=== PATIENT | male | born 1975 | race Caucasian/White ===

== ENCOUNTER 2017-08-23 14:30 | Emergency (ER) | payer BC, SELFPAY ==
[2017-08-23 14:30] VITALS: BP 119/76; PULSE 103; RESP 16; TEMP 36.9; O2SAT 99; BMI 19.2
--- NOTE | 2017-08-23 14:52 | EKG12_ITS ---
Test Reason : CP Blood Pressure : / mmHG Vent. Rate : 092 BPM Atrial Rate : 092 BPM P-R Int : 136 ms QRS Dur : 086 ms QT Int : 338 ms P-R-T Axes : 051 027 054 degrees QTc Int : 417 ms Normal sinus rhythm Normal ECG Confirmed by MARIELOS RICHARD, DANIELE ([id number]), managing editor SUSAN MARTIN ([id number]) on 08/29/2017 2:48:58 PM Referred By: Confirmed By:DANIELE ARCEO MD
--- NOTE | 2017-08-23 14:59 | RAD_ITS ---
STUDY: X-RAY CHEST REASON FOR EXAM: Male, 42 years old. Chest pain. TECHNIQUE: Single AP portable view of the chest. COMPARISON: Comparison is made with prior study dated January 11, 2016. FINDINGS: Hyperinflation. Scattered calcified granulomas. No acute abnormality is seen. There is no demonstrated pleural abnormality. Normal size heart. Normal mediastinum and stu. Normal visualized pulmonary arteries. Normal visualized aortic arch and descending thoracic aorta. Normal visualized thoracic spine. Normal visualized ribs, clavicles, and shoulders. There is no demonstrated abnormality of the visualized soft tissue structures of the upper abdomen. RAD/Chest 1 View (Portable) IMPRESSION: No acute abnormality is seen. Electronically Signed: Kurtis Samuel MD at 15:21 EDT Tel [phone], Service support ,
[2017-08-23 15:25] VITALS: O2SAT 98
[2017-08-23 15:38] LABS: Absolute Lymphocyte Count 1.49 X10^3/ul (0.83-4.51); Basophil# 0.03 X10^3/uL; Basophil% 0.6 % (0-1); Eosinophil# 0.06 X10^3/uL; Eosinophils% 1.2 % (0-5); Hematocrit 39.3 % (40-54); Hemoglobin 13.7 g/dl (13.0-16.5); Lymphocyte # 1.49 X10^3/ul (4.0); Lymphocyte % 29.9 % (19-41); Mean Corp Hgb Conc 34.9 g/gl (32-36); Mean Corpuscular Hgb 32.4 pg (27.0-32.0); Mean Corpuscular Volume 92.9 fL (80-94); Mean Platelet Vol. 9.9 fl (6.2-12.0); Monocyte# 0.38 X10^3/uL; Monocyte% 7.6 % (0-10); Neutrophil # 3.02 X10^3/uL (2.7-7.7); Neutrophil % 60.7 % (47-70); Platelet Count 241 K/mm3 (150-450); RBC Distribution Width CV 12.2 % (11.6-14.6); RBC Distribution Width SD 40.9 fl (35.1-43.9); Red Blood Count 4.23 M/mm3 (4.6-6.2)
[2017-08-23 15:40] LABS: POSITIVE COUNT NO; POSITIVE DIFFERENTIAL NO; POSITIVE MORPHOLOGY NO
[2017-08-23 16:00] LABS: Anion Gap 7 (5-15); BUN 21 mg/dL (7-18); BUN/Creat Ratio 18.4 RATIO (10-20); Calcium,Total 8.8 mg/dL (8.5-10.1); Chloride 104 mmol/L (98-107); Creatinine, Serum 1.14 mg/dL (0.70-1.30); EST Glomerular Filtration Rate 76 mL/min (>60); Est Glom Filt Rate - Afr Amer 92 mL/min (>60); Estimated Creatinine Clearance 71.84 ml/min; Glucose 95 mg/dL (74-106); Potassium 4.3 mmol/L (3.5-5.1); Sodium Level 142 mmol/L (136-145)
--- NOTE | 2017-08-23 16:12 | ED.DCSUM_ITS ---
- ER Visit Summary Date of Service: 08/23/17 Patient was evaluated by Dr. Coombs. This note was generated with [employer] dictation software. It may contain incorrect words, spelling, and punctuation that were not noted in review of the chart prior to signing ED Disposition - Plan for ED Patient: Disposition: Home or Assisted Living Chief Complaint: Allergic Reaction Instructions: ED Allergic Reaction General Other Referrals: Torres Manzanares MD [Primary Care Provider] - 3-5 Days if not improving
[2017-08-23 16:46] VITALS: BP 114/82; PULSE 80; RESP 13; O2SAT 98
--- NOTE | 2017-08-24 10:50 | ED.VISSUMM ---
- ER Visit Summary Date of Service: 08/24/17 Chief Complaint: Chest pain History of Present Illness: The patient is a [address] Manzanares. He reports he has chest pain that began today at 10:00 this morning. Some intermittent pain last 5-10 seconds at a time that he describes as squeezing. Pain is 1 out of 10 at worst and is pain-free currently. States it is worsened by nothing including exertion. Is also relieved by nothing. Reports he does feel mildly nauseated and short of breath. He denies any vomiting or diaphoresis. Patient reports that 2 days ago he was placed on nortriptyline 25 mg p.o. nightly and is looked up the side effects and believes that this is due for to this. He also reports that he stopped his Zoloft cold turkey at the same time. Physical Examination: Vitals: Stable. Afebrile. General: Well-nourished and well-developed. Head: Normocephalic atraumatic. Neck: Supple, no lymphadenopathy. No JVD. Nontender. Cardiovascular: Regular rate and rhythm. No murmurs. Respiratory: No respiratory distress. Clear to auscultation bilaterally. Abdominal: Soft, nontender, nondistended, normal bowel sounds. No guarding, rebound, or peritoneal signs. Back: Nontender. Extremities: Nontender, no edema. Skin: Normal color, no rash. Neurologic: Alert and oriented ?3. Cranial nerves II through XII are intact. Normal strength and sensation. Psych: Normal affect. Test Results: EKG is sinus at [address] changes. Chest x-ray is normal. CBC is normal. Chem-7 is more for BUN of 21. Troponins negative. Emergency Department Course and Treatment: Patient rested comfortably throughout her stay and emerge part without complaint. Treatment Plan: Had a prolonged discussion with patient about the likely possibility of this being related to his nortriptyline. Discussed the half-life with him and to follow-up with his primary care physician in 3-5 days if not improving. I also discussed with him that stopping his Zoloft abruptly is not a good idea and suggested that he restart this. Return to the emergency department for any worsening symptoms. Disposition: To home in improved and stable condition. Impression: 1. Atypical chest pain. 2. Adverse reaction to nortriptyline. This note was generated with [employer] dictation software. It may contain incorrect words, spelling, and punctuation that were not noted in review of the chart prior to signing ED Disposition - Plan for ED Patient: Disposition: Home or Assisted Living Chief Complaint: Allergic Reaction Instructions: ED Allergic Reaction General Other Referrals: Torres Manzanares MD [Primary Care Provider] - 3-5 Days if not improving
== END 2017-08-23 16:51 | disposition home or self-care (01) ==
PROVIDERS: Emergency Provider Emergency Medicine; Family Provider Family Medicine; PCP Family Medicine
DX: R07.89 Other chest pain (principal); T88.7XXA Unspecified adverse effect of drug or medicament, initial encounter; T43.015A Adverse effect of tricyclic antidepressants, initial encounter; Y92.9 Unspecified place or not applicable
CPT/HCPCS: 71045; 80048; 84484; 85025; 93005; 99283; A4216

== ENCOUNTER 2017-10-28 11:47 | Emergency (ER) | payer BC, SELFPAY ==
[2017-10-28 11:50] VITALS: BP 132/82; PULSE 103; RESP 17; TEMP 37; O2SAT 99; BMI 19.1
--- NOTE | 2017-10-28 12:02 | EKG12_ITS ---
Test Reason : NUMBNESS Blood Pressure : / mmHG Vent. Rate : 098 BPM Atrial Rate : 098 BPM P-R Int : 136 ms QRS Dur : 090 ms QT Int : 360 ms P-R-T Axes : 050 116 060 degrees QTc Int : 459 ms Normal sinus rhythm Indeterminate axis Borderline ECG Confirmed by MARIELOS RICHARD, DANIELE ([id number]), rewrite editor SUSAN MARTIN ([id number]) on 10/30/2017 3:26:54 PM Referred By: AYANA Confirmed By:DANIELE ARCEO MD
--- NOTE | 2017-10-28 12:08 | ED.DCSUM_ITS ---
- ER Visit Summary Date of Service: 10/28/17 Chief Complaint: Numbness and tingling History of Present Illness: The patient is a 42 M who reports feeling off since around 8 PM last evening. He developed numbness around his mouth and jaw this morning. He now states that he has numbness and tingling spread diffusely over his body. He has minimal chest pressure. No headache. No weakness. Patient recently had his Zoloft switched to Prozac, but states he has been on Prozac in the past without difficulty. He was also recently started on omeprazole. Physical Examination: Vital signs unremarkable. Patient sitting upright in bed no acute distress. Head neck examination is unremarkable. Heart is regular rate and rhythm. Strong pulses are palpable throughout. Lung sounds are clear. Abdomen is soft nontender. Neuro exam reveals normal strength throughout. He has decreased sensation to light touch throughout, but it is equal side to side. Skin examination reveals no overlying skin changes or rash. Test Results: EKG is sinus at 98 with no sign of acute ischemia. CBC is unremarkable. Chemistry studies reveal potassium slightly low at 3.4. Urinalysis normal. Troponin less than 0.015. Emergency Department Course and Treatment: Patient was given IV fluids here. He is given 40 mEq of potassium chloride. On review of the patient's chart, we have documented an allergy to omeprazole. Patient states he was just restarted on this medication. This was discussed with patient and at bedside. He will stop the omeprazole and will go back to taking Pepcid. He will also received 3 days of potassium replacement for home. Treatment Plan: [] Disposition: Discharge Impression: Paresthesias This note was generated with [employer] dictation software. It may contain incorrect words, spelling, and punctuation that were not noted in review of the chart prior to signing ED Disposition - Plan for ED Patient: Chief Complaint: Numb/Ting Referrals: Torres Manzanares MD [Primary Care Provider] -
[2017-10-28 12:20] LABS: Absolute Lymphocyte Count 1.29 X10^3/ul (0.83-4.51); Absolute Neutrophil Count 2.1 X10^3/uL (2.0-7.7); Basophil# 0.02 X10^3/uL; Basophil% 0.5 % (0-1); Eosinophil# 0.04 X10^3/uL; Eosinophils% 1.1 % (0-5); Hematocrit 39.3 % (40-54); Lymphocyte # 1.29 X10^3/ul (4.0); Lymphocyte % 34.8 % (19-41); Mean Corp Hgb Conc 35.6 g/gl (32-36); Mean Corpuscular Hgb 32.7 pg (27.0-32.0); Mean Corpuscular Volume 91.8 fL (80-94); Mean Platelet Vol. 9.8 fl (6.2-12.0); Monocyte% 8.1 % (0-10); Neutrophil # 2.05 X10^3/uL (2.7-7.7); Neutrophil % 55.2 % (47-70); Platelet Count 214 K/mm3 (150-450); RBC Distribution Width CV 12.1 % (11.6-14.6); RBC Distribution Width SD 40.1 fl (35.1-43.9); Red Blood Count 4.28 M/mm3 (4.6-6.2); White Blood Count 3.7 K/mm3 (4.4-11.0)
[2017-10-28 12:21] LABS: Bacteria 0 SEEN /hpf (None Seen); Mucous, Urine 0 SEEN /hpf (<or=2+); Red Blood Cells-Urine 0 SEEN /hpf (0-5); Squamous Epithelial Cells - UA 0 SEEN /hpf (0-5); White Blood Cells 0 SEEN /hpf (0-5)
[2017-10-28 12:22] LABS: POSITIVE COUNT NO; POSITIVE DIFFERENTIAL NO; POSITIVE MORPHOLOGY NO
[2017-10-28 12:25] LABS: Color, Urine Yellow (Yellow); Glucose, Dipstick Normal (Normal); Ketone-Dipstick Negative (Negative); Leukocyte Esterase-Dipstick Negative /ul (Negative); Nitrite-Dipstick Negative (Negative); Occult Blood-Urine Negative /ul (Negative); Protein-Dipstick Negative (Negative); Urine Bilirubin Dipstick Negative (Negative); Urine Clarity Clear (Clear); Urine Urobilinogen Normal (Normal)
[2017-10-28] MEDS: 0.9% Normal Saline 1,000 ML 1000 ML IV (12:27)
[2017-10-28 12:36] LABS: Anion Gap 6 (5-15); BUN 13 mg/dL (7-18); BUN/Creat Ratio 14.5 RATIO (10-20); Calcium,Total 8.5 mg/dL (8.5-10.1); Chloride 105 mmol/L (98-107); EST Glomerular Filtration Rate 100 mL/min (>60); Est Glom Filt Rate - Afr Amer 120 mL/min (>60); Estimated Creatinine Clearance 90.59 ml/min; Glucose 106 mg/dL (74-106); Potassium 3.4 mmol/L (3.5-5.1); Sodium Level 139 mmol/L (136-145)
--- NOTE | 2017-10-28 12:47 | ED.DEP ---
ED Disposition - Plan for ED Patient: Disposition: Home or Assisted Living Chief Complaint: Numb/Ting Instructions: ED Paraesthesias Prescriptions: Potassium Chloride [K-Dur] 40 meq PO DAILY #3 days Famotidine [Pepcid] 20 mg PO BID #60 tablet Referrals: Torres Manzanares MD [Primary Care Provider] - 1-2 Weeks
== END 2017-10-28 13:07 | disposition home or self-care (01) ==
PROVIDERS: Emergency Provider Emergency Medicine; Family Provider Family Medicine; PCP Family Medicine
DX: R20.2 Paresthesia of skin (principal); R07.9 Chest pain, unspecified; K21.9 Gastro-esophageal reflux disease without esophagitis; F32.9 Major depressive disorder, single episode, unspecified
CPT/HCPCS: 80048; 81001; 84484; 85025; 93005; 96360; 99284; J7030; A4216

== ENCOUNTER 2017-12-25 12:07 | Emergency (ER) | payer BC, SELFPAY ==
[2017-12-25 12:10] VITALS: BP 137/95; PULSE 90; RESP 17; TEMP 36.8; O2SAT 99; BMI 19.9
--- NOTE | 2017-12-25 12:34 | EKG12_ITS ---
Test Reason : CP Blood Pressure : / mmHG Vent. Rate : 088 BPM Atrial Rate : 088 BPM P-R Int : 142 ms QRS Dur : 090 ms QT Int : 366 ms P-R-T Axes : 064 -21 060 degrees QTc Int : 442 ms Normal sinus rhythm Normal ECG Confirmed by ZHANNA RICHARD, KEI ([id number]), field map editor SUSAN MARTIN ([id number]) on 12/26/2017 3:22:08 PM Referred By: JESSICA Confirmed By:KEI CHAO MD
--- NOTE | 2017-12-25 12:34 | RAD_ITS ---
STUDY: X-RAY CHEST REASON FOR EXAM: Male, 42 years old. Sternal chest pain. Right shoulder pain. TECHNIQUE: Single AP portable view of the chest. COMPARISON: Comparison is made with prior study dated August 24, 1999 FINDINGS: EKG electrodes are seen. Hyperinflation. Scattered calcified granulomas. There is no demonstrated pleural abnormality. Normal size heart. Normal mediastinum and stu. Normal visualized pulmonary arteries. Normal visualized aortic arch and descending thoracic aorta. Normal visualized thoracic spine. Normal visualized ribs, clavicles, and shoulders. There is no demonstrated abnormality of the visualized soft tissue structures of the upper abdomen. RAD/Chest 1 View (Portable) IMPRESSION: Hyperinflation. The lungs are clear. Electronically Signed: Kurtis Samuel MD at 12:58 EST Tel [phone], Service support ,
--- NOTE | 2017-12-25 12:35 | ED.VISSUMM ---
- ER Visit Summary Date of Service: 12/25/17 Chief Complaint: Chest pain History of Present Illness: The patient is a 42 M presenting with chest pain. This started at 8 AM. He has had 10-second episodes of sharp chest pain. He states it occasionally radiates to his right shoulder. Currently he is pain-free. At worst it is 6 out of 10. He has had several episodes today. He states it is not worsened or relieved by anything including exertion. He denies nausea, vomiting, diaphoresis, shortness of breath. He has had similar symptoms in the past. His grandfather had coronary artery disease at an unknown age, no other coronary disease risk factors. No PE/DVT risk factors. He has a history of rheumatoid arthritis and anxiety. He is a previous smoker. Physical Examination: Vitals are stable. Patient is afebrile. Alert no acute distress. HEENT exam is unremarkable. Neck is supple. Lungs are clear and equal bilaterally. Heart is regular rate and rhythm. Abdomen is soft nontender nondistended. Extremities are unremarkable. Skin is warm and dry. No focal neurologic deficit. Remainder of exam is unremarkable. Emergency Department Course and Treatment: EKG is sinus rate of 88 with no acute ischemic changes. Patient was given aspirin on arrival. Chest x-ray shows no acute process. CBC, chemistries unremarkable. Troponin is negative. D-dimer is negative. Repeat troponin is also negative. Patient is pain-free on reevaluation. He will be discharged to follow-up with his primary care physician. Advised return to ED if worsening complaints. Disposition: Discharge home Impression: Atypical chest pain This note was generated with [employer] dictation software. It may contain incorrect words, spelling, and punctuation that were not noted in review of the chart prior to signing ED Disposition - Plan for ED Patient: Chief Complaint: Chest Pain Referrals: Jenifer Bailon MD [Primary Care Provider] -
[2017-12-25 12:45] VITALS: O2SAT 99
[2017-12-25 12:46] LABS: Absolute Lymphocyte Count 1.38 X10^3/ul (0.83-4.51); Absolute Neutrophil Count 4.2 X10^3/uL (2.0-7.7); Basophil# 0.02 X10^3/uL; Basophil% 0.3 % (0-1); Eosinophil# 0.06 X10^3/uL; Hematocrit 41.2 % (40-54); Lymphocyte # 1.38 X10^3/ul (4.0); Lymphocyte % 22.8 % (19-41); Mean Corpuscular Hgb 32.6 pg (27.0-32.0); Mean Platelet Vol. 9.9 fl (6.2-12.0); Monocyte# 0.38 X10^3/uL; Monocyte% 6.3 % (0-10); Neutrophil % 69.4 % (47-70); POSITIVE COUNT NO; POSITIVE DIFFERENTIAL NO; POSITIVE MORPHOLOGY NO; Platelet Count 258 K/mm3 (150-450); RBC Distribution Width CV 12.7 % (11.6-14.6); RBC Distribution Width SD 42.7 fl (35.1-43.9); Red Blood Count 4.29 M/mm3 (4.6-6.2); White Blood Count 6.1 K/mm3 (4.4-11.0)
[2017-12-25] MEDS: Aspirin 81 MG TAB.CHEW 324 MG PO (12:47)
[2017-12-25 12:55] LABS: Anion Gap 3 (5-15); BUN 11 mg/dL (7-18); BUN/Creat Ratio 10.6 RATIO (10-20); Calcium,Total 8.4 mg/dL (8.5-10.1); Chloride 103 mmol/L (98-107); Creatinine, Serum 1.04 mg/dL (0.70-1.30); D-Dimer Quantitative (DVT/PE) < 0.27 FEU/ug/m (0.27-0.49); EST Glomerular Filtration Rate 84 mL/min (>60); Est Glom Filt Rate - Afr Amer 102 mL/min (>60); Estimated Creatinine Clearance 81.78 ml/min; Glucose 88 mg/dL (74-106); Potassium 3.9 mmol/L (3.5-5.1); Sodium Level 138 mmol/L (136-145)
[2017-12-25 13:08] VITALS: BP 115/84; PULSE 72; RESP 21; O2SAT 100
[2017-12-25 14:00] VITALS: BP 101/71; PULSE 57; RESP 11; O2SAT 97
[2017-12-25 15:00] VITALS: BP 99/65; PULSE 81; RESP 16; O2SAT 100
[2017-12-25 16:00] VITALS: BP 122/84; PULSE 86; RESP 20; O2SAT 100
--- NOTE | 2017-12-25 16:23 | ED.DEP ---
ED Disposition - Plan for ED Patient: Chief Complaint: Chest Pain Instructions: ED Chest Pain Atypical Unkn Cause Referrals: Jenifer Bailon MD [Primary Care Provider] -
== END 2017-12-25 16:35 | disposition home or self-care (01) ==
PROVIDERS: Emergency Provider Emergency Medicine; Family Provider Internal Medicine; PCP Internal Medicine
DX: R07.89 Other chest pain (principal); M06.9 Rheumatoid arthritis, unspecified; Z87.891 Personal history of nicotine dependence
CPT/HCPCS: 71045; 80048; 84484; 85025; 85379; 93005; 99283; A4216

== ENCOUNTER → 2018-01-18 06:53 | Outpatient (CLI) | payer BC, SELFPAY ==
[2017-12-25 12:10] VITALS: BMI 19.9
[2018-01-18 08:50] LABS: Hemoglobin A1c 5.2 % (4.2-6.3)
[2018-01-18 08:56] LABS: Cholesterol 162 mg/dL (200); High Density Lipoprotein 50 mg/dL; Thyroid Stim Hormone (TSH) 2.16 uIU/mL (0.358-3.74); Triglycerides 73 mg/dL; Very Low Density Lipoprotein 15 mg/dL (5-40)
== END ==
PROVIDERS: Family Provider Internal Medicine; PCP Internal Medicine; Referring Provider Internal Medicine; Visit Provider Internal Medicine
DX: R19.7 Diarrhea, unspecified (principal); Z13.220 Encounter for screening for lipoid disorders; Z13.1 Encounter for screening for diabetes mellitus; F32.9 Major depressive disorder, single episode, unspecified
CPT/HCPCS: 36415; 80061; 83036; 83630; 84443; 87506

== ENCOUNTER 2018-01-26 19:20 | Emergency (ER) | payer BC, SELFPAY ==
[2018-01-26 19:22] VITALS: BP 125/88; PULSE 88; RESP 20; TEMP 36.8; O2SAT 100; BMI 22.6
--- NOTE | 2018-01-26 19:44 | EKG12_ITS ---
Test Reason : CP Blood Pressure : / mmHG Vent. Rate : 088 BPM Atrial Rate : 088 BPM P-R Int : 138 ms QRS Dur : 092 ms QT Int : 366 ms P-R-T Axes : 047 034 043 degrees QTc Int : 442 ms Normal sinus rhythm Normal ECG Confirmed by MARIELOS RICHARD, DANIELE ([id number]), manager editorial SUSAN MARTIN ([id number]) on 01/31/2018 3:49:08 PM Referred By: Jenifer Bailon Confirmed By:DANIELE ARCEO MD
--- NOTE | 2018-01-26 19:45 | RAD_ITS ---
STUDY: X-RAY CHEST REASON FOR EXAM: Male, 42 years old. CHEST PAIN TECHNIQUE: Single AP portable view of the chest. COMPARISON: 12.25.17 FINDINGS: The lungs are clear and expanded. There is no demonstrated pleural abnormality. Normal size heart. Normal mediastinum and stu. Normal visualized pulmonary arteries. Normal visualized aortic arch and descending thoracic aorta. Normal visualized thoracic spine. Normal visualized ribs, clavicles, and shoulders. There is no demonstrated abnormality of the visualized soft tissue structures of the upper abdomen. RAD/Chest 1 View (Portable) IMPRESSION: Normal x-ray examination of the chest. Electronically Signed: Riky Donohue MD at 20:19 EST , Service support ,
[2018-01-26] MEDS: Mag Hydrox/Al Hydrox/Simeth 30 ML UDC PO (19:52)
[2018-01-26 19:53] LABS: Absolute Lymphocyte Count 1.66 X10^3/ul (0.83-4.51); Absolute Neutrophil Count 2.6 X10^3/uL (2.0-7.7); Basophil# 0.02 X10^3/uL; Basophil% 0.4 % (0-1); Eosinophil# 0.07 X10^3/uL; Eosinophils% 1.5 % (0-5); Hematocrit 39.9 % (40-54); Hemoglobin 13.6 g/dl (13.0-16.5); Lymphocyte # 1.66 X10^3/ul (4.0); Mean Corp Hgb Conc 34.1 g/gl (32-36); Mean Corpuscular Hgb 32.5 pg (27.0-32.0); Mean Corpuscular Volume 95.2 fL (80-94); Mean Platelet Vol. 10.2 fl (6.2-12.0); Monocyte# 0.41 X10^3/uL; Monocyte% 8.6 % (0-10); Neutrophil # 2.58 X10^3/uL (2.7-7.7); Neutrophil % 54.5 % (47-70); Platelet Count 237 K/mm3 (150-450); RBC Distribution Width CV 12.6 % (11.6-14.6); RBC Distribution Width SD 43.4 fl (35.1-43.9); Red Blood Count 4.19 M/mm3 (4.6-6.2); White Blood Count 4.7 K/mm3 (4.4-11.0)
[2018-01-26 19:54] LABS: POSITIVE COUNT NO; POSITIVE DIFFERENTIAL NO; POSITIVE MORPHOLOGY NO
[2018-01-26 20:05] LABS: Anion Gap 6 (5-15); BUN 16 mg/dL (7-18); BUN/Creat Ratio 15.8 RATIO (10-20); Calcium,Total 8.6 mg/dL (8.5-10.1); Chloride 107 mmol/L (98-107); Creatinine, Serum 1.01 mg/dL (0.70-1.30); EST Glomerular Filtration Rate 87 mL/min (>60); Est Glom Filt Rate - Afr Amer 105 mL/min (>60); Estimated Creatinine Clearance 92.82 ml/min; Glucose 90 mg/dL (74-106); Potassium 3.4 mmol/L (3.5-5.1); Sodium Level 142 mmol/L (136-145)
--- NOTE | 2018-01-26 20:19 | ED.RN ---
PATIENT STATES THAT THE HEART BURN AND CHEST PAIN HAVE GOTTEN BETTER. HE IS RATING IS PAIN AT 2/10.
--- NOTE | 2018-01-26 20:34 | ED.DCSUM_ITS ---
- ER Visit Summary Date of Service: 01/26/18 Chief Complaint: Chest pain History of Present Illness: The patient is a 42 M who states that today around 130 he was at work and to have an intermittent but frequent chest pain in the center of his chest radiating to his back and into the right arm. States he has nausea and associated heartburn with it he states he has had an EGD in the past was diagnosed with esophagitis. He quit alcohol around that time approximately 3 years ago. Quit smoking about 1 year ago quit chewing tobacco 1 month ago. He currently does not take anything for GERD. He has not had any diagnosis of coronary artery disease. No history of hypercholesterolemia or hypertension. He currently takes Zoloft and Remeron. No significant shortness of breath. As the symptoms were persisting to come and go he came to the emergency department for evaluation. Looking back over the past several years the patient states that the symptoms have been present but have been worsening. Physical Examination: Afebrile vital signs stable Gen: Well-nourished well-developed Head: Normocephalic atraumatic Eyes: Perrl EOMI ENT: TMs clear no rhinorrhea moist mucous membranes Neck: Supple no lymphadenopathy no JVD nontender CVS: Regular rate rhythm no murmurs normal S1-S2 Respiratory: No distress clear to auscultation bilaterally chest nontender Abdomen: Soft nontender nondistended normal bowel sounds no masses Back: Nontender Extremity: Nontender no edema Skin: Normal color no rash Neuro: alert orientated ?3 CN II-XII intact normal strength sensation reflexes gait cerebellar Psych: Normal affect normal mood Test Results: EKG sinus rhythm rate of 88. Troponin is negative. Chest x-ray no acute findings. Emergency Department Course and Treatment: Patient received a GI cocktail. I will place him on Pepcid twice daily. The patient was diagnosed with esophagitis in the past and he states that the symptoms seem to be continuing over the past several years but worsening I urged him to follow-up with primary care and by walking possibly require a repeat EGD. I will add on a H. pylori test. Impression: 1. Chest pain 2. Esophagitis This note was generated with [employer] software. It may contain incorrect words, spelling, and punctuation that were not noted in review of the chart prior to signing ED Disposition - Plan for ED Patient: Disposition: Home or Assisted Living Chief Complaint: Chest Pain Instructions: Esophagitis Prescriptions: Famotidine [Pepcid] 20 mg PO BID #28 tab Referrals: Jenifer Bailon MD [Primary Care Provider] - (in 2 weeks )
[2018-01-26 20:46] VITALS: BP 111/75; PULSE 83; PULSE 85; RESP 18; RESP 22; O2SAT 100; O2SAT 23
[2018-01-26 20:47] VITALS: BP 111/75; PULSE 99; RESP 22; O2SAT 100
--- OUTSIDE RECORDS SUMMARY | 2018-05-02 07:44 | XMS RPT_ITS ---
:1975 Author Organization OHIP Support Name Relationship Address Phone ELIOT JEAN BAPTISTE Unavailable [address] + [place] [phone] ELIOT JEAN BAPTISTE Unavailable [address] Unavailable [place], [place] [phone] NOT GIVEN Unavailable Unavailable Unavailable CONROY, SHELLY Unavailable Unavailable + CONROY, SHELLY Unavailable Unavailable + CONROY, GAUDENCIO Unavailable [address] + [place] [address] CONROY, CHRISTIAN Unavailable [address] [facility] + [place] [address] JEAN BAPTISTE, TEDDY Unavailable [address] + [place] [address] WOOGL Unavailable [address] + [place] [address] CONROY, CHRISTIAN Unavailable [address] + [place] [address] JEAN BAPTISTE, TEDDY Unavailable [address] + [place] [address] WOOGL Unavailable [address] + [place] [address] CONROY, SHELLY Unavailable Unavailable + CONROY, SHELLY Unavailable Unavailable + CONROY, GAUDENCIO Unavailable [address] + [place] [address] CONROY, SHELLY Unavailable Unavailable + CONROY, SHELLY Unavailable Unavailable + CONROY, GAUDENCIO Unavailable [address] + [place] [address] CONROY, CHRISTIAN Unavailable [address] [facility] + [place] [address] MARKLE TEDDY Unavailable [address] + [place] [address] WOOGL Unavailable [address] + [place] [address] CONROY, SHELLY Unavailable Unavailable + CONROY, SHELLY Unavailable Unavailable + CONROY, GAUDENCIO Unavailable [address] + [place] [address] CONROY, CHRISTIAN Unavailable [address] + [place] [address] MARKEL TEDDY Unavailable [address] + [place] [address] WOOGL Unavailable [address] + [place] [address] CONROY, SHELLY Unavailable Unavailable + CONROY, SHELLY Unavailable Unavailable + CONROY, GAUDENCIO Unavailable [address] + [place] [address] CONROY, SHELLY Unavailable Unavailable + CONROY, SHELLY Unavailable Unavailable + CONROY, GAUDENCIO Unavailable [address] + [place] [address] CONROY, CHRISTIAN Unavailable [address] + [place] [address] TEDDY JEAN BAPTISTE Unavailable [address] + [place] [address] WOOGL Unavailable [address] + [place] [address] CONROY, SHELLY Unavailable Unavailable + CONROY, SHELLY Unavailable Unavailable + CONROY, GAUDENCIO Unavailable [address] + [place] [address] CONROY, SHELLY Unavailable Unavailable + CONROY, SHELLY Unavailable Unavailable + CONROY, GADUENCIO Unavailable [address] + [place] [address] CONROY, SHELLY Unavailable Unavailable + CONROY, SHELLY Unavailable Unavailable + CONROY, SHELLY Unavailable Unavailable + CONROY, SHELLY Unavailable Unavailable + Care Team Providers Name Role Phone MONIQUE BAILON MD Admitting Unavailable MONIQUE BAILON MD Attending Unavailable MONIQUE BAILON MD Primary Care Unavailable MONIQUE BAILON MD Consulting Unavailable PROVIDER, UNKNOWN Consulting Unavailable PROVIDER, UNKNOWN Consulting Unavailable PROVIDER, UNKNOWN Consulting Unavailable BRICE SLOAN ([facility]) Attending Unavailable FREEMAN MANZANARES Referring Unavailable BRICE SLOAN ([facility]) Referring Unavailable FREEMAN MANZANARES Attending Unavailable PODLOGSHAREE MARI ([facility]) Attending Unavailable KENYATTA VERDIN ([facility]) Attending Unavailable KENYATTA VERDIN ([facility]) Referring Unavailable CEBUL III, JEN A Attending Unavailable DEEPIKA STROUD (PA) Attending Unavailable FREEMAN MANZANARES Referring Unavailable CECILIA ARREDONDO Attending Unavailable FREEMAN MANZANARES Referring Unavailable KENYATTA VERDIN ([facility]) Attending Unavailable KENYATTA VERDIN ([facility]) Referring Unavailable KENYATTA VERDIN ([facility]) Referring Unavailable SANGITA GOLDSTEIN (PA) Attending Unavailable FREEMAN MANZANARES Referring Unavailable SANGITA GOLDSTEIN (PA) Referring Unavailable CLOVER JIN ([employer]) Attending Unavailable CECILIA ARREDONDO Attending Unavailable CLOVER JIN ([employer]) Referring Unavailable FREEMAN MANZANARES Attending Unavailable KENYATTA VERDIN ([facility]) Referring Unavailable TIARA BRIGHT Referring Unavailable FREEMAN MANZANARES Attending Unavailable TO HEALY Attending Unavailable MONIQUE BAILON Referring Unavailable HERMELINDA KOROMA MD Attending Unavailable DARRIN TOMAS, DR. COURTNEY Caro Primary Care Unavailable OWOC DO, DR. RISA Shell Attending Unavailable DARRIN RICHARD., DR. COURTNEY Caro Primary Care Unavailable LAWRENCE GUILLAUME Attending Unavailable DARRIN RICHARD., DR. COURTNEY Caro Primary Care Unavailable HERMELINDA KOROMA MD Attending Unavailable DARRIN RICHARD., DR. COURTNEY Caro Primary Care Unavailable HERMELINDA KOROMA MD Attending Unavailable DARRIN TOMAS, DR. COURTNEY Caro Primary Care Unavailable HERMELINDA KOROMA MD Attending Unavailable GLENNA TOMAS, DR. MILLARD Primary Care Unavailable Andrea RICHARD, Rosie Tripathi Attending Unavailable GLENNA TOMAS, DR. MILLARD Primary Care Unavailable NITHIN NY DO Attending Unavailable GLENNA TOMAS, DR. MILLARD Primary Care Unavailable PHYSICIAN, PATIENT UNSURE Primary Care Unavailable JF CAMPBELL Attending Unavailable Rosie Mendez MD Attending Unavailable UVALDO TOMAS, MONIQUE Primary Care Unavailable Monique Bailon Primary Care Unavailable Sameer Fonseca Attending Unavailable Freeman Manzanares Primary Care Unavailable Gordy Coombs Attending Unavailable Freeman Manzanares Primary Care Unavailable Dot Last Attending Unavailable Mariaelena Acevedo Attending Unavailable Monique Bailon Primary Care Unavailable Monique Bailon Attending Unavailable Monique Bailon Referring Unavailable UvaldoMonique wei Primary Care Unavailable PROBLEMS PROBLEMS DATE TYPE CONDITION / CODE ATTENDING STATUS SOURCE 01/18/2018 Unknown Z13.220 - Monique Bailon Active [place] Encounter for Community screening for Hospital lipoid disorders Repository / Z13.220(ICD-10) 01/18/2018 Unknown Z13.1 - Encounter Monique Bailon Active [place] for screening for Community diabetes mellitus Hospital / Z13.1(ICD-10) Repository 01/18/2018 Unknown 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, single Hospital episode, Repository unspecified / F32.9(ICD-10) 10/18/2017 Active Hyperglycemia, NA Active [facility] unspecified / [facility] [place] R73.9(ICD-10) Repository 10/05/2017 Active Shortness of NA Active [facility] breath / [facility] [place] R06.02(ICD-10) Repository 08/31/2017 Active Myalgia / NA Active [facility] M79.1(ICD-10) [facility] [place] Repository 05/08/2017 Active Unknown / GLENNA Active [facility] UNK(Unknown) FREEMAN Aleman [facility] [place] Repository 03/17/2017 Active Encounter for NA Active [facility] therapeutic drug [facility] [place] level monitoring Repository / Z51.81(ICD-10) PROCEDURES PROCEDURES No Procedure Records FoundRESULTS RESULTS PROGRESS Observed: 02/23/2018 Status: COMPLETED Source: [facility] 5:42 AM [facility] REPOSITORY HNO ID: [id number] Author: To Healy Service: (none) Author Type: Physician Type: Progress Notes Filed: 02/23/2018 5:48 AM Note Text: HISTORY AND PHYSICAL Carlos A [place] 1975 REFERRING PHYSICIAN: Monique Bailon MD CHIEF COMPLAINT: Consult (Consult EGD- atypical chest pain-negative cardiac workup) HPI: The patient is a 42 year old male referred for endoscopy. Carlos A notes no history of colon complaints. The patient notes recurrent complaints for the last month and a half of epigastric pain and pain into his chest through to his arm. He feels this is likely recurrence of his reflux type symptoms area the patient has stopped alcohol and stopped all tobacco products and still having these symptoms. He was restarted on Pepcid without improvement. He has tried both Protonix and omeprazole. With pain in his chest radiating to his arm the patient underwent a stress test which was listed as negative for ischemia with good functional capacity and no exercise-induced chest pain Carlos A has undergone prior endoscopy. He underwent upper endoscopy on January 18, 2017. The patient was found to have mild gastritis and was felt to be enough flamelike pattern is his distal esophagus to be consistent with longer segment Soriano's esophagitis. FINAL DIAGNOSIS 1. Stomach, antrum, biopsy (A) - Gastric antral body-type mucosa with no pathologic diagnostic abnormality; see comment. 2. Esophagogastric junction, biopsy (B) - Gastric oxyntic- type mucosa with no pathologic diagnostic abnormality; negative for squamous mucosa, intestinal metaplasia and dysplasia. 3. Esophagus, mid, biopsy (C) - Squamous mucosa with no pathologic diagnostic abnormality; negative for intraepithelial eosinophils. 4. Esophagus, 3 cm above esophagogastric junction, biopsy (D) - Mild reactive squamous mucosa and mild chronic inflammation of the gastric oxyntic-type mucosa; negative for intestinal metaplasia and dysplasia. The patient is being seen by me today at the request of Dr. Bailon for my opinion and advice regarding recurring epigastric symptoms. PAST MEDICAL HISTORY Diagnosis Date - Acid indigestion 10/05/2016 Added automatically from request for surgery [id number] - Anxiety 01/20/2015 - History of alcohol abuse PAST SURGICAL HISTORY Procedure Laterality Date - EGD W/O OR W/BRUSH/WASH 01/18/2017 EGD - REPAIR UMBILICAL YULY,5+Y/O,REDUC 09/12/2017 Hernia repair, ventral/supraumbilical >5yr - VASECTOMY 02/23/12 Current Outpatient Prescriptions: Omeprazole 40 mg capsule DAILY pantoprazole DR (PROTONIX) 20 mg tablet Take 20 mg by mouth once daily. sertraline (ZOLOFT) 100 mg tablet take 1/2 tablet by mouth once daily for 14 days then INCREASE to 1 tablet daily cyclobenzaprine (FLEXERIL) 10 mg tablet Take 1 tablet by mouth three times daily as needed. fluticasone (FLONASE) 50 mcg/actuation nasal spray Use 2 Sprays in each nostril once daily. Rinse mouth after use. multivitamin tablet Take 1 tablet by mouth once daily. [place]-3 Fatty Acids (FISH OIL) 500 mg cap Take 2 capsules by mouth once daily. BACILLUS COAGULANS (PROBIOTIC, B. COAGULANS, ORAL) Take by mouth. methotrexate 2.5 mg tablet TAKE 5 TABLETS BY MOUTH ONCE A WEEK - START 4 TABLETS ONCE A WEEK FOR 2 WEEKS leucovorin (LEUCOVORIN) 15 mg tablet Take 1 tablet by mouth once each week. folic acid 1 mg tablet Take 2 tablets by mouth once daily. predniSONE (DELTASONE) 10 mg tablet Take 1 tablet by mouth once daily. hydrOXYzine pamoate (VISTARIL) 25 mg capsule Take 1 capsule by mouth three times daily as needed. venlafaxine ER (EFFEXOR XR) 75 mg 24 hr capsule Take 1 capsule by mouth once daily. FLUoxetine (PROZAC) 20 mg capsule Take 1 capsule by mouth once daily. mirtazapine (REMERON) 15 mg tablet Take 1 tablet by mouth daily at bedtime. famotidine (PEPCID) 20 mg tablet Take 1 tablet by mouth twice daily. fluticasone (FLONASE) 50 mcg/actuation nasal spray Use 2 Sprays in each nostril once daily. Rinse mouth after use. albuterol HFA (VENTOLIN HFA) 90 mcg/actuation inhaler Inhale 2 Puffs as instructed every 4 hours as needed for Wheezing/Shortness of Breath. No current facility-administered medications for this visit. ALLERGIES: Celexa [Citalopram Hydrobromide]; Doxycycline; Hydroxyzine; Nortriptyline; Omeprazole; Zantac [Ranitidine Hcl] PERSONAL HISTORY: Social History Marital status: Spouse name: Years of education: Number of children: 2 Social History Main Topics Smoking status: Former Smoker Packs/day: 0.50 Years: 0.00 Types: Cigarettes Start date: 03/12/2008 Quit date: 10/05/2016 Smokeless tobacco: Current User Types: Snuff Comment: 4-6 cigatettes a day from 2008-09/2016 Alcohol use: No Comment: Stopped drinking ETOH as of 12/2014 Drug use: No Sexual activity: Yes Partners with: Female control/protection: IUD FAMILY HISTORY: FAMILY HISTORY Problem Relation Age of Onset - Thyroid Mother - Hypertension Mother - other (ovarian mass) Mother benign - other (Gallstones) Mother - None Father - Alcohol/Drug Maternal Grandmother - Cancer Maternal Grandfather unknown - Alcohol/Drug Paternal Grandfather - Stroke Paternal Grandfather - Heart Paternal Grandfather - Cancer Maternal Aunt type unknown - Alcohol/Drug Maternal Aunt - Alcohol/Drug Maternal Aunt - Alcohol/Drug Maternal Aunt - Alcohol/Drug Maternal Uncle - Alcohol/Drug Paternal Aunt - Alcohol/Drug Paternal Aunt - Cerebral Embolism Son REVIEW OF SYMPTOMS: The review of systems data was entered by the nurse and reviewed by me There are no exam notes on file for this visit. PHYSICAL EXAMINATION: General: The patient is 42 year old male, well nourished, well hydrated in no acute distress. The patient is oriented to time, place, and person. VITALS: Blood pressure 104/68, pulse 89, temperature 36.4 ?C (97.6 ?F), height 175.3 cm (5' 9), weight 65.4 kg (144 lb 3.2 oz), SpO2 95 %. Body mass index is 21.29 kg/m?. HEENT: Normal cephalic, ataumatic, pupils are equally round, sclera are anicteric, mucous membranes are moist, oropharynx is clear. Neck has no masses, asymmetry or lymphadenopathy. Thyroid is unremarkable. Respiratory: Clear to auscultation and percussion. Normal respiratory excursion and pattern. Cardiac: Examination is regular rate and rhythm. Abdominal exam: Soft, nontender, with no palpable masses. No hepatosplenomegaly. No palpable hernias. Rectal exam: exam deferred Extremities: no clubbing, cyanosis or edema. No adenopathy. Other: LABORATORY VALUES: As Noted RADIOLOGIC STUDIES: As Noted Assessment IMPRESSION: Recurring epigastric symptoms, negative cardiac workup, clinical suspicion for Soriano's esophagitis PLAN: I plan to perform upper endoscopy. We discussed the risks and benefits of the planned endoscopy. I have informed the patient that complications can occur including failure to complete the endoscopy and perforation. The patient had the opportunity to ask questions concerning the planned endoscopy. My staff has also explained the procedure to the patient in understandable terms and has given the patient printed material concerning the procedure. The patient freely consents to surgery. I plan for monitored anesthetic care. Diagnoses: (R10.13) Epigastric pain (primary encounter diagnosis) A letter was sent to Dr. Monique Bailon MD indicating the above finding for this patient. Return to Clinic: The patient is instructed to follow-up with me after the testing has been completed. To Healy MD CNOV Observed: 02/22/2018 Status: COMPLETED Source: [facility] 10:40 AM [facility] RE[facility]IT[facility] Office Visit ([facility]) CARLOS A CONROY ([id number]) 1975 Date Time Provider Department 02/22/18 10:40 AM TO HEALY During your visit today, we recorded the following information about you: Temperature Pulse Blood pressure Weight 97.6 degrees 89/minute 104/68 65.4 kg Height 1.753 m To Healy MD 02/23/2018 5:48 AM Signed HISTORY AND PHYSICAL Carlos A [place] 1975 REFERRING PHYSICIAN: Monique Bailon MD CHIEF COMPLAINT: Consult (Consult EGD- atypical chest pain- negative cardiac workup) HPI: The patient is a 42 year old male referred for endoscopy. Carlos A notes no history of colon complaints. The patient notes recurrent complaints for the last month and a half of epigastric pain and pain into his chest through to his arm. He feels this is likely recurrence of his reflux type symptoms area the patient has stopped alcohol and stopped all tobacco products and still having these symptoms. He was restarted on Pepcid without improvement. He has tried both Protonix and omeprazole. With pain in his chest radiating to his arm the patient underwent a stress test which was listed as negative for ischemia with good functional capacity and no exercise-induced chest pain Carlos A has undergone prior endoscopy. He underwent upper endoscopy on January 18, 2017. The patient was found to have mild gastritis and was felt to be enough flamelike pattern is his distal esophagus to be consistent with longer segment Soriano's esophagitis. FINAL DIAGNOSIS 1. Stomach, antrum, biopsy (A) - Gastric antral body-type mucosa with no pathologic diagnostic abnormality; see comment. 2. Esophagogastric junction, biopsy (B) - Gastric oxyntic- type mucosa with no pathologic diagnostic abnormality; negative for squamous mucosa, intestinal metaplasia and dysplasia. 3. Esophagus, mid, biopsy (C) - Squamous mucosa with no pathologic diagnostic abnormality; negative for intraepithelial eosinophils. 4. Esophagus, 3 cm above esophagogastric junction, biopsy (D) - Mild reactive squamous mucosa and mild chronic inflammation of the gastric oxyntic-type mucosa; negative for intestinal metaplasia and dysplasia. The patient is being seen by me today at the request of Dr. Bailon for my opinion and advice regarding recurring epigastric symptoms. PAST MEDICAL HISTORY Diagnosis Date - Acid indigestion 10/05/2016 Added automatically from request for surgery [id number] - Anxiety 01/20/2015 - History of alcohol abuse PAST SURGICAL HISTORY Procedure Laterality Date - EGD W/O OR W/BRUSH/WASH 01/18/2017 EGD - REPAIR UMBILICAL YULY,5+Y/O,REDUC 09/12/2017 Hernia repair, ventral/supraumbilical >5yr - VASECTOMY 02/23/12 Current Outpatient Prescriptions: Omeprazole 40 mg capsule DAILY pantoprazole DR (PROTONIX) 20 mg tablet Take 20 mg by mouth once daily. sertraline (ZOLOFT) 100 mg tablet take 1/2 tablet by mouth once daily for 14 days then INCREASE to 1 tablet daily cyclobenzaprine (FLEXERIL) 10 mg tablet Take 1 tablet by mouth three times daily as needed. fluticasone (FLONASE) 50 mcg/actuation nasal spray Use 2 Sprays in each nostril once daily. Rinse mouth after use. multivitamin tablet Take 1 tablet by mouth once daily. [place]-3 Fatty Acids (FISH OIL) 500 mg cap Take 2 capsules by mouth once daily. BACILLUS COAGULANS (PROBIOTIC, B. COAGULANS, ORAL) Take by mouth. methotrexate 2.5 mg tablet TAKE 5 TABLETS BY MOUTH ONCE A WEEK - START 4 TABLETS ONCE A WEEK FOR 2 WEEKS leucovorin (LEUCOVORIN) 15 mg tablet Take 1 tablet by mouth once each week. folic acid 1 mg tablet Take 2 tablets by mouth once daily. predniSONE (DELTASONE) 10 mg tablet Take 1 tablet by mouth once daily. hydrOXYzine pamoate (VISTARIL) 25 mg capsule Take 1 capsule by mouth three times daily as needed. venlafaxine ER (EFFEXOR XR) 75 mg 24 hr capsule Take 1 capsule by mouth once daily. FLUoxetine (PROZAC) 20 mg capsule Take 1 capsule by mouth once daily. mirtazapine (REMERON) 15 mg tablet Take 1 tablet by mouth daily at bedtime. famotidine (PEPCID) 20 mg tablet Take 1 tablet by mouth twice daily. fluticasone (FLONASE) 50 mcg/actuation nasal spray Use 2 Sprays in each nostril once daily. Rinse mouth after use. albuterol HFA (VENTOLIN HFA) 90 mcg/actuation inhaler Inhale 2 Puffs as instructed every 4 hours as needed for Wheezing/Shortness of Breath. No current facility-administered medications for this visit. ALLERGIES: Celexa [Citalopram Hydrobromide]; Doxycycline; Hydroxyzine; Nortriptyline; Omeprazole; Zantac [Ranitidine Hcl] PERSONAL HISTORY: Social History Marital status: Spouse name: Years of education: Number of children: 2 Social History Main Topics Smoking status: Former Smoker Packs/day: 0.50 Years: 0.00 Types: Cigarettes Start date: 03/12/2008 Quit date: 10/05/2016 Smokeless tobacco: Current User Types: Snuff Comment: 4-6 cigatettes a day from 2008-09/2016 Alcohol use: No Comment: Stopped drinking ETOH as of 12/2014 Drug use: No Sexual activity: Yes Partners with: Female control/protection: IUD FAMILY HISTORY: FAMILY HISTORY Problem Relation Age of Onset - Thyroid Mother - Hypertension Mother - other (ovarian mass) Mother benign - other (Gallstones) Mother - None Father - Alcohol/Drug Maternal Grandmother - Cancer Maternal Grandfather unknown - Alcohol/Drug Paternal Grandfather - Stroke Paternal Grandfather - Heart Paternal Grandfather - Cancer Maternal Aunt type unknown - Alcohol/Drug Maternal Aunt - Alcohol/Drug Maternal Aunt - Alcohol/Drug Maternal Aunt - Alcohol/Drug Maternal Uncle - Alcohol/Drug Paternal Aunt - Alcohol/Drug Paternal Aunt - Cerebral Embolism Son REVIEW OF SYMPTOMS: The review of systems data was entered by the nurse and reviewed by me There are no exam notes on file for this visit. PHYSICAL EXAMINATION: General: The patient is 42 year old male, well nourished, well hydrated in no acute distress. The patient is oriented to time, place, and person. VITALS: Blood pressure 104/68, pulse 89, temperature 36.4 ?C (97.6 ?F), height 175.3 cm (5' 9), weight 65.4 kg (144 lb 3.2 oz), SpO2 95 %. Body mass index is 21.29 kg/m?. HEENT: Normal cephalic, ataumatic, pupils are equally round, sclera are anicteric, mucous membranes are moist, oropharynx is clear. Neck has no masses, asymmetry or lymphadenopathy. Thyroid is unremarkable. Respiratory: Clear to auscultation and percussion. Normal respiratory excursion and pattern. Cardiac: Examination is regular rate and rhythm. Abdominal exam: Soft, nontender, with no palpable masses. No hepatosplenomegaly. No palpable hernias. Rectal exam: exam deferred Extremities: no clubbing, cyanosis or edema. No adenopathy. Other: LABORATORY VALUES: As Noted RADIOLOGIC STUDIES: As Noted Assessment IMPRESSION: Recurring epigastric symptoms, negative cardiac workup, clinical suspicion for Soriano's esophagitis PLAN: I plan to perform upper endoscopy. We discussed the risks and benefits of the planned endoscopy. I have informed the patient that complications can occur including failure to complete the endoscopy and perforation. The patient had the opportunity to ask questions concerning the planned endoscopy. My staff has also explained the procedure to the patient in understandable terms and has given the patient printed material concerning the procedure. The patient freely consents to surgery. I plan for monitored anesthetic care. Diagnoses: (R10.13) Epigastric pain (primary encounter diagnosis) A letter was sent to Dr. Monique Bailon MD indicating the above finding for this patient. Return to Clinic: The patient is instructed to follow-up with me after the testing has been completed. To Healy MD Referring Provider: MONIUQE BAILON [[id number]] Allergies As of Date: 02/22/2018 Noted Allergy Reaction CELEXA (CITALOPRAM HYDROBROMIDE) 09/15/2016 1 - Mental Status Change Comments: [place] spacy DOXYCYCLINE 04/12/2005 11 - Vomiting HYDROXYZINE 03/17/2017 14 - Other: See Comments Comments: Migraine NORTRIPTYLINE 08/31/2017 16 - Unknown Comments: Chest pain OMEPRAZOLE 10/28/2017 8 - GI Upset ZANTAC (RANITIDINE HCL) 10/10/2016 8 - GI Upset Date Reviewed: 02/22/2018 Reviewed by: To Healy - Fully Assessed Reason for Visit: Consult [173] Cmt: Consult EGD- atypical chest pain-negative cardiac workup Primary Visit Diagnosis:Epigastric pain [R10.13] Order(s):EGD [[id number]] Order #: [id number] FUTURE Prescriptions as of 02/22/2018 Sig: OMEPRAZOLE 40 MG CAPSULE,OTILIA* DAILY PANTOPRAZOLE 20 MG TABLET,DEL* Take 20 mg by mouth once diego* SERTRALINE 100 MG TABLET take 1/2 tablet by mouth once* CYCLOBENZAPRINE 10 MG TABLET Take 1 tablet by mouth three * FLUTICASONE 50 MCG/ACTUATION * Use 2 Sprays in each nostril * MULTIVITAMIN TABLET Take 1 tablet by mouth once d* [place]-3 FATTY ACIDS 500 MG CA* Take 2 capsules by mouth once* PROBIOTIC (B. COAGULANS) ORAL Take by mouth. METHOTREXATE SODIUM 2.5 MG TA* TAKE 5 TABLETS BY MOUTH ONCE * LEUCOVORIN CALCIUM 15 MG TABL* Take 1 tablet by mouth once e* FOLIC ACID 1 MG TABLET Take 2 tablets by mouth once * PREDNISONE 10 MG TABLET Take 1 tablet by mouth once d* HYDROXYZINE PAMOATE 25 MG CAP* Take 1 capsule by mouth three* VENLAFAXINE ER 75 MG CAPSULE,* Take 1 capsule by mouth once * FLUOXETINE 20 MG CAPSULE Take 1 capsule by mouth once * MIRTAZAPINE 15 MG TABLET Take 1 tablet by mouth daily * FAMOTIDINE 20 MG TABLET Take 1 tablet by mouth twice * FLUTICASONE 50 MCG/ACTUATION * Use 2 Sprays in each nostril * ALBUTEROL SULFATE HFA 90 MCG/* Inhale 2 Puffs as instructed * Medication notes this encounter METHOTREXATE SODIUM 2.5 MG TABLET >> Rod Howard LPN 02/22/2018 10:40 AM >> ROD HOWARD LPN [facility] Feb 22, 2018 10:40 AM Please d/c LEUCOVORIN CALCIUM 15 MG TABLET >> Rod Howard LPN 02/22/2018 10:41 AM >> ROD HOWARD LPN [facility] Feb 22, 2018 10:41 AM Please d/C FOLIC ACID 1 MG TABLET >> Rod Howard LPN 02/22/2018 10:41 AM >> ROD HOWARD LPN [facility] Feb 22, 2018 10:41 AM Please d/c PREDNISONE 10 MG TABLET >> Rod Howard LPN 02/22/2018 10:41 AM >> ROD HOWARD LPN [facility] Feb 22, 2018 10:41 AM Please d/c HYDROXYZINE PAMOATE 25 MG CAPSULE >> Rod Howard LPN 02/22/2018 10:41 AM >> ROD HOWARD LPN [facility] Feb 22, 2018 10:41 AM Please D/c VENLAFAXINE ER 75 MG CAPSULE,EXTENDED RELEASE 24 HR >> Rod Howard LPN 02/22/2018 10:41 AM >> ROD HOWARD LPN [facility] Feb 22, 2018 10:41 AM Please d/c FLUOXETINE 20 MG CAPSULE >> Rod Howard LPN 02/22/2018 10:41 AM >> ROD HOWARD LPN [facility] Feb 22, 2018 10:41 AM Please d/c FAMOTIDINE 20 MG TABLET >> Rod Howard LPN 02/22/2018 10:42 AM >> ROD HOWARD LPN [facility] Feb 22, 2018 10:42 AM please d/c FLUTICASONE 50 MCG/ACTUATION NASAL SPRAY,SUSPENSION >> Rod Howard LPN 02/22/2018 10:42 AM >> ROD HOWARD LPN [facility] Feb 22, 2018 10:42 AM please d/c duplicate ALBUTEROL SULFATE HFA 90 MCG/ACTUATION AEROSOL INHALER >> Rod Howard LPN 02/22/2018 10:42 AM >> ROD HOWARD LPN [facility] Feb 22, 2018 10:42 AM please d/c Problem List As Of Date 02/22/2018 Noted Resolved DYSTHYMIC DISORDER [F34.1] INVALID FOR* TENSION HEADACHE [G44.209] INVALID FOR* Hypoglycemia [E16.2] INVALID FOR* More... Sterilization [Z30.2] INVALID FOR*10/10/2016 Cigarette nicotine dependence with nicotine-ind*INVALID FOR* History of alcohol abuse [Z87.898] Anxiety [F41.9] INVALID FOR* Generalized abdominal pain [R10.84] INVALID FOR*10/10/2016 Altered bowel function [R19.8] INVALID FOR* More... Abdominal cramping, generalized [R10.84] INVALID FOR* More... Acid indigestion [K30] INVALID FOR* More... Generalized abdominal discomfort [R10.84] INVALID FOR* More... Gastro-esophageal reflux disease without esopha*INVALID FOR* Umbilical hernia [K42.9] INVALID FOR* More... Letter Text Encounter Status:Closed by TO HEALY MD on 02/23/18 CNPN Observed: 02/15/2018 Status: COMPLETED Source: [place] 12:00 AM [facility] REPOSITORY Telephone ([facility]) CARLOS A CONROY ([id number]) 1975 M Date Time Provider Department 02/15/18 TO HEALY During your visit today, we recorded the following information about you: Brenda Velazquez Psr 02/15/2018 3:40 PM Signed 1st attempt to reach patient to schedule consult with Dr healy for EGD.Brenda Velazquez Psr Cecelia Crockett Psr 02/15/2018 4:16 PM Signed Spoke to patient who has been scheduled with Dr. Healy on 02/22. Patient voiced understanding. Allergies As of Date: 02/15/2018 Noted Allergy Reaction CELEXA (CITALOPRAM HYDROBROMIDE) 09/15/2016 1 - Mental Status Change Comments: [place] spacy DOXYCYCLINE 04/12/2005 11 - Vomiting HYDROXYZINE 03/17/2017 14 - Other: See Comments Comments: Migraine NORTRIPTYLINE 08/31/2017 16 - Unknown Comments: Chest pain OMEPRAZOLE 10/28/2017 8 - GI Upset ZANTAC (RANITIDINE HCL) 10/10/2016 8 - GI Upset Date Reviewed: 12/13/2017 Reviewed by: Olivia Redmond Ma - Fully Assessed Reason for Visit: TCB [3576] Prescriptions as of 02/15/2018 Sig: METHOTREXATE SODIUM 2.5 MG TA* TAKE 5 TABLETS BY MOUTH ONCE * LEUCOVORIN CALCIUM 15 MG TABL* Take 1 tablet by mouth once e* FOLIC ACID 1 MG TABLET Take 2 tablets by mouth once * PREDNISONE 10 MG TABLET Take 1 tablet by mouth once d* HYDROXYZINE PAMOATE 25 MG CAP* Take 1 capsule by mouth three* VENLAFAXINE ER 75 MG CAPSULE,* Take 1 capsule by mouth once * CYCLOBENZAPRINE 10 MG TABLET Take 1 tablet by mouth three * FLUOXETINE 20 MG CAPSULE Take 1 capsule by mouth once * MIRTAZAPINE 15 MG TABLET Take 1 tablet by mouth daily * FLUTICASONE 50 MCG/ACTUATION * Use 2 Sprays in each nostril * FAMOTIDINE 20 MG TABLET Take 1 tablet by mouth twice * MULTIVITAMIN TABLET Take 1 tablet by mouth once d* OMEGA-3 FATTY ACIDS 500 MG CA* Take 2 capsules by mouth once* FLUTICASONE 50 MCG/ACTUATION * Use 2 Sprays in each nostril * PROBIOTIC (B. COAGULANS) ORAL Take by mouth. ALBUTEROL SULFATE HFA 90 MCG/* Inhale 2 Puffs as instructed * Problem List As Of Date 02/15/2018 Noted Resolved DYSTHYMIC DISORDER [F34.1] INVALID FOR* TENSION HEADACHE [G44.209] INVALID FOR* Hypoglycemia [E16.2] INVALID FOR* More... Sterilization [Z30.2] INVALID FOR*10/10/2016 Cigarette nicotine dependence with nicotine-ind*INVALID FOR* History of alcohol abuse [Z87.898] Anxiety [F41.9] INVALID FOR* Generalized abdominal pain [R10.84] INVALID FOR*10/10/2016 Altered bowel function [R19.8] INVALID FOR* More... Abdominal cramping, generalized [R10.84] INVALID FOR* More... Acid indigestion [K30] INVALID FOR* More... Generalized abdominal discomfort [R10.84] INVALID FOR* More... Gastro-esophageal reflux disease without esopha*INVALID FOR* Umbilical hernia [K42.9] INVALID FOR* More... Encounter Status:Closed by CARATHERS BRENDA VALLADARES on 02/15/18 STRESS TEST (DGEST) Observed: 02/14/2018 Status: F [facility] 10:21 AM [place] [address] Patient: LOU CONROY Phone#: : [phone] Age: 42 Gender: M Pt. Type: Out Account: [id number] Location: Ordering: MONIQUE BAILON Exam Date: 02/14/2018/8:30 Family Phys: Charge Code: [id number] Physician: Luquillo Order #: [id number] DLP Dose#: PROCEDURE: DGEST HISTORY: 42-year-old male pain, shortness of breath and anxiety INDICATIONS: Atypical chest pain TECHNIQUE: Electrocardiogram stress test was performed using the protocol listed below. STRESS RESULTS: Protocol: Modified Yoni Duration: 15:41minutes Reason for termination: Leg fatigue Resting Heart Rate: 88 bpm. Resting Blood Pressure: 107/77 mmHg Peak Heart Rate: 187 which is 103% of maximum predicted heart rate Peak Blood Pressure: 156/71 occurred 8:50 into exercise Workload: 14.40 METs. Symptoms with stress: No exercise induced chest pain EKG Data EKG at Baseline: Normal sinus rhythm. Right axis deviation. Abnormal EKG EKG with Stress: No acute ST-T wave changes suggestive of ischemia with peak exercise. No significant dysrhythmias noted. CONCLUSION: 1. Negative exercise EKG only stress test for ischemia. 2. Good functional capacity. 3. No exercise-induced chest pain. 4. Normal blood pressure and heart rate response to exercise. 5. No significant dysrhythmias. 6. No nuclear images are associated with the study. Continued Report - Page 2 of 2 Patient: LOU CONROY Phone#: : 1975 Age: 42 Gender: M Pt. Type: Out Account: [id number] Location: Ordering: MONIQUE BAILON Exam Date: 02/14/2018/8:30 Family Phys: Charge Code: [id number] Physician: Luquillo Order #: [id number] DLP Dose#: 7. No prior study available for comparison. Dictated by: MANUEL DAILY on 02/15/2018 at 9:41 Approved by: MANUEL DAILY on 02/15/2018 at 9:41 XR CHEST 2 VIEWS Observed: 02/10/2018 Status: F Source: [place] [facility] 2:08 PM [facility] REPOSITORY ORIGINAL XR CHEST 2 VIEWS CLINICAL STATEMENT: Chest Pain, left-sided chest pain since last night COMPARISON: 10/16/2017 chest x-ray FINDINGS: The cardiomediastinal contours are normal. There is no consolidation, vascular congestion, pleural effusion, or pneumothorax. A few scattered calcified granulomas are noted, unchanged. There a re no acute osseous findings. Overlying chest leads. IMPRESSION: No acute cardiopulmonary findings. I have personally reviewed the images of this examination and agree with the resident's findings and interpretation. Interpreted By: Desean Bustillo MD Preliminary Report By: Abner Ma DO Electronically Signed By: Desean Bustillo MD Dictated Date: 02/10/2018 2:10:06 PM Prelim Date: 02/10/2018 2:12:32 PM Sign Date: 02/10/2018 2:33:13 PM CBC Collected: 02/10/2018 Status: F Source: [place] [facility] 1:53 PM [facility] REPOSIT[facility] TYPE CODE TESTS RESULT OUT OF REFERENCE UNITS RANGE LAB WBC(LOINC) 4.60-10.80 10 3/mcL WBC 5.10 LAB RBCCT(LOINC 4.04-6.13 10 6/mcL ) RBC 4.50 LAB HGB(LOINC) 14.0-18.0 G/dL Hgb 14.6 LAB HCT(LOINC) 42.0-52.0 % Hct 43.0 LAB MCV(LOINC) 80.0-94.0 fL High MCV 95.6 LAB MCH(LOINC) 27.0-31.2 pg High MCH 32.4 LAB MCHC(LOINC) 31.8-35.4 G/dL MCHC 33.9 LAB RDW(LOINC) 11.5-14.5 % RDW 12.8 LAB PLT(LOINC) 130-400 10 3/mcL Platelet 217 LAB MPV(LOINC) 7.4-10.4 fL MPV 8.8 Performed By: #### CBC, ADIFF, ANEU #### [address] [address] #### BMP, GFR, TROP #### [address] [address] .AUTO DIFF Collected: 02/10/2018 Status: F Source: [facility] 1:53 PM [facility] REPOSITORY TYPE CODE TESTS RESULT OUT OF REFERENCE UNITS RANGE LAB EYAL(LOINC) 37.0-80.0 % Neutrophil % 66.0 LAB LYM(LOINC) 10.0-50.0 % Lymphocyte % 24.4 LAB MON(LOINC) 1.7-13.0 % Monocyte % 8.2 LAB EO(LOINC) 0.0-7.0 % Eosinophil % 0.9 LAB BAS(LOINC) 0.0-2.5 % Basophil % 0.5 LAB ABLYM(LOIN 0.77-3.85 10 3/mcL C) Lymphocyte, 1.20 Absolute LAB JASON(LOINC 0.15-1.00 10 3/mcL ) Monocyte, 0.40 Absolute LAB AEOS(LOINC 0.00-0.40 10 3/mcL ) Eosinophil, 0.00 Absolute LAB ABAS(LOINC 0.00-0.19 10 3/mcL ) Basophil, 0.00 Absolute Performed By: #### CBC, ADIFF, ANEU #### [place] [id number] #### BMP, GFR, TROP #### [address] [address] .NEUABS Collected: 02/10/2018 Status: F Source: [facility] 1:53 PM [facility] REPOSITORY TYPE CODE TESTS RESULT OUT OF REFERENCE UNITS RANGE LAB ANEU(LOINC) 2.85-6.16 10 3/mcL Neutrophil, 3.40 Absolute Performed By: #### CBC, ADIFF, ANEU #### [place] [id number] #### BMP, GFR, TROP #### [address] [address] BMP Collected: 02/10/2018 Status: F Source: [facility] 1:53 [facility] REPOSITORY TYPE CODE TESTS RESULT OUT OF REFERENCE UNITS RANGE LAB GLU(LOINC) 70-105 mg/dL Low Glucose Level 67 LAB NA(LOINC) 136-145 mmol/L Sodium High Level 146 LAB K(LOINC) 3.5-5.1 mmol/L Potassium Level 3.7 LAB CL(LOINC) 98-107 mmol/L Chloride 106 LAB CO2(LOINC) 22-29 mmol/L CO2 High 30 LAB EBAL(LOINC mEq/L ) Electrolyte Balance 10.0 LAB BUN(LOINC) 7-18 mg/dL BUN 11 LAB CRE(LOINC) 0.70-1.30 mg/dL Creatinine Lvl (s) 0.90 LAB BC(LOINC) 7-27 ratio BUN/Creatinine 12 Ratio LAB CA(LOINC) 8.4-10.2 mg/dL Calcium Lvl 8.6 Performed By: #### CBC, ADIFF, ANEU #### [address] [address] #### BMP, GFR, TROP #### [address] [address] .GFR Collected: 02/10/2018 Status: F Source: [facility] 1:53 [facility] REPOSITORY TYPE CODE TESTS RESULT OUT OF REFERENCE UNITS RANGE LAB GFRAA(LOINC ml/min/1.73 ) sqm GFR 113 [place] Result Comment: GFR Population mean for , Non- Americans Ages 20-29 = 116 mL/min/1.73 sq.m. Ages 30-39 = 107 mL/min/1.73 sq.m. Ages 40-49 = 99 mL/min/1.73 sq.m. Ages 50-59 = 93 mL/min/1.73 sq.m. Ages 60-69 = 85 mL/min/1.73 sq.m. Ages 70+ = 75 mL/min/1.73 sq.m. Chronic Kidney Disease: Less than 60 mL/min/1.73 square meters End Stage Renal Disease: Less than 15 mL/min/1.73 square meters LAB GFRNO(LOINC) ml/min/1.73sqm GFR Non- 93 Result Comment: GFR Population mean for , Non- Americans Ages 20-29 = 116 mL/min/1.73 sq.m. Ages 30-39 = 107 mL/min/1.73 sq.m. Ages 40-49 = 99 mL/min/1.73 sq.m. Ages 50-59 = 93 mL/min/1.73 sq.m. Ages 60-69 = 85 mL/min/1.73 sq.m. Ages 70+ = 75 mL/min/1.73 sq.m. Chronic Kidney Disease: Less than 60 mL/min/1.73 square meters End Stage Renal Disease: Less than 15 mL/min/1.73 square meters Performed By: #### CBC, ADIFF, ANEU #### [address] [address] #### BMP, GFR, TROP #### [address] [address] TROP Collected: 02/10/2018 Status: F Source: [facility] 1:53 PM [facility] REPOSITORY TYPE CODE TESTS RESULT OUT OF REFERENCE UNITS RANGE LAB TROP(LOINC) 0.000-0.040 ng/mL Troponin <0.020 Result Comment: Troponin I reference range: 0.00-0.040 ng/mL Negative and non-diagnostic. >0.040 ng/mL Consistent with cardiac damage, increased clinical risk and possibility of myocardial infarction. Serial measurements, a rise & fall in test results, clinical history, appropriate symptoms and/or ECG changes may help assess possibility of NM. *Other non-acute coronary syndrome conditions such as CHF, myocarditis, pulmonary emboli, sepsis and cardiac surgery could result in myocardial damage and increased troponin levels. Performed By: #### CBC, ADIFF, ANEU #### [address] [address] #### BMP, GFR, TROP #### [address] [address] 12 LEAD ELECTROCARDIOGRAM Observed: 01/31/2018 Status: F Source: [place] 3:49 PM [facility] REPOSITORY [facility] Cardiovascular Services [address] [place] [address] 12 Lead EKG 01/26/181927 MR#: [id number] Acct: [id number] Name: LOU CONROY Rep #: [id number] : 1975 42 From: Ander Bradley MD Attending Dr: Status: DEP ER Ordering Dr: Sameer Fonseca DO Date: 01/26/18 Location: ED Sex: M C Admitted: Test Reason : CP Blood Pressure : / mmHG Vent. Rate : 088 BPM Atrial Rate : 088 BPM P-R Int : 138 ms QRS Dur : 092 ms QT Int : 366 ms P-R-T Axes : 047 034 043 degrees QTc Int : 442 ms Normal sinus rhythm Normal ECG Confirmed by ANDER BRADLEY MD ([id number]), online editor SUSAN MARTIN ([id number]) on 01/31/2018 3:49:08 PM Referred By: Monique Bailon Confirmed By:ANDER BRADLEY MD 01/31/18 1549 Date Ander Bradley MD CC: Sameer Fonseca DO; Monique Bailon MD Signed EMERGENCY DEPARTMENT Observed: 01/26/2018 Status: F Source: [place] SUMMARY 10:39 PM [facility] REPOSITORY [facility] Medical Records Department [address] [place] [address] Emergency Department Summary 01/26/182032 MR#: [id number] Acct: [id number] Name: LOU CONROY Rep #: [id number] : 1975 42 From: Sameer Fonseca DO PCP: Monique Bailon MD Status: DEP ER - ER Visit Summary Date of Service: 01/26/18 Chief Complaint: Chest pain History of Present Illness: The patient is a 42 M who states that today around 130 he was at work and to have an intermittent but frequent chest pain in the center of his chest radiating to his back and into the right arm. States he has nausea and associated heartburn with it he states he has had an EGD in the past was diagnosed with esophagitis. He quit alcohol around that time approximately 3 years ago. Quit smoking about 1 year ago quit chewing tobacco 1 month ago. He currently does not take anything for GERD. He has not had any diagnosis of coronary artery disease. No history of hypercholesterolemia or hypertension. He currently takes Zoloft and Remeron. No significant shortness of breath. As the symptoms were persisting to come and go he came to the emergency department for evaluation. Looking back over the past several years the patient states that the symptoms have been present but have been worsening. Physical Examination: Afebrile vital signs stable Gen: Well-nourished well-developed Head: Normocephalic atraumatic Eyes: Perrl EOMI ENT: TMs clear no rhinorrhea moist mucous membranes Neck: Supple no lymphadenopathy no JVD nontender CVS: Regular rate rhythm no murmurs normal S1-S2 Respiratory: No distress clear to auscultation bilaterally chest nontender Abdomen: Soft nontender nondistended normal bowel sounds no masses Back: Nontender Extremity: Nontender no edema Skin: Normal color no rash Neuro: alert orientated 3 CN II-XII intact normal strength sensation reflexes gait cerebellar Psych: Normal affect normal mood Test Results: EKG sinus rhythm rate of 88. Troponin is negative. Chest x-ray no acute findings. Emergency Department Course and Treatment: Patient received a GI cocktail. I will place him on Pepcid twice daily. The patient was diagnosed with esophagitis in the past and he states that the symptoms seem to be continuing over the past several years but worsening I urged him to follow-up with primary care and by walking possibly require a repeat EGD. I will add on a H. pylori test. Impression: 1. Chest pain 2. Esophagitis This note was generated with Starvine dictation software. It may contain incorrect words, spelling, and punctuation that were not noted in review of the chart prior to signing ED Disposition - Plan for ED Patient: Disposition: Home or Assisted Living Chief Complaint: Chest Pain Instructions: Esophagitis Prescriptions: Famotidine [Pepcid] 20 mg PO BID #28 tab Referrals: Monique Bailon MD [Primary Care Provider] - (in 2 weeks ) What to do if you have Problems For any increased pain, shortness of breath, bleeding, nausea or vomiting, chest pain, or any unexpected problems, contact your Primary Care Provider. Call [facility] ([phone]) or report to the closest Emergency Room. Call 911 if necessary. 01/26/18 2239 <Electronically signed by Sameer Fonseca DO> Date Sameer Fonseca DO Cosigner Signature (If Indicated): Date CC: Monique Bailon MD H. PYLORI ANTIBODY Collected: 01/26/2018 Status: F Source: [place] (IGG) 8:40 PM [facility] REPOSITORY TYPE CODE TESTS RESULT OUT OF RANGE REFERENCE UNITS LAB L3100.1900 0.00-0.79 Normal H.PYLORI 0.20 [id number] Result Comment: Result Units: Index Value Negative <0.80 Equivocal 0.80 - 0.89 Positive >0.89 Performed at: [facility] [id number] Dental Aide: Bg Prater PhD, Phone: [phone] Performed By: #### L3100.1900 #### [facility] (refer to report for specific site) refer to report for address and phone number CHEST 1 VIEW Observed: 01/26/2018 Status: F Source: [place] (PORTABLE) 7:45 PM [facility] REPOSITORY [facility] Imaging Services [address] [place] [address] Chest 1 View (Portable) MR#: [id number] Acct: [id number] Name: LOU CONROY Rep #: [id number] : 1975 M 42 From: Riky Donohue MD PCP: Monique Bailon MD Status: REG ER Study: Chest 1 View (Portable) Date of Exam: 01/26/18 Exam# [id number] Ordering Dr: Sameer Fonseca DO STUDY: X-RAY CHEST REASON FOR EXAM: Male, 42 years old. CHEST PAIN TECHNIQUE: Single AP portable view of the chest. COMPARISON: 12.25.17 FINDINGS: The lungs are clear and expanded. There is no demonstrated pleural abnormality. Normal size heart. Normal mediastinum and stu. Normal visualized pulmonary arteries. Normal visualized aortic arch and descending thoracic aorta. Normal visualized thoracic spine. Normal visualized ribs, clavicles, and shoulders. There is no demonstrated abnormality of the visualized soft tissue structures of the upper abdomen. RAD/Chest 1 View (Portable) IMPRESSION: Normal x-ray examination of the chest. 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 CBC W/DIFF, AUTOMATED Collected: 01/26/2018 Status: F Source: [place] 7:25 PM [facility] REPOSITORY TYPE CODE TESTS RESULT OUT OF RANGE REFERENCE UNITS LAB L100.1000 4.4-11.0 K/mm3 Normal WBC 4.7 LAB L100.1200 4.6-6.2 M/mm3 Low RBC 4.19 LAB L100.1300 13.0-16.5 g/dl Normal HGB 13.6 LAB L100.1400 40-54 % Low HCT 39.9 LAB L100.1500 80-94 fL High MCV 95.2 LAB L100.1600 27.0-32.0 pg High MCH 32.5 LAB L100.1700 32-36 g/gl Normal MCHC 34.1 LAB L100.1810 11.6-14.6 % Normal RDW CV 12.6 LAB L100.1820 35.1-43.9 fl Normal RDW SD 43.4 LAB L100.1900 150-450 K/mm3 Normal PLT 237 LAB L100.2000 6.2-12.0 fl Normal MPV 10.2 LAB L100.2100 47-70 % Normal NEUT% 54.5 LAB L100.2200 19-41 % Normal LY% 35.0 LAB L100.2300 0-10 % Normal MONO% 8.6 LAB L100.2400 0-5 % Normal EO% 1.5 LAB L100.2500 0-1 % Normal BASO% 0.4 LAB L100.2550 0.0-0.9 % Normal IM GRAN % 0.000 Result Comment: IG% - Immature Granulocytes (promyelocytes, myelocytes and metamyelocytes) > 1% indicates that a LEFT SHIFT is Present. LAB L100.2620 2.0-7.7 X10 3/uL Normal Absolute Neut 2.6 LAB L100.2720 0.83-4.51 X10 3/ul Normal Absolute Lymph 1.66 Performed By: #### L100.0100 #### [facility] [address] [place], [place], [address] BASIC METABOLIC Collected: 01/26/2018 Status: F Source: [place] PROFILE (BMP) 7:25 PM [facility] REPOSITORY TYPE CODE TESTS RESULT OUT OF RANGE REFERENCE UNITS LAB L501.0100 74-106 mg/dL Normal GLU 90 Result Comment: Please note revised GLUCOSE reference range effective 2017. LAB L501.1000 7-18 mg/dL Normal BUN 16 LAB L501.1100 0.70-1.30 mg/dL Normal CREAT,SERUM 1.01 Result Comment: The validity of the calculated GFR AND GFRAA in patients over 70 years has not been determined. Clinical correlation is essential. LAB L501.1110 >60 mL/min Normal EST GFR 87 Result Comment: Non- GFR Calc LAB L501.1115 >60 mL/min Normal EST GFR - AA 105 Result Comment: GFR Calc LAB L501.1255 ml/min Normal Estimated CRCL 92.82 LAB L501.1300 10-20 RATIO Normal BUN/CRE 15.8 LAB L501.2200 8.5-10 mg/dL Normal .1 CA 8.6 LAB L501.5300 136-14 mmol/L Normal 5 NA 142 LAB L501.5600 3.5-5. mmol/L Low 1 K 3.4 LAB L501.5900 98-107 mmol/L Normal CL 107 LAB L501.6100 21.0-3 mmol/L Normal 2.0 CO2 29.0 LAB L501.6200 5-15 Normal GAP 6 Performed By: #### L500.2500, L501.4010 #### [facility] [address] [place], [address] TROPONIN-I Collected: 01/26/2018 Status: F Source: [place] 7:25 PM [facility] REPOSITORY TYPE CODE TESTS RESULT OUT OF RANGE REFERENCE UNITS LAB L501.4010 <0.045 ng/mL Normal < 0.015 TROPONIN-I Result Comment: TROPONIN-I EXPECTED VALUES <0.045 Negative 0.045 - 0.590 Consistent with Cardiac Damage > OR = 0.600 Critical Value Not every elevated troponin is indicative of NM. These values should be used with clinical judgement in examining the patient's clinical picture for diagnosis. To establish a diagnosis of NM versus myocardial injury, there must be a demonstrated rise and/or fall in the troponin values, in addition to ischemic symptoms, EKG changes, new regional wall motion abnormality, and/or angiographical evidence. PLEASE NOTE: REFERENCE RANGES EDITED 17 Performed By: #### L500.2500, L501.4010 #### [facility] [address] [place], [address] STOOL Observed: 01/18/2018 Status: F Source: [place] LACTOFERRIN/WBC 12:15 PM [facility] REPOSITORY Stool Lacto/WBC Normal Reference Range = Negative Fecal WBC Lactoferrin Negative: No Fecal WBC Lactoferrin present Performed By: #### M100.0605, M100.637 #### [facility] [address] [place], [address] Observed: 01/18/2018 Status: F Source: [place] ENTERIC PATHOGEN 12:15 PM [facility] PANEL STOOL REPOSITORY EP PANEL STOOL CAMPYLOBACTER Not Detected Salmonella Not Detected Shigella sp. Not Detected Shiga Toxin Not Detected Yersinia Not Detected VIBRIO Not Detected Norovirus Not Detected Rotavirus Not Detected Performed By: #### M100.0605, M100.637 #### [facility] [address] [place], [address] HEMOGLOBIN A1C Collected: 01/18/2018 Status: F Source: [place] 6:58 AM [facility] REPOSITORY TYPE CODE TESTS RESULT OUT OF RANGE REFERENCE UNITS LAB L501.9985 4.2-6.3 % Normal HGB A1C 5.2 Performed By: #### L501.9985 #### [facility] [address] [facility] [place], [address] LIPID PROFILE Collected: 01/18/2018 Status: F Source: [place] 6:58 AM [facility] REPOSITORY TYPE CODE TESTS RESULT OUT OF RANGE REFERENCE UNITS LAB L501.4900 200 mg/dL Normal CHOL 162 Result Comment: <200 mg/dL Desirable 200-240 mg/dL Borderline >240 mg/dL High Risk LAB L501.5000 mg/dL Normal TRIG 73 Result Comment: The drugs N-Acetylcysteine and Metamizole may falsely depress this assay. Serum Triglycerides Reference Interval Normal <150 mg/dL Borderline high 150 - 199 mg/dL High 200 - 499 mg/dL Very High > or = 500 mg/dL LAB L501.6400 mg/dL Normal HDL 50 Result Comment: The drugs N-Acetylcysteine and Metamizole may falsely depress this assay. Reference Range HDL <40 mg/dL Low HDL Cholesterol HDL >or= 60 mg/dL High HDL Cholesterol LAB L501.6500 0-130 mg/dL Normal LDL 97 LAB L501.6600 5-40 mg/dL Normal VLDL 15 Performed By: #### L500.4100, L501.9520 #### [facility] [facility] [address] [place], [place], [address] THYROID STIM HORMONE Collected: 01/18/2018 Status: F Source: [place] (TSH) 6:58 AM [facility] REPOSITORY TYPE CODE TESTS RESULT OUT OF RANGE REFERENCE UNITS LAB L501.9520 0.358-3.74 uIU/mL Normal TSH 2.16 Performed By: #### L500.4100, L501.9520 #### [facility] [address] [place], [address] CNCO Observed: 01/15/2018 Status: COMPLETED Source: [place] 12:00 AM [facility] REPOSITORY Letter Text [facility] [address] [facility]. [place], [place] [address] 01/15/2018 Carlos A Conroy [id number] [address] [facility] [address] Dear Mr. Conroy: I noted on my schedule today that we had an appointment. I am sorry I missed you. I realize that there are many distractions and busy schedules. Please call ahead of time, if you are unable to make it. If this was because of a miscommunication, please ensure that you speak with one of the schedulers over the phone/in person after each appointment (this is the safest way, since we can't guarantee that you will receive your appointments via mail). If you need to cancel, please call us in advance. Thanks for your understanding, and hope to see you again soon. Sincerely, Freeman Manzanares MD 12 LEAD ELECTROCARDIOGRAM Observed: 12/26/2017 Status: F Source: [place] 3:22 PM [facility] REPOSITORY [facility] Cardiovascular Services [address] [place] [address] 12 Lead EKG 12/25/17 1213 MR#: [id number] Acct: [id number] Name: LOU CONROY Rep #: [id number] : 1975 42 From: Александр Landry MD Attending Dr: Status: DEP ER Ordering Dr: Mariaelena Acevedo MD Date: 12/25/17 Location: ED Sex: M C Admitted: Test Reason : CP Blood Pressure : / mmHG Vent. Rate : 088 BPM Atrial Rate : 088 BPM P-R Int : 142 ms QRS Dur : 090 ms QT Int : 366 ms P-R-T Axes : 064 -21 060 degrees QTc Int : 442 ms Normal sinus rhythm Normal ECG Confirmed by ZHANNA RICHARD, АЛЕКСАНДР ([id number]), online editor SUSAN MARTIN ([id number]) on 12/26/2017 3:22:08 PM Referred By: JESSICA Confirmed By:АЛЕКСАНДР LANDRY MD 12/26/17 1522 Date Александр Landry MD CC: Mariaelena Acevedo MD; Monique Bailon MD Signed DISCHARGE INSTRUCTION Observed: 12/25/2017 Status: F Source: [place] 4:24 PM [facility] REPOSITORY [facility] Medical Records Department [address] [place] [address] Discharge Instruction 12/25/17 1623 MR#: [id number] Acct: [id number] Name: LOU CONROY Rep #: [id number] : 1975 42 From: Mariaelena Acevedo MD PCP: Monique Bailon MD Status: REG ER ED Disposition - Plan for ED Patient: Chief Complaint: Chest Pain Instructions: ED Chest Pain Atypical Unkn Cause Referrals: Monique Bailon MD [Primary Care Provider] - What to do if you have Problems For any increased pain, shortness of breath, bleeding, nausea or vomiting, chest pain, or any unexpected problems, contact your Primary Care Provider. Call [facility] ([phone]) or report to the closest Emergency Room. Call 911 if necessary. 12/25/17 1624 <Electronically signed by Mariaelena Acevedo MD> Date Mariaelena Acevedo MD Cosigner Signature (If Indicated): Date CC: Monique Bailon MD EMERGENCY DEPARTMENT Observed: 12/25/2017 Status: F Source: [place] SUMMARY 4:23 PM [facility] REPOSITORY [facility] Medical Records Department [address] [place] [address] Emergency Department Summary 12/25/17 1235 MR#: [id number] Acct: [id number] Name: LOU CONROY Jessy Rep #: [id number] : 1975 42 From: Mariaelena Acevedo MD PCP: Monique Bailon MD Status: REG ER - ER Visit Summary Date of Service: 12/25/17 Chief Complaint: Chest pain History of Present Illness: The patient is a 42 M presenting with chest pain. This started at 8 AM. He has had 10-second episodes of sharp chest pain. He states it occasionally radiates to his right shoulder. Currently he is pain-free. At worst it is 6 out of 10. He has had several episodes today. He states it is not worsened or relieved by anything including exertion. He denies nausea, vomiting, diaphoresis, shortness of breath. He has had similar symptoms in the past. His grandfather had coronary artery disease at an unknown age, no other coronary disease risk factors. No PE/DVT risk factors. He has a history of rheumatoid arthritis and anxiety. He is a previous smoker. Physical Examination: Vitals are stable. Patient is afebrile. Alert no acute distress. HEENT exam is unremarkable. Neck is supple. Lungs are clear and equal bilaterally. Heart is regular rate and rhythm. Abdomen is soft nontender nondistended. Extremities are unremarkable. Skin is warm and dry. No focal neurologic deficit. Remainder of exam is unremarkable. Emergency Department Course and Treatment: EKG is sinus rate of 88 with no acute ischemic changes. Patient was given aspirin on arrival. Chest x-ray shows no acute process. CBC, chemistries unremarkable. Troponin is negative. D-dimer is negative. Repeat troponin is also negative. Patient is pain-free on reevaluation. He will be discharged to follow-up with his primary care physician. Advised return to ED if worsening complaints. Disposition: Discharge home Impression: Atypical chest pain This note was generated with Starvine dictation software. It may contain incorrect words, spelling, and punctuation that were not noted in review of the chart prior to signing ED Disposition - Plan for ED Patient: Chief Complaint: Chest Pain Referrals: Monique Bailon MD [Primary Care Provider] - What to do if you have Problems For any increased pain, shortness of breath, bleeding, nausea or vomiting, chest pain, or any unexpected problems, contact your Primary Care Provider. Call [facility] ([phone]) or report to the closest Emergency Room. Call 911 if necessary. 12/25/17 6114 <Electronically signed by Mariaelena Acevedo MD> Date Mariaelena Acevedo MD Cosigner Signature (If Indicated): Date CC: Monique Bailon MD TROPONIN-I Collected: 12/25/2017 Status: F Source: [place] 3:20 PM [facility] REPOSITORY Order Comment: 'TROP' Serial specimen #1, #2 or #3: 2 TYPE CODE TESTS RESULT OUT OF RANGE REFERENCE UNITS LAB L501.4010 <0.045 ng/mL Normal < 0.015 TROPONIN-I Result Comment: TROPONIN-I EXPECTED VALUES <0.045 Negative 0.045 - 0.590 Consistent with Cardiac Damage > OR = 0.600 Critical Value Not every elevated troponin is indicative of NM. These values should be used with clinical judgement in examining the patient's clinical picture for diagnosis. To establish a diagnosis of NM versus myocardial injury, there must be a demonstrated rise and/or fall in the troponin values, in addition to ischemic symptoms, EKG changes, new regional wall motion abnormality, and/or angiographical evidence. PLEASE NOTE: REFERENCE RANGES EDITED 17 Performed By: #### L501.4010 #### [facility] [address] [facility] [place], [address] CHEST 1 VIEW Observed: 12/25/2017 Status: F Source: [place] (PORTABLE) 12:35 PM [facility] REPOSITORY [facility] Imaging Services [address] [place] [address] Chest 1 View (Portable) MR#: [id number] Acct: [id number] Name: LOU CONROY Rep #: [id number] : 1975 M 42 From: Kurtis Samuel MD PCP: Monique Bailon MD Status: REG ER Study: Chest 1 View (Portable) Date of Exam: 12/25/17 Exam# [id number] Ordering Dr: Mariaelena Acevedo MD STUDY: X-RAY CHEST REASON FOR EXAM: Male, 42 years old. Sternal chest pain. Right shoulder pain. TECHNIQUE: Single AP portable view of the chest. COMPARISON: Comparison is made with prior study dated August 24, 1999 FINDINGS: EKG electrodes are seen. Hyperinflation. Scattered calcified granulomas. There is no demonstrated pleural abnormality. Normal size heart. Normal mediastinum and stu. Normal visualized pulmonary arteries. Normal visualized aortic arch and descending thoracic aorta. Normal visualized thoracic spine. Normal visualized ribs, clavicles, and shoulders. There is no demonstrated abnormality of the visualized soft tissue structures of the upper abdomen. RAD/Chest 1 View (Portable) IMPRESSION: Hyperinflation. The lungs are clear. 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 CBC W/DIFF, AUTOMATED Collected: 12/25/2017 Status: F Source: [place] 12:20 PM [facility] REPOSITORY TYPE CODE TESTS RESULT OUT OF RANGE REFERENCE UNITS LAB L100.1000 4.4-11.0 K/mm3 Normal WBC 6.1 LAB L100.1200 4.6-6.2 M/mm3 Low RBC 4.29 LAB L100.1300 13.0-16.5 g/dl Normal HGB 14.0 LAB L100.1400 40-54 % Normal HCT 41.2 LAB L100.1500 80-94 fL High MCV 96.0 LAB L100.1600 27.0-32.0 pg High MCH 32.6 LAB L100.1700 32-36 g/gl Normal MCHC 34.0 LAB L100.1810 11.6-14.6 % Normal RDW CV 12.7 LAB L100.1820 35.1-43.9 fl Normal RDW SD 42.7 LAB L100.1900 150-450 K/mm3 Normal PLT 258 LAB L100.2000 6.2-12.0 fl Normal MPV 9.9 LAB L100.2100 47-70 % Normal NEUT% 69.4 LAB L100.2200 19-41 % Normal LY% 22.8 LAB L100.2300 0-10 % Normal MONO% 6.3 LAB L100.2400 0-5 % Normal EO% 1.0 LAB L100.2500 0-1 % Normal BASO% 0.3 LAB L100.2550 0.0-0.9 % Normal IM GRAN % 0.200 Result Comment: IG% - Immature Granulocytes (promyelocytes, myelocytes and metamyelocytes) > 1% indicates that a LEFT SHIFT is Present. LAB L100.2620 2.0-7.7 X10 3/uL Normal Absolute Neut 4.2 LAB L100.2720 0.83-4.51 X10 3/ul Normal Absolute Lymph 1.38 Performed By: #### L100.0100 #### [facility] [address] [place], [address] BASIC METABOLIC Collected: 12/25/2017 Status: F Source: [place] PROFILE (BMP) 12:20 PM [facility] REPOSITORY TYPE CODE TESTS RESULT OUT OF RANGE REFERENCE UNITS LAB L501.0100 74-106 mg/dL Normal GLU 88 Result Comment: Please note revised GLUCOSE reference range effective 2017. LAB L501.1000 7-18 mg/dL Normal BUN 11 LAB L501.1100 0.70-1.30 mg/dL Normal CREAT,SERUM 1.04 Result Comment: The validity of the calculated GFR AND GFRAA in patients over 70 years has not been determined. Clinical correlation is essential. LAB L501.1110 >60 mL/min Normal EST GFR 84 Result Comment: Non- GFR Calc LAB L501.1115 >60 mL/min Normal EST GFR - AA 102 Result Comment: GFR Calc LAB L501.1255 ml/min Normal Estimated CRCL 81.78 LAB L501.1300 10-20 RATIO Normal BUN/CRE 10.6 LAB L501.2200 8.5-10 mg/dL Low .1 CA 8.4 LAB L501.5300 136-14 mmol/L Normal 5 NA 138 LAB L501.5600 3.5-5. mmol/L Normal 1 K 3.9 LAB L501.5900 98-107 mmol/L Normal CL 103 LAB L501.6100 21.0-3 mmol/L Normal 2.0 CO2 32.0 LAB L501.6200 5-15 Low GAP 3 Performed By: #### L500.2500, L501.4010 #### [facility] [address] [place], [place], [address] TROPONIN-I Collected: 12/25/2017 Status: F Source: [place] 12:20 PM [facility] REPOSITORY TYPE CODE TESTS RESULT OUT OF RANGE REFERENCE UNITS LAB L501.4010 <0.045 ng/mL Normal < 0.015 TROPONIN-I Result Comment: TROPONIN-I EXPECTED VALUES <0.045 Negative 0.045 - 0.590 Consistent with Cardiac Damage > OR = 0.600 Critical Value Not every elevated troponin is indicative of NM. These values should be used with clinical judgement in examining the patient's clinical picture for diagnosis. To establish a diagnosis of NM versus myocardial injury, there must be a demonstrated rise and/or fall in the troponin values, in addition to ischemic symptoms, EKG changes, new regional wall motion abnormality, and/or angiographical evidence. PLEASE NOTE: REFERENCE RANGES EDITED 17 Performed By: #### L500.2500, L501.4010 #### [facility] [address] [place], [address] D-DIMER QUANTITATIVE Collected: 12/25/2017 Status: F Source: [place] (DVT/PE) 12:20 PM [facility] REPOSITORY TYPE CODE TESTS RESULT OUT OF RANGE REFERENCE UNITS LAB L300.8000 0.27-0.49 FEU/ug/m Low D-DIMER < 0.27 QUANT Result Comment: NORMAL D-Dimer level (<0.50) indicates no DVT or PE. Performed By: #### L300.8000 #### [facility] [address] [place], [place], [address] PROGRESS Observed: 12/13/2017 Status: COMPLETED Source: [place] 1:22 PM [facility] REPOSITORY O ID: [id number] Author: Freeman Manzanares Service: (none) Author Type: Physician Type: Progress Notes Filed: 12/14/2017 5:26 PM Note Text: Chief Complaint Patient presents with: Anxiety Imm/Inj: Flu Vaccine HPI Carlos A Conroy is a 42 year old male who presents here today for anxiety. Anxiety: states his anxiety has not been well controlled, if anything it has worsened. He states he was on Zoloft 200 mg and then was switched to Prozac 60 mg. He does not follow with a counselor. He is having sx of nervousness, uneasy, he states this has been going on for 3 years now. He does have trouble sleeping, states that the Remeron 15 mg at bedtime does help. He states that the anxiety is debilitating, effecting his work. Pt has been on several medications in the past, Celexa, Wellbutrin, Zoloft, and vistaril. He admits that he should have tried to give some of these medications more time to work. Fibromyalgia and Rheumatoid Arthritis: has been following with Dr. Bright who did blood work and dx pt with fibro and RA. Pt is taking Prednisone 10 mg daily for 3 days as needed for flare ups, Methotrexate 2.5 mg, folic acid, Valium 5 mg daily, and Leucovorin 15 mg once weekly. Past medical history, appointments, medications, allergies reviewed. Previous Medical History PAST MEDICAL HISTORY Diagnosis Date - Acid indigestion 10/05/2016 Added automatically from request for surgery [id number] - Anxiety 01/20/2015 - History of alcohol abuse Previous Surgical History PAST SURGICAL HISTORY Procedure Laterality Date - EGD W/O OR W/BRUSH/WASH 01/18/2017 EGD - REPAIR UMBILICAL YULY,5+Y/O,REDUC 09/12/2017 Hernia repair, ventral/supraumbilical >5yr - VASECTOMY 02/23/12 Family History FAMILY HISTORY Problem Relation Age of Onset - Thyroid Mother - Hypertension Mother - other (ovarian mass) Mother benign - other (Gallstones) Mother - None Father - Alcohol/Drug Maternal Grandmother - Cancer Maternal Grandfather unknown - Alcohol/Drug Paternal Grandfather - Stroke Paternal Grandfather - Heart Paternal Grandfather - Cancer Maternal Aunt type unknown - Alcohol/Drug Maternal Aunt - Alcohol/Drug Maternal Aunt - Alcohol/Drug Maternal Aunt - Alcohol/Drug Maternal Uncle - Alcohol/Drug Paternal Aunt - Alcohol/Drug Paternal Aunt - Cerebral Embolism Son Patient Allergies ALLERGIES Allergen Reactions - Celexa [Citalopram * Mental Status Change [place] spacy - Doxycycline Vomiting - Hydroxyzine Other: See Comments Migraine - Nortriptyline Unknown Chest pain - Omeprazole GI Upset - Zantac [Ranitidine * GI Upset Current Medications Current Outpatient Prescriptions on File Prior to Visit: fluticasone (FLONASE) 50 mcg/actuation nasal spray Use 2 Sprays in each nostril once daily. Rinse mouth after use. famotidine (PEPCID) 20 mg tablet Take 1 tablet by mouth twice daily. FLUoxetine (PROZAC) 20 mg capsule Take 3 capsules by mouth once daily. multivitamin tablet Take 1 tablet by mouth once daily. [place]-3 Fatty Acids (FISH OIL) 500 mg cap Take 2 capsules by mouth once daily. cyclobenzaprine (FLEXERIL) 10 mg tablet Take 1 tablet by mouth three times daily as needed. BACILLUS COAGULANS (PROBIOTIC, B. COAGULANS, ORAL) Take by mouth. albuterol HFA (VENTOLIN HFA) 90 mcg/actuation inhaler Inhale 2 Puffs as instructed every 4 hours as needed for Wheezing/Shortness of Breath. naproxen (NAPROSYN) 500 mg tablet Take 1 tablet by mouth twice daily as needed for Pain. Take with food. (Patient not taking: Reported on 11/14/2017 ) fluticasone (FLONASE) 50 mcg/actuation nasal spray Use 2 Sprays in each nostril once daily. Rinse mouth after use. No current facility-administered medications on file prior to visit. Social History Social History Marital status: Spouse name: Years of education: Number of children: 2 Social History Main Topics Smoking status: Former Smoker Packs/day: 0.50 Years: 0.00 Types: Cigarettes Start date: 03/12/2008 Quit date: 10/05/2016 Smokeless tobacco: Current User Types: Snuff Comment: 4-6 cigatettes a day from 2008-09/2016 Alcohol use: No Comment: Stopped drinking ETOH as of 12/2014 Drug use: No Sexual activity: Yes Partners with: Female control/protection: IUD EXAM: BP 124/78 Pulse 76 Temp 36.6 ?C (97.8 ?F) (Tympanic) Resp 16 Wt 63 kg (139 lb) BMI 20.53 kg/m? General Appearance: Well appearing, alert, in no acute distress, well-hydrated, well nourished.. Lungs: Lungs clear to auscultation. No wheezing, rhonchi, rales. Heart: RRR without murmur, gallop, or rubs. No ectopy. Health Maintenance List INFLUENZA(1) due on 10/14/2017 LIPID SCREEN due on 04/02/2018 DTAP,TDAP,TD(3 - Td) due on 08/05/2027 ONE PNEUMOVAX PRIOR TO AGE 65 Completed Data reviewed none ASSESSMENT/PLAN: 1. Anxiety - ICD9: 300.00, ICD10: F41.9 (primary diagnosis) Cut the Prozac down to 20 mg a day for a month along with the Effexor 75 mg daily. Do not just stop the Prozac. May use the Hydroxyzine (Vistaril) 25 mg up to three times a day as needed. 2. Need for vaccination - ICD9: V05.9, ICD10: Z23 - INFLUENZA VACCINE QUADRIVALENT AGE 3 YRS PLUS + IM 3. Fibromyalgia - ICD9: 729.1, ICD10: M79.7 Continue current medications Continue to follow with Dr. Bright 4. Rheumatoid arthritis, involving unspecified site, unspecified rheumatoid factor presence (HCC) - ICD9: 714.0, ICD10: M06.9 Continue current medications Continue to follow with Dr. Bright 5. Gastro-esophageal reflux disease without esophagitis - ICD9: 530.81, ICD10: K21.9 Continue current medications. Follow up in 1 month. I agree with the Chief Complaint, ROS, and Past Histories independently gathered by the clinical marketing support specialist and the remaining scribed note accurately describes my personal service to the patient. Freeman Manzanares MD The documentation for this note was completed by Olivia Redmond Ma acting as scribe for Freeman Manzanares MD. December 13, 2017 1:26 PM. 42 year old male here for INACTIVATED INFLUENZA VACCINE. 3506-3463 Season Patient is identified by name and date of : Yes [] CONTRAINDICATIONS color enhanced section Age less than 6 months? No Allergy to eggs, chicken, chicken feathers, or chicken dander? No Allergy to thimerosal (a preservative) or formaldehyde, gelatin? No History of severe reaction to any vaccine component or a previous dose of influenza vaccination? No History of Guillain-Storden Syndrome within 6 weeks after a previous influenza vaccine? No Patient is not moderately or severely ill? No Current temperature greater or equal to 100.4F? No History of Bone Marrow Transplant prior 6 months or solid organ transplant in the past 3 months ? No History of fainting after a prior injection or medical procedure? No- ? If patient has fainted in the past, the CDC recommends sitting or lying down for 15 minutes after the vaccination. [] VERIFICATION color enhanced section Was the answer Yes for any of the above contraindications? No contraindications present. Acceptable to proceed with vaccine. Patient/guardian agrees the above answers are true to the best of their knowledge? Yes Flu vaccine information sheet given? Yes See immunization activity in [facility] for details of immunizations adminstered today. Patient age: [age] year old For The 5639-1225 Flu Season 6-35 months old: Fluzone 0.25 ml - IM (Preservative Free) 3 years of age: Fluzone 0.5 ml - IM (Preservative Free) 3 years and older: Fluzone 0.5 ml- IM-(with Preservatives) 65+ years old: 2-49 years old Fluzone High-Dose 0.5 ml - IM (Preservative Free) FLUMIST- intranasal REMEMBER: If patient is less than 9 years of age and this is the first vaccine of Influenza to be received in any flu season, they should receive a second dose in one months time. CNOV Observed: 12/13/2017 Status: COMPLETED Source: [place] 1:20 PM [facility] RE[facility]IT[facility] CARLOS A CONROY ([id number]) 1975 M Date Time Provider Department 12/13/17 1:20 PM FREEMAN MANZANARES During your visit today, we recorded the following information about you: Temperature Pulse Respiration Blood pressure 97.8 degrees 76/minute 16/minute 124/78 Weight 63 kg Freeman Manzanares MD 12/14/2017 5:26 PM Signed Chief Complaint Patient presents with: Anxiety Imm/Inj: Flu Vaccine HPI Carlos A Conroy is a 42 year old male who presents here today for anxiety. Anxiety: states his anxiety has not been well controlled, if anything it has worsened. He states he was on Zoloft 200 mg and then was switched to Prozac 60 mg. He does not follow with a counselor. He is having sx of nervousness, uneasy, he states this has been going on for 3 years now. He does have trouble sleeping, states that the Remeron 15 mg at bedtime does help. He states that the anxiety is debilitating, effecting his work. Pt has been on several medications in the past, Celexa, Wellbutrin, Zoloft, and vistaril. He admits that he should have tried to give some of these medications more time to work. Fibromyalgia and Rheumatoid Arthritis: has been following with Dr. Bright who did blood work and dx pt with fibro and RA. Pt is taking Prednisone 10 mg daily for 3 days as needed for flare ups, Methotrexate 2.5 mg, folic acid, Valium 5 mg daily, and Leucovorin 15 mg once weekly. Past medical history, appointments, medications, allergies reviewed. Previous Medical History PAST MEDICAL HISTORY Diagnosis Date - Acid indigestion 10/05/2016 Added automatically from request for surgery [id number] - Anxiety 01/20/2015 - History of alcohol abuse Previous Surgical History PAST SURGICAL HISTORY Procedure Laterality Date - EGD W/O OR W/BRUSH/WASH 01/18/2017 EGD - REPAIR UMBILICAL YULY,5+Y/O,REDUC 09/12/2017 Hernia repair, ventral/supraumbilical >5yr - VASECTOMY 02/23/12 Family History FAMILY HISTORY Problem Relation Age of Onset - Thyroid Mother - Hypertension Mother - other (ovarian mass) Mother benign - other (Gallstones) Mother - None Father - Alcohol/Drug Maternal Grandmother - Cancer Maternal Grandfather unknown - Alcohol/Drug Paternal Grandfather - Stroke Paternal Grandfather - Heart Paternal Grandfather - Cancer Maternal Aunt type unknown - Alcohol/Drug Maternal Aunt - Alcohol/Drug Maternal Aunt - Alcohol/Drug Maternal Aunt - Alcohol/Drug Maternal Uncle - Alcohol/Drug Paternal Aunt - Alcohol/Drug Paternal Aunt - Cerebral Embolism Son Patient Allergies ALLERGIES Allergen Reactions - Celexa [Citalopram * Mental Status Change [place] spacy - Doxycycline Vomiting - Hydroxyzine Other: See Comments Migraine - Nortriptyline Unknown Chest pain - Omeprazole GI Upset - Zantac [Ranitidine * GI Upset Current Medications Current Outpatient Prescriptions on File Prior to Visit: fluticasone (FLONASE) 50 mcg/actuation nasal spray Use 2 Sprays in each nostril once daily. Rinse mouth after use. famotidine (PEPCID) 20 mg tablet Take 1 tablet by mouth twice daily. FLUoxetine (PROZAC) 20 mg capsule Take 3 capsules by mouth once daily. multivitamin tablet Take 1 tablet by mouth once daily. [place]-3 Fatty Acids (FISH OIL) 500 mg cap Take 2 capsules by mouth once daily. cyclobenzaprine (FLEXERIL) 10 mg tablet Take 1 tablet by mouth three times daily as needed. BACILLUS COAGULANS (PROBIOTIC, B. COAGULANS, ORAL) Take by mouth. albuterol HFA (VENTOLIN HFA) 90 mcg/actuation inhaler Inhale 2 Puffs as instructed every 4 hours as needed for Wheezing/Shortness of Breath. naproxen (NAPROSYN) 500 mg tablet Take 1 tablet by mouth twice daily as needed for Pain. Take with food. (Patient not taking: Reported on 11/14/2017 ) fluticasone (FLONASE) 50 mcg/actuation nasal spray Use 2 Sprays in each nostril once daily. Rinse mouth after use. No current facility-administered medications on file prior to visit. Social History Social History Marital status: Spouse name: Years of education: Number of children: 2 Social History Main Topics Smoking status: Former Smoker Packs/day: 0.50 Years: 0.00 Types: Cigarettes Start date: 03/12/2008 Quit date: 10/05/2016 Smokeless tobacco: Current User Types: Snuff Comment: 4-6 cigatettes a day from 2008-09/2016 Alcohol use: No Comment: Stopped drinking ETOH as of 12/2014 Drug use: No Sexual activity: Yes Partners with: Female control/protection: IUD EXAM: BP 124/78 Pulse 76 Temp 36.6 ?C (97.8 ?F) (Tympanic) Resp 16 Wt 63 kg (139 lb) BMI 20.53 kg/m? General Appearance: Well appearing, alert, in no acute distress, well-hydrated, well nourished.. Lungs: Lungs clear to auscultation. No wheezing, rhonchi, rales. Heart: RRR without murmur, gallop, or rubs. No ectopy. Health Maintenance List INFLUENZA(1) due on 10/14/2017 LIPID SCREEN due on 04/02/2018 DTAP,TDAP,TD(3 - Td) due on 08/05/2027 ONE PNEUMOVAX PRIOR TO AGE 65 Completed Data reviewed none ASSESSMENT/PLAN: 1. Anxiety - ICD9: 300.00, ICD10: F41.9 (primary diagnosis) Cut the Prozac down to 20 mg a day for a month along with the Effexor 75 mg daily. Do not just stop the Prozac. May use the Hydroxyzine (Vistaril) 25 mg up to three times a day as needed. 2. Need for vaccination - ICD9: V05.9, ICD10: Z23 - INFLUENZA VACCINE QUADRIVALENT AGE 3 YRS PLUS + IM 3. Fibromyalgia - ICD9: 729.1, ICD10: M79.7 Continue current medications Continue to follow with Dr. Bright 4. Rheumatoid arthritis, involving unspecified site, unspecified rheumatoid factor presence (HCC) - ICD9: 714.0, ICD10: M06.9 Continue current medications Continue to follow with Dr. Bright 5. Gastro-esophageal reflux disease without esophagitis - ICD9: 530.81, ICD10: K21.9 Continue current medications. Follow up in 1 month. I agree with the Chief Complaint, ROS, and Past Histories independently gathered by the clinical marketing support specialist and the remaining scribed note accurately describes my personal service to the patient. Freeman Manzanares MD The documentation for this note was completed by Olivia Redmond Ma acting as scribe for Freeman Manzanares MD. December 13, 2017 1:26 PM. 42 year old male here for INACTIVATED INFLUENZA VACCINE. Season Patient is identified by name and date of : Yes [] CONTRAINDICATIONS color enhanced section Age less than 6 months? No Allergy to eggs, chicken, chicken feathers, or chicken dander? No Allergy to thimerosal (a preservative) or formaldehyde, gelatin? No History of severe reaction to any vaccine component or a previous dose of influenza vaccination? No History of Guillain-Storden Syndrome within 6 weeks after a previous influenza vaccine? No Patient is not moderately or severely ill? No Current temperature greater or equal to 100.4F? No History of Bone Marrow Transplant prior 6 months or solid organ transplant in the past 3 months ? No History of fainting after a prior injection or medical procedure? No- ? If patient has fainted in the past, the CDC recommends sitting or lying down for 15 minutes after the vaccination. [] VERIFICATION color enhanced section Was the answer Yes for any of the above contraindications? No contraindications present. Acceptable to proceed with vaccine. Patient/guardian agrees the above answers are true to the best of their knowledge? Yes Flu vaccine information sheet given? Yes See immunization activity in [facility] for details of immunizations adminstered today. Patient age: [age] year old For The 1879-1505 Flu Season 6-35 months old: Fluzone 0.25 ml - IM (Preservative Free) 3 years of age: Fluzone 0.5 ml - IM (Preservative Free) 3 years and older: Fluzone 0.5 ml- IM-(with Preservatives) 65+ years old: 2-49 years old Fluzone High-Dose 0.5 ml - IM (Preservative Free) FLUMIST- intranasal REMEMBER: If patient is less than 9 years of age and this is the first vaccine of Influenza to be received in any flu season, they should receive a second dose in one months time. Olivia Redmond Ma 12/13/2017 1:42 PM Signed Cut the Prozac down to 20 mg a day for a month along with the Effexor 75 mg daily. Do not just stop the Prozac. May use the Hydroxyzine (Vistaril) 25 mg up to three times a day as needed. Referring Provider: SELF [200] Allergies As of Date: 12/13/2017 Noted Allergy Reaction CELEXA (CITALOPRAM HYDROBROMIDE) 09/15/2016 1 - Mental Status Change Comments: [place] spacy DOXYCYCLINE 04/12/2005 11 - Vomiting HYDROXYZINE 03/17/2017 14 - Other: See Comments Comments: Migraine NORTRIPTYLINE 08/31/2017 16 - Unknown Comments: Chest pain OMEPRAZOLE 10/28/2017 8 - GI Upset ZANTAC (RANITIDINE HCL) 10/10/2016 8 - GI Upset Date Reviewed: 12/13/2017 Reviewed by: Olivia Redmond Ma - Fully Assessed Reason for Visit: Anxiety [9] Imm/Inj [58] Cmt: Flu Vaccine Reason For Visit History Recorded Primary Visit Diagnosis:Anxiety [F41.9] Other Visit Diagnoses:Need for vaccination [Z23] Fibromyalgia [M79.7] Rheumatoid arthritis, involving unspecified site, unspecified rheumatoid factor presence (HCC) [M06.9] Gastro-esophageal reflux disease without esophagitis [K21.9] Costochondritis [M94.0] Order(s):INFLUENZA VACCINE QUADRIVALENT AGE 3 YRS PLUS + IM [[id number]] Order #: [id number] leucovorin (LEUCOVORIN) 15 mg tabletTake 1 tablet by mouth once each week.Disp: Rfl: folic acid 1 mg tabletTake 2 tablets by mouth once daily.Disp: Rfl: predniSONE (DELTASONE) 10 mg tabletTake 1 tablet by mouth once daily.Disp: Rfl: hydrOXYzine pamoate (VISTARIL) 25 mg capsuleTake 1 capsule by mouth three times daily as needed.Disp: 90 capsuleRfl: 3 venlafaxine ER (EFFEXOR XR) 75 mg 24 hr capsuleTake 1 capsule by mouth once daily.Disp: 30 capsuleRfl: 5 cyclobenzaprine (FLEXERIL) 10 mg tabletTake 1 tablet by mouth three times daily as needed.Disp: 60 tabletRfl: 2 FLUoxetine (PROZAC) 20 mg capsuleTake 1 capsule by mouth once daily.Disp: 90 capsuleRfl: 5 mirtazapine (REMERON) 15 mg tabletTake 1 tablet by mouth daily at bedtime.Disp: 30 tabletRfl: 5 Prescriptions as of 12/13/2017 Sig: METHOTREXATE SODIUM 2.5 MG TA* TAKE 5 TABLETS BY MOUTH ONCE * CYCLOBENZAPRINE 10 MG TABLET Take 1 tablet by mouth three * FLUOXETINE 20 MG CAPSULE Take 1 capsule by mouth once * FLUTICASONE 50 MCG/ACTUATION * Use 2 Sprays in each nostril * FAMOTIDINE 20 MG TABLET Take 1 tablet by mouth twice * MULTIVITAMIN TABLET Take 1 tablet by mouth once d* [place]ME[place]-3 FATTY ACIDS 500 MG CA* Take 2 capsules by mouth once* PROBIOTIC (B. COAGULANS) ORAL Take by mouth. ALBUTEROL SULFATE HFA 90 MCG/* Inhale 2 Puffs as instructed * LEUCOVORIN CALCIUM 15 MG TABL* Take 1 tablet by mouth once e* FOLIC ACID 1 MG TABLET Take 2 tablets by mouth once * PREDNISONE 10 MG TABLET Take 1 tablet by mouth once d* HYDROXYZINE PAMOATE 25 MG CAP* Take 1 capsule by mouth three* VENLAFAXINE ER 75 MG CAPSULE,* Take 1 capsule by mouth once * MIRTAZAPINE 15 MG TABLET Take 1 tablet by mouth daily * FLUTICASONE 50 MCG/ACTUATION * Use 2 Sprays in each nostril * Problem List As Of Date 12/13/2017 Noted Resolved DYSTHYMIC DISORDER [F34.1] INVALID FOR* TENSION HEADACHE [G44.209] INVALID FOR* Hypoglycemia [E16.2] INVALID FOR* More... Sterilization [Z30.2] INVALID FOR*10/10/2016 Cigarette nicotine dependence with nicotine-ind*INVALID FOR* History of alcohol abuse [Z87.898] Anxiety [F41.9] INVALID FOR* Generalized abdominal pain [R10.84] INVALID FOR*10/10/2016 Altered bowel function [R19.4] INVALID FOR* More... Abdominal cramping, generalized [R10.84] INVALID FOR* More... Acid indigestion [K30] INVALID FOR* More... Generalized abdominal discomfort [R10.84] INVALID FOR* More... Gastro-esophageal reflux disease without esopha*INVALID FOR* Umbilical hernia [K42.9] INVALID FOR* More... Other instructions from your clinician: Cut the Prozac down to 20 mg a day for a month along with the Effexor 75 mg daily. Do not just stop the Prozac. May use the Hydroxyzine (Vistaril) 25 mg up to three times a day as needed. Prescriptions ordered this encounter Disp Refills Start End LEUCOVORIN CALCIUM 15 MG TABLET 12/13/2017 Class: Med Update Route: ORAL Sig: Take 1 tablet by mouth once each week. FOLIC ACID 1 MG TABLET 12/13/2017 Class: Med Update Route: ORAL Sig: Take 2 tablets by mouth once daily. MIRTAZAPINE 15 MG TABLET 12/13/2017 12/13/2017 Class: Med Update Route: ORAL Sig: Take 1 tablet by mouth daily at bedtime. PREDNISONE 10 MG TABLET 12/13/2017 Class: Med Update Route: ORAL Sig: Take 1 tablet by mouth once daily. HYDROXYZINE PAMOATE 25 MG CAPSULE 90 c* 3 12/13/2017 Route: ORAL Sig: Take 1 capsule by mouth three times daily as needed. VENLAFAXINE ER 75 MG CAPSULE,EXTENDE* 30 c* 5 12/13/2017 Route: ORAL Sig: Take 1 capsule by mouth once daily. CYCLOBENZAPRINE 10 MG TABLET 60 t* 2 12/13/2017 Route: ORAL Sig: Take 1 tablet by mouth three times daily as needed. FLUOXETINE 20 MG CAPSULE 90 c* 5 12/13/2017 Class: Med Update Route: ORAL Sig: Take 1 capsule by mouth once daily. MIRTAZAPINE 15 MG TABLET 30 t* 5 12/13/2017 Route: ORAL Sig: Take 1 tablet by mouth daily at bedtime. Medications Discontinued During This Encounter naproxen (NAPROSYN) 500 mg tablet 30 t* 0 09/09/2017 12/13/2017 Route: ORAL Sig: Take 1 tablet by mouth twice daily as needed for Pain. Take with food. Patient not taking: Reported on 11/14/2017 Disc: Reason for discontinue is not on file. cyclobenzaprine (FLEXERIL) 10 mg tab* 60 t* 2 09/19/2017 12/13/2017 Route: ORAL Sig: Take 1 tablet by mouth three times daily as needed. Disc: Reason for discontinue is not on file. FLUoxetine (PROZAC) 20 mg capsule 90 c* 5 11/08/2017 12/13/2017 Route: ORAL Sig: Take 3 capsules by mouth once daily. Disc: Reason for discontinue is not on file. mirtazapine (REMERON) 15 mg tablet 12/13/2017 12/13/2017 Class: Med Update Route: ORAL Sig: Take 1 tablet by mouth daily at bedtime. Disc: Reason for discontinue is not on file. Disposition: Return in about 1 month (around 01/12/2018). Follow-up and Disposition History Recorded Encounter Status:Closed by FREEMAN MANZANARES MD on 12/14/17 PROGRESS Observed: 11/16/2017 Status: COMPLETED Source: [facility] 10:44 AM [facility] HNO ID: [id number] Author: Michoacano Posadas Service: (none) Author Type: Physician Type: Progress Notes Filed: 11/16/2017 10:47 AM Note Text: Mr. Conroy did not dhow for the Pulmonary appointment scheduled today, nor did he call to cancel. I reviewed the 10/05/2017 PFT. It reveals normal vital capacity and normal expiratory flow. I see no chest imaging. I am sending this informational note to his Primary Care Team: Freeman Manzanares MD and Lynn Carver CNP. Michoacano Posadas MD, [facility] Respiratory [facility] [address] [place] [id number] P: [phone] F: [phone] [email or web address] XR PELVIS 1V AP Observed: 11/15/2017 Status: F Source: [facility] 10:09 AM [facility] * * *Final Report* * * DATE OF EXAM: Nov 15 2017 10:09AM [id number] [id number] - XR PELVIS 1V AP / PROCEDURE REASON: fibromyalgia, inflammatory polyarthropathy, hypermobility syndrome * * * * Physician Interpretation * * * * EXAMINATION: XR PELVIS 1V AP HISTORY: posterior pelvis pain in hip joints fibromyalgia, inflammatory polyarthropathy, hypermobility syndrome. TECHNIQUE: XR PELVIS 1V AP Laterality: NOT APPLICABLE Number of different views (projections): 1 M: XB_1 COMPARISON: There are no prior relevant studies for comparison. RESULT: Single recumbent radiograph of the bony pelvis demonstrates the bony pelvic ring intact. The hips are bilaterally symmetric without acute process. Probable incidental subcentimeter bone island left femoral neck. The soft tissues are unremarkable. IMPRESSION: Negative Boilermaker Apprentice: DALIA Transcribe Date/Time: Nov 15 2017 4:17P Dictated by : KAYLEY CALDERÓN MD This examination was interpreted and the report reviewed and electronically signed by: KAYLEY CALDERÓN MD on Nov 15 2017 4:18PM EST [id number] PROGRESS Observed: 11/15/2017 Status: COMPLETED Source: [facility] [place] 10:00 AM [facility] HNO ID: [id number] Author: Shannon Sage Service: (none) Author Type: (none) Type: Progress Notes Filed: 11/15/2017 10:09 AM Note Text: Radiology Service Progress Note PATIENT NAME: Carlos A Conroy DATE OF SERVICE: November 15, 2017 TIME: 10:00 AM PATIENT IDENTITY VERIFICATION COMPLETED USING TWO (2) METHODS: Patient confirmed name verbally and Date of . PATIENT GENDER DATA: Male PATIENT RELEVANT IMPLANT DATA REVIEWED: Not Applicable RADIOLOGY DEPARTMENT: General X-ray: Exam(s) Completed: Pelvis X-Ray: Pelvis General AP PERIPHERAL IV DATA: Not applicable SIGNED BY: Shannon Sage November 15, 2017 10:00 AM PROGRESS Observed: 11/14/2017 Status: COMPLETED Source: [facility] 4:18 PM [facility] HNO ID: [id number] Author: Lainey Mckeon Service: (none) Author Type: Nurse Practitioner Type: Progress Notes Filed: 11/14/2017 4:45 PM Note Text: Subjective HPI HPI Carlos A Conroy is a 42 year old male who presents today for CC of bilateral ear pain, intermittent dizziness, ear ringing. This started today. Has tried nothing. Symptoms are worsened by nothing. 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 Nonsmoker. Nasal congestion most of the time. Uses fluticasone intermittently. .Patient presents with: Ear Pain: Bilateral ear pain started today, occasional dizziness PAST MEDICAL HISTORY Diagnosis Date - Acid indigestion 10/05/2016 Added automatically from request for surgery [id number] - Anxiety 01/20/2015 - History of alcohol abuse PAST SURGICAL HISTORY Procedure Laterality Date - EGD W/O OR W/BRUSH/WASH 01/18/2017 EGD - REPAIR UMBILICAL YULY,5+Y/O,REDUC 09/12/2017 Hernia repair, ventral/supraumbilical >5yr - VASECTOMY 02/23/12 ALLERGIES Celexa [Citalopram Hydrobromide]; Doxycycline; Hydroxyzine; Nortriptyline; Omeprazole; Zantac [Ranitidine Hcl] MEDICATIONS famotidine (PEPCID) 20 mg tablet Take 1 tablet by mouth twice daily. FLUoxetine (PROZAC) 20 mg capsule Take 3 capsules by mouth once daily. diazePAM (VALIUM) 5 mg tablet Take 1 tablet by mouth every 12 hours as needed for Anxiety (use sparingly) for up to 30 days. multivitamin tablet Take 1 tablet by mouth once daily. [place]-3 Fatty Acids (FISH OIL) 500 mg cap Take 2 capsules by mouth once daily. cyclobenzaprine (FLEXERIL) 10 mg tablet Take 1 tablet by mouth three times daily as needed. fluticasone (FLONASE) 50 mcg/actuation nasal spray Use 2 Sprays in each nostril once daily. Rinse mouth after use. BACILLUS COAGULANS (PROBIOTIC, B. COAGULANS, ORAL) Take by mouth. albuterol HFA (VENTOLIN HFA) 90 mcg/actuation inhaler Inhale 2 Puffs as instructed every 4 hours as needed for Wheezing/Shortness of Breath. naproxen (NAPROSYN) 500 mg tablet Take 1 tablet by mouth twice daily as needed for Pain. Take with food. FAMILY HISTORY Problem Relation Age of Onset - Thyroid Mother - Hypertension Mother - other (ovarian mass) Mother benign - other (Gallstones) Mother - None Father - Alcohol/Drug Maternal Grandmother - Cancer Maternal Grandfather unknown - Alcohol/Drug Paternal Grandfather - Stroke Paternal Grandfather - Heart Paternal Grandfather - Cancer Maternal Aunt type unknown - Alcohol/Drug Maternal Aunt - Alcohol/Drug Maternal Aunt - Alcohol/Drug Maternal Aunt - Alcohol/Drug Maternal Uncle - Alcohol/Drug Paternal Aunt - Alcohol/Drug Paternal Aunt - Cerebral Embolism Son Social History Substance Use Topics - Smoking status: Former Smoker Packs/day: 0.50 Types: Cigarettes Start date: 03/12/2008 Quit date: 10/05/2016 - Smokeless tobacco: Current User Types: Snuff Comment: 4-6 cigatettes a day from 2008-09/2016 - Alcohol use No Comment: Stopped drinking ETOH as of 12/2014 Review of Systems Constitutional: Negative for chills, fever and weight loss. HENT: Positive for congestion and sore throat. Negative for ear pain and nosebleeds. Respiratory: Positive for cough. Negative for shortness of breath and wheezing. Musculoskeletal: Negative for neck pain. Neurological: Positive for dizziness (intermittently, not currently. ). Objective Blood pressure 100/70, pulse 72, temperature 36.8 ?C (98.3 ?F), temperature source Tympanic, resp. rate 16, weight 61.2 kg (135 lb). Physical Exam Constitutional: He is oriented to person, place, and time and well-developed, well-nourished, and in no distress. Non-toxic appearance. He does not have a sickly appearance. No distress. HENT: Head: Normocephalic and atraumatic. Right Ear: Hearing, tympanic membrane, external ear and ear canal normal. Left Ear: Hearing, external ear and ear canal normal. Tympanic membrane is bulging. Tympanic membrane is not perforated and not erythematous. Nose: Nose normal. Mouth/Throat: Uvula is midline, oropharynx is clear and moist and mucous membranes are normal. Eyes: Pupils are equal, round, and reactive to light. Conjunctivae and lids are normal. Right eye exhibits no discharge. Left eye exhibits no discharge. No scleral icterus. Neck: Trachea normal and normal range of motion. Neck supple. Cardiovascular: Normal rate, regular rhythm and normal heart sounds. Pulmonary/Chest: Effort normal and breath sounds normal. Lymphadenopathy: He has no cervical adenopathy. Neurological: He is alert and oriented to person, place, and time. Skin: No rash noted. He is not diaphoretic. ASSESSMENT/PLAN: 1. ETD (Eustachian tube dysfunction), left - ICD9: 381.81, ICD10: H69.82 (primary diagnosis) -use medication as prescribed -follow up if symptoms persist, worsen, change - FLUTICASONE 50 MCG/ACTUATION NASAL SPRAY,SUSPENSION 2. Left ear pain - ICD9: 388.70, ICD10: H92.02 -flonase for few days, if worsening pain fill prescription, follow up with primary care if symptoms persist - AMOXICILLIN 875 MG TABLET Prescription instructions reviewed with patient as applicable. Patient advised if symptoms do not improve or if symptoms worsen sooner, to contact the office for further evaluation by their primary care physician. Potential red flag symptoms discussed with the patient. Reviewed appropriate action plan to take if red flag symptoms occur. Patient agreeable to treatment plan. Lainey Mckeon APRN.CNP CNOV Observed: 11/14/2017 Status: COMPLETED Source: [facility] [place] 4:15 PM [facility] Office Visit ([facility]) CARLOS A CONROY ([id number]) 1975 M Date Time Provider Department 11/14/17 4:15 PM LAINEY MCKEON ([facility]) [facility] During your visit today, we recorded the following information about you: Temperature Pulse Respiration Blood pressure 98.3 degrees 72/minute 16/minute 100/70 Weight 61.2 kg Lainey Mckeon APRN.CNP 11/14/2017 4:45 PM Signed Subjective HPI HPI Carlos A Jiménez Conroy is a 42 year old male who presents today for CC of bilateral ear pain, intermittent dizziness, ear ringing. This started today. Has tried nothing. Symptoms are worsened by nothing. 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 Nonsmoker. Nasal congestion most of the time. Uses fluticasone intermittently. .Patient presents with: Ear Pain: Bilateral ear pain started today, occasional dizziness PAST MEDICAL HISTORY Diagnosis Date - Acid indigestion 10/05/2016 Added automatically from request for surgery [id number] - Anxiety 01/20/2015 - History of alcohol abuse PAST SURGICAL HISTORY Procedure Laterality Date - EGD W/O OR W/BRUSH/WASH 01/18/2017 EGD - REPAIR UMBILICAL YULY,5+Y/O,REDUC 09/12/2017 Hernia repair, ventral/supraumbilical >5yr - VASECTOMY 02/23/12 ALLERGIES Celexa [Citalopram Hydrobromide]; Doxycycline; Hydroxyzine; Nortriptyline; Omeprazole; Zantac [Ranitidine Hcl] MEDICATIONS famotidine (PEPCID) 20 mg tablet Take 1 tablet by mouth twice daily. FLUoxetine (PROZAC) 20 mg capsule Take 3 capsules by mouth once daily. diazePAM (VALIUM) 5 mg tablet Take 1 tablet by mouth every 12 hours as needed for Anxiety (use sparingly) for up to 30 days. multivitamin tablet Take 1 tablet by mouth once daily. [place]-3 Fatty Acids (FISH OIL) 500 mg cap Take 2 capsules by mouth once daily. cyclobenzaprine (FLEXERIL) 10 mg tablet Take 1 tablet by mouth three times daily as needed. fluticasone (FLONASE) 50 mcg/actuation nasal spray Use 2 Sprays in each nostril once daily. Rinse mouth after use. BACILLUS COAGULANS (PROBIOTIC, B. COAGULANS, ORAL) Take by mouth. albuterol HFA (VENTOLIN HFA) 90 mcg/actuation inhaler Inhale 2 Puffs as instructed every 4 hours as needed for Wheezing/Shortness of Breath. naproxen (NAPROSYN) 500 mg tablet Take 1 tablet by mouth twice daily as needed for Pain. Take with food. FAMILY HISTORY Problem Relation Age of Onset - Thyroid Mother - Hypertension Mother - other (ovarian mass) Mother benign - other (Gallstones) Mother - None Father - Alcohol/Drug Maternal Grandmother - Cancer Maternal Grandfather unknown - Alcohol/Drug Paternal Grandfather - Stroke Paternal Grandfather - Heart Paternal Grandfather - Cancer Maternal Aunt type unknown - Alcohol/Drug Maternal Aunt - Alcohol/Drug Maternal Aunt - Alcohol/Drug Maternal Aunt - Alcohol/Drug Maternal Uncle - Alcohol/Drug Paternal Aunt - Alcohol/Drug Paternal Aunt - Cerebral Embolism Son Social History Substance Use Topics - Smoking status: Former Smoker Packs/day: 0.50 Types: Cigarettes Start date: 03/12/2008 Quit date: 10/05/2016 - Smokeless tobacco: Current User Types: Snuff Comment: 4-6 cigatettes a day from 2008-09/2016 - Alcohol use No Comment: Stopped drinking ETOH as of 12/2014 Review of Systems Constitutional: Negative for chills, fever and weight loss. HENT: Positive for congestion and sore throat. Negative for ear pain and nosebleeds. Respiratory: Positive for cough. Negative for shortness of breath and wheezing. Musculoskeletal: Negative for neck pain. Neurological: Positive for dizziness (intermittently, not currently. ). Objective Blood pressure 100/70, pulse 72, temperature 36.8 ?C (98.3 ?F), temperature source Tympanic, resp. rate 16, weight 61.2 kg (135 lb). Physical Exam Constitutional: He is oriented to person, place, and time and well-developed, well-nourished, and in no distress. Non-toxic appearance. He does not have a sickly appearance. No distress. HENT: Head: Normocephalic and atraumatic. Right Ear: Hearing, tympanic membrane, external ear and ear canal normal. Left Ear: Hearing, external ear and ear canal normal. Tympanic membrane is bulging. Tympanic membrane is not perforated and not erythematous. Nose: Nose normal. Mouth/Throat: Uvula is midline, oropharynx is clear and moist and mucous membranes are normal. Eyes: Pupils are equal, round, and reactive to light. Conjunctivae and lids are normal. Right eye exhibits no discharge. Left eye exhibits no discharge. No scleral icterus. Neck: Trachea normal and normal range of motion. Neck supple. Cardiovascular: Normal rate, regular rhythm and normal heart sounds. Pulmonary/Chest: Effort normal and breath sounds normal. Lymphadenopathy: He has no cervical adenopathy. Neurological: He is alert and oriented to person, place, and time. Skin: No rash noted. He is not diaphoretic. ASSESSMENT/PLAN: 1. ETD (Eustachian tube dysfunction), left - ICD9: 381.81, ICD10: H69.82 (primary diagnosis) -use medication as prescribed -follow up if symptoms persist, worsen, change - FLUTICASONE 50 MCG/ACTUATION NASAL SPRAY,SUSPENSION 2. Left ear pain - ICD9: 388.70, ICD10: H92.02 -flonase for few days, if worsening pain fill prescription, follow up with primary care if symptoms persist - AMOXICILLIN 875 MG TABLET Prescription instructions reviewed with patient as applicable. Patient advised if symptoms do not improve or if symptoms worsen sooner, to contact the office for further evaluation by their primary care physician. Potential red flag symptoms discussed with the patient. Reviewed appropriate action plan to take if red flag symptoms occur. Patient agreeable to treatment plan. MARY Mendez APRN.CNP 11/14/2017 4:30 PM Signed ASSESSMENT/PLAN: 1. ETD (Eustachian tube dysfunction), left - ICD9: 381.81, ICD10: H69.82 (primary diagnosis) -use medication as prescribed -follow up if symptoms persist, worsen, change - FLUTICASONE 50 MCG/ACTUATION NASAL SPRAY,SUSPENSION 2. Left ear pain - ICD9: 388.70, ICD10: H92.02 -flonase for few days, if worsening pain fill prescription, follow up with primary care if symptoms persist - AMOXICILLIN 875 MG TABLET Referring Provider: SELF [[id number]] Allergies As of Date: 11/14/2017 Noted Allergy Reaction CELEXA (CITALOPRAM HYDROBROMIDE) 09/15/2016 1 - Mental Status Change Comments: [place] DOXYCYCLINE 04/12/2005 11 - Vomiting HYDROXYZINE 03/17/2017 14 - Other: See Comments Comments: Migraine NORTRIPTYLINE 08/31/2017 16 - Unknown Comments: Chest pain OMEPRAZOLE 10/28/2017 8 - GI Upset ZANTAC (RANITIDINE HCL) 10/10/2016 8 - GI Upset Date Reviewed: 11/14/2017 Reviewed by: Lainey (Cresencio) - Fully Assessed Reason for Visit: Ear Pain [817] Cmt: Bilateral ear pain started today, occasional dizziness Primary Visit Diagnosis:ETD (Eustachian tube dysfunction), left [H69.82] Other Visit Diagnosis:Left ear pain [H92.02] Order(s):fluticasone (FLONASE) 50 mcg/actuation nasal sprayUse 2 Sprays in each nostril once daily. Rinse mouth after use.Disp: 1 BottleRfl: 0 amoxicillin (AMOXIL) 875 mg tabletTake 1 tablet by mouth twice daily for 10 days.Disp: 20 tabletRfl: 0 Prescriptions as of 11/14/2017 Sig: FAMOTIDINE 20 MG TABLET Take 1 tablet by mouth twice * FLUOXETINE 20 MG CAPSULE Take 3 capsules by mouth once* DIAZEPAM 5 MG TABLET Take 1 tablet by mouth every * MULTIVITAMIN TABLET Take 1 tablet by mouth once d* OMEGA-3 FATTY ACIDS 500 MG CA* Take 2 capsules by mouth once* CYCLOBENZAPRINE 10 MG TABLET Take 1 tablet by mouth three * FLUTICASONE 50 MCG/ACTUATION * Use 2 Sprays in each nostril * PROBIOTIC (B. COAGULANS) ORAL Take by mouth. ALBUTEROL SULFATE HFA 90 MCG/* Inhale 2 Puffs as instructed * FLUTICASONE 50 MCG/ACTUATION * Use 2 Sprays in each nostril * AMOXICILLIN 875 MG TABLET Take 1 tablet by mouth twice * NAPROXEN 500 MG TABLET Take 1 tablet by mouth twice * Patient not taking: Reported on 11/14/2017 Problem List As Of Date 11/14/2017 Noted Resolved DYSTHYMIC DISORDER [F34.1] INVALID FOR* TENSION HEADACHE [G44.209] INVALID FOR* Hypoglycemia [E16.2] INVALID FOR* More... Sterilization [Z30.2] INVALID FOR*10/10/2016 Cigarette nicotine dependence with nicotine-ind*INVALID FOR* History of alcohol abuse [Z87.898] Anxiety [F41.9] INVALID FOR* Generalized abdominal pain [R10.84] INVALID FOR*10/10/2016 Altered bowel function [R19.4] INVALID FOR* More... Abdominal cramping, generalized [R10.84] INVALID FOR* More... Acid indigestion [K30] INVALID FOR* More... Generalized abdominal discomfort [R10.84] INVALID FOR* More... Gastro-esophageal reflux disease without esopha*INVALID FOR* Umbilical hernia [K42.9] INVALID FOR* More... Other instructions from your clinician: ASSESSMENT/PLAN: 1. ETD (Eustachian tube dysfunction), left - ICD9: 381.81, ICD10: H69.82 (primary diagnosis) -use medication as prescribed -follow up if symptoms persist, worsen, change - FLUTICASONE 50 MCG/ACTUATION NASAL SPRAY,SUSPENSION 2. Left ear pain - ICD9: 388.70, ICD10: H92.02 -flonase for few days, if worsening pain fill prescription, follow up with primary care if symptoms persist - AMOXICILLIN 875 MG TABLET Prescriptions ordered this encounter Disp Refills Start End FLUTICASONE 50 MCG/ACTUATION NASAL S* 1 Marquise* 0 11/14/2017 Route: EACH NOSTRIL Sig: Use 2 Sprays in each nostril once daily. Rinse mouth after use. AMOXICILLIN 875 MG TABLET 20 t* 0 11/14/2017 11/24/2017 Class: Print RX Route: ORAL Sig: Take 1 tablet by mouth twice daily for 10 days. Encounter Status:Closed by LAINEY MCKEON CNP on 11/14/17 PROGRESS Observed: 11/08/2017 Status: COMPLETED Source: [place] 8:12 AM [facility] HNO ID: [id number] Author: Freeman Manzanares Service: (none) Author Type: Physician Type: Progress Notes Filed: 11/08/2017 9:46 AM Note Text: Chief Complaint Patient presents with: F/U 1 month: sob HPI Carlos A Conroy is a 42 year old male who presents here today for a 1 mo f/u and [facility] ER follow up. SOB - Patient states he still has spells where he has labored breathing intermittently for no reason. Does have f/u with Pulmonary early next month. Doesn't feel the rescue inhaler helps much when these episodes occur. Spirometry testing was normal. Anxiety - Still dealing with anxiety and feels that his stomach problems make it worse. Does feel medication is helping but it could be better. Currently taking Prozac 40 mg once daily. Abdominal pain - Continues to have abdominal pain, recently f/u with Dr. Arredondo. On Pepcid twice daily and Probiotic. Hospital follow up - [facility] ER - ER Visit Summary Date of Service: 10/28/17 Chief Complaint: Numbness and tingling History of Present Illness: The patient is a 42 M who reports feeling off since around 8 PM last evening. He developed numbness around his mouth and jaw this morning. He now states that he has numbness and tingling spread diffusely over his body. He has minimal chest pressure. No headache. No weakness. Patient recently had his Zoloft switched to Prozac, but states he has been on Prozac in the past without difficulty. He was also recently started on omeprazole. Physical Examination: Vital signs unremarkable. Patient sitting upright in bed no acute distress. Head neck examination is unremarkable. Heart is regular rate and rhythm. Strong pulses are palpable throughout. Lung sounds are clear. Abdomen is soft nontender. Neuro exam reveals normal strength throughout. He has decreased sensation to light touch throughout, but it is equal side to side. Skin examination reveals no overlying skin changes or rash. Test Results: EKG is sinus at 98 with no sign of acute ischemia. CBC is unremarkable. Chemistry studies reveal potassium slightly low at 3.4. Urinalysis normal. Troponin less than 0.015. Emergency Department Course and Treatment: Patient was given IV fluids here. He is given 40 mEq of potassium chloride. On review of the patient's chart, we have documented an allergy to omeprazole. Patient states he was just restarted on this medication. This was discussed with patient and at bedside. He will stop the omeprazole and will go back to taking Pepcid. He will also received 3 days of potassium replacement for home. Dictation from Dot Last MD Past medical history, appointments, medications, allergies reviewed. Previous Medical History PAST MEDICAL HISTORY Diagnosis Date - Acid indigestion 10/05/2016 Added automatically from request for surgery [id number] - Anxiety 01/20/2015 - History of alcohol abuse Previous Surgical History PAST SURGICAL HISTORY Procedure Laterality Date - EGD W/O OR W/BRUSH/WASH 01/18/2017 EGD - REPAIR UMBILICAL YULY,5+Y/O,REDUC 09/12/2017 Hernia repair, ventral/supraumbilical >5yr - VASECTOMY 02/23/12 Family History FAMILY HISTORY Problem Relation Age of Onset - Thyroid Mother - Hypertension Mother - other (ovarian mass) Mother benign - other (Gallstones) Mother - None Father - Alcohol/Drug Maternal Grandmother - Cancer Maternal Grandfather unknown - Alcohol/Drug Paternal Grandfather - Stroke Paternal Grandfather - Heart Paternal Grandfather - Cancer Maternal Aunt type unknown - Alcohol/Drug Maternal Aunt - Alcohol/Drug Maternal Aunt - Alcohol/Drug Maternal Aunt - Alcohol/Drug Maternal Uncle - Alcohol/Drug Paternal Aunt - Alcohol/Drug Paternal Aunt - Cerebral Embolism Son Patient Allergies ALLERGIES Allergen Reactions - Celexa [Citalopram * Mental Status Change [place] - Doxycycline Vomiting - Hydroxyzine Other: See Comments Migraine - Nortriptyline Unknown Chest pain - Omeprazole GI Upset - Zantac [Ranitidine * GI Upset Current Medications Current Outpatient Prescriptions on File Prior to Visit: FLUoxetine HCl (PROZAC) 40 mg capsule Take 1 capsule by mouth once daily. multivitamin tablet Take 1 tablet by mouth once daily. [place]-3 Fatty Acids (FISH OIL) 500 mg cap Take 2 capsules by mouth once daily. cyclobenzaprine (FLEXERIL) 10 mg tablet Take 1 tablet by mouth three times daily as needed. naproxen (NAPROSYN) 500 mg tablet Take 1 tablet by mouth twice daily as needed for Pain. Take with food. fluticasone (FLONASE) 50 mcg/actuation nasal spray Use 2 Sprays in each nostril once daily. Rinse mouth after use. BACILLUS COAGULANS (PROBIOTIC, B. COAGULANS, ORAL) Take by mouth. albuterol HFA (VENTOLIN HFA) 90 mcg/actuation inhaler Inhale 2 Puffs as instructed every 4 hours as needed for Wheezing/Shortness of Breath. No current facility-administered medications on file prior to visit. Social History Social History Marital status: Spouse name: Years of education: Number of children: 2 Social History Main Topics Smoking status: Former Smoker Packs/day: 0.50 Years: 0.00 Types: Cigarettes Start date: 03/12/2008 Quit date: 10/05/2016 Smokeless tobacco: Current User Types: Snuff Comment: 4-6 cigatettes a day from 2008-09/2016 Alcohol use: No Comment: Stopped drinking ETOH as of 12/2014 Drug use: No Sexual activity: Yes Partners with: Female control/protection: IUD EXAM: BP 92/64 (BP Site: Left Arm, BP Position: Sitting, BP Cuff Size: Regular Adult) Pulse 82 Resp 16 Wt 62.4 kg (137 lb 9.6 oz) BMI 20.32 kg/m? General Appearance: Well appearing, alert, in no acute distress, well-hydrated, well nourished.. Lungs: Lungs clear to auscultation. No wheezing, rhonchi, rales. Heart: RRR without murmur, gallop, or rubs. No ectopy. Abdomen: Normal abdominal exam, Abdomen soft, non-tender. Bowel sounds normal. No masses, organomegaly. Health Maintenance List INFLUENZA(1) due on 10/14/2017 LIPID SCREEN due on 04/02/2018 DTAP,TDAP,TD(3 - Td) due on 08/05/2027 ONE PNEUMOVAX PRIOR TO AGE 65 Completed Data reviewed Appointment on 10/18/2017 Component Date Value - Glucose 10/18/2017 80 - BUN 10/18/2017 15 - Creatinine 10/18/2017 0.97 - Sodium 10/18/2017 142 - Potassium 10/18/2017 4.6 - Chloride 10/18/2017 102 - CO2 10/18/2017 30 - Anion Gap 10/18/2017 10 - Calcium 10/18/2017 9.0 - eGFR- 10/18/2017 >60 - eGFR-All Other Races 10/18/2017 >60 - Hemoglobin A1C 10/18/2017 5.1 - Estimated Average Glucose 10/18/2017 100 Procedure on 10/05/2017 Component Date Value - Certified Public Accountant 10/05/2017 ASSESSMENT/PLAN: 1. SOB (shortness of breath) - ICD9: 786.05, ICD10: R06.02 (primary diagnosis) Follow up with Pulmonary 2. Anxiety - ICD9: 300.00, ICD10: F41.9 - Increase Prozac 3. Altered bowel function - ICD9: 787.99, ICD10: R19.4 - Continue current medication regimen. 4. Abdominal cramping, generalized - ICD9: 789.07, ICD10: R10.84 - Continue current medication regimen. - Increase Prozac 5. Gastro-esophageal reflux disease without esophagitis - ICD9: 530.81, ICD10: K21.9 - Continue current medication regimen. 6. DUC (generalized anxiety disorder) - ICD9: 300.02, ICD10: F41.1 - Increase Prozac to 60 mg daily (40+20) 2 mo f/u I agree with the Chief Complaint, ROS, and Past Histories independently gathered by the clinical marketing support specialist and the remaining scribed note accurately describes my personal service to the patient. Freeman Manzanares MD The documentation for this note was completed by Sheridan Cintron Ma acting as scribe for Freeman Manzanares MD. November 08, 2017 8:12 AM. CNOV Observed: 11/08/2017 Status: COMPLETED Source: [facility] [place] 8:00 AM [facility] Office Visit (FAMPWS) CARLOS A CONROY ([id number]) 1975 M Date Time Provider Department 11/08/17 8:00 AM FREEMAN MANZANARES During your visit today, we recorded the following information about you: Pulse Respiration Blood pressure Weight 82/minute 16/minute 92/64 62.4 kg Freeman Manzanares MD 11/08/2017 9:46 AM Signed Chief Complaint Patient presents with: F/U 1 month: sob HPI Carlos A Conroy is a 42 year old male who presents here today for a 1 mo f/u and [facility] ER follow up. SOB - Patient states he still has spells where he has labored breathing intermittently for no reason. Does have f/u with Pulmonary early next month. Doesn't feel the rescue inhaler helps much when these episodes occur. Spirometry testing was normal. Anxiety - Still dealing with anxiety and feels that his stomach problems make it worse. Does feel medication is helping but it could be better. Currently taking Prozac 40 mg once daily. Abdominal pain - Continues to have abdominal pain, recently f/u with Dr. Arredondo. On Pepcid twice daily and Probiotic. Hospital follow up - [facility] ER - ER Visit Summary Date of Service: 10/28/17 Chief Complaint: Numbness and tingling History of Present Illness: The patient is a 42 M who reports feeling off since around 8 PM last evening. He developed numbness around his mouth and jaw this morning. He now states that he has numbness and tingling spread diffusely over his body. He has minimal chest pressure. No headache. No weakness. Patient recently had his Zoloft switched to Prozac, but states he has been on Prozac in the past without difficulty. He was also recently started on omeprazole. Physical Examination: Vital signs unremarkable. Patient sitting upright in bed no acute distress. Head neck examination is unremarkable. Heart is regular rate and rhythm. Strong pulses are palpable throughout. Lung sounds are clear. Abdomen is soft nontender. Neuro exam reveals normal strength throughout. He has decreased sensation to light touch throughout, but it is equal side to side. Skin examination reveals no overlying skin changes or rash. Test Results: EKG is sinus at 98 with no sign of acute ischemia. CBC is unremarkable. Chemistry studies reveal potassium slightly low at 3.4. Urinalysis normal. Troponin less than 0.015. Emergency Department Course and Treatment: Patient was given IV fluids here. He is given 40 mEq of potassium chloride. On review of the patient's chart, we have documented an allergy to omeprazole. Patient states he was just restarted on this medication. This was discussed with patient and at bedside. He will stop the omeprazole and will go back to taking Pepcid. He will also received 3 days of potassium replacement for home. Dictation from Dot Last MD Past medical history, appointments, medications, allergies reviewed. Previous Medical History PAST MEDICAL HISTORY Diagnosis Date - Acid indigestion 10/05/2016 Added automatically from request for surgery [id number] - Anxiety 01/20/2015 - History of alcohol abuse Previous Surgical History PAST SURGICAL HISTORY Procedure Laterality Date - EGD W/O OR W/BRUSH/WASH 01/18/2017 EGD - REPAIR UMBILICAL YULY,5+Y/O,REDUC 09/12/2017 Hernia repair, ventral/supraumbilical >5yr - VASECTOMY 02/23/12 Family History FAMILY HISTORY Problem Relation Age of Onset - Thyroid Mother - Hypertension Mother - other (ovarian mass) Mother benign - other (Gallstones) Mother - None Father - Alcohol/Drug Maternal Grandmother - Cancer Maternal Grandfather unknown - Alcohol/Drug Paternal Grandfather - Stroke Paternal Grandfather - Heart Paternal Grandfather - Cancer Maternal Aunt type unknown - Alcohol/Drug Maternal Aunt - Alcohol/Drug Maternal Aunt - Alcohol/Drug Maternal Aunt - Alcohol/Drug Maternal Uncle - Alcohol/Drug Paternal Aunt - Alcohol/Drug Paternal Aunt - Cerebral Embolism Son Patient Allergies ALLERGIES Allergen Reactions - Celexa [Citalopram * Mental Status Change [place] spacy - Doxycycline Vomiting - Hydroxyzine Other: See Comments Migraine - Nortriptyline Unknown Chest pain - Omeprazole GI Upset - Zantac [Ranitidine * GI Upset Current Medications Current Outpatient Prescriptions on File Prior to Visit: FLUoxetine HCl (PROZAC) 40 mg capsule Take 1 capsule by mouth once daily. multivitamin tablet Take 1 tablet by mouth once daily. [place]-3 Fatty Acids (FISH OIL) 500 mg cap Take 2 capsules by mouth once daily. cyclobenzaprine (FLEXERIL) 10 mg tablet Take 1 tablet by mouth three times daily as needed. naproxen (NAPROSYN) 500 mg tablet Take 1 tablet by mouth twice daily as needed for Pain. Take with food. fluticasone (FLONASE) 50 mcg/actuation nasal spray Use 2 Sprays in each nostril once daily. Rinse mouth after use. BACILLUS COAGULANS (PROBIOTIC, B. COAGULANS, ORAL) Take by mouth. albuterol HFA (VENTOLIN HFA) 90 mcg/actuation inhaler Inhale 2 Puffs as instructed every 4 hours as needed for Wheezing/Shortness of Breath. No current facility-administered medications on file prior to visit. Social History Social History Marital status: Spouse name: Years of education: Number of children: 2 Social History Main Topics Smoking status: Former Smoker Packs/day: 0.50 Years: 0.00 Types: Cigarettes Start date: 03/12/2008 Quit date: 10/05/2016 Smokeless tobacco: Current User Types: Snuff Comment: 4-6 cigatettes a day from 2008-09/2016 Alcohol use: No Comment: Stopped drinking ETOH as of 12/2014 Drug use: No Sexual activity: Yes Partners with: Female control/protection: IUD EXAM: BP 92/64 (BP Site: Left Arm, BP Position: Sitting, BP Cuff Size: Regular Adult) Pulse 82 Resp 16 Wt 62.4 kg (137 lb 9.6 oz) BMI 20.32 kg/m? General Appearance: Well appearing, alert, in no acute distress, well-hydrated, well nourished.. Lungs: Lungs clear to auscultation. No wheezing, rhonchi, rales. Heart: RRR without murmur, gallop, or rubs. No ectopy. Abdomen: Normal abdominal exam, Abdomen soft, non-tender. Bowel sounds normal. No masses, organomegaly. Health Maintenance List INFLUENZA(1) due on 10/14/2017 LIPID SCREEN due on 04/02/2018 DTAP,TDAP,TD(3 - Td) due on 08/05/2027 ONE PNEUMOVAX PRIOR TO AGE 65 Completed Data reviewed Appointment on 10/18/2017 Component Date Value - Glucose 10/18/2017 80 - BUN 10/18/2017 15 - Creatinine 10/18/2017 0.97 - Sodium 10/18/2017 142 - Potassium 10/18/2017 4.6 - Chloride 10/18/2017 102 - CO2 10/18/2017 30 - Anion Gap 10/18/2017 10 - Calcium 10/18/2017 9.0 - eGFR- 10/18/2017 >60 - eGFR-All Other Races 10/18/2017 >60 - Hemoglobin A1C 10/18/2017 5.1 - Estimated Average Glucose 10/18/2017 100 Procedure on 10/05/2017 Component Date Value - Certified Public Accountant 10/05/2017 ASSESSMENT/PLAN: 1. SOB (shortness of breath) - ICD9: 786.05, ICD10: R06.02 (primary diagnosis) Follow up with Pulmonary 2. Anxiety - ICD9: 300.00, ICD10: F41.9 - Increase Prozac 3. Altered bowel function - ICD9: 787.99, ICD10: R19.4 - Continue current medication regimen. 4. Abdominal cramping, generalized - ICD9: 789.07, ICD10: R10.84 - Continue current medication regimen. - Increase Prozac 5. Gastro-esophageal reflux disease without esophagitis - ICD9: 530.81, ICD10: K21.9 - Continue current medication regimen. 6. DUC (generalized anxiety disorder) - ICD9: 300.02, ICD10: F41.1 - Increase Prozac to 60 mg daily (40+20) 2 mo f/u I agree with the Chief Complaint, ROS, and Past Histories independently gathered by the clinical marketing support specialist and the remaining scribed note accurately describes my personal service to the patient. Freeman Manzanares MD The documentation for this note was completed by Sheridan Cintron Ma acting as scribe for Freeman Manzanares MD. November 08, 2017 8:12 AM. Referring Provider: KENYATTA VERDIN ([facility]) [[id number]] Allergies As of Date: 11/08/2017 Noted Allergy Reaction CELEXA (CITALOPRAM HYDROBROMIDE) 09/15/2016 1 - Mental Status Change Comments: [place] DOXYCYCLINE 04/12/2005 11 - Vomiting HYDROXYZINE 03/17/2017 14 - Other: See Comments Comments: Migraine NORTRIPTYLINE 08/31/2017 16 - Unknown Comments: Chest pain OMEPRAZOLE 10/28/2017 8 - GI Upset ZANTAC (RANITIDINE HCL) 10/10/2016 8 - GI Upset Date Reviewed: 11/08/2017 Reviewed by: Sheridan Cintron Ma - Fully Assessed Reason for Visit: F/U 1 month [1175] Cmt: sob Primary Visit Diagnosis:SOB (shortness of breath) [R06.02] Other Visit Diagnoses:Anxiety [F41.9] Altered bowel function [R19.4] Abdominal cramping, generalized [R10.84] Gastro-esophageal reflux disease without esophagitis [K21.9] DUC (generalized anxiety disorder) [F41.1] Order(s):FLUoxetine (PROZAC) 20 mg capsuleTake 3 capsules by mouth once daily.Disp: 90 capsuleRfl: 5 diazePAM (VALIUM) 5 mg tabletTake 1 tablet by mouth every 12 hours as needed for Anxiety (use sparingly) for up to 30 days.Disp: 14 tabletRfl: 0 Prescriptions as of 11/08/2017 Sig: FAMOTIDINE 20 MG TABLET Take 1 tablet by mouth twice * MULTIVITAMIN TABLET Take 1 tablet by mouth once d* OME[place]-3 FATTY ACIDS 500 MG CA* Take 2 capsules by mouth once* CYCLOBENZAPRINE 10 MG TABLET Take 1 tablet by mouth three * NAPROXEN 500 MG TABLET Take 1 tablet by mouth twice * FLUTICASONE 50 MCG/ACTUATION * Use 2 Sprays in each nostril * PROBIOTIC (B. COAGULANS) ORAL Take by mouth. ALBUTEROL SULFATE HFA 90 MCG/* Inhale 2 Puffs as instructed * FLUOXETINE 20 MG CAPSULE Take 3 capsules by mouth once* DIAZEPAM 5 MG TABLET Take 1 tablet by mouth every * Problem List As Of Date 11/08/2017 Noted Resolved DYSTHYMIC DISORDER [F34.1] INVALID FOR* TENSION HEADACHE [G44.209] INVALID FOR* Hypoglycemia [E16.2] INVALID FOR* More... Sterilization [Z30.2] INVALID FOR*10/10/2016 Cigarette nicotine dependence with nicotine-ind*INVALID FOR* History of alcohol abuse [Z87.898] Anxiety [F41.9] INVALID FOR* Generalized abdominal pain [R10.84] INVALID FOR*10/10/2016 Altered bowel function [R19.4] INVALID FOR* More... Abdominal cramping, generalized [R10.84] INVALID FOR* More... Acid indigestion [K30] INVALID FOR* More... Generalized abdominal discomfort [R10.84] INVALID FOR* More... Gastro-esophageal reflux disease without esopha*INVALID FOR* Umbilical hernia [K42.9] INVALID FOR* More... Prescriptions ordered this encounter Disp Refills Start End FLUOXETINE 20 MG CAPSULE 90 c* 5 11/08/2017 Route: ORAL Sig: Take 3 capsules by mouth once daily. DIAZEPAM 5 MG TABLET 14 t* 0 11/08/2017 12/08/2017 Class: Print RX Route: ORAL Sig: Take 1 tablet by mouth every 12 hours as needed for Anxiety (use sparingly) for up to 30 days. Medications Discontinued During This Encounter omeprazole (PRILOSEC) 20 mg capsule 30 c* 1 10/24/2017 11/08/2017 Route: ORAL Sig: Take 1 capsule by mouth daily before breakfast. 1/2 hr before meal. Disc: Side Effects FLUoxetine HCl (PROZAC) 40 mg capsule 30 c* 5 10/24/2017 11/08/2017 Route: ORAL Sig: Take 1 capsule by mouth once daily. Disc: Reason for discontinue is not on file. diazePAM (VALIUM) 5 mg tablet 14 t* 0 08/04/2017 11/08/2017 Class: Print RX Route: ORAL Sig: Take 1 tablet by mouth every 12 hours as needed for Anxiety (use sparingly) for up to 30 days. Disc: Reason for discontinue is not on file. Disposition: Return in about 2 months (around 01/08/2018). Follow-up and Disposition History Recorded Encounter Status:Closed by FREEMAN MANZANARES MD on 11/08/17 12 LEAD ELECTROCARDIOGRAM Observed: 10/30/2017 Status: F Source: [place] 3:27 PM [facility] RE[facility] Cardiovascular Services [address] [place] [address] 12 Lead EKG 10/28/17 1212 MR#: [id number] Acct: [id number] Name: LOU CONROY Rep #: [id number] : 1975 42 From: Ander Bradley MD Attending Dr: Status: DEP Ordering Dr: Dot Last MD Date: 10/28/17 Location: ED Sex: M C Admitted: Test Reason : NUMBNESS Blood Pressure : / mmHG Vent. Rate : 098 BPM Atrial Rate : 098 BPM P-R Int : 136 ms QRS Dur : 090 ms QT Int : 360 ms P-R-T Axes : 050 116 060 degrees QTc Int : 459 ms Normal sinus rhythm Indeterminate axis Borderline ECG Confirmed by MARIELOSANDER ANDRADE MD ([id number]), online editor SUSAN MARTIN ([id number]) on 10/30/2017 3:26:54 PM Referred By: AYANA Confirmed By:ANDER BRADLEY MD 10/30/17 1526 Date Ander Bradley MD CC: Dot Last MD; Freeman Manzanares MD Signed EMERGENCY DEPARTMENT Observed: 10/28/2017 Status: F Source: [place] SUMMARY 4:07 PM [facility] RE[facility]IT[facility] Medical Records Department [address] [place] [address] Emergency Department Summary 10/28/17 1206 MR#: [id number] Acct: [id number] Name: LOU CONROY Rep #: [id number] : 1975 42 From: Dot Last MD PCP: Freeman Manzanares MD Status: DEP ER - ER Visit Summary Date of Service: 10/28/17 Chief Complaint: Numbness and tingling History of Present Illness: The patient is a 42 M who reports feeling off since around 8 PM last evening. He developed numbness around his mouth and jaw this morning. He now states that he has numbness and tingling spread diffusely over his body. He has minimal chest pressure. No headache. No weakness. Patient recently had his Zoloft switched to Prozac, but states he has been on Prozac in the past without difficulty. He was also recently started on omeprazole. Physical Examination: Vital signs unremarkable. Patient sitting upright in bed no acute distress. Head neck examination is unremarkable. Heart is regular rate and rhythm. Strong pulses are palpable throughout. Lung sounds are clear. Abdomen is soft nontender. Neuro exam reveals normal strength throughout. He has decreased sensation to light touch throughout, but it is equal side to side. Skin examination reveals no overlying skin changes or rash. Test Results: EKG is sinus at 98 with no sign of acute ischemia. CBC is unremarkable. Chemistry studies reveal potassium slightly low at 3.4. Urinalysis normal. Troponin less than 0.015. Emergency Department Course and Treatment: Patient was given IV fluids here. He is given 40 mEq of potassium chloride. On review of the patient's chart, we have documented an allergy to omeprazole. Patient states he was just restarted on this medication. This was discussed with patient and at bedside. He will stop the omeprazole and will go back to taking Pepcid. He will also received 3 days of potassium replacement for home. Treatment Plan: [] Disposition: Discharge Impression: Paresthesias This note was generated with Starvine dictation software. It may contain incorrect words, spelling, and punctuation that were not noted in review of the chart prior to signing ED Disposition - Plan for ED Patient: Chief Complaint: Numb/Ting Referrals: Freeman Manzanares MD [Primary Care Provider] - What to do if you have Problems For any increased pain, shortness of breath, bleeding, nausea or vomiting, chest pain, or any unexpected problems, contact your Primary Care Provider. Call [facility] ([phone]) or report to the closest Emergency Room. Call 911 if necessary. 10/28/17 1607 <Electronically signed by Dot Last MD> Date Dot Last MD Cosigner Signature (If Indicated): Date CC: Freeman Manzanares MD DISCHARGE INSTRUCTION Observed: 10/28/2017 Status: F Source: [place] 12:49 PM [facility] Medical Records Department [address] [place] [address] Discharge Instruction 10/28/17 1247 MR#: [id number] Acct: [id number] Name: LOU CONROY Rep #: [id number] : 1975 42 From: Dot Last MD PCP: Freeman Manzanares MD Status: REG ER ED Disposition - Plan for ED Patient: Disposition: Home or Assisted Living Chief Complaint: Numb/Ting Instructions: ED Paraesthesias Prescriptions: Potassium Chloride [K-Dur] 40 meq PO DAILY #3 days Famotidine [Pepcid] 20 mg PO BID #60 tablet Referrals: Freeman Manzanares MD [Primary Care Provider] - 1-2 Weeks What to do if you have Problems For any increased pain, shortness of breath, bleeding, nausea or vomiting, chest pain, or any unexpected problems, contact your Primary Care Provider. Call [facility] ([phone]) or report to the closest Emergency Room. Call 911 if necessary. 10/28/17 5169 <Electronically signed by Dot Last MD> Date Dot Last MD Cosigner Signature (If Indicated): Date CC: Freeman Manzanares MD CBC W/DIFF, AUTOMATED Collected: 10/28/2017 Status: F Source: [place] 12:10 PM [facility] RE[facility] TYPE CODE TESTS RESULT OUT OF RANGE REFERENCE UNITS LAB L100.1000 4.4-11.0 K/mm3 Low WBC 3.7 LAB L100.1200 4.6-6.2 M/mm3 Low RBC 4.28 LAB L100.1300 13.0-16.5 g/dl Normal HGB 14.0 LAB L100.1400 40-54 % Low HCT 39.3 LAB L100.1500 80-94 fL Normal MCV 91.8 LAB L100.1600 27.0-32.0 pg High MCH 32.7 LAB L100.1700 32-36 g/gl Normal MCHC 35.6 LAB L100.1810 11.6-14.6 % Normal RDW CV 12.1 LAB L100.1820 35.1-43.9 fl Normal RDW SD 40.1 LAB L100.1900 150-450 K/mm3 Normal PLT 214 LAB L100.2000 6.2-12.0 fl Normal MPV 9.8 LAB L100.2100 47-70 % Normal NEUT% 55.2 LAB L100.2200 19-41 % Normal LY% 34.8 LAB L100.2300 0-10 % Normal MONO% 8.1 LAB L100.2400 0-5 % Normal EO% 1.1 LAB L100.2500 0-1 % Normal BASO% 0.5 LAB L100.2550 0.0-0.9 % Normal IM GRAN % 0.300 Result Comment: IG% - Immature Granulocytes (promyelocytes, myelocytes and metamyelocytes) > 1% indicates that a LEFT SHIFT is Present. LAB L100.2620 2.0-7.7 X10 3/uL Normal Absolute Neut 2.1 LAB L100.2720 0.83-4.51 X10 3/ul Normal Absolute Lymph 1.29 Performed By: #### L100.0100 #### [facility] [address] [place], [address] URINALYSIS, COMPLETE Collected: 10/28/2017 Status: F Source: [place] 12:10 PM [facility] RE[facility]IT[facility] Order Comment: Order Date: 10/28/17 How was Urine Obtained? 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 DIPSTX 1.010 LAB L400.3550 5.0 - 8.0 pH UR Normal 8.0 LAB L400.3600 Negative mg/dl PROT Normal DIPSTX Negative LAB L400.3700 Normal mg/dl Normal UROBILI Normal LAB L400.3750 Negative Normal NITRITE UR Negative LAB L400.3780 Negative /ul Normal OCCULT BLOOD-UR Negative LAB L400.3800 Negative /ul LEUK Normal ESTERASE Negative LAB L400.4050 0-5 /hpf WBC 0 Normal SEEN LAB L400.4100 0-5 /hpf 0 Normal RBC-UA SEEN LAB L400.4150 0-5 /hpf SQUAM 0 Normal EPI SEEN LAB L400.4300 None Seen /hpf 0 Normal BACTERIA SEEN LAB L400.4350 <or=2+ /hpf 0 Normal MUCUS, URINE SEEN Performed By: #### L400.0001 #### [facility] [address] [place], [address] BASIC METABOLIC Collected: 10/28/2017 Status: F Source: [place] PROFILE (BMP) 12:10 PM [facility] REPOSITORY TYPE CODE TESTS RESULT OUT OF RANGE REFERENCE UNITS LAB L501.0100 74-106 mg/dL Normal GLU 106 Result Comment: Fasting Glucose result from 100 to 125 mg/dL suggests IMPAIRED HOMEOSTASIS per A.D.A. criteria. Please note revised GLUCOSE reference range effective 2017. LAB L501.1000 7-18 mg/dL Normal BUN 13 LAB L501.1100 0.70-1.30 mg/dL Normal CREAT,SERUM 0.90 Result Comment: The validity of the calculated GFR AND GFRAA in patients over 70 years has not been determined. Clinical correlation is essential. LAB L501.1110 >60 mL/min Normal EST GFR 100 Result Comment: Non- GFR Calc LAB L501.1115 >60 mL/min Normal EST GFR - AA 120 Result Comment: GFR Calc LAB L501.1255 ml/min Normal Estimated CRCL 90.59 LAB L501.1300 10-20 RATIO Normal BUN/CRE 14.5 LAB L501.2200 8.5-10 mg/dL Normal .1 CA 8.5 LAB L501.5300 136-14 mmol/L Normal 5 NA 139 LAB L501.5600 3.5-5. mmol/L Low 1 K 3.4 LAB L501.5900 98-107 mmol/L Normal CL 105 LAB L501.6100 21.0-3 mmol/L Normal 2.0 CO2 28.0 LAB L501.6200 5-15 Normal GAP 6 Performed By: #### L500.2500, L501.4010 #### [facility] [address] [place], [address] TROPONIN-I Collected: 10/28/2017 Status: F Source: [place] 12:10 PM [facility] TYPE CODE TESTS RESULT OUT OF RANGE REFERENCE UNITS LAB L501.4010 <0.045 ng/mL Normal < 0.015 TROPONIN-I Result Comment: TROPONIN-I EXPECTED VALUES <0.045 Negative 0.045 - 0.590 Consistent with Cardiac Damage > OR = 0.600 Critical Value Not every elevated troponin is indicative of NM. These values should be used with clinical judgement in examining the patient's clinical picture for diagnosis. To establish a diagnosis of NM versus myocardial injury, there must be a demonstrated rise and/or fall in the troponin values, in addition to ischemic symptoms, EKG changes, new regional wall motion abnormality, and/or angiographical evidence. PLEASE NOTE: REFERENCE RANGES EDITED 17 Performed By: #### L500.2500, L501.4010 #### [facility] [address] [place], [address] PROGRESS Observed: 10/27/2017 Status: COMPLETED Source: [place] 10:12 AM [facility] RE[facility] HNO ID: [id number] Author: Cecilia Arredondo Service: (none) Author Type: Physician Type: Progress Notes Filed: 10/29/2017 10:26 AM Note Text: FOLLOW UP VISIT - HERNIA NAME: Carlos A Conroy [facility] NO.: [id number] : 1975 Carlos A is a patient who is s/p supraumbilical ventral hernia repair done on 09/12/17. Patient complains of bulge in the area and is concerned about possible recurrence. Examination: abdomen is benign. The incision is well healed, no evidence of recurrence of hernia IMPRESSION: status post ventral hernia repair without mesh PLAN: If the patient notes any problems, he should contact me immediately. he may return to his regular activities as tolerated Return to Clinic: The patient is instructed to follow- up with me as needed. CNOV Observed: 10/27/2017 Status: COMPLETED Source: [place] 9:50 AM [facility] RE[facility] Office Visit (ARSLANS) CARLOS A CONROY ([id number]) 1975 Date Time Provider Department 10/27/17 9:50 AM CECILIA ARREDONDO During your visit today, we recorded the following information about you: Cecilia Arredondo MD 10/29/2017 10:26 AM Signed FOLLOW UP VISIT - HERNIA NAME: Carlos A Conroy CLINIC NO.: [id number] : 1975 Carlos A is a patient who is s/p supraumbilical ventral hernia repair done on 09/12/17. Patient complains of bulge in the area and is concerned about possible recurrence. Examination: abdomen is benign. The incision is well healed, no evidence of recurrence of hernia IMPRESSION: status post ventral hernia repair without mesh PLAN: If the patient notes any problems, he should contact me immediately. he may return to his regular activities as tolerated Return to Clinic: The patient is instructed to follow- up with me as needed. Referring Provider: CLOVER JIN (ASSEMBLER WATCH TRAIN) [[id number]] Allergies As of Date: 10/27/2017 Noted Allergy Reaction CELEXA (CITALOPRAM HYDROBROMIDE) 09/15/2016 1 - Mental Status Change Comments: [place] spacy DOXYCYCLINE 04/12/2005 11 - Vomiting HYDROXYZINE 03/17/2017 14 - Other: See Comments Comments: Migraine NORTRIPTYLINE 08/31/2017 16 - Unknown Comments: Chest pain ZANTAC (RANITIDINE HCL) 10/10/2016 8 - GI Upset Date Reviewed: 10/27/2017 Reviewed by: Rod Howard LPN - Fully Assessed Reason for Visit: Established Patient [175] Cmt: umbilcal pain - hernia repair 08/30 Reason For Visit History Recorded Primary Visit Diagnosis:Surgery follow-up examination [Z09] Prescriptions as of 10/27/2017 Sig: FLUOXETINE 40 MG CAPSULE Take 1 capsule by mouth once * OMEPRAZOLE 20 MG CAPSULE,OTILIA* Take 1 capsule by mouth daily* MULTIVITAMIN TABLET Take 1 tablet by mouth once d* OMEGA-3 FATTY ACIDS 500 MG CA* Take 2 capsules by mouth once* CYCLOBENZAPRINE 10 MG TABLET Take 1 tablet by mouth three * NAPROXEN 500 MG TABLET Take 1 tablet by mouth twice * FLUTICASONE 50 MCG/ACTUATION * Use 2 Sprays in each nostril * PROBIOTIC (B. COAGULANS) ORAL Take by mouth. ALBUTEROL SULFATE HFA 90 MCG/* Inhale 2 Puffs as instructed * Problem List As Of Date 10/27/2017 Noted Resolved DYSTHYMIC DISORDER [F34.1] INVALID FOR* TENSION HEADACHE [G44.209] INVALID FOR* Hypoglycemia [E16.2] INVALID FOR* More... Sterilization [Z30.2] INVALID FOR*10/10/2016 Cigarette nicotine dependence with nicotine-ind*INVALID FOR* History of alcohol abuse [Z87.898] Anxiety [F41.9] INVALID FOR* Generalized abdominal pain [R10.84] INVALID FOR*10/10/2016 Altered bowel function [R19.4] INVALID FOR* More... Abdominal cramping, generalized [R10.84] INVALID FOR* More... Acid indigestion [K30] INVALID FOR* More... Generalized abdominal discomfort [R10.84] INVALID FOR* More... Gastro-esophageal reflux disease without esopha*INVALID FOR* Umbilical hernia [K42.9] INVALID FOR* More... Encounter Status:Closed by MD CECILIA ARREDONDO on 10/29/17 PROGRESS Observed: 10/24/2017 Status: COMPLETED Source: [place] 11:33 AM [facility] REPOSIT[facility] HNO ID: [id number] Author: Clover Gonzalez (Power) Davin Service: (none) Author Type: Nurse Practitioner Type: Progress Notes Filed: 10/24/2017 2:25 PM Note Text: Chief Complaint Patient presents with: Mass: possible hernia HPI Carlos A Conroy is a 42 year old male who presents here today for Above Complaints.. Patient states that he is currently having heart burn, excessive gas, indigestion, and umbilical discomfort that started 2 weeks ago. Patient has been taking pepcid 40 mg daily while these symptoms have been going on. Patient currently sees Dr. Sunshine for GERD symptoms. Last endoscopy was within 1 year. Currently patients pain is 8/10. Aggravating factors: over eating and movement. Alleviating factors: lying down. Patient had umbilical hernia surgery at [facility] in August 2017. Patient has increasing pain and discomfort around the umbilical area. Patient states that he is able to feel a lump above the umbilicus, concerns that hernia has returned. Surgical note reviewed, no mesh utilized during surgery. Patient has not taken any medication OTC for the pain. Patient denies chest pain, nausea, vomiting, changes in bowel pattern, difficulty with swallowing, or belching. Anxiety: seen in primary care one week ago, SSRI switched from Zoloft 200 mg to Prozac 20 mg and was told he would likely need an increase in medication. He denies any worsening anxiety but feels overall control could be better. Was previously on Prozac and it was switched due to concerns of loss of efficacy and building a tolerance. He denies any side effects and wishes to increase his current dose. Past medical history, appointments, medications, allergies reviewed. Previous Medical History PAST MEDICAL HISTORY Diagnosis Date - Acid indigestion 10/05/2016 Added automatically from request for surgery [id number] - Anxiety 01/20/2015 - History of alcohol abuse Previous Surgical History PAST SURGICAL HISTORY Procedure Laterality Date - EGD W/O OR W/BRUSH/WASH 01/18/2017 EGD - REPAIR UMBILICAL YULY,5+Y/O,REDUC 09/12/2017 Hernia repair, ventral/supraumbilical >5yr - VASECTOMY 02/23/12 Family History FAMILY HISTORY Problem Relation Age of Onset - Thyroid Mother - Hypertension Mother - other (ovarian mass) Mother benign - other (Gallstones) Mother - None Father - Alcohol/Drug Maternal Grandmother - Cancer Maternal Grandfather unknown - Alcohol/Drug Paternal Grandfather - Stroke Paternal Grandfather - Heart Paternal Grandfather - Cancer Maternal Aunt type unknown - Alcohol/Drug Maternal Aunt - Alcohol/Drug Maternal Aunt - Alcohol/Drug Maternal Aunt - Alcohol/Drug Maternal Uncle - Alcohol/Drug Paternal Aunt - Alcohol/Drug Paternal Aunt - Cerebral Embolism Son Patient Allergies ALLERGIES Allergen Reactions - Celexa [Citalopram * Mental Status Change [place] spacy - Doxycycline Vomiting - Hydroxyzine Other: See Comments Migraine - Nortriptyline Unknown Chest pain - Zantac [Ranitidine * GI Upset Current Medications Current Outpatient Prescriptions on File Prior to Visit: multivitamin tablet Take 1 tablet by mouth once daily. [place]-3 Fatty Acids (FISH OIL) 500 mg cap Take 2 capsules by mouth once daily. FLUoxetine (PROZAC) 20 mg capsule Take 1 capsule by mouth once daily. famotidine (PEPCID) 40 mg tablet Take 1 tablet by mouth once daily. cyclobenzaprine (FLEXERIL) 10 mg tablet Take 1 tablet by mouth three times daily as needed. naproxen (NAPROSYN) 500 mg tablet Take 1 tablet by mouth twice daily as needed for Pain. Take with food. BACILLUS COAGULANS (PROBIOTIC, B. COAGULANS, ORAL) Take by mouth. fluticasone (FLONASE) 50 mcg/actuation nasal spray Use 2 Sprays in each nostril once daily. Rinse mouth after use. albuterol HFA (VENTOLIN HFA) 90 mcg/actuation inhaler Inhale 2 Puffs as instructed every 4 hours as needed for Wheezing/Shortness of Breath. No current facility-administered medications on file prior to visit. Social History Social History Marital status: Spouse name: Years of education: Number of children: 2 Social History Main Topics Smoking status: Former Smoker Packs/day: 0.50 Years: 0.00 Types: Cigarettes Start date: 03/12/2008 Quit date: 10/05/2016 Smokeless tobacco: Current User Types: Snuff Comment: 4-6 cigatettes a day from 2008-09/2016 Alcohol use: No Comment: Stopped drinking ETOH as of 12/2014 Drug use: No Sexual activity: Yes Partners with: Female control/protection: IUD Review of Symptoms REVIEW OF SYSTEMS GENERAL: No weight loss, malaise or fevers RESPIRATORY: Negative for cough, hemoptysis, wheezing, COPD, dyspnea or shortness of breath CARDIOVASCULAR: Negative for chest pain, leg swelling, hypertension, CHF or palpitations GI: No nausea, vomiting, or diarrhea : No history of dysuria, frequency or incontinence EXAM: BP 102/80 (BP Site: Left Arm, BP Position: Sitting, BP Cuff Size: Regular Adult) Pulse 77 Temp 36.4 ?C (97.6 ?F) (Tympanic) Resp 14 Wt 58.1 kg (128 lb) BMI 18.90 kg/m? General Appearance: Well appearing, alert, in no acute distress, well-hydrated, well nourished.. Nose/Sinuses: Nares normal, septum midline, mucosa normal, no drainage or sinus tenderness. Oropharynx: Lips, mucosa, and tongue normal, teeth and gums normal, oropharynx normal. Neck: Supple, no adenopathy; thyroid symmetric, normal size, no bruits. Lungs: Lungs clear to auscultation. No wheezing, rhonchi, rales. Heart: RRR without murmur, gallop, or rubs. No ectopy. Abdomen: Abdomen soft, non-tender. Bowel sounds normal. No masses, organomegaly, Positive findings: tenderness mild Periumbilical, mass, located Periumbilical, likely scar tissue. Health Maintenance List INFLUENZA(1) due on 10/14/2017 LIPID SCREEN due on 04/02/2018 DTAP,TDAP,TD(3 - Td) due on 08/05/2027 ONE PNEUMOVAX PRIOR TO AGE 65 Completed ASSESSMENT/PLAN: 1. Anxiety - ICD9: 300.00, ICD10: F41.9 (primary diagnosis) -Increase fluoxetine to 40 mg, he may take 2 tablets of his current supply of 20 mg daily until supply is exhausted. - Has planned routine visit with PCP in 2 weeks, will f/u at that time - FLUOXETINE 40 MG CAPSULE 2. Gastro-esophageal reflux disease without esophagitis - ICD9: 530.81, ICD10: K21.9 - Begin treatment with Prilosec 20 mg QD - Will DC Famotidine - OMEPRAZOLE 20 MG CAPSULE,DELAYED RELEASE 3. Umbilical hernia without obstruction or gangrene - ICD9: 553.1, ICD10: K42.9 - Reassurance provided, firmness that he feels could be recurrence of hernia is likely scar Tissue. He wishes to proceed with OV with Surgeon. - CONSULT TO GENERAL SURGERY Clover Jin, MSN GUIDANCE CONSULTANT.LITIGATION LEGAL ASSISTANT CNOV Observed: 10/24/2017 Status: COMPLETED Source: [place] 11:00 AM [facility] RE[facility] Office Visit (FAMPWS) CARLOS A CONROY ([id number]) 1975 M Date Time Provider Department 10/24/17 11:00 AM CLOVER JIN (ASSEMBLER WATCH TRAIN) [facility] During your visit today, we recorded the following information about you: Temperature Pulse Respiration Blood pressure 97.6 degrees 77/minute 14/minute 102/80 Weight 58.1 kg Clover Jin MSN GUIDANCE CONSULTANT.LITIGATION LEGAL ASSISTANT 10/24/2017 2:25 PM Signed Chief Complaint Patient presents with: Mass: possible hernia HPI Carlos Akarina Conroy is a 42 year old male who presents here today for Above Complaints.. Patient states that he is currently having heart burn, excessive gas, indigestion, and umbilical discomfort that started 2 weeks ago. Patient has been taking pepcid 40 mg daily while these symptoms have been going on. Patient currently sees Dr. Sunshine for GERD symptoms. Last endoscopy was within 1 year. Currently patients pain is 8/10. Aggravating factors: over eating and movement. Alleviating factors: lying down. Patient had umbilical hernia surgery at [facility] in August 2017. Patient has increasing pain and discomfort around the umbilical area. Patient states that he is able to feel a lump above the umbilicus, concerns that hernia has returned. Surgical note reviewed, no mesh utilized during surgery. Patient has not taken any medication OTC for the pain. Patient denies chest pain, nausea, vomiting, changes in bowel pattern, difficulty with swallowing, or belching. Anxiety: seen in primary care one week ago, SSRI switched from Zoloft 200 mg to Prozac 20 mg and was told he would likely need an increase in medication. He denies any worsening anxiety but feels overall control could be better. Was previously on Prozac and it was switched due to concerns of loss of efficacy and building a tolerance. He denies any side effects and wishes to increase his current dose. Past medical history, appointments, medications, allergies reviewed. Previous Medical History PAST MEDICAL HISTORY Diagnosis Date - Acid indigestion 10/05/2016 Added automatically from request for surgery [id number] - Anxiety 01/20/2015 - History of alcohol abuse Previous Surgical History PAST SURGICAL HISTORY Procedure Laterality Date - EGD W/O OR W/BRUSH/WASH 01/18/2017 EGD - REPAIR UMBILICAL YULY,5+Y/O,REDUC 09/12/2017 Hernia repair, ventral/supraumbilical >5yr - VASECTOMY 02/23/12 Family History FAMILY HISTORY Problem Relation Age of Onset - Thyroid Mother - Hypertension Mother - other (ovarian mass) Mother benign - other (Gallstones) Mother - None Father - Alcohol/Drug Maternal Grandmother - Cancer Maternal Grandfather unknown - Alcohol/Drug Paternal Grandfather - Stroke Paternal Grandfather - Heart Paternal Grandfather - Cancer Maternal Aunt type unknown - Alcohol/Drug Maternal Aunt - Alcohol/Drug Maternal Aunt - Alcohol/Drug Maternal Aunt - Alcohol/Drug Maternal Uncle - Alcohol/Drug Paternal Aunt - Alcohol/Drug Paternal Aunt - Cerebral Embolism Son Patient Allergies ALLERGIES Allergen Reactions - Celexa [Citalopram * Mental Status Change [place] spacy - Doxycycline Vomiting - Hydroxyzine Other: See Comments Migraine - Nortriptyline Unknown Chest pain - Zantac [Ranitidine * GI Upset Current Medications Current Outpatient Prescriptions on File Prior to Visit: multivitamin tablet Take 1 tablet by mouth once daily. [place]-3 Fatty Acids (FISH OIL) 500 mg cap Take 2 capsules by mouth once daily. FLUoxetine (PROZAC) 20 mg capsule Take 1 capsule by mouth once daily. famotidine (PEPCID) 40 mg tablet Take 1 tablet by mouth once daily. cyclobenzaprine (FLEXERIL) 10 mg tablet Take 1 tablet by mouth three times daily as needed. naproxen (NAPROSYN) 500 mg tablet Take 1 tablet by mouth twice daily as needed for Pain. Take with food. BACILLUS COAGULANS (PROBIOTIC, B. COAGULANS, ORAL) Take by mouth. fluticasone (FLONASE) 50 mcg/actuation nasal spray Use 2 Sprays in each nostril once daily. Rinse mouth after use. albuterol HFA (VENTOLIN HFA) 90 mcg/actuation inhaler Inhale 2 Puffs as instructed every 4 hours as needed for Wheezing/Shortness of Breath. No current facility-administered medications on file prior to visit. Social History Social History Marital status: Spouse name: Years of education: Number of children: 2 Social History Main Topics Smoking status: Former Smoker Packs/day: 0.50 Years: 0.00 Types: Cigarettes Start date: 03/12/2008 Quit date: 10/05/2016 Smokeless tobacco: Current User Types: Snuff Comment: 4-6 cigatettes a day from 2008-09/2016 Alcohol use: No Comment: Stopped drinking ETOH as of 12/2014 Drug use: No Sexual activity: Yes Partners with: Female control/protection: IUD Review of Symptoms REVIEW OF SYSTEMS GENERAL: No weight loss, malaise or fevers RESPIRATORY: Negative for cough, hemoptysis, wheezing, COPD, dyspnea or shortness of breath CARDIOVASCULAR: Negative for chest pain, leg swelling, hypertension, CHF or palpitations GI: No nausea, vomiting, or diarrhea : No history of dysuria, frequency or incontinence EXAM: BP 102/80 (BP Site: Left Arm, BP Position: Sitting, BP Cuff Size: Regular Adult) Pulse 77 Temp 36.4 ?C (97.6 ?F) (Tympanic) Resp 14 Wt 58.1 kg (128 lb) BMI 18.90 kg/m? General Appearance: Well appearing, alert, in no acute distress, well-hydrated, well nourished.. Nose/Sinuses: Nares normal, septum midline, mucosa normal, no drainage or sinus tenderness. Oropharynx: Lips, mucosa, and tongue normal, teeth and gums normal, oropharynx normal. Neck: Supple, no adenopathy; thyroid symmetric, normal size, no bruits. Lungs: Lungs clear to auscultation. No wheezing, rhonchi, rales. Heart: RRR without murmur, gallop, or rubs. No ectopy. Abdomen: Abdomen soft, non-tender. Bowel sounds normal. No masses, organomegaly, Positive findings: tenderness mild Periumbilical, mass, located Periumbilical, likely scar tissue. Health Maintenance List INFLUENZA(1) due on 10/14/2017 LIPID SCREEN due on 04/02/2018 DTAP,TDAP,TD(3 - Td) due on 08/05/2027 ONE PNEUMOVAX PRIOR TO AGE 65 Completed ASSESSMENT/PLAN: 1. Anxiety - ICD9: 300.00, ICD10: F41.9 (primary diagnosis) -Increase fluoxetine to 40 mg, he may take 2 tablets of his current supply of 20 mg daily until supply is exhausted. - Has planned routine visit with PCP in 2 weeks, will f/u at that time - FLUOXETINE 40 MG CAPSULE 2. Gastro-esophageal reflux disease without esophagitis - ICD9: 530.81, ICD10: K21.9 - Begin treatment with Prilosec 20 mg QD - Will DC Famotidine - OMEPRAZOLE 20 MG CAPSULE,DELAYED RELEASE 3. Umbilical hernia without obstruction or gangrene - ICD9: 553.1, ICD10: K42.9 - Reassurance provided, firmness that he feels could be recurrence of hernia is likely scar Tissue. He wishes to proceed with OV with Surgeon. - CONSULT TO GENERAL SURGERY Clover Jin, MSN GUIDANCE CONSULTANT.LITIGATION LEGAL ASSISTANT Referring Provider: SELF [[id number]] Allergies As of Date: 10/24/2017 Noted Allergy Reaction CELEXA (CITALOPRAM HYDROBROMIDE) 09/15/2016 1 - Mental Status Change Comments: [place] spacy DOXYCYCLINE 04/12/2005 11 - Vomiting HYDROXYZINE 03/17/2017 14 - Other: See Comments Comments: Migraine NORTRIPTYLINE 08/31/2017 16 - Unknown Comments: Chest pain ZANTAC (RANITIDINE HCL) 10/10/2016 8 - GI Upset Date Reviewed: 10/24/2017 Reviewed by: Carito Baird [employer] - Fully Assessed Reason for Visit: Mass [64] Cmt: possible hernia Primary Visit Diagnosis:Anxiety [F41.9] Other Visit Diagnoses:Gastro-esophageal reflux disease without esophagitis [K21.9] Umbilical hernia without obstruction or gangrene [K42.9] Order(s):FLUoxetine HCl (PROZAC) 40 mg capsuleTake 1 capsule by mouth once daily.Disp: 30 capsuleRfl: 5 omeprazole (PRILOSEC) 20 mg capsuleTake 1 capsule by mouth daily before breakfast. 1/2 hr before meal.Disp: 30 capsuleRfl: 1 CONSULT TO GENERAL SURGERY [[id number]] Order #: [id number]: 1 Prescriptions as of 10/24/2017 Sig: MULTIVITAMIN TABLET Take 1 tablet by mouth once d* OMEGA-3 FATTY ACIDS 500 MG CA* Take 2 capsules by mouth once* CYCLOBENZAPRINE 10 MG TABLET Take 1 tablet by mouth three * NAPROXEN 500 MG TABLET Take 1 tablet by mouth twice * PROBIOTIC (B. COAGULANS) ORAL Take by mouth. FLUOXETINE 40 MG CAPSULE Take 1 capsule by mouth once * OMEPRAZOLE 20 MG CAPSULE,OTILIA* Take 1 capsule by mouth daily* FLUTICASONE 50 MCG/ACTUATION * Use 2 Sprays in each nostril * ALBUTEROL SULFATE HFA 90 MCG/* Inhale 2 Puffs as instructed * Problem List As Of Date 10/24/2017 Noted Resolved DYSTHYMIC DISORDER [F34.1] INVALID FOR* TENSION HEADACHE [G44.209] INVALID FOR* Hypoglycemia [E16.2] INVALID FOR* More... Sterilization [Z30.2] INVALID FOR*10/10/2016 Cigarette nicotine dependence with nicotine-ind*INVALID FOR* History of alcohol abuse [Z87.898] Anxiety [F41.9] INVALID FOR* Generalized abdominal pain [R10.84] INVALID FOR*10/10/2016 Altered bowel function [R19.4] INVALID FOR* More... Abdominal cramping, generalized [R10.84] INVALID FOR* More... Acid indigestion [K30] INVALID FOR* More... Generalized abdominal discomfort [R10.84] INVALID FOR* More... Gastro-esophageal reflux disease without esopha*INVALID FOR* Umbilical hernia [K42.9] INVALID FOR* More... Prescriptions ordered this encounter Disp Refills Start End FLUOXETINE 40 MG CAPSULE 30 c* 5 10/24/2017 Route: ORAL Sig: Take 1 capsule by mouth once daily. OMEPRAZOLE 20 MG CAPSULE,DELAYED REL* 30 c* 1 10/24/2017 Route: ORAL Sig: Take 1 capsule by mouth daily before breakfast. 1/2 hr before meal. Medications Discontinued During This Encounter famotidine (PEPCID) 40 mg tablet 30 t* 5 10/03/2017 10/24/2017 Route: ORAL Sig: Take 1 tablet by mouth once daily. Disc: Reason for discontinue is not on file. FLUoxetine (PROZAC) 20 mg capsule 30 c* 1 10/18/2017 10/24/2017 Route: ORAL Sig: Take 1 capsule by mouth once daily. Disc: Reason for discontinue is not on file. Encounter Status:Closed by CLOVER JIN CNP on 10/24/17 HEMOGLOBIN A1C Collected: 10/18/2017 Status: F Source: [place] 11:24 AM [facility] REPOSITORY TYPE CODE TESTS RESULT OUT OF REFERENCE UNITS RANGE LAB HGBA1C 4.3-5.6 % Hemoglobin A1c 5.1 LAB HBA0 mg/dL Est. Average Glucose 100 Result Comment: eAG: (Estimated average glucose) is a calculated value from HgbA1c and is client representative of the average blood glucose level in the last 2-3 month period. Performed By: #### HBA1C, BMP #### [facility] [address] [place], [place] [address] BASIC METABOLIC PANL Collected: 10/18/2017 Status: F Source: [place] 11:24 AM [facility] REPOSITORY TYPE CODE TESTS RESULT OUT OF REFERENCE UNITS RANGE LAB GLU 74-99 mg/dL Glucose 80 Result Comment: The [place] [employer] (ADA) provides guidance for cutoff values for fasting glucose and random glucose. The ADA defines fasting as no caloric intake for at least 8 hours. Fas ting plasma glucose results between 100 to 125 mg/dL indicate increased risk for diabetes (prediabetes). Fasting plasma glucose results greater than or equal to 126 mg/dL meet the criteria for diagnosis of diabetes. In the absence of unequivocal hyperglycemia, results should be confirmed by repeat testing. In a patient with classic symptoms of hyperglycemia or hyperglycemic crisis, random plasma glucose results greater than or equal to 200 mg/dL meet the criteria for diagnosis of diabetes. Reference: Standards of Medical Care in Diabetes 2016, [place] [employer]. Diabetes Care. 2016.39(Suppl 1). LAB BUN 9-24 mg/dL BUN 15 LAB CRET 0.73-1.22 mg/dL Creatinine 0.97 LAB NA 136-144 mmol/L Sodium 142 LAB K 3.7-5.1 mmol/L Potassium 4.6 LAB CL 97-105 mmol/L Chloride 102 LAB CO2 22-30 mmol/L CO2 30 LAB AGAP 9-18 mmol/L Anion Gap 10 LAB CA 8.5-10.2 mg/dL Calcium, Total 9.0 LAB GFRAA eGFR- Amer. >60 LAB GFRNAA . eGFR-All Other Races >60 Result Comment: eGFR (Estimated GFR) Units of measure: mL/min/1.73 meters squared eGFR is derived from the reexpressed MDRD Study equation using the following parameters: serum creatinine, age, gender and race. The creatinine assay has been calibrated to be traceable to IDMS. An eGFR <60 mL/min/1.73m2 for >3 months is consistent with chronic kidney disease. Refer to KDOQI guidelines for clinical interpretation. In patients with unstable renal function, e.g. those with acute kidney injury, the eGFR may not accurately reflect actual GFR. Performed By: #### HBA1C, BMP #### [facility] [address] [place] [address] PROGRESS Observed: 10/18/2017 Status: COMPLETED Source: [place] 10:49 AM [facility] REPOSITORY O ID: [id number] Author: Rajani Goldstein Service: (none) Author Type: Physician Plate Mill Hand Type: Progress Notes Filed: 10/18/2017 12:22 PM Note Text: Chief Complaint Patient presents with: high blood sugars: Patient is for high sugar episode HPI Carlos A Conroy is a 42 year old male who presents here today for Above Complaints.. Patient routinely checks blood glucose at home and typically runs on the lower side regardless of last time he ate. Yesterday he started to feel shaky which is typical for him when he has low blood sugars but his BG was 106. He ate a small snack and drank azael meghana and BG went up to 206 after 1 hour. After 20 more minutes BG was 121. States that he eats small meals and snacks throughout the day due to hx of hypoglycemia. No significant fm hx of DM. Dad is prediabetic. Also concerned with anxiety that has gotten worse over the past months. Has tried multiple medications without improvement. Past medical history, appointments, medications, allergies reviewed. Previous Medical History PAST MEDICAL HISTORY Diagnosis Date - Acid indigestion 10/05/2016 Added automatically from request for surgery [id number] - Anxiety 01/20/2015 - History of alcohol abuse Previous Surgical History PAST SURGICAL HISTORY Procedure Laterality Date - EGD W/O OR W/BRUSH/WASH 01/18/2017 EGD - REPAIR UMBILICAL YULY,5+Y/O,REDUC 09/12/2017 Hernia repair, ventral/supraumbilical >5yr - VASECTOMY 02/23/12 Family History FAMILY HISTORY Problem Relation Age of Onset - Thyroid Mother - Hypertension Mother - other (ovarian mass) Mother benign - other (Gallstones) Mother - None Father - Alcohol/Drug Maternal Grandmother - Cancer Maternal Grandfather unknown - Alcohol/Drug Paternal Grandfather - Stroke Paternal Grandfather - Heart Paternal Grandfather - Cancer Maternal Aunt type unknown - Alcohol/Drug Maternal Aunt - Alcohol/Drug Maternal Aunt - Alcohol/Drug Maternal Aunt - Alcohol/Drug Maternal Uncle - Alcohol/Drug Paternal Aunt - Alcohol/Drug Paternal Aunt - Cerebral Embolism Son Patient Allergies ALLERGIES Allergen Reactions - Celexa [Citalopram * Mental Status Change [place] spacy - Doxycycline Vomiting - Hydroxyzine Other: See Comments Migraine - Nortriptyline Unknown Chest pain - Zantac [Ranitidine * GI Upset Current Medications Current Outpatient Prescriptions on File Prior to Visit: famotidine (PEPCID) 40 mg tablet Take 1 tablet by mouth once daily. cyclobenzaprine (FLEXERIL) 10 mg tablet Take 1 tablet by mouth three times daily as needed. sertraline (ZOLOFT) 100 mg tablet Take 2 tablets by mouth once daily. BACILLUS COAGULANS (PROBIOTIC, B. COAGULANS, ORAL) Take by mouth. mirtazapine (REMERON) 15 mg tablet Take 1 tablet by mouth daily at bedtime. naproxen (NAPROSYN) 500 mg tablet Take 1 tablet by mouth twice daily as needed for Pain. Take with food. fluticasone (FLONASE) 50 mcg/actuation nasal spray Use 2 Sprays in each nostril once daily. Rinse mouth after use. albuterol HFA (VENTOLIN HFA) 90 mcg/actuation inhaler Inhale 2 Puffs as instructed every 4 hours as needed for Wheezing/Shortness of Breath. No current facility-administered medications on file prior to visit. Social History Social History Marital status: Spouse name: Years of education: Number of children: 2 Social History Main Topics Smoking status: Former Smoker Packs/day: 0.50 Years: 0.00 Types: Cigarettes Start date: 03/12/2008 Quit date: 10/05/2016 Smokeless tobacco: Current User Types: Snuff Comment: 4-6 cigatettes a day from 2008-09/2016 Alcohol use: No Comment: Stopped drinking ETOH as of 12/2014 Drug use: No Sexual activity: Yes Partners with: Female control/protection: IUD Review of Symptoms REVIEW OF SYSTEMS See HPI EXAM: BP 108/74 (BP Site: Right Arm, BP Position: Sitting, BP Cuff Size: Regular Adult) Pulse 80 Resp 14 Wt 57.2 kg (126 lb) BMI 18.61 kg/m? General Appearance: Well appearing, alert, in no acute distress, well-hydrated, well nourished.. Lungs: Lungs clear to auscultation. No wheezing, rhonchi, rales. Heart: RRR without murmur, gallop, or rubs. No ectopy. Peripheral Pulses: Normal. Neurologic: Gait normal. Reflexes normal and symmetric. Sensation intact.. Health Maintenance List INFLUENZA(1) due on 10/14/2017 LIPID SCREEN due on 04/02/2018 DTAP,TDAP,TD(3 - Td) due on 08/05/2027 ONE PNEUMOVAX PRIOR TO AGE 67 Completed Data reviewed Component Latest Ref Rng AND Units 08/31/2017 Protein, Total 6.3 - 8.0 g/dL 6.0 (L) Albumin 3.9 - 4.9 g/dL 4.5 Calcium 8.5 - 10.2 mg/dL 9.1 Bilirubin, Total 0.2 - 1.3 mg/dL 0.4 Alkaline Phosphatase 36 - 108 U/L 46 AST 14 - 40 U/L 23 Glucose 74 - 99 mg/dL 79 BUN 9 - 24 mg/dL 15 Creatinine 0.73 - 1.22 mg/dL 1.05 Sodium 136 - 144 mmol/L 140 Potassium 3.7 - 5.1 mmol/L 4.4 Chloride 97 - 105 mmol/L 100 CO2 22 - 30 mmol/L 31 (H) Anion Gap 9 - 18 mmol/L 9 ALT 10 - 54 U/L 16 eGFR- >60 eGFR-All Other Races . >60 Vitamin D 25 Hydroxy 31.0 - 80.0 ng/mL 44.4 TSH 0.400 - 5.500 uU/mL 2.060 WSR 0 - 15 mm/hr 2 CRP <0.9 mg/dL <0.1 ASSESSMENT/PLAN: 1. Hyperglycemia - ICD9: 790.29, ICD10: R73.9 (primary diagnosis) check labs Recommend continuing a balanced diet throughout the day - BASIC METABOLIC PNL - HGB A1C 2. Anxiety - ICD9: 300.00, ICD10: F41.9 Risks and benefits of medication change discussed Stop zoloft Start prozac Follow up in approx 1 month as scheduled. LORETTA CLEARYOV Observed: 10/18/2017 Status: COMPLETED Source: [place] 10:20 AM [facility] REPOSITORY Office Visit (FAMPWS) CARLOS A CONROY ([id number]) 1975 M Date Time Provider Department 10/18/17 10:20 AM ADY GOLDSTEIN) FAMPWS During your visit today, we recorded the following information about you: Pulse Respiration Blood pressure Weight 80/minute 14/minute 108/74 57.2 kg SANGITA GOLDSTEIN PA-C 10/18/2017 12:22 PM Signed Chief Complaint Patient presents with: high blood sugars: Patient is for high sugar episode HPI Carlos A Conroy is a 42 year old male who presents here today for Above Complaints.. Patient routinely checks blood glucose at home and typically runs on the lower side regardless of last time he ate. Yesterday he started to feel shaky which is typical for him when he has low blood sugars but his BG was 106. He ate a small snack and drank azael meghana and BG went up to 206 after 1 hour. After 20 more minutes BG was 121. States that he eats small meals and snacks throughout the day due to hx of hypoglycemia. No significant fm hx of DM. Dad is prediabetic. Also concerned with anxiety that has gotten worse over the past months. Has tried multiple medications without improvement. Past medical history, appointments, medications, allergies reviewed. Previous Medical History PAST MEDICAL HISTORY Diagnosis Date - Acid indigestion 10/05/2016 Added automatically from request for surgery [id number] - Anxiety 01/20/2015 - History of alcohol abuse Previous Surgical History PAST SURGICAL HISTORY Procedure Laterality Date - EGD W/O OR W/BRUSH/WASH 01/18/2017 EGD - REPAIR UMBILICAL YULY,5+Y/O,REDUC 09/12/2017 Hernia repair, ventral/supraumbilical >5yr - VASECTOMY 02/23/12 Family History FAMILY HISTORY Problem Relation Age of Onset - Thyroid Mother - Hypertension Mother - other (ovarian mass) Mother benign - other (Gallstones) Mother - None Father - Alcohol/Drug Maternal Grandmother - Cancer Maternal Grandfather unknown - Alcohol/Drug Paternal Grandfather - Stroke Paternal Grandfather - Heart Paternal Grandfather - Cancer Maternal Aunt type unknown - Alcohol/Drug Maternal Aunt - Alcohol/Drug Maternal Aunt - Alcohol/Drug Maternal Aunt - Alcohol/Drug Maternal Uncle - Alcohol/Drug Paternal Aunt - Alcohol/Drug Paternal Aunt - Cerebral Embolism Son Patient Allergies ALLERGIES Allergen Reactions - Celexa [Citalopram * Mental Status Change [place] spacy - Doxycycline Vomiting - Hydroxyzine Other: See Comments Migraine - Nortriptyline Unknown Chest pain - Zantac [Ranitidine * GI Upset Current Medications Current Outpatient Prescriptions on File Prior to Visit: famotidine (PEPCID) 40 mg tablet Take 1 tablet by mouth once daily. cyclobenzaprine (FLEXERIL) 10 mg tablet Take 1 tablet by mouth three times daily as needed. sertraline (ZOLOFT) 100 mg tablet Take 2 tablets by mouth once daily. BACILLUS COAGULANS (PROBIOTIC, B. COAGULANS, ORAL) Take by mouth. mirtazapine (REMERON) 15 mg tablet Take 1 tablet by mouth daily at bedtime. naproxen (NAPROSYN) 500 mg tablet Take 1 tablet by mouth twice daily as needed for Pain. Take with food. fluticasone (FLONASE) 50 mcg/actuation nasal spray Use 2 Sprays in each nostril once daily. Rinse mouth after use. albuterol HFA (VENTOLIN HFA) 90 mcg/actuation inhaler Inhale 2 Puffs as instructed every 4 hours as needed for Wheezing/Shortness of Breath. No current facility-administered medications on file prior to visit. Social History Social History Marital status: Spouse name: Years of education: Number of children: 2 Social History Main Topics Smoking status: Former Smoker Packs/day: 0.50 Years: 0.00 Types: Cigarettes Start date: 03/12/2008 Quit date: 10/05/2016 Smokeless tobacco: Current User Types: Snuff Comment: 4-6 cigatettes a day from 2008-09/2016 Alcohol use: No Comment: Stopped drinking ETOH as of 12/2014 Drug use: No Sexual activity: Yes Partners with: Female control/protection: IUD Review of Symptoms REVIEW OF SYSTEMS See HPI EXAM: BP 108/74 (BP Site: Right Arm, BP Position: Sitting, BP Cuff Size: Regular Adult) Pulse 80 Resp 14 Wt 57.2 kg (126 lb) BMI 18.61 kg/m? General Appearance: Well appearing, alert, in no acute distress, well-hydrated, well nourished.. Lungs: Lungs clear to auscultation. No wheezing, rhonchi, rales. Heart: RRR without murmur, gallop, or rubs. No ectopy. Peripheral Pulses: Normal. Neurologic: Gait normal. Reflexes normal and symmetric. Sensation intact.. Health Maintenance List INFLUENZA(1) due on 10/14/2017 LIPID SCREEN due on 04/02/2018 DTAP,TDAP,TD(3 - Td) due on 08/05/2027 ONE PNEUMOVAX PRIOR TO AGE 67 Completed Data reviewed Component Latest Ref Rng AND Units 08/31/2017 Protein, Total 6.3 - 8.0 g/dL 6.0 (L) Albumin 3.9 - 4.9 g/dL 4.5 Calcium 8.5 - 10.2 mg/dL 9.1 Bilirubin, Total 0.2 - 1.3 mg/dL 0.4 Alkaline Phosphatase 36 - 108 U/L 46 AST 14 - 40 U/L 23 Glucose 74 - 99 mg/dL 79 BUN 9 - 24 mg/dL 15 Creatinine 0.73 - 1.22 mg/dL 1.05 Sodium 136 - 144 mmol/L 140 Potassium 3.7 - 5.1 mmol/L 4.4 Chloride 97 - 105 mmol/L 100 CO2 22 - 30 mmol/L 31 (H) Anion Gap 9 - 18 mmol/L 9 ALT 10 - 54 U/L 16 eGFR- >60 eGFR-All Other Races . >60 Vitamin D 25 Hydroxy 31.0 - 80.0 ng/mL 44.4 TSH 0.400 - 5.500 uU/mL 2.060 WSR 0 - 15 mm/hr 2 CRP <0.9 mg/dL <0.1 ASSESSMENT/PLAN: 1. Hyperglycemia - ICD9: 790.29, ICD10: R73.9 (primary diagnosis) check labs Recommend continuing a balanced diet throughout the day - BASIC METABOLIC PNL - HGB A1C 2. Anxiety - ICD9: 300.00, ICD10: F41.9 Risks and benefits of medication change discussed Stop zoloft Start prozac Follow up in approx 1 month as scheduled. LORETTA CLEARY PA-C 10/18/2017 11:11 AM Addendum Please get labs today Stop zoloft and start prozac Follow up in approx 1 month. Return or call office sooner as needed. Referring Provider: FREEMAN MANZANARES [[id number]] Allergies As of Date: 10/18/2017 Noted Allergy Reaction CELEXA (CITALOPRAM HYDROBROMIDE) 09/15/2016 1 - Mental Status Change Comments: [place] spacy DOXYCYCLINE 04/12/2005 11 - Vomiting HYDROXYZINE 03/17/2017 14 - Other: See Comments Comments: Migraine NORTRIPTYLINE 08/31/2017 16 - Unknown Comments: Chest pain ZANTAC (RANITIDINE HCL) 10/10/2016 8 - GI Upset Date Reviewed: 10/18/2017 Reviewed by: Rajani Goldstein - Fully Assessed Reason for Visit: high blood sugars [Other] Cmt: Patient is for high sugar episode Primary Visit Diagnosis:Hyperglycemia [R73.9] Other Visit Diagnosis:Anxiety [F41.9] Order(s):multivitamin tabletTake 1 tablet by mouth once daily.Disp: Rfl: [place]-3 Fatty Acids (FISH OIL) 500 mg capTake 2 capsules by mouth once daily.Disp: Rfl: BASIC METABOLIC PNL [SQBMP] Order #: [id number] FUTURE HGB A1C [[id number]] Order #: [id number] FUTURE FLUoxetine (PROZAC) 20 mg capsuleTake 1 capsule by mouth once daily.Disp: 30 capsuleRfl: 1 Prescriptions as of 10/18/2017 Sig: FAMOTIDINE 40 MG TABLET Take 1 tablet by mouth once d* CYCLOBENZAPRINE 10 MG TABLET Take 1 tablet by mouth three * PROBIOTIC (B. COAGULANS) ORAL Take by mouth. MULTIVITAMIN TABLET Take 1 tablet by mouth once d* OMEGA-3 FATTY ACIDS 500 MG CA* Take 2 capsules by mouth once* FLUOXETINE 20 MG CAPSULE Take 1 capsule by mouth once * NAPROXEN 500 MG TABLET Take 1 tablet by mouth twice * FLUTICASONE 50 MCG/ACTUATION * Use 2 Sprays in each nostril * ALBUTEROL SULFATE HFA 90 MCG/* Inhale 2 Puffs as instructed * Problem List As Of Date 10/18/2017 Noted Resolved DYSTHYMIC DISORDER [F34.1] INVALID FOR* TENSION HEADACHE [G44.209] INVALID FOR* Hypoglycemia [E16.2] INVALID FOR* More... Sterilization [Z30.2] INVALID FOR*10/10/2016 Cigarette nicotine dependence with nicotine-ind*INVALID FOR* History of alcohol abuse [Z87.898] Anxiety [F41.9] INVALID FOR* Generalized abdominal pain [R10.84] INVALID FOR*10/10/2016 Altered bowel function [R19.4] INVALID FOR* More... Abdominal cramping, generalized [R10.84] INVALID FOR* More... Acid indigestion [K30] INVALID FOR* More... Generalized abdominal discomfort [R10.84] INVALID FOR* More... Gastro-esophageal reflux disease without esopha*INVALID FOR* Umbilical hernia [K42.9] INVALID FOR* More... Other instructions from your clinician: Please get labs today Stop zoloft and start prozac Follow up in approx 1 month. Return or call office sooner as needed. Prescriptions ordered this encounter Disp Refills Start End MULTIVITAMIN TABLET 10/18/2017 Class: Med Update Route: ORAL Sig: Take 1 tablet by mouth once daily. OMEGA-3 FATTY ACIDS 500 MG CAPSULE 10/18/2017 Class: Med Update Route: ORAL Sig: Take 2 capsules by mouth once daily. FLUOXETINE 20 MG CAPSULE 30 c* 1 10/18/2017 Route: ORAL Sig: Take 1 capsule by mouth once daily. Medications Discontinued During This Encounter mirtazapine (REMERON) 15 mg tablet 30 t* 0 10/09/2017 10/18/2017 Route: ORAL Sig: Take 1 tablet by mouth daily at bedtime. Disc: Discontinued by Patient sertraline (ZOLOFT) 100 mg tablet 60 t* 5 05/08/2017 10/18/2017 Route: ORAL Sig: Take 2 tablets by mouth once daily. Disc: Changing Therapy/Dosage Form Disposition: Return in about 1 month (around 11/17/2017) for Recheck. Follow-up and Disposition History Recorded Encounter Status:Closed by SANGITA MANZANARES on 10/18/17 XR CHEST 1 VIEW Observed: 10/16/2017 Status: F Source: [place] [facility] 7:26 PM [facility] REPOSITORY ORIGINAL XR CHEST 1 VIEW CLINICAL STATEMENT: Chest pain COMPARISON: 07/12/2017 FINDINGS: The cardiomediastinal contours are normal. There is no consolidation, vascular congestion, pleural effusion, or pneumothorax. There are no acute abnormalities to osseous structures. IMPRESSION: No acute radiographic findings. I have personally reviewed the images of this examination and agree with the resident's findings and interpretation. Interpreted By: Luciana Ramirez MD Preliminary Report By: Asha Fontenot MD Electronically Signed By: Luciana Ramirez MD Dictated Date: 10/16/2017 7:36:57 PM Prelim Date: 10/16/2017 7:37:40 PM Sign Date: 10/16/2017 9:57:51 PM CBC Collected: 10/16/2017 Status: F Source: [employer] [facility] 7:07 PM [facility] REPOSITORY TYPE CODE TESTS RESULT OUT OF REFERENCE UNITS RANGE LAB WBC(LOINC) 4.60-10.80 10 3/mcL WBC 7.50 LAB RBCCT(LOINC 4.04-6.13 10 6/mcL ) RBC 4.17 LAB HGB(LOINC) 14.0-18.0 G/dL Low Hgb 13.9 LAB HCT(LOINC) 42.0-52.0 % Low Hct 38.4 LAB MCV(LOINC) 80.0-94.0 fL MCV 92.0 LAB MCH(LOINC) 27.0-31.2 pg High MCH 33.4 LAB MCHC(LOINC) 31.8-35.4 G/dL High MCHC 36.3 LAB RDW(LOINC) 11.5-14.5 % RDW 13.3 LAB PLT(LOINC) 130-400 10 3/mcL Platelet 225 LAB MPV(LOINC) 7.4-10.4 fL MPV 8.5 Performed By: #### CBC, ADIFF, ANEU #### [address] [address] #### BMP, GFR, TROP #### [place] [address] .AUTO DIFF Collected: 10/16/2017 Status: F Source: [facility] 7:07 PM [facility] REPOSITORY TYPE CODE TESTS RESULT OUT OF REFERENCE UNITS RANGE LAB EYAL(LOINC) 37.0-80.0 % Neutrophil % 67.2 LAB LYM(LOINC) 10.0-50.0 % Lymphocyte % 23.3 LAB MON(LOINC) 1.7-13.0 % Monocyte % 7.5 LAB EO(LOINC) 0.0-7.0 % Eosinophil % 1.4 LAB BAS(LOINC) 0.0-2.5 % Basophil % 0.6 LAB ABLYM(LOIN 0.77-3.85 10 3/mcL C) Lymphocyte, 1.70 Absolute LAB JASON(LOINC 0.15-1.00 10 3/mcL ) Monocyte, 0.60 Absolute LAB AEOS(LOINC 0.00-0.40 10 3/mcL ) Eosinophil, 0.10 Absolute LAB ABAS(LOINC 0.00-0.19 10 3/mcL ) Basophil, 0.00 Absolute Performed By: #### CBC, ADIFF, ANEU #### [address] [address] #### BMP, GFR, TROP #### [address] [address] .NEUABS Collected: 10/16/2017 Status: F Source: [facility] 7:07 [facility] REPOSITORY TYPE CODE TESTS RESULT OUT OF REFERENCE UNITS RANGE LAB ANEU(LOINC) 2.85-6.16 10 3/mcL Neutrophil, 5.00 Absolute Performed By: #### CBC, ADIFF, ANEU #### [address] [address] #### BMP, GFR, TROP #### [place] [address] BMP Collected: 10/16/2017 Status: F Source: [facility] 7:07 [facility] REPOSITORY TYPE CODE TESTS RESULT OUT OF REFERENCE UNITS RANGE LAB GLU(LOINC) 70-105 mg/dL Glucose Level 91 LAB NA(LOINC) 136-145 mmol/L Sodium Level 140 LAB K(LOINC) 3.5-5.1 mmol/L Potassium Level 3.7 LAB CL(LOINC) 98-107 mmol/L Chloride 104 LAB CO2(LOINC) 22-29 mmol/L CO2 28 LAB EBAL(LOINC mEq/L ) Electrolyte Balance 8.0 LAB BUN(LOINC) 7-18 mg/dL BUN High 19 LAB CRE(LOINC) 0.70-1.30 mg/dL Creatinine Lvl (s) 1.03 LAB BC(LOINC) 7-27 ratio BUN/Creatinine 18 Ratio LAB CA(LOINC) 8.4-10.2 mg/dL Calcium Lvl 8.5 Performed By: #### CBC, ADIFF, ANEU #### [address] [address] #### BMP, GFR, TROP #### [place] [id number] .GFR Collected: 10/16/2017 Status: F Source: [facility] 7:07 [facility] REPOSITORY TYPE CODE TESTS RESULT OUT OF REFERENCE UNITS RANGE LAB GFRAA(LOINC ml/min/1.73 ) sqm GFR 97 Bangladeshi Result Comment: GFR Population mean for , Non- Americans Ages 20-29 = 116 mL/min/1.73 sq.m. Ages 30-39 = 107 mL/min/1.73 sq.m. Ages 40-49 = 99 mL/min/1.73 sq.m. Ages 50-59 = 93 mL/min/1.73 sq.m. Ages 60-69 = 85 mL/min/1.73 sq.m. Ages 70+ = 75 mL/min/1.73 sq.m. Chronic Kidney Disease: Less than 60 mL/min/1.73 square meters End Stage Renal Disease: Less than 15 mL/min/1.73 square meters LAB GFRNO(LOINC) ml/min/1.73sqm GFR Non- 80 Result Comment: GFR Population mean for , Non- Americans Ages 20-29 = 116 mL/min/1.73 sq.m. Ages 30-39 = 107 mL/min/1.73 sq.m. Ages 40-49 = 99 mL/min/1.73 sq.m. Ages 50-59 = 93 mL/min/1.73 sq.m. Ages 60-69 = 85 mL/min/1.73 sq.m. Ages 70+ = 75 mL/min/1.73 sq.m. Chronic Kidney Disease: Less than 60 mL/min/1.73 square meters End Stage Renal Disease: Less than 15 mL/min/1.73 square meters Performed By: #### CBC, ADIFF, ANEU #### [facility] [address] [place], [place] [address] #### BMP, GFR, TROP #### [facility] [address] [place] [id number] TROP Collected: 10/16/2017 Status: F Source: [facility] 7:07 [facility] REPOSITORY TYPE CODE TESTS RESULT OUT OF REFERENCE UNITS RANGE LAB TROP(LOINC) 0.000-0.040 ng/mL Troponin <0.020 Result Comment: Troponin I reference range: 0.00-0.040 ng/mL Negative and non-diagnostic. >0.040 ng/mL Consistent with cardiac damage, increased clinical risk and possibility of myocardial infarction. Serial measurements, a rise & fall in test results, clinical history, appropriate symptoms and/or ECG changes may help assess possibility of NM. *Other non-acute coronary syndrome conditions such as CHF, myocarditis, pulmonary emboli, sepsis and cardiac surgery could result in myocardial damage and increased troponin levels. Performed By: #### CBC, ADIFF, ANEU #### [facility] [address] [place], [place] [address] #### BMP, GFR, TROP #### [facility] [address] [place] [id number] PROGRESS Observed: 09/28/2017 Status: COMPLETED Source: [place] 11:38 AM [facility] RE[facility] HNO ID: [id number] Author: Kenyatta (Cresencio) Lambert Service: (none) Author Type: Nurse Practitioner Type: Progress Notes Filed: 09/28/2017 1:11 PM Note Text: This is a 42 year old male who presents today with: Patient presents with: F/U 1 month HISTORY OF PRESENT ILLNESS: Carlos A Conroy is a 42 year old male. Patient presents with: F/U 1 month Pt here today to follow-up on anxiety. Since here last, developed a umbilical hernia. Then had hernia surgery. Currently off work X 6 weeks. Tried the wellbutrin for about 5 days. Refers that he really didn't like how it made him feel. He had intended to get an appt with rheum, however ended up with surgery. Reports that he continues to get a hot flash. He will get a feeling in his chest. Not a pain. Will get a lump in his throat. Refers this will happen almost daily. Has been avoiding flexeril - thinks that is causes numbness. Continues on daily sertraline. Refers hx of poor sleep. This has been ongoing for years. Just started thinking about it more after the hernia surgery. Refers trouble falling asleep. Refers that he'll lay in bed 1-2 hours before falling asleep. Refers after a couple of hours of sleep, he'll wake up. Refers a lot of times, he will fall back asleep, but he is up a couple of times a night. He will go to bed around 10:00 -- then he is back up around 6:00 (takes 1-2 hours to fall asleep and then up a couple of times for no specific reason). Refers he doesn't recall the last time he was able to sleep a whole night. Refers that he also questions if he could have asthma. He has an inhaler which had helped symptoms. No wheezing. However, with the smoking hx, fatigue, lump in the throat -- questions if this could be a source. PAST MEDICAL HISTORY: PAST MEDICAL HISTORY Diagnosis Date - Acid indigestion 10/05/2016 Added automatically from request for surgery [id number] - Anxiety 01/20/2015 - History of alcohol abuse PAST SURGICAL HISTORY Procedure Laterality Date - EGD W/O OR W/BRUSH/WASH 01/18/2017 EGD - REPAIR UMBILICAL YULY,5+Y/O,REDUC 09/12/2017 Hernia repair, ventral/supraumbilical >5yr - VASECTOMY 02/23/12 ALLERGIES Celexa [Citalopram Hydrobromide]; Doxycycline; Hydroxyzine; Nortriptyline; Zantac [Ranitidine Hcl] MEDICATIONS Current Outpatient Prescriptions: cyclobenzaprine (FLEXERIL) 10 mg tablet Take 1 tablet by mouth three times daily as needed. naproxen (NAPROSYN) 500 mg tablet Take 1 tablet by mouth twice daily as needed for Pain. Take with food. fluticasone (FLONASE) 50 mcg/actuation nasal spray Use 2 Sprays in each nostril once daily. Rinse mouth after use. sertraline (ZOLOFT) 100 mg tablet Take 2 tablets by mouth once daily. BACILLUS COAGULANS (PROBIOTIC, B. COAGULANS, ORAL) Take by mouth. albuterol HFA (VENTOLIN HFA) 90 mcg/actuation inhaler Inhale 2 Puffs as instructed every 4 hours as needed for Wheezing/Shortness of Breath. No current facility-administered medications for this visit. FAMILY HISTORY Problem Relation Age of Onset - Thyroid Mother - Hypertension Mother - other (ovarian mass) Mother benign - other (Gallstones) Mother - None Father - Alcohol/Drug Maternal Grandmother - Cancer Maternal Grandfather unknown - Alcohol/Drug Paternal Grandfather - Stroke Paternal Grandfather - Heart Paternal Grandfather - Cancer Maternal Aunt type unknown - Alcohol/Drug Maternal Aunt - Alcohol/Drug Maternal Aunt - Alcohol/Drug Maternal Aunt - Alcohol/Drug Maternal Uncle - Alcohol/Drug Paternal Aunt - Alcohol/Drug Paternal Aunt - Cerebral Embolism Son Social History Marital status: Spouse name: Years of education: Number of children: 2 Social History Main Topics Smoking status: Former Smoker Packs/day: 0.50 Years: 0.00 Types: Cigarettes Start date: 03/12/2008 Quit date: 10/05/2016 Smokeless tobacco: Current User Types: Snuff Comment: 4-6 cigatettes a day from 2008-09/2016 Alcohol use: No Comment: Stopped drinking ETOH as of 12/2014 Drug use: No Sexual activity: Yes Partners with: Female control/protection: IUD EXAM: BP 106/60 (BP Site: Right Arm, BP Position: Sitting, BP Cuff Size: Regular Adult) Pulse 78 Resp 12 Wt 57.2 kg (126 lb) BMI 18.61 kg/m? PHYSICAL EXAM: General Appearance: Well appearing, alert, in no acute distress, well-hydrated, well nourished.. Skin: Skin color, texture, turgor normal, no suspicious rashes or lesions. Head: Normocephalic, no masses, lesions, tenderness or abnormalities. Eyes: Anicteric sclera. Extraocular movements are intact. . Neurologic: Gait normal. ASSESSMENT/PLAN: 1. Anxiety - ICD9: 300.00, ICD10: F41.9 (primary diagnosis) Continue on sertraline. Add trazodone to help with sleep. 2. SOB (shortness of breath) - ICD9: 786.05, ICD10: R06.02 Discussed that symptoms could certainly be anxiety related. However, with smoking hx, will get PFTs. - SPIROMETRY WITH DILATOR IF OBSTRUCTED 3. Chronic insomnia - ICD9: 780.52, ICD10: F51.04 Discussed this medication can make him tired. He should allot enough time after dosing for sleep. - TRAZODONE 50 MG TABLET Discussed treatment plan and patient voices understanding. Patient's questions answered appropriately. Medications and potential side effects were discussed and patient voices understanding. Continue to establish with rheum to f/o fibro. Recheck in 1-2 months. Return to the office as scheduled or as needed for worsening/no improvement. Kenyatta Verdin APRN.LITIGATION LEGAL ASSISTANT CNOV Observed: 09/28/2017 Status: COMPLETED Source: [place] 11:00 AM [facility] RE[facility] CARLOS A CONROY ([id number]) 1975 M Date Time Provider Department 09/28/17 11:00 AM KENYATTA VERDIN CNP During your visit today, we recorded the following information about you: Pulse Respiration Blood pressure Weight 78/minute 12/minute 106/60 57.2 kg Kenyatta Verdin APRN.CNP 09/28/2017 1:11 PM Signed This is a 42 year old male who presents today with: Patient presents with: F/U 1 month HISTORY OF PRESENT ILLNESS: Carlos A Conroy is a 42 year old male. Patient presents with: F/U 1 month Pt here today to follow-up on anxiety. Since here last, developed a umbilical hernia. Then had hernia surgery. Currently off work X 6 weeks. Tried the wellbutrin for about 5 days. Refers that he really didn't like how it made him feel. He had intended to get an appt with rheum, however ended up with surgery. Reports that he continues to get a hot flash. He will get a feeling in his chest. Not a pain. Will get a lump in his throat. Refers this will happen almost daily. Has been avoiding flexeril - thinks that is causes numbness. Continues on daily sertraline. Refers hx of poor sleep. This has been ongoing for years. Just started thinking about it more after the hernia surgery. Refers trouble falling asleep. Refers that he'll lay in bed 1-2 hours before falling asleep. Refers after a couple of hours of sleep, he'll wake up. Refers a lot of times, he will fall back asleep, but he is up a couple of times a night. He will go to bed around 10:00 -- then he is back up around 6:00 (takes 1-2 hours to fall asleep and then up a couple of times for no specific reason). Refers he doesn't recall the last time he was able to sleep a whole night. Refers that he also questions if he could have asthma. He has an inhaler which had helped symptoms. No wheezing. However, with the smoking hx, fatigue, lump in the throat -- questions if this could be a source. PAST MEDICAL HISTORY: PAST MEDICAL HISTORY Diagnosis Date - Acid indigestion 10/05/2016 Added automatically from request for surgery [id number] - Anxiety 01/20/2015 - History of alcohol abuse PAST SURGICAL HISTORY Procedure Laterality Date - EGD W/O OR W/BRUSH/WASH 01/18/2017 EGD - REPAIR UMBILICAL YULY,5+Y/O,REDUC 09/12/2017 Hernia repair, ventral/supraumbilical >5yr - VASECTOMY 02/23/12 ALLERGIES Celexa [Citalopram Hydrobromide]; Doxycycline; Hydroxyzine; Nortriptyline; Zantac [Ranitidine Hcl] MEDICATIONS Current Outpatient Prescriptions: cyclobenzaprine (FLEXERIL) 10 mg tablet Take 1 tablet by mouth three times daily as needed. naproxen (NAPROSYN) 500 mg tablet Take 1 tablet by mouth twice daily as needed for Pain. Take with food. fluticasone (FLONASE) 50 mcg/actuation nasal spray Use 2 Sprays in each nostril once daily. Rinse mouth after use. sertraline (ZOLOFT) 100 mg tablet Take 2 tablets by mouth once daily. BACILLUS COAGULANS (PROBIOTIC, B. COAGULANS, ORAL) Take by mouth. albuterol HFA (VENTOLIN HFA) 90 mcg/actuation inhaler Inhale 2 Puffs as instructed every 4 hours as needed for Wheezing/Shortness of Breath. No current facility-administered medications for this visit. FAMILY HISTORY Problem Relation Age of Onset - Thyroid Mother - Hypertension Mother - other (ovarian mass) Mother benign - other (Gallstones) Mother - None Father - Alcohol/Drug Maternal Grandmother - Cancer Maternal Grandfather unknown - Alcohol/Drug Paternal Grandfather - Stroke Paternal Grandfather - Heart Paternal Grandfather - Cancer Maternal Aunt type unknown - Alcohol/Drug Maternal Aunt - Alcohol/Drug Maternal Aunt - Alcohol/Drug Maternal Aunt - Alcohol/Drug Maternal Uncle - Alcohol/Drug Paternal Aunt - Alcohol/Drug Paternal Aunt - Cerebral Embolism Son Social History Marital status: Spouse name: Years of education: Number of children: 2 Social History Main Topics Smoking status: Former Smoker Packs/day: 0.50 Years: 0.00 Types: Cigarettes Start date: 03/12/2008 Quit date: 10/05/2016 Smokeless tobacco: Current User Types: Snuff Comment: 4-6 cigatettes a day from 2008-09/2016 Alcohol use: No Comment: Stopped drinking ETOH as of 12/2014 Drug use: No Sexual activity: Yes Partners with: Female control/protection: IUD EXAM: BP 106/60 (BP Site: Right Arm, BP Position: Sitting, BP Cuff Size: Regular Adult) Pulse 78 Resp 12 Wt 57.2 kg (126 lb) BMI 18.61 kg/m? PHYSICAL EXAM: General Appearance: Well appearing, alert, in no acute distress, well-hydrated, well nourished.. Skin: Skin color, texture, turgor normal, no suspicious rashes or lesions. Head: Normocephalic, no masses, lesions, tenderness or abnormalities. Eyes: Anicteric sclera. Extraocular movements are intact. . Neurologic: Gait normal. ASSESSMENT/PLAN: 1. Anxiety - ICD9: 300.00, ICD10: F41.9 (primary diagnosis) Continue on sertraline. Add trazodone to help with sleep. 2. SOB (shortness of breath) - ICD9: 786.05, ICD10: R06.02 Discussed that symptoms could certainly be anxiety related. However, with smoking hx, will get PFTs. - SPIROMETRY WITH DILATOR IF OBSTRUCTED 3. Chronic insomnia - ICD9: 780.52, ICD10: F51.04 Discussed this medication can make him tired. He should allot enough time after dosing for sleep. - TRAZODONE 50 MG TABLET Discussed treatment plan and patient voices understanding. Patient's questions answered appropriately. Medications and potential side effects were discussed and patient voices understanding. Continue to establish with rheum to f/o fibro. Recheck in 1-2 months. Return to the office as scheduled or as needed for worsening/no improvement. MARY Moreira APRN.CNP 09/28/2017 12:07 PM Signed 1. Start the trazodone daily at bedtime as needed for sleep. 2. Schedule the PFTs test. 3. Continue to set something up with rheum. 4. Recheck in a month. Referring Provider: KENYATTA VERDIN (LITIGATION LEGAL ASSISTANT) [[id number]] Allergies As of Date: 09/28/2017 Noted Allergy Reaction CELEXA (CITALOPRAM HYDROBROMIDE) 09/15/2016 1 - Mental Status Change Comments: [place] spacy DOXYCYCLINE 04/12/2005 11 - Vomiting HYDROXYZINE 03/17/2017 14 - Other: See Comments Comments: Migraine NORTRIPTYLINE 08/31/2017 16 - Unknown Comments: Chest pain ZANTAC (RANITIDINE HCL) 10/10/2016 8 - GI Upset Date Reviewed: 09/28/2017 Reviewed by: Sonya Ramírez [employer] - Fully Assessed Reason for Visit: F/U 1 month [1175] Primary Visit Diagnosis:Anxiety [F41.9] Other Visit Diagnoses:SOB (shortness of breath) [R06.02] Chronic insomnia [F51.04] Order(s):traZODone (DESYREL) 50 mg tabletTake 1 tablet by mouth daily at bedtime.Disp: 30 tabletRfl: 1 SPIROMETRY WITH DILATOR IF OBSTRUCTED [[id number]] Order #: [id number] FUTURE Prescriptions as of 09/28/2017 Sig: CYCLOBENZAPRINE 10 MG TABLET Take 1 tablet by mouth three * NAPROXEN 500 MG TABLET Take 1 tablet by mouth twice * FLUTICASONE 50 MCG/ACTUATION * Use 2 Sprays in each nostril * SERTRALINE 100 MG TABLET Take 2 tablets by mouth once * PROBIOTIC (B. COAGULANS) ORAL Take by mouth. ALBUTEROL SULFATE HFA 90 MCG/* Inhale 2 Puffs as instructed * TRAZODONE 50 MG TABLET Take 1 tablet by mouth daily * Problem List As Of Date 09/28/2017 Noted Resolved DYSTHYMIC DISORDER [F34.1] INVALID FOR* TENSION HEADACHE [G44.209] INVALID FOR* Hypoglycemia [E16.2] INVALID FOR* More... Sterilization [Z30.2] INVALID FOR*10/10/2016 Cigarette nicotine dependence with nicotine-ind*INVALID FOR* History of alcohol abuse [Z87.898] Anxiety [F41.9] INVALID FOR* Generalized abdominal pain [R10.84] INVALID FOR*10/10/2016 Altered bowel function [R19.4] INVALID FOR* More... Abdominal cramping, generalized [R10.84] INVALID FOR* More... Acid indigestion [K30] INVALID FOR* More... Generalized abdominal discomfort [R10.84] INVALID FOR* More... Gastro-esophageal reflux disease without esopha*INVALID FOR* Umbilical hernia [K42.9] INVALID FOR* More... Other instructions from your clinician: 1. Start the trazodone daily at bedtime as needed for sleep. 2. Schedule the PFTs test. 3. Continue to set something up with rheum. 4. Recheck in a month. Prescriptions ordered this encounter Disp Refills Start End TRAZODONE 50 MG TABLET 30 t* 1 09/28/2017 Route: ORAL Sig: Take 1 tablet by mouth daily at bedtime. Disposition: Return in about 1 month (around 10/29/2017), or if symptoms worsen or fail to improve. Follow-up and Disposition History Recorded Encounter Status:Closed by KENYATTA VERDIN CNP on 09/28/17 PROGRESS Observed: 09/22/2017 Status: COMPLETED Source: [place] 12:55 PM [facility] REPOSITORY O ID: [id number] Author: Deepika Stroud (Pa) Service: (none) Author Type: Physician Plate Mill Hand Type: Progress Notes Filed: 09/22/2017 12:58 PM Note Text: FOLLOW UP VISIT - HERNIA NAME: Carlos A Jiménez [facility] NO.: [id number] DATE OF SERVICE: 09/20/2017 : 1975 REFERRING PHYSICIAN: Freeman Manzanares MD Carlos A is a patient I am following for a symptomatic small supraumbilical ventral hernia repair. Dr. Arredondo performed a ventral hernia repair without mesh for the small defect on 09/12/17. The patient currently notes no major complaints. his appetite has been good. He denies fever, chills or abdominal pain. He does note some mild incisional discomfort. He notes no bulges at the operative site VITALS: There were no vitals taken for this visit. On examination, the abdomen is benign. The incision is healing well without signs of infection or inflammation. There are no signs of recurrent hernia formation. Assessment IMPRESSION: status post ventral hernia repair without mesh PLAN: If the patient notes any problems, he should contact me immediately. he may return to his regular activities as tolerated, with the exception of no lifting greater than 20 pounds for the next 7 weeks. Diagnoses: (K43.9) Supraumbilical hernia (primary encounter diagnosis) Return to Clinic: The patient is instructed to follow- up with me as needed. Deepika Stroud PA-C CNOV Observed: 09/20/2017 Status: COMPLETED Source: [place] 1:20 PM [facility] RE[facility] Office Visit ([facility]) CARLOS A CONROY ([id number]) 1975 M Date Time Provider Department 09/20/17 1:20 PM DEEPIKA STROUD (PA) During your visit today, we recorded the following information about you: Deepika Stroud PA-C 09/20/2017 1:26 PM Signed The following instructions are important for you related to your office visit today with the [facility] Surgeons. INSTRUCTIONS FOLLOWING YOUR RECENT HERNIA SURGERY You should be returning to your regular diet, If you have having persistent issues with tolerating your diet, please contact our office It is not unusual to have incisional pain for the first 1- 2 weeks following surgery. If this persists beyond 2 weeks, contact the office You should leave the Steri-Strips in place until they fall off. You may return to your regular activities. You may drive if you are no longer taking narcotic pain medication. Climbing stairs is fine. Walking in encouraged. Sitting up from bed may be uncomfortable. Sitting up using your lateral abdominal muscles (sitting up sideways) is usually more comfortable. You should perform no lifting greater than 20lbs for the next 6-7 weeks. Usually 8 weeks total from the date of surgery. It is not unusual to have loose stools following surgery. This is usually self limited and related to the antibiotics that were given during your surgical procedure. Fiber supplementation and yogurt with active cultures may help you return to regular bowel activity. If you note loose stools persisting for over 2 weeks, or significant cramping or loose bloody stools, contact the office immediately. Contact the office immediately if any of your incisions become increasingly tender, red or have drainage. Again, if you have any difficulties or concerns, contact our office immediately. If you note any additional difficulties, questions, or concerns, you should contact our office immediately @ [phone] and ask to be transferred to the General Surgery department. Deepika Stroud PA-C 09/22/2017 12:58 PM Signed FOLLOW UP VISIT - HERNIA NAME: Carlos A Conroy [facility] NO.: [id number] DATE OF SERVICE: 09/20/2017 : 1975 REFERRING PHYSICIAN: Freeman Manzanares MD Carlos A is a patient I am following for a symptomatic small supraumbilical ventral hernia repair. Dr. Arredondo performed a ventral hernia repair without mesh for the small defect on 09/12/17. The patient currently notes no major complaints. his appetite has been good. He denies fever, chills or abdominal pain. He does note some mild incisional discomfort. He notes no bulges at the operative site VITALS: There were no vitals taken for this visit. On examination, the abdomen is benign. The incision is healing well without signs of infection or inflammation. There are no signs of recurrent hernia formation. Assessment IMPRESSION: status post ventral hernia repair without mesh PLAN: If the patient notes any problems, he should contact me immediately. he may return to his regular activities as tolerated, with the exception of no lifting greater than 20 pounds for the next 7 weeks. Diagnoses: (K43.9) Supraumbilical hernia (primary encounter diagnosis) Return to Clinic: The patient is instructed to follow- up with me as needed. Deepika Stroud PA-C Referring Provider: FREEMAN MANZANARES [[id number]] Allergies As of Date: 09/20/2017 Noted Allergy Reaction CELEXA (CITALOPRAM HYDROBROMIDE) 09/15/2016 1 - Mental Status Change Comments: [place] spacy DOXYCYCLINE 04/12/2005 11 - Vomiting HYDROXYZINE 03/17/2017 14 - Other: See Comments Comments: Migraine NORTRIPTYLINE 08/31/2017 16 - Unknown Comments: Chest pain ZANTAC (RANITIDINE HCL) 10/10/2016 8 - GI Upset Date Reviewed: 09/20/2017 Reviewed by: Sandy Harrison LPN - Fully Assessed Reason for Visit: Post Op [174] Cmt: post op hernia Reason For Visit History Recorded Primary Visit Diagnosis:Supraumbilical hernia [K43.9] Prescriptions as of 09/20/2017 Sig: CYCLOBENZAPRINE 10 MG TABLET Take 1 tablet by mouth three * NAPROXEN 500 MG TABLET Take 1 tablet by mouth twice * FLUTICASONE 50 MCG/ACTUATION * Use 2 Sprays in each nostril * SERTRALINE 100 MG TABLET Take 2 tablets by mouth once * PROBIOTIC (B. COAGULANS) ORAL Take by mouth. ALBUTEROL SULFATE HFA 90 MCG/* Inhale 2 Puffs as instructed * Problem List As Of Date 09/20/2017 Noted Resolved DYSTHYMIC DISORDER [F34.1] INVALID FOR* TENSION HEADACHE [G44.209] INVALID FOR* Hypoglycemia [E16.2] INVALID FOR* More... Sterilization [Z30.2] INVALID FOR*10/10/2016 Cigarette nicotine dependence with nicotine-ind*INVALID FOR* History of alcohol abuse [Z87.898] Anxiety [F41.9] INVALID FOR* Generalized abdominal pain [R10.84] INVALID FOR*10/10/2016 Altered bowel function [R19.4] INVALID FOR* More... Abdominal cramping, generalized [R10.84] INVALID FOR* More... Acid indigestion [K30] INVALID FOR* More... Generalized abdominal discomfort [R10.84] INVALID FOR* More... Gastro-esophageal reflux disease without esopha*INVALID FOR* Umbilical hernia [K42.9] INVALID FOR* More... Other instructions from your clinician: The following instructions are important for you related to your office visit today with the [facility]. INSTRUCTIONS FOLLOWING YOUR RECENT HERNIA SURGERY You should be returning to your regular diet, If you have having persistent issues with tolerating your diet, please contact our office It is not unusual to have incisional pain for the first 1-2 weeks following surgery. If this persists beyond 2 weeks, contact the office You should leave the Steri-Strips in place until they fall off. You may return to your regular activities. You may drive if you are no longer taking narcotic pain medication. Climbing stairs is fine. Walking in encouraged. Sitting up from bed may be uncomfortable. Sitting up using your lateral abdominal muscles (sitting up sideways) is usually more comfortable. You should perform no lifting greater than 20lbs for the next 6-7 weeks. Usually 8 weeks total from the date of surgery. It is not unusual to have loose stools following surgery. This is usually self limited and related to the antibiotics that were given during your surgical procedure. Fiber supplementation and yogurt with active cultures may help you return to regular bowel activity. If you note loose stools persisting for over 2 weeks, or significant cramping or loose bloody stools, contact the office immediately. Contact the office immediately if any of your incisions become increasingly tender, red or have drainage. Again, if you have any difficulties or concerns, contact our office immediately. If you note any additional difficulties, questions, or concerns, you should contact our office immediately @ [phone] and ask to be transferred to the General Surgery department. Follow-up and Disposition History Recorded Encounter Status:Closed by DEEPIKA STROUD PA-C on 09/22/17 ANES POST Observed: 09/12/2017 Status: COMPLETED Source: [facility] 1:42 PM [facility] HNO ID: [id number] Author: Sameer Kaur Service: (none) Author Type: Physician Type: Anesthesia PostOp Filed: 09/12/2017 3:30 PM Note Text: POST ANESTHESIA EVALUATION NOTE SERVICE DATE: 09/12/2017 SERVICE TIME: 1329 : 1975 Vitals: 09/12/17 1303 09/12/17 1314 Temp: 36.3 ?C (97.3 ?F) 36.3 ?C (97.3 ?F) 09/12/17 1311 09/12/17 1314 09/12/17 1316 09/12/17 1330 BP: (!) 105/46 (!) 100/48 118/60 112/67 09/12/17 1311 09/12/17 1314 09/12/17 1316 09/12/17 1330 Pulse: 81 80 82 79 09/12/17 1311 09/12/17 1314 09/12/17 1316 09/12/17 1330 Resp: 16 14 15 16 09/12/17 1311 09/12/17 1314 09/12/17 1316 09/12/17 1330 SpO2: 99% 99% 100% 99% Validated Vital Signs: Yes POST ANES STATUS: No apparent anesthetic complications. The patient is appropriately hydrated with stable respiratory and cardiovascular status. Patient has safe and adequate airway control. The patient has appropriate pain relief and no significant post operative nausea or vomiting. The patient has achieved baseline mental status. Further assessment by Anesthesia Service: None Other Remarks: SIGNATURE: Sameer Kaur MD PATIENT NAME: Carlos A Conroy DATE: September 12, 2017 TIME: 3:28 PM PAGER/CONTACT #: none NURSING PROG Observed: 09/12/2017 Status: COMPLETED Source: [facility] 1:42 PM [facility] HNO ID: [id number] Author: Elaine (Rn) CARLOS Perez Service: (none) Author Type: Registered Nurse Type: Nursing Progress Note Filed: 09/14/2017 10:26 AM Note Text: Post op call complete. Denies any concerns and states that his discomfort is controlled with Naproxen. Advised patient to contact Dr. Arredondo's office with any questions or concerns. BRIEF OP NOT Observed: 09/12/2017 Status: COMPLETED Source: [facility] 12:41 PM [facility] HNO ID: [id number] Author: Cecilia Arredondo Service: (none) Author Type: Physician Type: Brief Op Note Filed: 09/12/2017 12:59 PM Note Text: BRIEF OPERATIVE NOTE SURGERY DATE: 09/12/2017 Incision/Procedure Start Time: 12:31 Incision Close/Procedure End Time: 12:53 Surgeon(s)/Proceduralist(s) and [employer] Hand(s): first assistant Deepika Arredondo PA-C Procedures: Ventral hernia repair Anesthesia: MAC, local Findings: small < 1 cm defect ventral hernia just superior to umbilicus Estimated Blood Loss: < 1 mls Specimens: None Complications: None Preop Diagnosis: ventral hernia Postop Diagnosis: ventral hernia SIGNATURE: Cecilia Arredondo MD PATIENT NAME: Carlos A Conroy DATE: September 12, 2017 TIME: 12:41 PM PAGER/CONTACT #: ANES PREOP Observed: 09/12/2017 Status: COMPLETED Source: [facility] 12:08 PM [facility] HNO ID: [id number] Author: Sameer Kaur Service: (none) Author Type: Physician Type: Anesthesia PreOp Filed: 09/12/2017 12:10 PM Note Text: ANESTHESIOLOGY PREOPERATIVE ASSESSMENT SERVICE DATE: 09/12/2017 : 1975 SERVICE TIME: 1200 Surgeon(s): Cecilia Arredondo Procedure(s) (LRB): HERNIORRHAPHY UMBILICAL ADULT (N/A) Estimated body mass index is 19.2 kg/m? as calculated from the following: Height as of this encounter: 175.3 cm (5' 9). Weight as of this encounter: 59 kg (130 lb). MOST RECENT HEMATOCRIT AND POTASSIUM RESULTS: Hematocrit 42.3 03/08/2016 Potassium 4.4 08/31/2017 ANES DOS/PREOP NOTE: Vitals: 09/12/17 1109 BP: 113/78 Pulse: 95 Resp: 15 Temp: 36.3 ?C (97.3 ?F) TempSrc: Temporal Artery SpO2: 100% Weight: 59 kg (130 lb) Height: 175.3 cm (5' 9) ACTIVE PROBLEM LIST Dysthymic Disorder Tension Headache Hypoglycemia Cigarette Nicotine Dependence With Nicotine-Induced Disorder History of Alcohol Abuse Anxiety Altered Bowel Function Abdominal Cramping, Generalized Acid Indigestion Generalized Abdominal Discomfort Gastro-Esophageal Reflux Disease Without Esophagitis Umbilical Hernia PAST MEDICAL HISTORY Diagnosis Date - Acid indigestion 10/05/2016 Added automatically from request for surgery [id number] - Anxiety 01/20/2015 - History of alcohol abuse PAST SURGICAL HISTORY Procedure Laterality Date - EGD W/O OR W/BRUSH/WASH 01/18/2017 EGD - REPAIR UMBILICAL YULY,5+Y/O,REDUC 09/12/2017 Hernia repair, umbilical >5yr - VASECTOMY 02/23/12 FAMILY HISTORY Problem Relation Age of Onset - Thyroid Mother - Hypertension Mother - ovarian mass [OTHER] Mother benign - Gallstones [OTHER] Mother - None Father - Alcohol/Drug Maternal Grandmother - Cancer Maternal Grandfather unknown - Alcohol/Drug Paternal Grandfather - Stroke Paternal Grandfather - Heart Paternal Grandfather - Cancer Maternal Aunt type unknown - Alcohol/Drug Maternal Aunt - Alcohol/Drug Maternal Aunt - Alcohol/Drug Maternal Aunt - Alcohol/Drug Maternal Uncle - Alcohol/Drug Paternal Aunt - Alcohol/Drug Paternal Aunt - Cerebral Embolism Son Social History: Social History Substance Use Topics - Smoking status: Former Smoker Packs/day: 0.50 Types: Cigarettes Start date: 03/12/2008 Quit date: 10/05/2016 - Smokeless tobacco: Current User Types: Snuff Comment: 4-6 cigatettes a day from 2008-09/2016 - Alcohol use No Comment: Stopped drinking ETOH as of 12/2014 No current facility-administered medications on file prior to encounter. Current Outpatient Prescriptions on File Prior to Encounter: traMADol (ULTRAM) 50 mg tablet Take 1 tablet by mouth every 6 hours as needed for Pain for up to 7 days. naproxen (NAPROSYN) 500 mg tablet Take 1 tablet by mouth twice daily as needed for Pain. Take with food. sertraline (ZOLOFT) 100 mg tablet Take 2 tablets by mouth once daily. BACILLUS COAGULANS (PROBIOTIC, B. COAGULANS, ORAL) Take by mouth. fluticasone (FLONASE) 50 mcg/actuation nasal spray Use 2 Sprays in each nostril once daily. Rinse mouth after use. albuterol HFA (VENTOLIN HFA) 90 mcg/actuation inhaler Inhale 2 Puffs as instructed every 4 hours as needed for Wheezing/Shortness of Breath. Current Facility-Administered Medications: lidocaine 10 mg/mL (1 %) 1-2 mg injection (XYLOCAINE) 0.1- 0.2 mL INTRADERMAL PRN Cecilia Arredondo lactated ringers infusion 75 mL/hr INTRAVENOUS CONTINUOUS Cecilia Arredondo Last Rate: 75 mL/hr at 09/12/17 1115 75 mL/hr at 09/12/17 1115 Allergies: ALLERGIES Allergen Reactions - Celexa [Citalopram * Mental Status Change [place] spacy - Doxycycline Vomiting - Hydroxyzine Other: See Comments Migraine - Nortriptyline Unknown Chest pain - Zantac [Ranitidine * GI Upset REVIEW OF SYSTEMS: REVIEW OF SYSTEMS: As stated in Active Problem List/ Past Medical History ANESTHESIOLOGY REVIEW: Airway Assessment: MP 2; Neck ROM: Full ROM without neurologic symptoms; Airway Evaluation: No significant abnormalities Symptoms of Sleep Apnea: None Intubation History: No previous history of difficult intubation Dentition: Teeth intact ADDITIONAL PHYSICAL EXAM: Lungs: Patient health status unchanged since recent history and physical. See history and physical for exam findings. Cardiac: Patient health status unchanged since recent history and physical. See history and physical for exam findings. Additional Pertinent Findings: N/A ADVERSE ANESTHESIA EVENT: No history of adverse event FAMILY HIISTORY OF ANESTHESIA: No known issues BLOOD PRODUCTS: Not anticipated for this procedure OTHER MEDICAL PROBLEMS: None I have interviewed and examined the patient. I have reviewed the medical record and/or the pre-anesthesia evaluation, pertinent labs, and test results. Significant changes in the patient's condition since the History and Physical, not otherwise documented in primary service progress notes: No Anesthetic risks, benefits, alternatives, personnel and consent discussed: Yes ANES REVIEW: This contains updated information obtained within 48 hours of Surgery/Procedure. SIGNATURE: Sameer Kaur MD PATIENT NAME: Carlos A Conroy DATE: September 12, 2017 TIME: 12:08 PM PAGER/CONTACT #: none PT ED Observed: 09/12/2017 Status: COMPLETED Source: [facility] 11:14 AM [facility] HNO ID: [id number] Author: Mara (Rn) CARLOS Russ Service: Nursing Author Type: Registered Nurse Type: Patient Education Filed: 09/12/2017 11:15 AM Note Text: preop teaching done, understands, calm but states has anxiety, reassured. Knows out pt routine. OPERATIVE NO Observed: 09/12/2017 Status: COMPLETED Source: [facility] 12:00 AM [facility] HNO ID: [id number] Author: Cecilia Arredondo Service: (none) Author Type: Physician Type: Operative Report Filed: 09/13/2017 7:20 AM Note Text: [facility] - Operative Report SURGEON: Cecilia Arredondo MD PATIENT NAME: CARLOS A CONROY CSN: [id number] DATE OF SURGERY: 09/12/2017 DATE OF : 1975 SEX/AGE: M/42 PATIENT TYPE: A [facility]: [facility] LOCATION: [facility] DATE OF SURGERY: 09/12/2017 SURGEON: Cecilia Arredondo MD RECEIVABLE CLERK: Deepika Stroud. She is assisting me as there are no Surgery assistants available. LOCATION: [facility]. PREOPERATIVE DIAGNOSIS: Ventral hernia. POSTOPERATIVE DIAGNOSIS: Ventral hernia. PROCEDURE PERFORMED: Ventral hernia repair. ANESTHESIA USED: Local MAC. SPECIMEN: None. DRAINS: None. COMPLICATIONS: None. ESTIMATED BLOOD LOSS: Less than 1 mL. INDICATIONS: Carlos A Conroy is a 42-year-old white male, presents with a symptomatic small periumbilical ventral hernia. He had noted it for about a week and presented with severe pain. It was able to be reduced with some difficulty. He therefore presents for ventral hernia repair. He has been counseled of the risks procedure including, but not limited to, infection, bleeding, scar, injury to any blood vessels or nerves, recurrence of hernia, cosmetic deformity, wound infection, etc. The patient understands and agrees to proceed. DESCRIPTION OF PROCEDURE: After informed consent was given, this patient was brought to the operating room and placed in supine position. Appropriate time-out protocol was done in the preprocedure area as well as the operating room. The patient was placed under IV conscious sedation by the anesthesia provider. The abdomen was then prepped with sterile surgical skin preparation. Appropriate sterile surgical drapes were placed. The skin and subcutaneous tissues superior to the umbilical dimple was infiltrated with local anesthetic. A midline skin incision was then made 15-blade scalpel. It was carried down to the fascia using sharp dissection. Any hemorrhage adequately controlled with electrocautery. Blunt dissection was then continued to identify out the fascial defect. There was a fascial defect that was identified. It is just superior to the umbilical dimple. It was less than a centimeter in maximum diameter. There was some incarcerated preperitoneal fat. The small amount of fat was transected at the fascial level. The fascial defect edges were then identified. The fascial defect edges were then reapproximated transversely using 0 PDS suture. No further hernias were noted in this area. The subcutaneous tissues were then reapproximated using Vicryl suture in interrupted simple fashion. The skin incision was closed with 4-0 Monocryl in a running subcuticular fashion. Benzoin and Steri- Strips were used to reinforce skin closure. Proper sterile dressings were applied. The patient tolerated the procedure well and was brought to the recovery room in stable condition. Cecilia Arredondo MD LW:modl /[id number] HISTORY PHYSICAL Observed: 09/11/2017 Status: COMPLETED Source: [facility] 7:43 PM [facility] HNO ID: [id number] Author: Cecilia Arredondo Service: (none) Author Type: Physician Type: HANDP Filed: 09/11/2017 7:44 PM Note Text: HISTORY AND PHYSICAL ? Carlos A Conroy 1975 ? ? REFERRING PHYSICIAN: Freeman Manzanares MD ? CHIEF COMPLAINT: Consult (Consult Umbilical hernia) ? HPI: Carlos A is a 42 year old male with a complaint of a bulge and discomfort Just above his umbilicus x 8 days. The patient notes discomfort in this area with lifting, straining, coughing and moving. The symptoms have maintained, over the past week. The patient notes no symptoms of bowel obstruction and denies nausea or vomiting. He denies any particular injury but does note that he does moderate lifting on a regular basis. ? Patient was initially evaluated at Urgent Care and was felt to have possible hernia vs sister yasir villeda. He states he was told to to the ED if his symptoms persisted. Patient notes he did then go to [facility] ED, we do not currently have accessed to those records. He notes he was diagnosed with a hernia on that exam, and then followed up with Jen Galloway who concurred with hernia diagnosis and referred patient for surgical evaluation. ? The patient is being seen by me today at the request of Dr. Jen Galloway for my opinion and advice regarding hernia. Patient's past medical history is significant for anxiety, past history of tobacco use and history of alcohol abuse. He notes no recent alcohol use and quit smoking cigarettes 6 months ago. Notes history of intermittent chest discomfort x 2.5 years for which he has had had multiple EKGs, also had troponins checked in ED recently which were negative. He has related some of these episodes to anxiety. Most recent ED was told he had reaction to nortriptyline. Has followed up with PCP since this episode, notes reviewed. Patient is being referred to rheumatology for possible fibromyalgia. ? ? PAST MEDICAL HISTORY PAST MEDICAL HISTORY Diagnosis Date - Acid indigestion 10/05/2016 ? Added automatically from request for surgery [id number] - Anxiety 01/20/2015 - History of alcohol abuse ? ? ? PAST SURGICAL HISTORY PAST SURGICAL HISTORY Procedure Laterality Date - EGD W/O OR W/BRUSH/WASH ? 01/18/2017 ? EGD - VASECTOMY ? 02/23/12 ? ? ? CURRENT MEDICATIONS ? Current Outpatient Prescriptions: traMADol (ULTRAM) 50 mg tablet Take 1 tablet by mouth every 6 hours as needed for Pain for up to 7 days. naproxen (NAPROSYN) 500 mg tablet Take 1 tablet by mouth twice daily as needed for Pain. Take with food. sertraline (ZOLOFT) 100 mg tablet Take 2 tablets by mouth once daily. BACILLUS COAGULANS (PROBIOTIC, B. COAGULANS, ORAL) Take by mouth. albuterol HFA (VENTOLIN HFA) 90 mcg/actuation inhaler Inhale 2 Puffs as instructed every 4 hours as needed for Wheezing/Shortness of Breath. fluticasone (FLONASE) 50 mcg/actuation nasal spray Use 2 Sprays in each nostril once daily. Rinse mouth after use. ? No current facility-administered medications for this visit. ? ALLERGIES: Celexa [Citalopram Hydrobromide]; Doxycycline; Hydroxyzine; Nortriptyline; Zantac [Ranitidine Hcl] ? PERSONAL HISTORY: SOCIAL HISTORY Social History Marital status: Spouse name: Years of education: Number of children: 2 ? Social History Main Topics Smoking status: Former Smoker Packs/day: 0.50 Years: 0.00 Types: Cigarettes Start date: 03/12/2008 Quit date: 10/05/2016 Smokeless tobacco: Current User Types: Snuff Comment: 4-6 cigatettes a day from 2008-09/2016 Alcohol use: No Comment: Stopped drinking ETOH as of 12/2014 Drug use: No Sexual activity: Yes Partners with: Female control/protection: IUD ? ? FAMILY HISTORY: FAMILY HISTORY FAMILY HISTORY Problem Relation Age of Onset - Thyroid Mother ? - Hypertension Mother ? - ovarian mass [OTHER] Mother ? ? ? benign - Gallstones [OTHER] Mother ? - None Father ? - Alcohol/Drug Maternal Grandmother ? - Cancer Maternal Grandfather ? ? ? unknown - Alcohol/Drug Paternal Grandfather ? - Stroke Paternal Grandfather ? - Heart Paternal Grandfather ? - Cancer Maternal Aunt ? ? ? type unknown - Alcohol/Drug Maternal Aunt ? - Alcohol/Drug Maternal Aunt ? - Alcohol/Drug Maternal Aunt ? - Alcohol/Drug Maternal Uncle ? - Alcohol/Drug Paternal Aunt ? - Alcohol/Drug Paternal Aunt ? - Cerebral Embolism Son ? ? ? REVIEW OF SYMPTOMS: The review of systems data was entered by the nurse and reviewed by me ? Nursing Notes: Namita Gomez Ma 09/11/2017 4:54 PM Signed REVIEW OF SYSTEMS: General: The patient denies fatigue, denies weight loss, denies weight gain, denies feeling hot, and denies feelings of cold. Eyes: The patient denies glaucoma, denies eye injury/surgery, does not wear glasses or contacts. Ear/Nose/Throat: The patient NOTES allergies, denies hayfever, denies ear infections, and denies bloody noses. Cardiovascular: The patient NOTES history of chest pain, denies heart disease, denies high blood pressure,denies cardiac stent, denies prior heart attack, denies irregular heart beat, denies high cholesterol, denies poor circulation, denies heart failure, other cardiac issues, denies claudication, denies cold feet, denies peripheral arterial stent. Respiratory: The patient denies tuberculosis, denies pneumonia, denies frequent cough, denies pulmonary embolism, denies shortness of breath, and denies coughing up blood. Gastrointestinal: The patient denies difficulty swallowing, NOTES acid reflux, denies ulcers, denies vomiting, denies jaundice/hepatitis, denies gallbladder problems, denies black or tarry stools, denies hemorrhoids, denies bleeding from rectum, denies diverticulitis, denies constipation, denies diarrhea, denies loss of stool control, and NOTES hernias. Kidney/Bladder: The patient denies kidney stones, denies urine infections, and denies bloody urine. Skin: The patient denies a history of skin cancer, denies bleeding/changing moles, and denies a history of skin rash. Neurologic: The patient denies a history of epilepsy/convulsions, denies headaches, denies head/spinal injuries, and denies stroke/TIA. Psychiatric: The patient denies psychiatric medications, NOTES depression and anxiety, and denies voices, denies substance abuse but has a history of alcohol abuse. Endocrine: The patient denies thyroid disorders, denies diabetes, and denies hormonal problems. Hematologic: The patient denies a history of bruising, denies bleeding, and denies anemia, denies blood clots. Infections: The patient denies a history of measles and mumps, denies rheumatic fever, and denies sexually transmitted diseases. Musculoskeletal: The patient denies back pain/injury, denies back problems, denies sciatica, denies knee/foot trouble, denies arthritis, or denies gout. ? ? When was patient's last Mammogram screening? N/A ? Last Colonoscopy: N/A ? Namita Gomez Ma I have confirmed and edited as necessary, the PFSH and ROS obtained by others. ? PHYSICAL EXAMINATION: ? General: The patient is 42 year old male, well nourished, well hydrated in no acute distress. The patient is oriented to time, place, and person. ? VITALS: Blood pressure 102/54, pulse 96. There is no height or weight on file to calculate BMI. ? HEENT: Normal cephalic, ataumatic, pupils are equally round, sclera are anicteric, mucous membranes are moist, oropharynx is clear. Neck has no masses, asymmetry or lymphadenopathy. ? Respiratory: Clear to auscultation and percussion. Normal respiratory excursion and pattern. ? Cardiac: Examination is regular rate and rhythm. ? Abdominal exam: Soft, nontender, with no palpable masses. No hepatosplenomegaly. A small, tender reducible supraumbilical hernia is noted ? Extremities: no clubbing, cyanosis or edema. No adenopathy. ? ? LABORATORY VALUES: As Noted ? RADIOLOGIC STUDIES: As Noted ? Assessment IMPRESSION: small symptomatic supraumbilical hernia ? PLAN: I have reviewed my findings with Dr. Arredondo, who also independently evaluated the patient. She plans to perform repair of supraumbilical hernia. The planned surgical procedure was discussed extensively with the patient. The risks, benefits, anticipated outcomes and possible complications were mentioned. Carlos A armentaands that all hernia repair surgery has a chance of recurrence and/or chronic post operative pain. My staff has also explained the procedure in understandable terms and the patient was given the option to take printed material concerning the planned procedure. The patient had the opportunity to ask questions concerning the planned procedure. The patient freely consents to the planned procedure. ? My findings have been communicated to Dr. Manzanares via shared medical record. This note will be forwarded to Dr. Freeman Manzanares MD. ? Diagnoses: (K43.9) Supraumbilical hernia (primary encounter diagnosis) ? Anticipated CPT Code: umbilical hernia repair - 19434-680 ? Anticipated Anesthetic: MAC with local ? Patient weight: Blood pressure 102/54, pulse 96. BMI: There is no height or weight on file to calculate BMI. ? Planned antibiotic: Ancef 2gm IVPB termite control technician to OR ? SCDs needed - Yes Return to Clinic: The patient is instructed to follow-up with me 1 week post operatively. ? I spent 35 minutes in the visit, with more than 50% of the total [id number] time of the visit in counseling / coordination of care. ? ? ? Deepika Stroud PA-C ? I agree with the above, risks/benefits, explained to patient, including but not limited to: infection, bleeding, recurrence of hernia, injury to any bowel/bladder, scar tissue, recurrence of hernia, etc - the patient understands and agrees to proceed. NURSING PROG Observed: 09/11/2017 Status: COMPLETED Source: [facility] 11:25 AM [facility] HNO ID: [id number] Author: Bere PedrazaRn) CARLOS Parker Service: Nursing Author Type: Registered Nurse Type: Nursing Progress Note Filed: 09/11/2017 11:25 AM Note Text: Pre call completed, arrival time given PROGRESS Observed: 09/11/2017 Status: COMPLETED Source: [facility] 8:59 AM [facility] HNO ID: [id number] Author: Deepika Stroud (Pa) Service: (none) Author Type: Physician [employer] [place] Hand Type: Progress Notes Filed: 09/11/2017 5:02 PM Note Text: HISTORY AND PHYSICAL Carlos A Conroy 1975 REFERRING PHYSICIAN: Freeman Manzanares MD CHIEF COMPLAINT: Consult (Consult Umbilical hernia) HPI: Carlos A is a 42 year old male with a complaint of a bulge and discomfort Just above his umbilicus x 8 days. The patient notes discomfort in this area with lifting, straining, coughing and moving. The symptoms have maintained, over the past week. The patient notes no symptoms of bowel obstruction and denies nausea or vomiting. He denies any particular injury but does note that he does moderate lifting on a regular basis. Patient was initially evaluated at Urgent Care and was felt to have possible hernia vs sister yasir villeda. He states he was told to to the ED if his symptoms persisted. Patient notes he did then go to [facility] ED, we do not currently have accessed to those records. He notes he was diagnosed with a hernia on that exam, and then followed up with Jen Galloway who concurred with hernia diagnosis and referred patient for surgical evaluation. The patient is being seen by me today at the request of Dr. Jen Galloway for my opinion and advice regarding hernia. Patient's past medical history is significant for anxiety, past history of tobacco use and history of alcohol abuse. He notes no recent alcohol use and quit smoking cigarettes 6 months ago. Notes history of intermittent chest discomfort x 2.5 years for which he has had had multiple EKGs, also had troponins checked in ED recently which were negative. He has related some of these episodes to anxiety. Most recent ED was told he had reaction to nortriptyline. Has followed up with PCP since this episode, notes reviewed. Patient is being referred to rheumatology for possible fibromyalgia. PAST MEDICAL HISTORY Diagnosis Date - Acid indigestion 10/05/2016 Added automatically from request for surgery [id number] - Anxiety 01/20/2015 - History of alcohol abuse PAST SURGICAL HISTORY Procedure Laterality Date - EGD W/O OR W/BRUSH/WASH 01/18/2017 EGD - VASECTOMY 02/23/12 Current Outpatient Prescriptions: traMADol (ULTRAM) 50 mg tablet Take 1 tablet by mouth every 6 hours as needed for Pain for up to 7 days. naproxen (NAPROSYN) 500 mg tablet Take 1 tablet by mouth twice daily as needed for Pain. Take with food. sertraline (ZOLOFT) 100 mg tablet Take 2 tablets by mouth once daily. BACILLUS COAGULANS (PROBIOTIC, B. COAGULANS, ORAL) Take by mouth. albuterol HFA (VENTOLIN HFA) 90 mcg/actuation inhaler Inhale 2 Puffs as instructed every 4 hours as needed for Wheezing/Shortness of Breath. fluticasone (FLONASE) 50 mcg/actuation nasal spray Use 2 Sprays in each nostril once daily. Rinse mouth after use. No current facility-administered medications for this visit. ALLERGIES: Celexa [Citalopram Hydrobromide]; Doxycycline; Hydroxyzine; Nortriptyline; Zantac [Ranitidine Hcl] PERSONAL HISTORY: Social History Marital status: Spouse name: Years of education: Number of children: 2 Social History Main Topics Smoking status: Former Smoker Packs/day: 0.50 Years: 0.00 Types: Cigarettes Start date: 03/12/2008 Quit date: 10/05/2016 Smokeless tobacco: Current User Types: Snuff Comment: 4-6 cigatettes a day from 2008-09/2016 Alcohol use: No Comment: Stopped drinking ETOH as of 12/2014 Drug use: No Sexual activity: Yes Partners with: Female control/protection: IUD FAMILY HISTORY: FAMILY HISTORY Problem Relation Age of Onset - Thyroid Mother - Hypertension Mother - ovarian mass [OTHER] Mother benign - Gallstones [OTHER] Mother - None Father - Alcohol/Drug Maternal Grandmother - Cancer Maternal Grandfather unknown - Alcohol/Drug Paternal Grandfather - Stroke Paternal Grandfather - Heart Paternal Grandfather - Cancer Maternal Aunt type unknown - Alcohol/Drug Maternal Aunt - Alcohol/Drug Maternal Aunt - Alcohol/Drug Maternal Aunt - Alcohol/Drug Maternal Uncle - Alcohol/Drug Paternal Aunt - Alcohol/Drug Paternal Aunt - Cerebral Embolism Son REVIEW OF SYMPTOMS: The review of systems data was entered by the nurse and reviewed by me Nursing Notes: Namita Gomez Ma 09/11/2017 4:54 PM Signed REVIEW OF SYSTEMS: General: The patient denies fatigue, denies weight loss, denies weight gain, denies feeling hot, and denies feelings of cold. Eyes: The patient denies glaucoma, denies eye injury/surgery, does not wear glasses or contacts. Ear/Nose/Throat: The patient NOTES allergies, denies hayfever, denies ear infections, and denies bloody noses. Cardiovascular: The patient NOTES history of chest pain, denies heart disease, denies high blood pressure,denies cardiac stent, denies prior heart attack, denies irregular heart beat, denies high cholesterol, denies poor circulation, denies heart failure, other cardiac issues, denies claudication, denies cold feet, denies peripheral arterial stent. Respiratory: The patient denies tuberculosis, denies pneumonia, denies frequent cough, denies pulmonary embolism, denies shortness of breath, and denies coughing up blood. Gastrointestinal: The patient denies difficulty swallowing, NOTES acid reflux, denies ulcers, denies vomiting, denies jaundice/hepatitis, denies gallbladder problems, denies black or tarry stools, denies hemorrhoids, denies bleeding from rectum, denies diverticulitis, denies constipation, denies diarrhea, denies loss of stool control, and NOTES hernias. Kidney/Bladder: The patient denies kidney stones, denies urine infections, and denies bloody urine. Skin: The patient denies a history of skin cancer, denies bleeding/changing moles, and denies a history of skin rash. Neurologic: The patient denies a history of epilepsy/convulsions, denies headaches, denies head/spinal injuries, and denies stroke/TIA. Psychiatric: The patient denies psychiatric medications, NOTES depression and anxiety, and denies voices, denies substance abuse but has a history of alcohol abuse. Endocrine: The patient denies thyroid disorders, denies diabetes, and denies hormonal problems. Hematologic: The patient denies a history of bruising, denies bleeding, and denies anemia, denies blood clots. Infections: The patient denies a history of measles and mumps, denies rheumatic fever, and denies sexually transmitted diseases. Musculoskeletal: The patient denies back pain/injury, denies back problems, denies sciatica, denies knee/foot trouble, denies arthritis, or denies gout. When was patient's last Mammogram screening? N/A Last Colonoscopy: N/A Namita Gomez Ma I have confirmed and edited as necessary, the PFSH and ROS obtained by others. PHYSICAL EXAMINATION: General: The patient is 42 year old male, well nourished, well hydrated in no acute distress. The patient is oriented to time, place, and person. VITALS: Blood pressure 102/54, pulse 96. There is no height or weight on file to calculate BMI. HEENT: Normal cephalic, ataumatic, pupils are equally round, sclera are anicteric, mucous membranes are moist, oropharynx is clear. Neck has no masses, asymmetry or lymphadenopathy. Respiratory: Clear to auscultation and percussion. Normal respiratory excursion and pattern. Cardiac: Examination is regular rate and rhythm. Abdominal exam: Soft, nontender, with no palpable masses. No hepatosplenomegaly. A small, tender reducible supraumbilical hernia is noted Extremities: no clubbing, cyanosis or edema. No adenopathy. LABORATORY VALUES: As Noted RADIOLOGIC STUDIES: As Noted Assessment IMPRESSION: small symptomatic supraumbilical hernia PLAN: I have reviewed my findings with Dr. Arredondo, who also independently evaluated the patient. She plans to perform repair of supraumbilical hernia. The planned surgical procedure was discussed extensively with the patient. The risks, benefits, anticipated outcomes and possible complications were mentioned. Carlos A armentaands that all hernia repair surgery has a chance of recurrence and/or chronic post operative pain. My staff has also explained the procedure in understandable terms and the patient was given the option to take printed material concerning the planned procedure. The patient had the opportunity to ask questions concerning the planned procedure. The patient freely consents to the planned procedure. My findings have been communicated to Dr. Manzanares via shared medical record. This note will be forwarded to Dr. Freeman Manzanares MD. Diagnoses: (K43.9) Supraumbilical hernia (primary encounter diagnosis) Anticipated CPT Code: umbilical hernia repair - 44519-489 Anticipated Anesthetic: MAC with local Patient weight: Blood pressure 102/54, pulse 96. BMI: There is no height or weight on file to calculate BMI. 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 I spent 35 minutes in the visit, with more than 50% of the total [id number] time of the visit in counseling / coordination of care. Deepika Stroud PA-C CNOV Observed: 09/11/2017 Status: COMPLETED Source: [facility] 8:30 AM [facility] Office Visit ([facility]) CARLOS A CONROY ([id number]) 1975 Date Time Provider Department 09/11/17 8:30 AM DEEPIKA STROUD (PA) [place] During your visit today, we recorded the following information about you: Pulse Blood pressure 96/minute 102/54 Deepika Stroud PA-C 09/11/2017 5:02 PM Signed HISTORY AND PHYSICAL Carlos A Conroy 1975 REFERRING PHYSICIAN: Freeman Manzanares MD CHIEF COMPLAINT: Consult (Consult Umbilical hernia) HPI: Carlos A is a 42 year old male with a complaint of a bulge and discomfort Just above his umbilicus x 8 days. The patient notes discomfort in this area with lifting, straining, coughing and moving. The symptoms have maintained, over the past week. The patient notes no symptoms of bowel obstruction and denies nausea or vomiting. He denies any particular injury but does note that he does moderate lifting on a regular basis. Patient was initially evaluated at Urgent Care and was felt to have possible hernia vs sister yasir villeda. He states he was told to to the ED if his symptoms persisted. Patient notes he did then go to [facility], we do not currently have accessed to those records. He notes he was diagnosed with a hernia on that exam, and then followed up with Jen Galloway who concurred with hernia diagnosis and referred patient for surgical evaluation. The patient is being seen by me today at the request of Dr. Jen Galloway for my opinion and advice regarding hernia. Patient's past medical history is significant for anxiety, past history of tobacco use and history of alcohol abuse. He notes no recent alcohol use and quit smoking cigarettes 6 months ago. Notes history of intermittent chest discomfort x 2.5 years for which he has had had multiple EKGs, also had troponins checked in ED recently which were negative. He has related some of these episodes to anxiety. Most recent ED was told he had reaction to nortriptyline. Has followed up with PCP since this episode, notes reviewed. Patient is being referred to rheumatology for possible fibromyalgia. PAST MEDICAL HISTORY Diagnosis Date - Acid indigestion 10/05/2016 Added automatically from request for surgery [id number] - Anxiety 01/20/2015 - History of alcohol abuse PAST SURGICAL HISTORY Procedure Laterality Date - EGD W/O OR W/BRUSH/WASH 01/18/2017 EGD - VASECTOMY 02/23/12 Current Outpatient Prescriptions: traMADol (ULTRAM) 50 mg tablet Take 1 tablet by mouth every 6 hours as needed for Pain for up to 7 days. naproxen (NAPROSYN) 500 mg tablet Take 1 tablet by mouth twice daily as needed for Pain. Take with food. sertraline (ZOLOFT) 100 mg tablet Take 2 tablets by mouth once daily. BACILLUS COAGULANS (PROBIOTIC, B. COAGULANS, ORAL) Take by mouth. albuterol HFA (VENTOLIN HFA) 90 mcg/actuation inhaler Inhale 2 Puffs as instructed every 4 hours as needed for Wheezing/Shortness of Breath. fluticasone (FLONASE) 50 mcg/actuation nasal spray Use 2 Sprays in each nostril once daily. Rinse mouth after use. No current facility-administered medications for this visit. ALLERGIES: Celexa [Citalopram Hydrobromide]; Doxycycline; Hydroxyzine; Nortriptyline; Zantac [Ranitidine Hcl] PERSONAL HISTORY: Social History Marital status: Spouse name: Years of education: Number of children: 2 Social History Main Topics Smoking status: Former Smoker Packs/day: 0.50 Years: 0.00 Types: Cigarettes Start date: 03/12/2008 Quit date: 10/05/2016 Smokeless tobacco: Current User Types: Snuff Comment: 4-6 cigatettes a day from 2008-09/2016 Alcohol use: No Comment: Stopped drinking ETOH as of 12/2014 Drug use: No Sexual activity: Yes Partners with: Female control/protection: IUD FAMILY HISTORY: FAMILY HISTORY Problem Relation Age of Onset - Thyroid Mother - Hypertension Mother - ovarian mass [OTHER] Mother benign - Gallstones [OTHER] Mother - None Father - Alcohol/Drug Maternal Grandmother - Cancer Maternal Grandfather unknown - Alcohol/Drug Paternal Grandfather - Stroke Paternal Grandfather - Heart Paternal Grandfather - Cancer Maternal Aunt type unknown - Alcohol/Drug Maternal Aunt - Alcohol/Drug Maternal Aunt - Alcohol/Drug Maternal Aunt - Alcohol/Drug Maternal Uncle - Alcohol/Drug Paternal Aunt - Alcohol/Drug Paternal Aunt - Cerebral Embolism Son REVIEW OF SYMPTOMS: The review of systems data was entered by the nurse and reviewed by ia Nursing Notes: Namita Gomez Ma 09/11/2017 4:54 PM Signed REVIEW OF SYSTEMS: General: The patient denies fatigue, denies weight loss, denies weight gain, denies feeling hot, and denies feelings of cold. Eyes: The patient denies glaucoma, denies eye injury/surgery, does not wear glasses or contacts. Ear/Nose/Throat: The patient NOTES allergies, denies hayfever, denies ear infections, and denies bloody noses. Cardiovascular: The patient NOTES history of chest pain, denies heart disease, denies high blood pressure,denies cardiac stent, denies prior heart attack, denies irregular heart beat, denies high cholesterol, denies poor circulation, denies heart failure, other cardiac issues, denies claudication, denies cold feet, denies peripheral arterial stent. Respiratory: The patient denies tuberculosis, denies pneumonia, denies frequent cough, denies pulmonary embolism, denies shortness of breath, and denies coughing up blood. Gastrointestinal: The patient denies difficulty swallowing, NOTES acid reflux, denies ulcers, denies vomiting, denies jaundice/hepatitis, denies gallbladder problems, denies black or tarry stools, denies hemorrhoids, denies bleeding from rectum, denies diverticulitis, denies constipation, denies diarrhea, denies loss of stool control, and NOTES hernias. Kidney/Bladder: The patient denies kidney stones, denies urine infections, and denies bloody urine. Skin: The patient denies a history of skin cancer, denies bleeding/changing moles, and denies a history of skin rash. Neurologic: The patient denies a history of epilepsy/convulsions, denies headaches, denies head/spinal injuries, and denies stroke/TIA. Psychiatric: The patient denies psychiatric medications, NOTES depression and anxiety, and denies voices, denies substance abuse but has a history of alcohol abuse. Endocrine: The patient denies thyroid disorders, denies diabetes, and denies hormonal problems. Hematologic: The patient denies a history of bruising, denies bleeding, and denies anemia, denies blood clots. Infections: The patient denies a history of measles and mumps, denies rheumatic fever, and denies sexually transmitted diseases. Musculoskeletal: The patient denies back pain/injury, denies back problems, denies sciatica, denies knee/foot trouble, denies arthritis, or denies gout. When was patient's last Mammogram screening? N/A Last Colonoscopy: N/A Namita Gomez Ma I have confirmed and edited as necessary, the PFSH and ROS obtained by others. PHYSICAL EXAMINATION: General: The patient is 42 year old male, well nourished, well hydrated in no acute distress. The patient is oriented to time, place, and person. VITALS: Blood pressure 102/54, pulse 96. There is no height or weight on file to calculate BMI. HEENT: Normal cephalic, ataumatic, pupils are equally round, sclera are anicteric, mucous membranes are moist, oropharynx is clear. Neck has no masses, asymmetry or lymphadenopathy. Respiratory: Clear to auscultation and percussion. Normal respiratory excursion and pattern. Cardiac: Examination is regular rate and rhythm. Abdominal exam: Soft, nontender, with no palpable masses. No hepatosplenomegaly. A small, tender reducible supraumbilical hernia is noted Extremities: no clubbing, cyanosis or edema. No adenopathy. LABORATORY VALUES: As Noted RADIOLOGIC STUDIES: As Noted Assessment IMPRESSION: small symptomatic supraumbilical hernia PLAN: I have reviewed my findings with Dr. Arredondo, who also independently evaluated the patient. She plans to perform repair of supraumbilical hernia. The planned surgical procedure was discussed extensively with the patient. The risks, benefits, anticipated outcomes and possible complications were mentioned. Carlos A armentaands that all hernia repair surgery has a chance of recurrence and/or chronic post operative pain. My staff has also explained the procedure in understandable terms and the patient was given the option to take printed material concerning the planned procedure. The patient had the opportunity to ask questions concerning the planned procedure. The patient freely consents to the planned procedure. My findings have been communicated to Dr. Manzanares via shared medical record. This note will be forwarded to Dr. Freeman Manzanares MD. Diagnoses: (K43.9) Supraumbilical hernia (primary encounter diagnosis) Anticipated CPT Code: umbilical hernia repair - 80246-405 Anticipated Anesthetic: MAC with local Patient weight: Blood pressure 102/54, pulse 96. BMI: There is no height or weight on file to calculate BMI. 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 I spent 35 minutes in the visit, with more than 50% of the total [id number] time of the visit in counseling / coordination of care. LORETTA Brock Ma 09/11/2017 4:54 PM Signed REVIEW OF SYSTEMS: General: The patient denies fatigue, denies weight loss, denies weight gain, denies feeling hot, and denies feelings of cold. Eyes: The patient denies glaucoma, denies eye injury/surgery, does not wear glasses or contacts. Ear/Nose/Throat: The patient NOTES allergies, denies hayfever, denies ear infections, and denies bloody noses. Cardiovascular: The patient NOTES history of chest pain, denies heart disease, denies high blood pressure,denies cardiac stent, denies prior heart attack, denies irregular heart beat, denies high cholesterol, denies poor circulation, denies heart failure, other cardiac issues, denies claudication, denies cold feet, denies peripheral arterial stent. Respiratory: The patient denies tuberculosis, denies pneumonia, denies frequent cough, denies pulmonary embolism, denies shortness of breath, and denies coughing up blood. Gastrointestinal: The patient denies difficulty swallowing, NOTES acid reflux, denies ulcers, denies vomiting, denies jaundice/hepatitis, denies gallbladder problems, denies black or tarry stools, denies hemorrhoids, denies bleeding from rectum, denies diverticulitis, denies constipation, denies diarrhea, denies loss of stool control, and NOTES hernias. Kidney/Bladder: The patient denies kidney stones, denies urine infections, and denies bloody urine. Skin: The patient denies a history of skin cancer, denies bleeding/changing moles, and denies a history of skin rash. Neurologic: The patient denies a history of epilepsy/convulsions, denies headaches, denies head/spinal injuries, and denies stroke/TIA. Psychiatric: The patient denies psychiatric medications, NOTES depression and anxiety, and denies voices, denies substance abuse but has a history of alcohol abuse. Endocrine: The patient denies thyroid disorders, denies diabetes, and denies hormonal problems. Hematologic: The patient denies a history of bruising, denies bleeding, and denies anemia, denies blood clots. Infections: The patient denies a history of measles and mumps, denies rheumatic fever, and denies sexually transmitted diseases. Musculoskeletal: The patient denies back pain/injury, denies back problems, denies sciatica, denies knee/foot trouble, denies arthritis, or denies gout. When was patient's last Mammogram screening? N/A Last Colonoscopy: N/A Namita Gomez Ma Referring Provider: FREEMAN MANZANARES [[id number]] Allergies As of Date: 09/11/2017 Noted Allergy Reaction CELEXA (CITALOPRAM HYDROBROMIDE) 09/15/2016 1 - Mental Status Change Comments: [place] spacy DOXYCYCLINE 04/12/2005 11 - Vomiting HYDROXYZINE 03/17/2017 14 - Other: See Comments Comments: Migraine NORTRIPTYLINE 08/31/2017 16 - Unknown Comments: Chest pain ZANTAC (RANITIDINE HCL) 10/10/2016 8 - GI Upset Date Reviewed: 09/11/2017 Reviewed by: Bere PedrazaRn) CARLOS Parker - Fully Assessed Reason for Visit: Consult [173] Cmt: Consult Umbilical hernia Primary Visit Diagnosis:Supraumbilical hernia [K43.9] Prescriptions as of 09/11/2017 Sig: TRAMADOL 50 MG TABLET Take 1 tablet by mouth every * NAPROXEN 500 MG TABLET Take 1 tablet by mouth twice * SERTRALINE 100 MG TABLET Take 2 tablets by mouth once * PROBIOTIC (B. COAGULANS) ORAL Take by mouth. ALBUTEROL SULFATE HFA 90 MCG/* Inhale 2 Puffs as instructed * FLUTICASONE 50 MCG/ACTUATION * Use 2 Sprays in each nostril * Problem List As Of Date 09/11/2017 Noted Resolved DYSTHYMIC DISORDER [F34.1] INVALID FOR* TENSION HEADACHE [G44.209] INVALID FOR* Hypoglycemia [E16.2] INVALID FOR* More... Sterilization [Z30.2] INVALID FOR*10/10/2016 Cigarette nicotine dependence with nicotine-ind*INVALID FOR* History of alcohol abuse [Z87.898] Anxiety [F41.9] INVALID FOR* Generalized abdominal pain [R10.84] INVALID FOR*10/10/2016 Altered bowel function [R19.4] INVALID FOR* More... Abdominal cramping, generalized [R10.84] INVALID FOR* More... Acid indigestion [K30] INVALID FOR* More... Generalized abdominal discomfort [R10.84] INVALID FOR* More... Gastro-esophageal reflux disease without esopha*INVALID FOR* Umbilical hernia [K42.9] INVALID FOR* More... Visit Notes: >> Namita Gomez Ma Mon Sep 11, 2017 4:50 PM Status: Signed REVIEW OF SYSTEMS: General: The patient denies fatigue, denies weight loss, denies weight gain, denies feeling hot, and denies feelings of cold. Eyes: The patient denies glaucoma, denies eye injury/surgery, does not wear glasses or contacts. Ear/Nose/Throat: The patient NOTES allergies, denies hayfever, denies ear infections, and denies bloody noses. Cardiovascular: The patient NOTES history of chest pain, denies heart disease, denies high blood pressure,denies cardiac stent, denies prior heart attack, denies irregular heart beat, denies high cholesterol, denies poor circulation, denies heart failure, other cardiac issues, denies claudication, denies cold feet, denies peripheral arterial stent. Respiratory: The patient denies tuberculosis, denies pneumonia, denies frequent cough, denies pulmonary embolism, denies shortness of breath, and denies coughing up blood. Gastrointestinal: The patient denies difficulty swallowing, NOTES acid reflux, denies ulcers, denies vomiting, denies jaundice/hepatitis, denies gallbladder problems, denies black or tarry stools, denies hemorrhoids, denies bleeding from rectum, denies diverticulitis, denies constipation, denies diarrhea, denies loss of stool control, and NOTES hernias. Kidney/Bladder: The patient denies kidney stones, denies urine infections, and denies bloody urine. Skin: The patient denies a history of skin cancer, denies bleeding/changing moles, and denies a history of skin rash. Neurologic: The patient denies a history of epilepsy/convulsions, denies headaches, denies head/spinal injuries, and denies stroke/TIA. Psychiatric: The patient denies psychiatric medications, NOTES depression and anxiety, and denies voices, denies substance abuse but has a history of alcohol abuse. Endocrine: The patient denies thyroid disorders, denies diabetes, and denies hormonal problems. Hematologic: The patient denies a history of bruising, denies bleeding, and denies anemia, denies blood clots. Infections: The patient denies a history of measles and mumps, denies rheumatic fever, and denies sexually transmitted diseases. Musculoskeletal: The patient denies back pain/injury, denies back problems, denies sciatica, denies knee/foot trouble, denies arthritis, or denies gout. When was patient's last Mammogram screening? N/A Last Colonoscopy: N/A Namita Gomez Ma Encounter Status:Closed by DEEPIKA STROUD PA-C on 09/11/17 HOSP Observed: 09/11/2017 Status: COMPLETED Source: [facility] 12:00 AM [facility] Patient:Carlos A Conroy MRN: <[id number]> Height:5' 9(1.753 m) Weight:130 lb (58.968 kg) Outpatient Medications as of 09/12/17: traMADol (ULTRAM) 50 mg tablet naproxen (NAPROSYN) 500 mg tablet fluticasone (FLONASE) 50 mcg/actuation nasal spray sertraline (ZOLOFT) 100 mg tablet BACILLUS COAGULANS (PROBIOTIC, B. COAGULANS, ORAL) albuterol HFA (VENTOLIN HFA) 90 mcg/actuation inhaler Admission/Clinic Administered Medications as of 09/12/17: lidocaine 10 mg/mL (1 %) 1-2 mg injection (XYLOCAINE) lactated ringers infusion Problem List: Dysthymic disorder [F34.1] Tension headache [G44.209] Hypoglycemia [E16.2] Cigarette nicotine dependence with nicotine-induced disorder [F17.219] History of alcohol abuse [Z87.898] Anxiety [F41.9] Altered bowel function [R19.4] Abdominal cramping, generalized [R10.84] Acid indigestion [K30] Generalized abdominal discomfort [R10.84] Gastro-esophageal reflux disease without esophagitis [K21.9] Umbilical hernia [K42.9] Allergies: Celexa [Citalopram Hydrobromide] Doxycycline Hydroxyzine Nortriptyline Zantac [Ranitidine Hcl] Date Verified: 09/12/17 Lab Values Lab Value Units Date High Low POTA* 4.4 mmol/L 08/31/2017 5.1 3.7 Progress Notes ([facility]): Kosta Martin 09/11/2017 9:43 AM Signed 09-12-2017 Umbilical hernia repair Kosta Martin Progress Notes ([facility] [facility] Deepika Stroud PA-C 09/11/2017 5:02 PM Signed HISTORY AND PHYSICAL Carlos A Conroy 1975 REFERRING PHYSICIAN: Freeman Manzanares MD CHIEF COMPLAINT: Consult (Consult Umbilical hernia) HPI: Carlos A is a 42 year old male with a complaint of a bulge and discomfort Just above his umbilicus x 8 days. The patient notes discomfort in this area with lifting, straining, coughing and moving. The symptoms have maintained, over the past week. The patient notes no symptoms of bowel obstruction and denies nausea or vomiting. He denies any particular injury but does note that he does moderate lifting on a regular basis. Patient was initially evaluated at Urgent Care and was felt to have possible hernia vs sister yasir villeda. He states he was told to to the ED if his symptoms persisted. Patient notes he did then go to [facility], we do not currently have accessed to those records. He notes he was diagnosed with a hernia on that exam, and then followed up with Jen Galloway who concurred with hernia diagnosis and referred patient for surgical evaluation. The patient is being seen by me today at the request of Dr. Jen Galloway for my opinion and advice regarding hernia. Patient's past medical history is significant for anxiety, past history of tobacco use and history of alcohol abuse. He notes no recent alcohol use and quit smoking cigarettes 6 months ago. Notes history of intermittent chest discomfort x 2.5 years for which he has had had multiple EKGs, also had troponins checked in ED recently which were negative. He has related some of these episodes to anxiety. Most recent ED was told he had reaction to nortriptyline. Has followed up with PCP since this episode, notes reviewed. Patient is being referred to rheumatology for possiblefibromyalgia. PAST MEDICAL HISTORY Diagnosis Date - Acid indigestion 10/05/2016 Added automatically from request for surgery [id number] - Anxiety 01/20/2015 - History of alcohol abuse PAST SURGICAL HISTORY Procedure Laterality Date - EGD W/O OR W/BRUSH/WASH 01/18/2017 EGD - VASECTOMY 02/23/12 Current Outpatient Prescriptions: traMADol (ULTRAM) 50 mg tablet Take 1 tablet by mouth every 6 hours as needed for Pain for up to 7 days. naproxen (NAPROSYN) 500 mg tablet Take 1 tablet by mouth twice daily as needed for Pain. Take with food. sertraline (ZOLOFT) 100 mg tablet Take 2 tablets by mouth once daily. BACILLUS COAGULANS (PROBIOTIC, B. COAGULANS, ORAL) Take by mouth. albuterol HFA (VENTOLIN HFA) 90 mcg/actuation inhaler Inhale 2 Puffs as instructed every 4 hours as needed for Wheezing/Shortness of Breath. fluticasone (FLONASE) 50 mcg/actuation nasal spray Use 2 Sprays in each nostril once daily. Rinse mouth after use. No current facility-administered medications for this visit. ALLERGIES: Celexa [Citalopram Hydrobromide]; Doxycycline; Hydroxyzine; Nortriptyline; Zantac [Ranitidine Hcl] PERSONAL HISTORY: Social History Marital status: Spouse name: Years of education: Number of children: 2 Social History Main Topics Smoking status: Former Smoker Packs/day: 0.50 Years: 0.00 Types: Cigarettes Start date: 03/12/2008 Quit date: 10/05/2016 Smokeless tobacco: Current User Types: Snuff Comment: 4-6 cigatettes a day from 2008-09/2016 Alcohol use: No Comment: Stopped drinking ETOH as of 12/2014 Drug use: No Sexual activity: Yes Partners with: Female control/protection: IUD FAMILY HISTORY: FAMILY HISTORY Problem Relation Age of Onset - Thyroid Mother - Hypertension Mother - ovarian mass [OTHER] Mother benign - Gallstones [OTHER] Mother - None Father - Alcohol/Drug Maternal Grandmother - Cancer Maternal Grandfather unknown - Alcohol/Drug Paternal Grandfather - Stroke Paternal Grandfather - Heart Paternal Grandfather - Cancer Maternal Aunt type unknown - Alcohol/Drug Maternal Aunt - Alcohol/Drug Maternal Aunt - Alcohol/Drug Maternal Aunt - Alcohol/Drug Maternal Uncle - Alcohol/Drug Paternal Aunt - Alcohol/Drug Paternal Aunt - Cerebral Embolism Son REVIEW OF SYMPTOMS: The review of systems data was entered by the nurse and reviewed by ia Nursing Notes: Namita Gomez Ma 09/11/2017 4:54 PM Signed REVIEW OF SYSTEMS: General: The patient denies fatigue, denies weight loss, denies weight gain, denies feeling hot, and denies feelings of cold. Eyes: The patient denies glaucoma, denies eye injury/surgery, does not wear glasses or contacts. Ear/Nose/Throat: The patient NOTES allergies, denies hayfever, denies ear infections, and denies bloody noses. Cardiovascular: The patient NOTES history of chest pain, denies heart disease, denies high blood pressure,denies cardiac stent, denies prior heart attack, denies irregular heart beat, denies high cholesterol, denies poor circulation, denies heart failure, other cardiac issues, denies claudication, denies cold feet, denies peripheral arterial stent. Respiratory: The patient denies tuberculosis, denies pneumonia, denies frequent cough, denies pulmonary embolism, denies shortness of breath, and denies coughing up blood. Gastrointestinal: The patient denies difficulty swallowing, NOTES acid reflux, denies ulcers, denies vomiting, denies jaundice/hepatitis, denies gallbladder problems, denies black or tarry stools, denies hemorrhoids, denies bleeding from rectum, denies diverticulitis, denies constipation, denies diarrhea, denies loss of stool control, and NOTES hernias. Kidney/Bladder: The patient denies kidney stones, denies urine infections, and denies bloody urine. Skin: The patient denies a history of skin cancer, denies bleeding/changing moles, and denies a history of skin rash. Neurologic: The patient denies a history of epilepsy/convulsions, denies headaches, denies head/spinal injuries, and denies stroke/TIA. Psychiatric: The patient denies psychiatric medications, NOTES depression and anxiety, and denies voices, denies substance abuse but has a history of alcohol abuse. Endocrine: The patient denies thyroid disorders, denies diabetes, and denies hormonal problems. Hematologic: The patient denies a history of bruising, denies bleeding, and denies anemia, denies blood clots. Infections: The patient denies a history of measles and mumps, denies rheumatic fever, and denies sexually transmitted diseases. Musculoskeletal: The patient denies back pain/injury, denies back problems, denies sciatica, denies knee/foot trouble, denies arthritis, or denies gout. When was patient's last Mammogram screening? N/A Last Colonoscopy: N/A Namita Gomez Ma I have confirmed and edited as necessary, the PFSH and ROS obtained by others. PHYSICAL EXAMINATION: General: The patient is 42 year old male, well nourished, well hydrated in no acute distress. The patient is oriented to time, place, and person. VITALS: Blood pressure 102/54, pulse 96. There is no height or weight on file to calculate BMI. HEENT: Normal cephalic, ataumatic, pupils are equally round, sclera are anicteric, mucous membranes are moist, oropharynx is clear. Neck has no masses, asymmetry or lymphadenopathy. Respiratory: Clear to auscultation and percussion. Normal respiratory excursion and pattern. Cardiac: Examination is regular rate and rhythm. Abdominal exam: Soft, nontender, with no palpable masses. No hepatosplenomegaly. A small, tender reducible supraumbilical hernia is noted Extremities: no clubbing, cyanosis or edema. No adenopathy. LABORATORY VALUES: As Noted RADIOLOGIC STUDIES: As Noted Assessment IMPRESSION: small symptomatic supraumbilical hernia PLAN: I have reviewed my findings with Dr. Arredondo, who also independently evaluated the patient. She plans to perform repair of supraumbilical hernia. The planned surgical procedure was discussed extensively with the patient. The risks, benefits, anticipated outcomes and possible complications were mentioned. Carlos A armentaands that all hernia repair surgery has a chance of recurrence and/or chronic post operative pain. My staff has also explained the procedure in understandable terms and the patient was given the option to take printed material concerning the planned procedure. The patient had the opportunity to ask questions concerning the planned procedure. The patient freely consents to the planned procedure. My findings have been communicated to Dr. Manzanares via shared medical record. This note will be forwarded to Dr. Freeman Manzanares MD. Diagnoses: (K43.9) Supraumbilical hernia (primary encounter diagnosis) Anticipated CPT Code: umbilical hernia repair - [id number] Anticipated Anesthetic: MAC with local Patient weight: Blood pressure 102/54, pulse 96. BMI: There is no height or weight on file to calculate BMI. 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 I spent 35 minutes in the visit, with more than 50% of the total [id number] time of the visit in counseling / coordination of care. LORETTA Brock Ma 09/11/2017 4:54 PM Signed REVIEW OF SYSTEMS: General: The patient denies fatigue, denies weight loss, denies weight gain, denies feeling hot, and denies feelings of cold. Eyes: The patient denies glaucoma, denies eye injury/surgery, does not wear glasses or contacts. Ear/Nose/Throat: The patient NOTES allergies, denies hayfever, denies ear infections, and denies bloody noses. Cardiovascular: The patient NOTES history of chest pain, denies heart disease, denies high blood pressure,denies cardiac stent, denies prior heart attack, denies irregular heart beat, denies high cholesterol, denies poor circulation, denies heart failure, other cardiac issues, denies claudication, denies cold feet, denies peripheral arterial stent. Respiratory: The patient denies tuberculosis, denies pneumonia, denies frequent cough, denies pulmonary embolism, denies shortness of breath, and denies coughing up blood. Gastrointestinal: The patient denies difficulty swallowing, NOTES acid reflux, denies ulcers, denies vomiting, denies jaundice/hepatitis, denies gallbladder problems, denies black or tarry stools, denies hemorrhoids, denies bleeding from rectum, denies diverticulitis, denies constipation, denies diarrhea, denies loss of stool control, and NOTES hernias. Kidney/Bladder: The patient denies kidney stones, denies urine infections, and denies bloody urine. Skin: The patient denies a history of skin cancer, denies bleeding/changing moles, and denies a history of skin rash. Neurologic: The patient denies a history of epilepsy/convulsions, denies headaches, denies head/spinal injuries, and denies stroke/TIA. Psychiatric: The patient denies psychiatric medications, NOTES depression and anxiety, and denies voices, denies substance abuse but has a history of alcohol abuse. Endocrine: The patient denies thyroid disorders, denies diabetes, and denies hormonal problems. Hematologic: The patient denies a history of bruising, denies bleeding, and denies anemia, denies blood clots. Infections: The patient denies a history of measles and mumps, denies rheumatic fever, and denies sexually transmitted diseases. Musculoskeletal: The patient denies back pain/injury, denies back problems, denies sciatica, denies knee/foot trouble, denies arthritis, or denies gout. When was patient's last Mammogram screening? N/A Last Colonoscopy: N/A Namita Gomez Ma PROGRESS Observed: 09/09/2017 Status: COMPLETED Source: [facility] 11:13 AM [facility] HNO ID: [id number] Author: Jen Galloway III Service: (none) Author Type: Physician Type: Progress Notes Filed: 09/09/2017 12:53 PM Note Text: SUBJECTIVE: This is a 42 year old male that is here today for painful umbilical hernia diagnosed on 09/04. Some lifting at work. No FHx of hernia. Has used tylenol up to 3500mg/day w/o benefit. Ibuprofen w/o benefit Chart review shows the patient did have a history of alcohol abuse. He was given tramadol in the emergency room and has taken 10 doses. He does do some regular lifting at his job at [employer]. PAST MEDICAL HISTORY Diagnosis Date - Acid indigestion 10/05/2016 Added automatically from request for surgery [id number] - Anxiety 01/20/2015 - History of alcohol abuse Current Outpatient Prescriptions on File Prior to Visit: cyclobenzaprine (FLEXERIL) 10 mg tablet TAKE 1 TABLET BY MOUTH THREE TIMES DAILY NEEDED. fluticasone (FLONASE) 50 mcg/actuation nasal spray Use 2 Sprays in each nostril once daily. Rinse mouth after use. sertraline (ZOLOFT) 100 mg tablet Take 2 tablets by mouth once daily. BACILLUS COAGULANS (PROBIOTIC, B. COAGULANS, ORAL) Take by mouth. albuterol HFA (VENTOLIN HFA) 90 mcg/actuation inhaler Inhale 2 Puffs as instructed every 4 hours as needed for Wheezing/Shortness of Breath. buPROPion SR (WELLBUTRIN SR) 150 mg 12 hr tablet Take 1 tablet by mouth twice daily. (Patient not taking: Reported on 09/09/2017 ) No current facility-administered medications on file prior to visit. FAMILY HISTORY Problem Relation Age of Onset - Thyroid Mother - Hypertension Mother - ovarian mass [OTHER] Mother benign - Gallstones [OTHER] Mother - None Father - Alcohol/Drug Maternal Grandmother - Cancer Maternal Grandfather unknown - Alcohol/Drug Paternal Grandfather - Stroke Paternal Grandfather - Heart Paternal Grandfather - Cancer Maternal Aunt type unknown - Alcohol/Drug Maternal Aunt - Alcohol/Drug Maternal Aunt - Alcohol/Drug Maternal Aunt - Alcohol/Drug Maternal Uncle - Alcohol/Drug Paternal Aunt - Alcohol/Drug Paternal Aunt - Cerebral Embolism Son Social History Substance Use Topics - Smoking status: Former Smoker Packs/day: 0.50 Types: Cigarettes Start date: 03/12/2008 Quit date: 10/05/2016 - Smokeless tobacco: Current User Types: Snuff Comment: 4-6 cigatettes a day from 2008-09/2016 - Alcohol use No Comment: Stopped drinking ETOH as of 12/2014 BP 101/75 Pulse 96 Resp 16 Wt 57.6 kg (127 lb) BMI 18.75 kg/m? . OBJECTIVE: APPEARANCE Well appearing, alert, in no acute distress, well-hydrated, well nourished. ABDOMEN soft, , non-distended, without organomegaly or palpable masses, tenderness umbilical area with very small hernia--reducible ASSESSMENT: periumbilical pain--possible umbilical hernia PLAN: naprosyn 500mg twice/day for pain tramadol 50mg every 6 hrs as needed for severe pain refer to surgery try to limit lifting ASHLEY Kilgore MD, III, MD, FAAFP PDMP website checked and validated. All prescriptions have been APPROPRIATELY filled. No suspicious activity was identified. 09/09/2017 by Jen Galloway III MD CNOV Observed: 09/09/2017 Status: COMPLETED Source: [facility] 11:00 AM [facility] Office Visit ([facility]) CARLOS A CONROY ([id number]) 1975 M Date Time Provider Department 09/09/17 11:00 AM JEN GALLOWAY III [facility] During your visit today, we recorded the following information about you: Pulse Respiration Blood pressure Weight 96/minute 16/minute 101/75 57.6 kg Jen Galloway III MD 09/09/2017 12:53 PM Signed SUBJECTIVE: This is a 42 year old male that is here today for painful umbilical hernia diagnosed on 09/04. Some lifting at work. No FHx of hernia. Has used tylenol up to 3500mg/day w/o benefit. Ibuprofen w/o benefit Chart review shows the patient did have a history of alcohol abuse. He was given tramadol in the emergency room and has taken 10 doses. He does do some regular lifting at his job at [employer]. PAST MEDICAL HISTORY Diagnosis Date - Acid indigestion 10/05/2016 Added automatically from request for surgery [id number] - Anxiety 01/20/2015 - History of alcohol abuse Current Outpatient Prescriptions on File Prior to Visit: cyclobenzaprine (FLEXERIL) 10 mg tablet TAKE 1 TABLET BY MOUTH THREE TIMES DAILY NEEDED. fluticasone (FLONASE) 50 mcg/actuation nasal spray Use 2 Sprays in each nostril once daily. Rinse mouth after use. sertraline (ZOLOFT) 100 mg tablet Take 2 tablets by mouth once daily. BACILLUS COAGULANS (PROBIOTIC, B. COAGULANS, ORAL) Take by mouth. albuterol HFA (VENTOLIN HFA) 90 mcg/actuation inhaler Inhale 2 Puffs as instructed every 4 hours as needed for Wheezing/Shortness of Breath. buPROPion SR (WELLBUTRIN SR) 150 mg 12 hr tablet Take 1 tablet by mouth twice daily. (Patient not taking: Reported on 09/09/2017 ) No current facility-administered medications on file prior to visit. FAMILY HISTORY Problem Relation Age of Onset - Thyroid Mother - Hypertension Mother - ovarian mass [OTHER] Mother benign - Gallstones [OTHER] Mother - None Father - Alcohol/Drug Maternal Grandmother - Cancer Maternal Grandfather unknown - Alcohol/Drug Paternal Grandfather - Stroke Paternal Grandfather - Heart Paternal Grandfather - Cancer Maternal Aunt type unknown - Alcohol/Drug Maternal Aunt - Alcohol/Drug Maternal Aunt - Alcohol/Drug Maternal Aunt - Alcohol/Drug Maternal Uncle - Alcohol/Drug Paternal Aunt - Alcohol/Drug Paternal Aunt - Cerebral Embolism Son Social History Substance Use Topics - Smoking status: Former Smoker Packs/day: 0.50 Types: Cigarettes Start date: 03/12/2008 Quit date: 10/05/2016 - Smokeless tobacco: Current User Types: Snuff Comment: 4-6 cigatettes a day from 2008-09/2016 - Alcohol use No Comment: Stopped drinking ETOH as of 12/2014 BP 101/75 Pulse 96 Resp 16 Wt 57.6 kg (127 lb) BMI 18.75 kg/m? . OBJECTIVE: APPEARANCE Well appearing, alert, in no acute distress, well- hydrated, well nourished. ABDOMEN soft, , non-distended, without organomegaly or palpable masses, tenderness umbilical area with very small hernia--reducible ASSESSMENT: periumbilical pain--possible umbilical hernia PLAN: naprosyn 500mg twice/day for pain tramadol 50mg every 6 hrs as needed for severe pain refer to surgery try to limit lifting ASHLEY Kilgore MD, III, , FAAFP PDMP website checked and validated. All prescriptions have been APPROPRIATELY filled. No suspicious activity was identified. 09/09/2017 by ASHLEY Kilgore MD, III MD 09/09/2017 11:30 AM Signed PLAN: naprosyn 500mg twice/day for pain tramadol 50mg every 6 hrs as needed for severe pain refer to surgery try to limit lifting Jen Galloway III MD Referring Provider: SELF [[id number]] Allergies As of Date: 09/09/2017 Noted Allergy Reaction CELEXA (CITALOPRAM HYDROBROMIDE) 09/15/2016 1 - Mental Status Change Comments: [place] spacy DOXYCYCLINE 04/12/2005 11 - Vomiting HYDROXYZINE 03/17/2017 14 - Other: See Comments Comments: Migraine NORTRIPTYLINE 08/31/2017 16 - Unknown Comments: Chest pain ZANTAC (RANITIDINE HCL) 10/10/2016 8 - GI Upset Date Reviewed: 09/09/2017 Reviewed by: Candi ([facility] PILAR Mancilla - Fully Assessed Reason for Visit: Pain from umilical hernia [Other] Cmt: since Monday, sometimes pain is so bad it's hard to stand up Reason For Visit History Recorded Primary Visit Diagnosis:Umbilical hernia without obstruction or gangrene [K42.9] Order(s):CONSULT TO GENERAL SURGERY [9011] Order #: [id number]: 1 traMADol (ULTRAM) 50 mg tabletTake 1 tablet by mouth every 6 hours as needed for Pain for up to 7 days.Disp: 28 tabletRfl: 0 naproxen (NAPROSYN) 500 mg tabletTake 1 tablet by mouth twice daily as needed for Pain. Take with food.Disp: 30 tabletRfl: 0 Prescriptions as of 09/09/2017 Sig: FLUTICASONE 50 MCG/ACTUATION * Use 2 Sprays in each nostril * SERTRALINE 100 MG TABLET Take 2 tablets by mouth once * PROBIOTIC (B. COAGULANS) ORAL Take by mouth. ALBUTEROL SULFATE HFA 90 MCG/* Inhale 2 Puffs as instructed * TRAMADOL 50 MG TABLET Take 1 tablet by mouth every * NAPROXEN 500 MG TABLET Take 1 tablet by mouth twice * Medication notes this encounter BUPROPION HCL SR 150 MG TABLET,12 HR SUSTAINED-RELEASE >> Candi Mancilla,[employer], [place] 09/09/2017 11:25 AM didn't like the way it made him feel Problem List As Of Date 09/09/2017 Noted Resolved DYSTHYMIC DISORDER [F34.1] INVALID FOR* TENSION HEADACHE [G44.209] INVALID FOR* Hypoglycemia [E16.2] INVALID FOR* More... Sterilization [Z30.2] INVALID FOR*10/10/2016 Cigarette nicotine dependence with nicotine-ind*INVALID FOR* History of alcohol abuse [Z87.898] Anxiety [F41.9] INVALID FOR* Generalized abdominal pain [R10.84] INVALID FOR*10/10/2016 Altered bowel function [R19.4] INVALID FOR* More... Abdominal cramping, generalized [R10.84] INVALID FOR* More... Acid indigestion [K30] INVALID FOR* More... Generalized abdominal discomfort [R10.84] INVALID FOR* More... Gastro-esophageal reflux disease without esopha*INVALID FOR* Other instructions from your clinician: PLAN: naprosyn 500mg twice/day for pain tramadol 50mg every 6 hrs as needed for severe pain refer to surgery try to limit lifting Jen Earl Galloway III MD Prescriptions ordered this encounter Disp Refills Start End TRAMADOL 50 MG TABLET 28 t* 0 09/09/2017 09/16/2017 Class: Print RX Route: ORAL Sig: Take 1 tablet by mouth every 6 hours as needed for Pain for up to 7 days. NAPROXEN 500 MG TABLET 30 t* 0 09/09/2017 Route: ORAL Sig: Take 1 tablet by mouth twice daily as needed for Pain. Take with food. Medications Discontinued During This Encounter buPROPion SR (WELLBUTRIN SR) 150 mg * 60 t* 2 08/31/2017 09/09/2017 Route: ORAL Sig: Take 1 tablet by mouth twice daily. Patient not taking: Reported on 09/09/2017 Disc: Discontinued by Patient cyclobenzaprine (FLEXERIL) 10 mg tab* 60 t* 2 08/03/2017 09/09/2017 Route: ORAL Sig: TAKE 1 TABLET BY MOUTH THREE TIMES DAILY NEEDED. Disc: Clinical Decision Encounter Status:Closed by JEN GALLOWAY III, MD on 09/09/17 PROGRESS Observed: 09/04/2017 Status: COMPLETED Source: [facility] 9:14 AM [facility] HNO ID: [id number] Author: Ole Joseph (Pa) Service: (none) Author Type: Physician [place] Hand Type: Progress Notes Filed: 09/04/2017 10:03 AM Note Text: Subjective HPI Pt presents with a bump on his abdomen for 2 days. He has had some discomfort for 3 weeks but just noticed the lump. No redness around the lump, no discharge. No nvd. No fevers or chills. He denies having a hernia before. He denies weight loss. He did have an EGD in jan. He was supposed to have a colonoscopy but the prep did not clear enough so he states he couldn't. He is a former alcoholic. Review of Systems Constitutional: Negative for chills, fever and weight loss. Gastrointestinal: Positive for abdominal pain. Negative for blood in stool, constipation, diarrhea, heartburn, nausea and vomiting. All other systems reviewed and are negative. PAST MEDICAL HISTORY Diagnosis Date - Acid indigestion 10/05/2016 Added automatically from request for surgery [id number] - Anxiety 01/20/2015 - History of alcohol abuse Current Outpatient Prescriptions: buPROPion SR (WELLBUTRIN SR) 150 mg 12 hr tablet Take 1 tablet by mouth twice daily. Disp: 60 tablet Rfl: 2 cyclobenzaprine (FLEXERIL) 10 mg tablet TAKE 1 TABLET BY MOUTH THREE TIMES DAILY NEEDED. Disp: 60 tablet Rfl: 2 fluticasone (FLONASE) 50 mcg/actuation nasal spray Use 2 Sprays in each nostril once daily. Rinse mouth after use. Disp: 1 Bottle Rfl: 11 sertraline (ZOLOFT) 100 mg tablet Take 2 tablets by mouth once daily. Disp: 60 tablet Rfl: 5 BACILLUS COAGULANS (PROBIOTIC, B. COAGULANS, ORAL) Take by mouth. Disp: Rfl: albuterol HFA (VENTOLIN HFA) 90 mcg/actuation inhaler Inhale 2 Puffs as instructed every 4 hours as needed for Wheezing/Shortness of Breath. Disp: 1 Inhaler Rfl: 0 No current facility-administered medications for this visit. PAST SURGICAL HISTORY Procedure Laterality Date - EGD W/O OR W/BRUSH/WASH 01/18/2017 EGD - VASECTOMY 02/23/12 FAMILY HISTORY Problem Relation Age of Onset - Thyroid Mother - Hypertension Mother - ovarian mass [OTHER] Mother benign - Gallstones [OTHER] Mother - None Father - Alcohol/Drug Maternal Grandmother - Cancer Maternal Grandfather unknown - Alcohol/Drug Paternal Grandfather - Stroke Paternal Grandfather - Heart Paternal Grandfather - Cancer Maternal Aunt type unknown - Alcohol/Drug Maternal Aunt - Alcohol/Drug Maternal Aunt - Alcohol/Drug Maternal Aunt - Alcohol/Drug Maternal Uncle - Alcohol/Drug Paternal Aunt - Alcohol/Drug Paternal Aunt - Cerebral Embolism Son Social History Substance Use Topics - Smoking status: Former Smoker Packs/day: 0.50 Types: Cigarettes Start date: 03/12/2008 Quit date: 10/05/2016 - Smokeless tobacco: Current User Types: Snuff Comment: 4-6 cigatettes a day from 2008-09/2016 - Alcohol use No Comment: Stopped drinking ETOH as of 12/2014 BP 88/60 Pulse 92 Temp 36.4 ?C (97.5 ?F) (Left Tympanic) Resp 16 Wt 60.3 kg (133 lb) BMI 19.64 kg/m? Objective Physical Exam Constitutional: He is oriented to person, place, and time and well-developed, well-nourished, and in no distress. HENT: Head: Normocephalic and atraumatic. Cardiovascular: Normal rate, regular rhythm and normal heart sounds. Pulmonary/Chest: Effort normal and breath sounds normal. Abdominal: Pt has a small nodule above umbilcus. No redness or sign of infection. It is not reducible. No other tenderness of abdomen. No other lymphadenopathy palpated. Neurological: He is alert and oriented to person, place, and time. Skin: Skin is warm and dry. No rash noted. Psychiatric: Affect and judgment normal. Nursing note and vitals reviewed. ASSESSMENT/PLAN: 1. Umbilical mass - ICD9: 789.39, ICD10: R19.09 Findings could be concerning for sister yasir morales nodule, vs small hernia. Pt abdomen otherwise is benign. He has appt with pcp tomorrow, likely needs some imaging. Discussed if pain worsens or he has vomiting, fever, or diarrhea go to the ED. Pt agrees with plan. Ole Joseph PA-C CNOV Observed: 09/04/2017 Status: COMPLETED Source: [facility] 9:00 AM [facility] Office Visit ([facility]) CARLOS A CONROY ([id number]) 1975 M Date Time Provider Department 09/04/17 9:00 AM OLE JOSEPH (MARIN) [facility] During your visit today, we recorded the following information about you: Temperature Pulse Respiration Blood pressure 97.5 degrees 92/minute 16/minute 88/60 Weight 60.3 kg Ole Joseph PA-C 09/04/2017 10:03 AM Signed Subjective HPI Pt presents with a bump on his abdomen for 2 days. He has had some discomfort for 3 weeks but just noticed the lump. No redness around the lump, no discharge. No nvd. No fevers or chills. He denies having a hernia before. He denies weight loss. He did have an EGD in jan. He was supposed to have a colonoscopy but the prep did not clear enough so he states he couldn't. He is a former alcoholic. Review of Systems Constitutional: Negative for chills, fever and weight loss. Gastrointestinal: Positive for abdominal pain. Negative for blood in stool, constipation, diarrhea, heartburn, nausea and vomiting. All other systems reviewed and are negative. PAST MEDICAL HISTORY Diagnosis Date - Acid indigestion 10/05/2016 Added automatically from request for surgery [id number] - Anxiety 01/20/2015 - History of alcohol abuse Current Outpatient Prescriptions: buPROPion SR (WELLBUTRIN SR) 150 mg 12 hr tablet Take 1 tablet by mouth twice daily. Disp: 60 tablet Rfl: 2 cyclobenzaprine (FLEXERIL) 10 mg tablet TAKE 1 TABLET BY MOUTH THREE TIMES DAILY NEEDED. Disp: 60 tablet Rfl: 2 fluticasone (FLONASE) 50 mcg/actuation nasal spray Use 2 Sprays in each nostril once daily. Rinse mouth after use. Disp: 1 Bottle Rfl: 11 sertraline (ZOLOFT) 100 mg tablet Take 2 tablets by mouth once daily. Disp: 60 tablet Rfl: 5 BACILLUS COAGULANS (PROBIOTIC, B. COAGULANS, ORAL) Take by mouth. Disp: Rfl: albuterol HFA (VENTOLIN HFA) 90 mcg/actuation inhaler Inhale 2 Puffs as instructed every 4 hours as needed for Wheezing/Shortness of Breath. Disp: 1 Inhaler Rfl: 0 No current facility-administered medications for this visit. PAST SURGICAL HISTORY Procedure Laterality Date - EGD W/O OR W/BRUSH/WASH 01/18/2017 EGD - VASECTOMY 02/23/12 FAMILY HISTORY Problem Relation Age of Onset - Thyroid Mother - Hypertension Mother - ovarian mass [OTHER] Mother benign - Gallstones [OTHER] Mother - None Father - Alcohol/Drug Maternal Grandmother - Cancer Maternal Grandfather unknown - Alcohol/Drug Paternal Grandfather - Stroke Paternal Grandfather - Heart Paternal Grandfather - Cancer Maternal Aunt type unknown - Alcohol/Drug Maternal Aunt - Alcohol/Drug Maternal Aunt - Alcohol/Drug Maternal Aunt - Alcohol/Drug Maternal Uncle - Alcohol/Drug Paternal Aunt - Alcohol/Drug Paternal Aunt - Cerebral Embolism Son Social History Substance Use Topics - Smoking status: Former Smoker Packs/day: 0.50 Types: Cigarettes Start date: 03/12/2008 Quit date: 10/05/2016 - Smokeless tobacco: Current User Types: Snuff Comment: 4-6 cigatettes a day from 2008-09/2016 - Alcohol use No Comment: Stopped drinking ETOH as of 12/2014 BP 88/60 Pulse 92 Temp 36.4 ?C (97.5 ?F) (Left Tympanic) Resp 16 Wt 60.3 kg (133 lb) BMI 19.64 kg/m? Objective Physical Exam Constitutional: He is oriented to person, place, and time and well-developed, well-nourished, and in no distress. HENT: Head: Normocephalic and atraumatic. Cardiovascular: Normal rate, regular rhythm and normal heart sounds. Pulmonary/Chest: Effort normal and breath sounds normal. Abdominal: Pt has a small nodule above umbilcus. No redness or sign of infection. It is not reducible. No other tenderness of abdomen. No other lymphadenopathy palpated. Neurological: He is alert and oriented to person, place, and time. Skin: Skin is warm and dry. No rash noted. Psychiatric: Affect and judgment normal. Nursing note and vitals reviewed. ASSESSMENT/PLAN: 1. Umbilical mass - ICD9: 789.39, ICD10: R19.09 Findings could be concerning for sister yasir morales nodule, vs small hernia. Pt abdomen otherwise is benign. He has appt with pcp tomorrow, likely needs some imaging. Discussed if pain worsens or he has vomiting, fever, or diarrhea go to the ED. Pt agrees with plan. Ole Joseph PA-C Referring Provider: SELF [[id number]] Allergies As of Date: 09/04/2017 Noted Allergy Reaction CELEXA (CITALOPRAM HYDROBROMIDE) 09/15/2016 1 - Mental Status Change Comments: [place] spacy DOXYCYCLINE 04/12/2005 11 - Vomiting HYDROXYZINE 03/17/2017 14 - Other: See Comments Comments: Migraine NORTRIPTYLINE 08/31/2017 16 - Unknown Comments: Chest pain ZANTAC (RANITIDINE HCL) 10/10/2016 8 - GI Upset Date Reviewed: 09/04/2017 Reviewed by: Tatiana Farrar Ma - Fully Assessed Reason for Visit: Abdominal Pain [1] Cmt: x3 weeks by belly button sore bump Primary Visit Diagnosis:Umbilical mass [R19.09] Prescriptions as of 09/04/2017 Sig: BUPROPION HCL SR 150 MG TABLE* Take 1 tablet by mouth twice * CYCLOBENZAPRINE 10 MG TABLET TAKE 1 TABLET BY MOUTH THREE * FLUTICASONE 50 MCG/ACTUATION * Use 2 Sprays in each nostril * SERTRALINE 100 MG TABLET Take 2 tablets by mouth once * PROBIOTIC (B. COAGULANS) ORAL Take by mouth. ALBUTEROL SULFATE HFA 90 MCG/* Inhale 2 Puffs as instructed * Problem List As Of Date 09/04/2017 Noted Resolved DYSTHYMIC DISORDER [F34.1] INVALID FOR* TENSION HEADACHE [G44.209] INVALID FOR* Hypoglycemia [E16.2] INVALID FOR* More... Sterilization [Z30.2] INVALID FOR*10/10/2016 Cigarette nicotine dependence with nicotine-ind*INVALID FOR* History of alcohol abuse [Z87.898] Anxiety [F41.9] INVALID FOR* Generalized abdominal pain [R10.84] INVALID FOR*10/10/2016 Altered bowel function [R19.4] INVALID FOR* More... Abdominal cramping, generalized [R10.84] INVALID FOR* More... Acid indigestion [K30] INVALID FOR* More... Generalized abdominal discomfort [R10.84] INVALID FOR* More... Letter Text [facility] MARIN Vizcarra [address], [place] [address] 09/04/2017 TO WHOM IT MAY CONCERN: This is to confirm that Carlos A Conroy had an appointment and was seen at the [facility] in the Department of Urgent Care by MARIN Vizcarra on 09/04/2017 and may return to work on 09/05/2017. Sincerely yours, MARIN Vizcarra Encounter Status:Closed by OLE JOSEPH PA-C on 09/04/17 COMP METABOLIC PANEL Collected: 08/31/2017 Status: F Source: [facility] 12:17 [facility] TYPE CODE TESTS RESULT OUT OF REFERENCE UNITS RANGE LAB TP 6.3-8.0 g/dL Low Protein, Total 6.0 LAB ALB 3.9-4.9 g/dL Albumin 4.5 LAB CA 8.5-10.2 mg/dL Calcium, Total 9.1 LAB TBIL 0.2-1.3 mg/dL Bilirubin, Total 0.4 LAB ALKP 36-108 U/L Alkaline Phosphatase 46 LAB AST 14-40 U/L AST 23 LAB GLU 74-99 mg/dL Glucose 79 Result Comment: The [place] [employer] (ADA) provides guidance for cutoff values for fasting glucose and random glucose. The ADA defines fasting as no caloric intake for at least 8 hours. Fas ting plasma glucose results between 100 to 125 mg/dL indicate increased risk for diabetes (prediabetes). Fasting plasma glucose results greater than or equal to 126 mg/dL meet the criteria for diagnosis of diabetes. In the absence of unequivocal hyperglycemia, results should be confirmed by repeat testing. In a patient with classic symptoms of hyperglycemia or hyperglycemic crisis, random plasma glucose results greater than or equal to 200 mg/dL meet the criteria for diagnosis of diabetes. Reference: Standards of Medical Care in Diabetes 2016, [place] [employer]. Diabetes Care. 2016.39(Suppl 1). LAB BUN 9-24 mg/dL BUN 15 LAB CRET 0.73-1.22 mg/dL Creatinine 1.05 LAB NA 136-144 mmol/L Sodium 140 LAB K 3.7-5.1 mmol/L Potassium 4.4 LAB CL 97-105 mmol/L Chloride 100 LAB CO2 22-30 mmol/L CO2 High 31 LAB AGAP 9-18 mmol/L Anion Gap 9 LAB ALT 10-54 U/L ALT 16 LAB GFRAA eGFR- Amer. >60 LAB GFRNAA . eGFR-All Other Races >60 Result Comment: eGFR (Estimated GFR) Units of measure: mL/min/1.73 meters squared eGFR is derived from the reexpressed MDRD Study equation using the following parameters: serum creatinine, age, gender and race. The creatinine assay has been calibrated to be traceable to IDMS. An eGFR <60 mL/min/1.73m2 for >3 months is consistent with chronic kidney disease. Refer to KDOQI guidelines for clinical interpretation. In patients with unstable renal function, e.g. those with acute kidney injury, the eGFR may not accurately reflect actual GFR. Performed By: #### CMP, CRP, TSH, VITD, WSR #### [facility] [address] [place], [place] [address] C-REACTIVE PROTEIN Collected: 08/31/2017 Status: F Source: [facility] 12:17 PM [facility] TYPE CODE TESTS RESULT OUT OF REFERENCE UNITS RANGE LAB CRP <0.9 mg/dL C-Reactive <0.1 Protein Performed By: #### CMP, CRP, TSH, VITD, WSR #### [facility] [address] [place], [place] [address] TSH Collected: 08/31/2017 Status: F Source: [facility] 12:17 PM [facility] TYPE CODE TESTS RESULT OUT OF RANGE REFERENCE UNITS LAB TSH 0.400-5.500 uU/mL TSH 2.060 Performed By: #### CMP, CRP, TSH, VITD, WSR #### [facility] [address] [place], [place] [address] VITAMIN D 25 HYDROXY Collected: 08/31/2017 Status: F Source: [facility] 12:17 PM [facility] TYPE CODE TESTS RESULT OUT OF REFERENCE UNITS RANGE LAB VITD 31.0-80.0 ng/mL Vitamin D 25 44.4 Hydroxy Result Comment: Classification of 25 [place] Vitamin D status: Insufficiency/Moderate Deficiency: < or = 30 ng/mL Sufficiency/Optimal Levels: 31 to 80 ng/mL Toxicity: > 100 ng/mL Test performed by chemiluminescent immunoassay. Performed By: #### CMP, CRP, TSH, VITD, WSR #### [facility] [address] [place], [place] [address] SED RATE WESTERGREN Collected: 08/31/2017 Status: F Source: [facility] 12:17 PM [facility] TYPE CODE TESTS RESULT OUT OF REFERENCE UNITS RANGE LAB WSR 0-15 mm/hr Sed Rate Westergren 2 Performed By: #### CMP, CRP, TSH, VITD, WSR #### [facility] [address] [place], [place] [address] PROGRESS Observed: 08/31/2017 Status: COMPLETED Source: [facility] 11:08 AM [facility] HNO ID: [id number] Author: Kenyatta Verdin Service: (none) Author Type: Nurse Practitioner Type: Progress Notes Filed: 08/31/2017 1:22 PM Note Text: This is a 42 year old male who presents today with: Patient presents with: ED Follow-up HISTORY OF PRESENT ILLNESS: Carlos A Conroy is a 42 year old male. Patient presents with: ED Follow-up Pt presents today for ER follow-up. He was at [facility] ER on 08/21. He was at [facility] ER on 08/24. Both visits were for episodes of chest pain. For 2 1/2 years, he has been having intermittent chest discomfort. He's been on zoloft, but recently was started on nortriptyline. The second ER visit was through to be a reaction to the new medication. Per patient, the ER doctor mentioned fibromyalgia or nerve damage. Refers that he'll get pain on the left chest, left arm, left leg, left jaw. Refers sometimes, he will have discomfort on the right side as well, but more prominent on the left. Refers that he has had 7-8 EKGs, labwork, cxray without answers. Refers pain will come out of the blue. Not provoked. Nothing that he can pinpoint is causing symptoms (stress/anxiety/eating/activities). Can occur at work or at home. The only thing that he has found that helps is soaking in a bathtub. Refers he is tired of not feeling better. Refers hx of being alcoholic. Quit smoking 6 months ago. Refers that he just expected to be feeling better. He reports that he does use flexeril and valium prn. States he does not like taking medication. Aware that the valium really needs to be used with caution, considering past ETOH addiction. When he uses the valium, he usually takes 1/2 tab. He may use one of the other once daily. Feels that the pain is compounding his anxiety. Refers that just not having answers and knowing that he isn't feeling well is exacerbating the anxiety. PAST MEDICAL HISTORY: PAST MEDICAL HISTORY Diagnosis Date - Acid indigestion 10/05/2016 Added automatically from request for surgery [id number] - Anxiety 01/20/2015 - History of alcohol abuse PAST SURGICAL HISTORY Procedure Laterality Date - EGD W/O OR W/BRUSH/WASH 01/18/2017 EGD - VASECTOMY 02/23/12 ALLERGIES Celexa [Citalopram Hydrobromide]; Doxycycline; Hydroxyzine; Nortriptyline; Zantac [Ranitidine Hcl] MEDICATIONS Current Outpatient Prescriptions: nortriptyline (PAMELOR) 25 mg capsule Take 1 capsule by mouth daily at bedtime. busPIRone (BUSPAR) 5 mg tablet Take 1 tablet by mouth three times daily. diazePAM (VALIUM) 5 mg tablet Take 1 tablet by mouth every 12 hours as needed for Anxiety (use sparingly) for up to 30 days. cyclobenzaprine (FLEXERIL) 10 mg tablet TAKE 1 TABLET BY MOUTH THREE TIMES DAILY NEEDED. fluticasone (FLONASE) 50 mcg/actuation nasal spray Use 2 Sprays in each nostril once daily. Rinse mouth after use. sertraline (ZOLOFT) 100 mg tablet Take 2 tablets by mouth once daily. BACILLUS COAGULANS (PROBIOTIC, B. COAGULANS, ORAL) Take by mouth. albuterol HFA (VENTOLIN HFA) 90 mcg/actuation inhaler Inhale 2 Puffs as instructed every 4 hours as needed for Wheezing/Shortness of Breath. No current facility-administered medications for this visit. FAMILY HISTORY Problem Relation Age of Onset - Thyroid Mother - Hypertension Mother - ovarian mass [OTHER] Mother benign - Gallstones [OTHER] Mother - None Father - Alcohol/Drug Maternal Grandmother - Cancer Maternal Grandfather unknown - Alcohol/Drug Paternal Grandfather - Stroke Paternal Grandfather - Heart Paternal Grandfather - Cancer Maternal Aunt type unknown - Alcohol/Drug Maternal Aunt - Alcohol/Drug Maternal Aunt - Alcohol/Drug Maternal Aunt - Alcohol/Drug Maternal Uncle - Alcohol/Drug Paternal Aunt - Alcohol/Drug Paternal Aunt - Cerebral Embolism Son Social History Marital status: Spouse name: Years of education: Number of children: 2 Social History Main Topics Smoking status: Former Smoker Packs/day: 0.50 Years: 0.00 Types: Cigarettes Start date: 03/12/2008 Quit date: 10/05/2016 Smokeless tobacco: Current User Types: Snuff Comment: 4-6 cigatettes a day from 2008-09/2016 Alcohol use: No Comment: Stopped drinking ETOH as of 12/2014 Drug use: No Sexual activity: Yes Partners with: Female control/protection: IUD EXAM: BP 112/66 (BP Site: Right Arm, BP Position: Sitting, BP Cuff Size: Regular Adult) Pulse 78 Resp 12 Wt 60.3 kg (133 lb) BMI 19.64 kg/m? PHYSICAL EXAM: General Appearance: Well appearing, alert, in no acute distress, well-hydrated, well nourished.. Skin: Skin color, texture, turgor normal, no suspicious rashes or lesions. Head: Normocephalic, no masses, lesions, tenderness or abnormalities. Eyes: Anicteric sclera. Pupils are equally round and reactive to light. Extraocular movements are intact. . Ears: External ears normal, canals clear, Normal TMs bilaterally. Oropharynx: Lips, mucosa, and tongue normal, teeth and gums normal, oropharynx normal. Neck: Supple, no adenopathy; thyroid symmetric, normal size. Lungs: Lungs clear to auscultation. No wheezing, rhonchi, rales. Heart: RRR without murmur, gallop, or rubs. No ectopy. Abdomen: Abdomen soft, non-tender. Bowel sounds normal. No masses, organomegaly. Extremities: No deformities, edema, skin discoloration, clubbing or cyanosis. Good capillary refill. Neurologic: Gait normal. Reflexes normal and symmetric. Sensation grossly intact. ASSESSMENT/PLAN: 1. Myalgia - ICD9: 729.1, ICD10: M79.1 (primary diagnosis) Will check some labs. Refer to rheum for further eval for possible fibromyalgia causing symptoms. Encouraged to stick more with a daily dose of flexeril at bedtime, and one during the day if needed. - VITAMIN D 25 HYDROXY - TSH BLD - COMP METABOLIC PANEL - SED RATE WESTERGREN - C-REACTIVE PROTEIN (CRP) - CONSULT TO RHEUM/IMMUN DISEASE - BUPROPION HCL SR 150 MG TABLET,12 HR SUSTAINED-RELEASE 2. Anxiety - ICD9: 300.00, ICD10: F41.9 Will add wellbutrin to his regimen to help anxiety. - BUPROPION HCL SR 150 MG TABLET,12 HR SUSTAINED-RELEASE He will take once daily for a week; then increase to twice daily. Kenyatta Verdin APRN.CRESENCIO Discussed treatment plan and patient voices understanding. Patient's questions answered appropriately. Medications and potential side effects were discussed and patient voices understanding. Return to the office as scheduled or as needed for worsening/no improvement. CNOV Observed: 08/31/2017 Status: COMPLETED Source: [facility] 11:00 AM [facility] Office Visit ([facility]) CARLOS A CONROY ([id number]) 1975 M Date Time Provider Department 08/31/17 11:00 AM KENYATTA VERDIN (CRESENCIO) [facility] During your visit today, we recorded the following information about you: Pulse Respiration Blood pressure Weight 78/minute 12/minute 112/66 60.3 kg Kenyatta Verdin APRN.LITIGATION LEGAL ASSISTANT 08/31/2017 1:22 PM Signed This is a 42 year old male who presents today with: Patient presents with: ED Follow-up HISTORY OF PRESENT ILLNESS: Carlos A Conroy is a 42 year old male. Patient presents with: ED Follow-up Pt presents today for ER follow-up. He was at [facility] ER on 08/21. He was at [facility] ER on 08/24. Both visits were for episodes of chest pain. For 2 1/2 years, he has been having intermittent chest discomfort. He's been on zoloft, but recently was started on nortriptyline. The second ER visit was through to be a reaction to the new medication. Per patient, the ER doctor mentioned fibromyalgia or nerve damage. Refers that he'll get pain on the left chest, left arm, left leg, left jaw. Refers sometimes, he will have discomfort on the right side as well, but more prominent on the left. Refers that he has had 7-8 EKGs, labwork, cxray without answers. Refers pain will come out of the blue. Not provoked. Nothing that he can pinpoint is causing symptoms (stress/anxiety/eating/activities). Can occur at work or at home. The only thing that he has found that helps is soaking in a bathtub. Refers he is tired of not feeling better. Refers hx of being alcoholic. Quit smoking 6 months ago. Refers that he just expected to be feeling better. He reports that he does use flexeril and valium prn. States he does not like taking medication. Aware that the valium really needs to be used with caution, considering past ETOH addiction. When he uses the valium, he usually takes 1/2 tab. He may use one of the other once daily. Feels that the pain is compounding his anxiety. Refers that just not having answers and knowing that he isn't feeling well is exacerbating the anxiety. PAST MEDICAL HISTORY: PAST MEDICAL HISTORY Diagnosis Date - Acid indigestion 10/05/2016 Added automatically from request for surgery [id number] - Anxiety 01/20/2015 - History of alcohol abuse PAST SURGICAL HISTORY Procedure Laterality Date - EGD W/O OR W/BRUSH/WASH 01/18/2017 EGD - VASECTOMY 02/23/12 ALLERGIES Celexa [Citalopram Hydrobromide]; Doxycycline; Hydroxyzine; Nortriptyline; Zantac [Ranitidine Hcl] MEDICATIONS Current Outpatient Prescriptions: nortriptyline (PAMELOR) 25 mg capsule Take 1 capsule by mouth daily at bedtime. busPIRone (BUSPAR) 5 mg tablet Take 1 tablet by mouth three times daily. diazePAM (VALIUM) 5 mg tablet Take 1 tablet by mouth every 12 hours as needed for Anxiety (use sparingly) for up to 30 days. cyclobenzaprine (FLEXERIL) 10 mg tablet TAKE 1 TABLET BY MOUTH THREE TIMES DAILY NEEDED. fluticasone (FLONASE) 50 mcg/actuation nasal spray Use 2 Sprays in each nostril once daily. Rinse mouth after use. sertraline (ZOLOFT) 100 mg tablet Take 2 tablets by mouth once daily. BACILLUS COAGULANS (PROBIOTIC, B. COAGULANS, ORAL) Take by mouth. albuterol HFA (VENTOLIN HFA) 90 mcg/actuation inhaler Inhale 2 Puffs as instructed every 4 hours as needed for Wheezing/Shortness of Breath. No current facility-administered medications for this visit. FAMILY HISTORY Problem Relation Age of Onset - Thyroid Mother - Hypertension Mother - ovarian mass [OTHER] Mother benign - Gallstones [OTHER] Mother - None Father - Alcohol/Drug Maternal Grandmother - Cancer Maternal Grandfather unknown - Alcohol/Drug Paternal Grandfather - Stroke Paternal Grandfather - Heart Paternal Grandfather - Cancer Maternal Aunt type unknown - Alcohol/Drug Maternal Aunt - Alcohol/Drug Maternal Aunt - Alcohol/Drug Maternal Aunt - Alcohol/Drug Maternal Uncle - Alcohol/Drug Paternal Aunt - Alcohol/Drug Paternal Aunt - Cerebral Embolism Son Social History Marital status: Spouse name: Years of education: Number of children: 2 Social History Main Topics Smoking status: Former Smoker Packs/day: 0.50 Years: 0.00 Types: Cigarettes Start date: 03/12/2008 Quit date: 10/05/2016 Smokeless tobacco: Current User Types: Snuff Comment: 4-6 cigatettes a day from 2008-09/2016 Alcohol use: No Comment: Stopped drinking ETOH as of 12/2014 Drug use: No Sexual activity: Yes Partners with: Female control/protection: IUD EXAM: BP 112/66 (BP Site: Right Arm, BP Position: Sitting, BP Cuff Size: Regular Adult) Pulse 78 Resp 12 Wt 60.3 kg (133 lb) BMI 19.64 kg/m? PHYSICAL EXAM: General Appearance: Well appearing, alert, in no acute distress, well-hydrated, well nourished.. Skin: Skin color, texture, turgor normal, no suspicious rashes or lesions. Head: Normocephalic, no masses, lesions, tenderness or abnormalities. Eyes: Anicteric sclera. Pupils are equally round and reactive to light. Extraocular movements are intact. . Ears: External ears normal, canals clear, Normal TMs bilaterally. Oropharynx: Lips, mucosa, and tongue normal, teeth and gums normal, oropharynx normal. Neck: Supple, no adenopathy; thyroid symmetric, normal size. Lungs: Lungs clear to auscultation. No wheezing, rhonchi, rales. Heart: RRR without murmur, gallop, or rubs. No ectopy. Abdomen: Abdomen soft, non-tender. Bowel sounds normal. No masses, organomegaly. Extremities: No deformities, edema, skin discoloration, clubbing or cyanosis. Good capillary refill. Neurologic: Gait normal. Reflexes normal and symmetric. Sensation grossly intact. ASSESSMENT/PLAN: 1. Myalgia - ICD9: 729.1, ICD10: M79.1 (primary diagnosis) Will check some labs. Refer to rheum for further eval for possible fibromyalgia causing symptoms. Encouraged to stick more with a daily dose of flexeril at bedtime, and one during the day if needed. - VITAMIN D 25 HYDROXY - TSH BLD - COMP METABOLIC PANEL - SED RATE WESTERGREN - C-REACTIVE PROTEIN (CRP) - CONSULT TO RHEUM/IMMUN DISEASE - BUPROPION HCL SR 150 MG TABLET,12 HR SUSTAINED-RELEASE 2. Anxiety - ICD9: 300.00, ICD10: F41.9 Will add wellbutrin to his regimen to help anxiety. - BUPROPION HCL SR 150 MG TABLET,12 HR SUSTAINED-RELEASE He will take once daily for a week; then increase to twice daily. Kenyatta Verdin APRN.LITIGATION LEGAL ASSISTANT Discussed treatment plan and patient voices understanding. Patient's questions answered appropriately. Medications and potential side effects were discussed and patient voices understanding. Return to the office as scheduled or as needed for worsening/no improvement. Kenyatta Verdin APRN.CRESENCIO 08/31/2017 11:57 AM Addendum 1. Labs today. 2. Rheum referral 3. Start new medication daily for 1 week; then twice daily. 4. Recheck in 1 month. Referring Provider: SELF [200] Allergies As of Date: 08/31/2017 Noted Allergy Reaction CELEXA (CITALOPRAM HYDROBROMIDE) 09/15/2016 1 - Mental Status Change Comments: [place] spacy DOXYCYCLINE 04/12/2005 11 - Vomiting HYDROXYZINE 03/17/2017 14 - Other: See Comments Comments: Migraine NORTRIPTYLINE 08/31/2017 16 - Unknown Comments: Chest pain ZANTAC (RANITIDINE HCL) 10/10/2016 8 - GI Upset Date Reviewed: 08/31/2017 Reviewed by: Sonya Ramírez [employer] - Fully Assessed Reason for Visit: ED Follow-up [821] Primary Visit Diagnosis:Myalgia [M79.1] Other Visit Diagnosis:Anxiety [F41.9] Order(s):VITAMIN D 25 HYDROXY [SQVITD] Order #: [id number] FUTURE TSH BLD [SQTSH] Order #: [id number] FUTURE COMP METABOLIC PANEL [SQCMP] Order #: [id number] FUTURE SED RATE WESTERGREN [SQWSR] Order #: [id number] FUTURE C-REACTIVE PROTEIN (CRP) [SQCRP] Order #: [id number] FUTURE CONSULT TO RHEUM/IMMUN DISEASE [9039] Order #: [id number]: 1 buPROPion SR (WELLBUTRIN SR) 150 mg 12 hr tabletTake 1 tablet by mouth twice daily.Disp: 60 tabletRfl: 2 Prescriptions as of 08/31/2017 Sig: DIAZEPAM 5 MG TABLET Take 1 tablet by mouth every * CYCLOBENZAPRINE 10 MG TABLET TAKE 1 TABLET BY MOUTH THREE * FLUTICASONE 50 MCG/ACTUATION * Use 2 Sprays in each nostril * SERTRALINE 100 MG TABLET Take 2 tablets by mouth once * PROBIOTIC (B. COAGULANS) ORAL Take by mouth. ALBUTEROL SULFATE HFA 90 MCG/* Inhale 2 Puffs as instructed * BUPROPION HCL SR 150 MG TABLE* Take 1 tablet by mouth twice * Medication notes this encounter BUSPIRONE 5 MG TABLET >> Kenyatta Verdin APRN.CNP 08/31/2017 11:51 AM headaches Problem List As Of Date 08/31/2017 Noted Resolved DYSTHYMIC DISORDER [F34.1] INVALID FOR* TENSION HEADACHE [G44.209] INVALID FOR* Hypoglycemia [E16.2] INVALID FOR* More... Sterilization [Z30.2] INVALID FOR*10/10/2016 Cigarette nicotine dependence with nicotine-ind*INVALID FOR* History of alcohol abuse [Z87.898] Anxiety [F41.9] INVALID FOR* Generalized abdominal pain [R10.84] INVALID FOR*10/10/2016 Altered bowel function [R19.4] INVALID FOR* More... Abdominal cramping, generalized [R10.84] INVALID FOR* More... Acid indigestion [K30] INVALID FOR* More... Generalized abdominal discomfort [R10.84] INVALID FOR* More... Other instructions from your clinician: 1. Labs today. 2. Rheum referral 3. Start new medication daily for 1 week; then twice daily. 4. Recheck in 1 month. Prescriptions ordered this encounter Disp Refills Start End BUPROPION HCL SR 150 MG TABLET,12 HR* 60 t* 2 08/31/2017 Route: ORAL Sig: Take 1 tablet by mouth twice daily. Medications Discontinued During This Encounter nortriptyline (PAMELOR) 25 mg capsule 30 c* 2 08/18/2017 08/31/2017 Route: ORAL Sig: Take 1 capsule by mouth daily at bedtime. Disc: Course of therapy completed busPIRone (BUSPAR) 5 mg tablet 90 t* 1 08/04/2017 08/31/2017 Route: ORAL Sig: Take 1 tablet by mouth three times daily. Disc: Side Effects Disposition: Return in about 1 month (around 10/01/2017), or if symptoms worsen or fail to improve, for med recheck. Follow-up and Disposition History Recorded Encounter Status:Closed by KENYATTA VERDIN CNP on 08/31/17 12 LEAD ELECTROCARDIOGRAM Observed: 08/29/2017 Status: F Source: [place] 2:49 PM [facility] RE[facility]IT[facility] Cardiovascular Services [address] [place] [address] 12 Lead EKG 08/23/17 1435 MR#: [id number] Acct: [id number] Name: LOU CONROY Rep #: [id number] : 1975 42 From: Ander Bradley MD Attending Dr: Status: DEP ER Ordering Dr: Gordy Coombs MD Date: 08/23/17 Location: ED Sex: M C Admitted: Test Reason : CP Blood Pressure : / mmHG Vent. Rate : 092 BPM Atrial Rate : 092 BPM P-R Int : 136 ms QRS Dur : 086 ms QT Int : 338 ms P-R-T Axes : 051 027 054 degrees QTc Int : 417 ms Normal sinus rhythm Normal ECG Confirmed by ANDER BRADLEY MD ([id number]), online editor SUSAN MARTIN ([id number]) on 08/29/2017 2:48:58 PM Referred By: Confirmed By:ANDER BRADLEY MD 08/29/17 1449 Date Ander Bradley MD CC: Freeman Manzanares MD; Gordy Coombs MD Signed EMERGENCY DEPARTMENT Observed: 08/24/2017 Status: F Source: [place] SUMMARY 11:17 AM [facility] RE[facility]IT[facility] Medical Records Department [address] [place] [address] Emergency Department Summary 08/24/17 1050 MR#: [id number] Acct: [id number] Name: LOU CONROY Rep #: [id number] : 1975 42 From: Gordy Coombs MD PCP: Freeman Manzanares MD Status: DEP ER - ER Visit Summary Date of Service: 08/24/17 Chief Complaint: Chest pain History of Present Illness: The patient is a [address] Manzanares. He reports he has chest pain that began today at 10:00 this morning. Some intermittent pain last 5-10 seconds at a time that he describes as squeezing. Pain is 1 out of 10 at worst and is pain-free currently. States it is worsened by nothing including exertion. Is also relieved by nothing. Reports he does feel mildly nauseated and short of breath. He denies any vomiting or diaphoresis. Patient reports that 2 days ago he was placed on nortriptyline 25 mg p.o. nightly and is looked up the side effects and believes that this is due for to this. He also reports that he stopped his Zoloft cold turkey at the same time. Physical Examination: Vitals: Stable. Afebrile. General: Well-nourished and well-developed. Head: Normocephalic atraumatic. Neck: Supple, no lymphadenopathy. No JVD. Nontender. Cardiovascular: Regular rate and rhythm. No murmurs. Respiratory: No respiratory distress. Clear to auscultation bilaterally. Abdominal: Soft, nontender, nondistended, normal bowel sounds. No guarding, rebound, or peritoneal signs. Back: Nontender. Extremities: Nontender, no edema. Skin: Normal color, no rash. Neurologic: Alert and oriented 3. Cranial nerves II through XII are intact. Normal strength and sensation. Psych: Normal affect. Test Results: EKG is sinus at [address] changes. Chest x-ray is normal. CBC is normal. Chem-7 is more for BUN of 21. Troponins negative. Emergency Department Course and Treatment: Patient rested comfortably throughout her stay and emerge part without complaint. Treatment Plan: Had a prolonged discussion with patient about the likely possibility of this being related to his nortriptyline. Discussed the half-life with him and to follow-up with his primary care physician in 3-5 days if not improving. I also discussed with him that stopping his Zoloft abruptly is not a good idea and suggested that he restart this. Return to the emergency department for any worsening symptoms. Disposition: To home in improved and stable condition. Impression: 1. Atypical chest pain. 2. Adverse reaction to nortriptyline. This note was generated with Starvine dictation software. It may contain incorrect words, spelling, and punctuation that were not noted in review of the chart prior to signing ED Disposition - Plan for ED Patient: Disposition: Home or Assisted Living Chief Complaint: Allergic Reaction Instructions: ED Allergic Reaction General Other Referrals: Freeman Manzanares MD [Primary Care Provider] - 3-5 Days if not improving What to do if you have Problems For any increased pain, shortness of breath, bleeding, nausea or vomiting, chest pain, or any unexpected problems, contact your Primary Care Provider. Call [facility] ([phone]) or report to the closest Emergency Room. Call 911 if necessary. 07/12/18 1117 <Electronically signed by Gordy Coombs MD> Date Gordy Coombs MD Cosigner Signature (If Indicated): Date CC: Freeman Manzanares MD EMERGENCY DEPARTMENT Observed: 08/24/2017 Status: F Source: [place] SUMMARY 12:11 AM [facility] RE[facility] Medical Records Department [address] [place] [address] Emergency Department Summary 08/23/17 1612 MR#: [id number] Acct: [id number] Name: LOU CONROY Jessy Rep #: [id number] : 1975 42 From: Mariaelena Acevedo MD PCP: Freeman Manzanares MD Status: DEP ER - ER Visit Summary Date of Service: 08/23/17 Patient was evaluated by Dr. Coombs. This note was generated with Starvine dictation software. It may contain incorrect words, spelling, and punctuation that were not noted in review of the chart prior to signing ED Disposition - Plan for ED Patient: Disposition: Home or Assisted Living Chief Complaint: Allergic Reaction Instructions: ED Allergic Reaction General Other Referrals: Freeman Manzanares MD [Primary Care Provider] - 3-5 Days if not improving What to do if you have Problems For any increased pain, shortness of breath, bleeding, nausea or vomiting, chest pain, or any unexpected problems, contact your Primary Care Provider. Call [facility] ([phone]) or report to the closest Emergency Room. Call 911 if necessary. 08/24/17 0011 <Electronically signed by Mariaelena Acevedo MD> Date Mariaelena Acevedo MD Cosigner Signature (If Indicated): Date CC: Freeman Manzanares MD CBC W/DIFF, AUTOMATED Collected: 08/23/2017 Status: F Source: [place] 3:26 PM [facility] REPOS[facility] TYPE CODE TESTS RESULT OUT OF RANGE REFERENCE UNITS LAB L100.1000 4.4-11.0 K/mm3 Normal WBC 5.0 LAB L100.1200 4.6-6.2 M/mm3 Low RBC 4.23 LAB L100.1300 13.0-16.5 g/dl Normal HGB 13.7 LAB L100.1400 40-54 % Low HCT 39.3 LAB L100.1500 80-94 fL Normal MCV 92.9 LAB L100.1600 27.0-32.0 pg High MCH 32.4 LAB L100.1700 32-36 g/gl Normal MCHC 34.9 LAB L100.1810 11.6-14.6 % Normal RDW CV 12.2 LAB L100.1820 35.1-43.9 fl Normal RDW SD 40.9 LAB L100.1900 150-450 K/mm3 Normal PLT 241 LAB L100.2000 6.2-12.0 fl Normal MPV 9.9 LAB L100.2100 47-70 % Normal NEUT% 60.7 LAB L100.2200 19-41 % Normal LY% 29.9 LAB L100.2300 0-10 % Normal MONO% 7.6 LAB L100.2400 0-5 % Normal EO% 1.2 LAB L100.2500 0-1 % Normal BASO% 0.6 LAB L100.2550 0.0-0.9 % Normal IM GRAN % 0.000 Result Comment: IG% - Immature Granulocytes (promyelocytes, myelocytes and metamyelocytes) > 1% indicates that a LEFT SHIFT is Present. LAB L100.2620 2.0-7.7 X10 3/uL Normal Absolute Neut 3.0 LAB L100.2720 0.83-4.51 X10 3/ul Normal Absolute Lymph 1.49 Performed By: #### L100.0100 #### [facility] [address] [place], [address] BASIC METABOLIC Collected: 08/23/2017 Status: F Source: CATH[place] PROFILE (BMP) 3:26 PM [facility] REPOS[facility] TYPE CODE TESTS RESULT OUT OF RANGE REFERENCE UNITS LAB L501.0100 74-106 mg/dL Normal GLU 95 Result Comment: Please note revised GLUCOSE reference range effective 2017. LAB L501.1000 7-18 mg/dL High BUN 21 LAB L501.1100 0.70-1.30 mg/dL Normal CREAT,SERUM 1.14 Result Comment: The validity of the calculated GFR AND GFRAA in patients over 70 years has not been determined. Clinical correlation is essential. LAB L501.1110 >60 mL/min Normal EST GFR 76 Result Comment: Non- GFR Calc LAB L501.1115 >60 mL/min Normal EST GFR - AA 92 Result Comment: GFR Calc LAB L501.1255 ml/min Normal Estimated CRCL 71.84 LAB L501.1300 10-20 RATIO Normal BUN/CRE 18.4 LAB L501.2200 8.5-10 mg/dL Normal .1 CA 8.8 LAB L501.5300 136-14 mmol/L Normal 5 NA 142 LAB L501.5600 3.5-5. mmol/L Normal 1 K 4.3 LAB L501.5900 98-107 mmol/L Normal CL 104 LAB L501.6100 21.0-3 mmol/L Normal 2.0 CO2 31.0 LAB L501.6200 5-15 Normal GAP 7 Performed By: #### L500.2500, L501.4010 #### [facility] [address] [place], [address] TROPONIN-I Collected: 08/23/2017 Status: F Source: CATHY 3:26 PM [facility] REPOS[facility] TYPE CODE TESTS RESULT OUT OF RANGE REFERENCE UNITS LAB L501.4010 <0.045 ng/mL Normal < 0.015 TROPONIN-I Result Comment: TROPONIN-I EXPECTED VALUES <0.045 Negative 0.045 - 0.590 Consistent with Cardiac Damage > OR = 0.600 Critical Value Not every elevated troponin is indicative of NM. These values should be used with clinical judgement in examining the patient's clinical picture for diagnosis. To establish a diagnosis of NM versus myocardial injury, there must be a demonstrated rise and/or fall in the troponin values, in addition to ischemic symptoms, EKG changes, new regional wall motion abnormality, and/or angiographical evidence. PLEASE NOTE: REFERENCE RANGES EDITED 17 Performed By: #### L500.2500, L501.4010 #### [facility] [address] [place], [address] CHEST 1 VIEW Observed: 08/23/2017 Status: F Source: [place] (PORTABLE) 2:53 PM [facility] REPOSITORY [facility] Imaging Services [address] [place] [address] Chest 1 View (Portable) MR#: [id number] Acct: [id number] Name: LOU CONROY Rep #: [id number] : 1975 M 42 From: Kurtis Samuel MD PCP: Glenna RICHARD,Rfeeman Status: REG ER Study: Chest 1 View (Portable) Date of Exam: 08/23/17 Exam# [id number] Ordering Dr: Gordy Coombs MD STUDY: X-RAY CHEST REASON FOR EXAM: Male, 42 years old. Chest pain. TECHNIQUE: Single AP portable view of the chest. COMPARISON: Comparison is made with prior study dated January 11, 2016. FINDINGS: Hyperinflation. Scattered calcified granulomas. No acute abnormality is seen. There is no demonstrated pleural abnormality. Normal size heart. Normal mediastinum and stu. Normal visualized pulmonary arteries. Normal visualized aortic arch and descending thoracic aorta. Normal visualized thoracic spine. Normal visualized ribs, clavicles, and shoulders. There is no demonstrated abnormality of the visualized soft tissue structures of the upper abdomen. RAD/Chest 1 View (Portable) IMPRESSION: No acute abnormality is seen. 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 CBC Collected: 08/21/2017 Status: F Source: [facility] 2:11 [facility] REPOSITORY TYPE CODE TESTS RESULT OUT OF REFERENCE UNITS RANGE LAB WBC(LOINC) 4.60-10.80 10 3/mcL WBC 5.30 LAB RBCCT(LOINC 4.04-6.13 10 6/mcL ) RBC 4.56 LAB HGB(LOINC) 14.0-18.0 G/dL Hgb 14.6 LAB HCT(LOINC) 42.0-52.0 % Low Hct 41.9 LAB MCV(LOINC) 80.0-94.0 fL MCV 92.0 LAB MCH(LOINC) 27.0-31.2 pg High MCH 31.9 LAB MCHC(LOINC) 31.8-35.4 G/dL MCHC 34.7 LAB RDW(LOINC) 11.5-14.5 % RDW 12.8 LAB PLT(LOINC) 130-400 10 3/mcL Platelet 254 LAB MPV(LOINC) 7.4-10.4 fL MPV 7.8 Performed By: #### CBC, ADIFF, ANEU, TROP, BMP, GFR #### [place] [address] .AUTO DIFF Collected: 08/21/2017 Status: F Source: [facility] 2:11 [facility] REPOSITORY TYPE CODE TESTS RESULT OUT OF REFERENCE UNITS RANGE LAB EYAL(LOINC) 37.0-80.0 % Neutrophil % 62.1 LAB LYM(LOINC) 10.0-50.0 % Lymphocyte % 28.7 LAB MON(LOINC) 1.7-13.0 % Monocyte % 7.9 LAB EO(LOINC) 0.0-7.0 % Eosinophil % 0.7 LAB BAS(LOINC) 0.0-2.5 % Basophil % 0.6 LAB ABLYM(LOIN 0.77-3.85 10 3/mcL C) Lymphocyte, 1.50 Absolute LAB JASON(LOINC 0.15-1.00 10 3/mcL ) Monocyte, 0.40 Absolute LAB AEOS(LOINC 0.00-0.40 10 3/mcL ) Eosinophil, 0.00 Absolute LAB ABAS(LOINC 0.00-0.19 10 3/mcL ) Basophil, 0.00 Absolute Performed By: #### CBC, ADIFF, ANEU, TROP, BMP, GFR #### [address] [address] .NEUABS Collected: 08/21/2017 Status: F Source: [facility] 2:11 PM [facility] REPOSITORY TYPE CODE TESTS RESULT OUT OF REFERENCE UNITS RANGE LAB ANEU(LOINC) 2.85-6.16 10 3/mcL Neutrophil, 3.30 Absolute Performed By: #### CBC, ADIFF, ANEU, TROP, BMP, GFR #### [address] [address] TROP Collected: 08/21/2017 Status: F Source: [facility] 2:11 [facility] REPOSITORY TYPE CODE TESTS RESULT OUT OF REFERENCE UNITS RANGE LAB TROP(LOINC) 0.00-0.30 ng/mL Troponin <0.30 Result Comment: Below measuring range >=0.30 Consistent with cardiac damage, increased clinical risk and possibility of myocardial infarction. Serial measurements, clinical history, appropriate symptoms and/or ECG changes may help assess possibility of NM. *Other non-acute coronary syndrome conditions such as CHF, myocarditis, pulmonary emboli, sepsis and cardiac surgery could result in myocardial damage and increased troponin levels. Performed By: #### CBC, ADIFF, ANEU, TROP, BMP, GFR #### [address] [address] BMP Collected: 08/21/2017 Status: F Source: [facility] 2:11 [facility] REPOSITORY TYPE CODE TESTS RESULT OUT OF REFERENCE UNITS RANGE LAB GLU(LOINC) 70-105 mg/dL Glucose Level 93 LAB NA(LOINC) 136-146 mEq/L Sodium Level 141 LAB K(LOINC) 3.5-5.1 mEq/L Potassium Level 4.6 LAB CL(LOINC) 98-107 mEq/L Chloride 105 LAB CO2(LOINC) 22-29 mEq/L CO2 High 30 LAB EBAL(LOINC mEq/L ) Electrolyte Balance 6.0 LAB BUN(LOINC) 7.0-18.0 mg/dL BUN 16.6 LAB CRE(LOINC) 0.6-1.2 mg/dL Creatinine Lvl (s) 1.0 LAB BC(LOINC) 7-27 ratio BUN/Creatinine 17 Ratio LAB CA(LOINC) 8.4-10.2 mg/dL Calcium Lvl 9.8 Performed By: #### CBC, ADIFF, ANEU, TROP, BMP, GFR #### [place] [address] [address] .GFR Collected: 08/21/2017 Status: F Source: [facility] [facility] REPOSIT[facility] TYPE CODE TESTS RESULT OUT OF REFERENCE UNITS RANGE LAB GFRAA(LOINC ml/min/1.73 ) sqm GFR >60 [place]hi Result Comment: GFR Population mean for , Non- Americans Ages 20-29 = 116 mL/min/1.73 sq.m. Ages 30-39 = 107 mL/min/1.73 sq.m. Ages 40-49 = 99 mL/min/1.73 sq.m. Ages 50-59 = 93 mL/min/1.73 sq.m. Ages 60-69 = 85 mL/min/1.73 sq.m. Ages 70+ = 75 mL/min/1.73 sq.m. Chronic Kidney Disease: Less than 60 mL/min/1.73 square meters End Stage Renal Disease: Less than 15 mL/min/1.73 square meters LAB GFRNO(LOINC) ml/min/1.73sqm GFR Non- >60 Result Comment: GFR Population mean for , Non- Americans Ages 20-29 = 116 mL/min/1.73 sq.m. Ages 30-39 = 107 mL/min/1.73 sq.m. Ages 40-49 = 99 mL/min/1.73 sq.m. Ages 50-59 = 93 mL/min/1.73 sq.m. Ages 60-69 = 85 mL/min/1.73 sq.m. Ages 70+ = 75 mL/min/1.73 sq.m. Chronic Kidney Disease: Less than 60 mL/min/1.73 square meters End Stage Renal Disease: Less than 15 mL/min/1.73 square meters Performed By: #### CBC, ADIFF, ANEU, TROP, BMP, GFR #### [place] [address] [address] PROGRESS Observed: 08/04/2017 Status: COMPLETED Source: [place] 9:10 AM [facility] REPOSITORY HNO ID: [id number] Author: Sharee Squires) Podlogar Service: (none) Author Type: Nurse Practitioner Type: Progress Notes Filed: 08/04/2017 10:06 AM Note Text: 08/04/2017 Patient presents with: Anxiety SUBJECTIVE: This is a 41 year old that is here today for Above Complaints. Has had anxiety for 2.5 years. Has tried ativan and klonopin in the past, however they make him agitated. Has been taking Zoloft for approximately 4-5 years and he reports it helps with depression. Reports he has some extent of anxiety everyday- some days better than others. New stressors are he is moving. Reports when his anxiety is bad he gets a feeling that something is crawling in my chest and sweaty. Has seen a counselor I the past, however he isn't interesting in seeing one. He attends [employer] as reports this is my counseling. Reports has a good support system in spouse and friends. Stopped drinking over 2 years ago and stopped smoking 6 months ago. Denies illicit drug use and HI or SI. Was in [facility] on July 12 for anxiety and was given valium, they also gave him a prescription for 14 pills. He reports these work well for him and do not make him feel irritated. Feeling nervous, anxious, or on edge 3 Nearly every day Not being able to stop or control worrying 3 Nearly every day Worrying too much about different things 3 Nearly every day Trouble relaxing 3 Nearly every day Being so restless that it's hard to sit still 1 Several days Being easily annoyed or irritable 2 Over half the days Feeling afraid as if something awful might happen 1 Several days DUC-7 Anxiety Score 15 If you checked off any problems, how difficult have these problems made it for you to do your work, take care of things at home, or get along with other people? Very difficult Little or no interest or pleasure in doing things 0 Not at all Feeling down, depressed, or hopeless 1 Several days Trouble falling or staying asleep, or sleeping too much 3 Nearly every day Feeling tired or having little energy 3 Nearly every day Poor appetite or overeating 0 Not at all Feeling bad about yourself- or that you are a failure or having let yourself or your family down 1 Several days Trouble concentrating on things, such as reading the newpaper or watching television 1 Several days Moving or speaking so slowly that other people could have noticed? Or the opposite- being so fidgety or restless that you have been moving around a lot more than usual 1 Several days Thoughts that you would be better off or of hurting yourself in some way 0 Not at all PHQ9P Score 10 If you checked off any problems, how difficult have these problems made it for you to do your work, take care of things at home, or get along with other people? Very difficult PAST MEDICAL HISTORY Diagnosis Date - Acid indigestion 10/05/2016 Added automatically from request for surgery [id number] - Anxiety 01/20/2015 - History of alcohol abuse ALLERGIES Celexa [Citalopram Hydrobromide]; Doxycycline; Hydroxyzine; Zantac [Ranitidine Hcl] MEDICATIONS Current Outpatient Prescriptions: cyclobenzaprine (FLEXERIL) 10 mg tablet TAKE 1 TABLET BY MOUTH THREE TIMES DAILY NEEDED. fluticasone (FLONASE) 50 mcg/actuation nasal spray Use 2 Sprays in each nostril once daily. Rinse mouth after use. sertraline (ZOLOFT) 100 mg tablet Take 2 tablets by mouth once daily. BACILLUS COAGULANS (PROBIOTIC, B. COAGULANS, ORAL) Take by mouth. albuterol HFA (VENTOLIN HFA) 90 mcg/actuation inhaler Inhale 2 Puffs as instructed every 4 hours as needed for Wheezing/Shortness of Breath. No current facility-administered medications for this visit. Medications and allergies reviewed by this provider. SOCIAL HISTORY Social History Marital status: Spouse name: Years of education: Number of children: 2 Social History Main Topics Smoking status: Former Smoker Packs/day: 0.50 Years: 0.00 Types: Cigarettes Start date: 03/12/2008 Quit date: 10/05/2016 Smokeless tobacco: Current User Types: Snuff Comment: 4-6 cigatettes a day from 2008-09/2016 Alcohol use: No Comment: Stopped drinking ETOH as of 12/2014 Drug use: No Sexual activity: Yes Partners with: Female control/protection: IUD REVIEW OF SYSTEMS GENERAL: No weight loss, malaise or fevers RESPIRATORY: Negative for cough, hemoptysis, wheezing, COPD, dyspnea or shortness of breath CARDIOVASCULAR: Negative for chest pain, leg swelling, hypertension, CHF or palpitations All other reviewed and negative other than HPI. OBJECTIVE: BP 90/56 (BP Site: Left Arm, BP Position: Sitting, BP Cuff Size: Regular Adult) Pulse 72 Resp 16 Wt 59.9 kg (132 lb 0.6 oz) BMI 19.50 kg/m? . Vital signs reviewed by this provider. PHYSICAL EXAMINATION: General appearance: Well appearing, alert, in no acute distress, well-hydrated, well nourished. Lungs: Lungs clear to auscultation. No wheezing, rhonchi, rales Heart: RRR without murmur, gallop, or rubs. No ectopy PSYCH: Posture and motor behavior: normal posture and motor behavior Dress, grooming, personal hygiene: normal dress and grooming Facial expression: good eye contact Speech: normal speech Mood: cheerful Coherency and relevance of thought: normal thought processes Memory: normal memory ASSESSMENT/PLAN: 1. DUC (generalized anxiety disorder) - ICD9: 300.02, ICD10: F41.1 (primary diagnosis) - Discussed concept of neurochemical imbalance [facility] depression/anxiety - Handout on depression/anxiety form UptoDate given - Option of Medication use discussed - Risks/benefits of benzodiazepines discussed. I will give a limited supply as I start him on Buspar 5 mg three times a day. I discussed with him these are to be used sparingly- not daily and will be used for limited time as we get him adjusted on Buspar - handout and discussion on common side effects of Buspar discussed. Discussed he should not drive while taking valium and he should not take this with flexeril he has at home- verbalizes understanding. - Common side effects - Sleep Hygeine - advised counseling to improve management of stressors - Instructed patient to contact office or [id number] after-hours promptly should condition worsen or any new symptoms appear. - [facility] and after hours crisis line - [facility] phone number or - DIAZEPAM 5 MG TABLET OAS website checked and validated. All prescriptions have been APPROPRIATELY filled. No suspicious activity was identified.- 08/04/2017 by Sharee Tian APRN.CNP - follow-up in 2-[address] Manzanares or Brice Sloan APRN 2. Depression, unspecified depression type - ICD9: 311, ICD10: F32.9 - continue Zoloft 200 mg daily - plan as above 3. Need for vaccination - ICD9: V05.9, ICD10: Z23 - TDAP VACCINE AGE 7+ IM Sharee Tian APRN.CNP Prescription instructions reviewed with patient as applicable. Patient advised if symptoms do not improve or if symptoms worsen sooner, to contact their primary care physician. Potential red flag symptoms discussed with the patient. Reviewed appropriate action plan to take if red flag symptoms occur. Patient agreeable to treatment plan. CNOV Observed: 08/04/2017 Status: COMPLETED Source: [place] 8:20 AM [facility] CARLOS A CONROY ([id number]) 1975 M Date Time Provider Department 08/04/17 8:20 AM SHAREE TIAN ([facility] During your visit today, we recorded the following information about you: Pulse Respiration Blood pressure Weight 72/minute 16/minute 90/56 59.9 kg Sharee Tian APRN.CNP 08/04/2017 10:06 AM Signed 08/04/2017 Patient presents with: Anxiety SUBJECTIVE: This is a 41 year old that is here today for Above Complaints. Has had anxiety for 2.5 years. Has tried ativan and klonopin in the past, however they make him agitated. Has been taking Zoloft for approximately 4-5 years and he reports it helps with depression. Reports he has some extent of anxiety everyday- some days better than others. New stressors are he is moving. Reports when his anxiety is bad he gets a feeling that something is crawling in my chest and sweaty. Has seen a counselor I the past, however he isn't interesting in seeing one. He attends [employer] as reports this is my counseling. Reports has a good support system in spouse and friends. Stopped drinking over 2 years ago and stopped smoking 6 months ago. Denies illicit drug use and HI or SI. Was in [facility] on July 12 for anxiety and was given valium, they also gave him a prescription for 14 pills. He reports these work well for him and do not make him feel irritated. Feeling nervous, anxious, or on edge 3 Nearly every day Not being able to stop or control worrying 3 Nearly every day Worrying too much about different things 3 Nearly every day Trouble relaxing 3 Nearly every day Being so restless that it's hard to sit still 1 Several days Being easily annoyed or irritable 2 Over half the days Feeling afraid as if something awful might happen 1 Several days DUC-7 Anxiety Score 15 If you checked off any problems, how difficult have these problems made it for you to do your work, take care of things at home, or get along with other people? Very difficult Little or no interest or pleasure in doing things 0 Not at all Feeling down, depressed, or hopeless 1 Several days Trouble falling or staying asleep, or sleeping too much 3 Nearly every day Feeling tired or having little energy 3 Nearly every day Poor appetite or overeating 0 Not at all Feeling bad about yourself- or that you are a failure or having let yourself or your family down 1 Several days Trouble concentrating on things, such as reading the newpaper or watching television 1 Several days Moving or speaking so slowly that other people could have noticed? Or the opposite- being so fidgety or restless that you have been moving around a lot more than usual 1 Several days Thoughts that you would be better off or of hurting yourself in some way 0 Not at all PHQ9P Score 10 If you checked off any problems, how difficult have these problems made it for you to do your work, take care of things at home, or get along with other people? Very difficult PAST MEDICAL HISTORY Diagnosis Date - Acid indigestion 10/05/2016 Added automatically from request for surgery [id number] - Anxiety 01/20/2015 - History of alcohol abuse ALLERGIES Celexa [Citalopram Hydrobromide]; Doxycycline; Hydroxyzine; Zantac [Ranitidine Hcl] MEDICATIONS Current Outpatient Prescriptions: cyclobenzaprine (FLEXERIL) 10 mg tablet TAKE 1 TABLET BY MOUTH THREE TIMES DAILY NEEDED. fluticasone (FLONASE) 50 mcg/actuation nasal spray Use 2 Sprays in each nostril once daily. Rinse mouth after use. sertraline (ZOLOFT) 100 mg tablet Take 2 tablets by mouth once daily. BACILLUS COAGULANS (PROBIOTIC, B. COAGULANS, ORAL) Take by mouth. albuterol HFA (VENTOLIN HFA) 90 mcg/actuation inhaler Inhale 2 Puffs as instructed every 4 hours as needed for Wheezing/Shortness of Breath. No current facility-administered medications for this visit. Medications and allergies reviewed by this provider. SOCIAL HISTORY Social History Marital status: Spouse name: Years of education: Number of children: 2 Social History Main Topics Smoking status: Former Smoker Packs/day: 0.50 Years: 0.00 Types: Cigarettes Start date: 03/12/2008 Quit date: 10/05/2016 Smokeless tobacco: Current User Types: Snuff Comment: 4-6 cigatettes a day from 2008-09/2016 Alcohol use: No Comment: Stopped drinking ETOH as of 12/2014 Drug use: No Sexual activity: Yes Partners with: Female control/protection: IUD REVIEW OF SYSTEMS GENERAL: No weight loss, malaise or fevers RESPIRATORY: Negative for cough, hemoptysis, wheezing, COPD, dyspnea or shortness of breath CARDIOVASCULAR: Negative for chest pain, leg swelling, hypertension, CHF or palpitations All other reviewed and negative other than HPI. OBJECTIVE: BP 90/56 (BP Site: Left Arm, BP Position: Sitting, BP Cuff Size: Regular Adult) Pulse 72 Resp 16 Wt 59.9 kg (132 lb 0.6 oz) BMI 19.50 kg/m? . Vital signs reviewed by this provider. PHYSICAL EXAMINATION: General appearance: Well appearing, alert, in no acute distress, well-hydrated, well nourished. Lungs: Lungs clear to auscultation. No wheezing, rhonchi, rales Heart: RRR without murmur, gallop, or rubs. No ectopy PSYCH: Posture and motor behavior: normal posture and motor behavior Dress, grooming, personal hygiene: normal dress and grooming Facial expression: good eye contact Speech: normal speech Mood: cheerful Coherency and relevance of thought: normal thought processes Memory: normal memory ASSESSMENT/PLAN: 1. DUC (generalized anxiety disorder) - ICD9: 300.02, ICD10: F41.1 (primary diagnosis) - Discussed concept of neurochemical imbalance wth depression/anxiety - Handout on depression/anxiety form UptoDate given - Option of Medication use discussed - Risks/benefits of benzodiazepines discussed. I will give a limited supply as I start him on Buspar 5 mg three times a day. I discussed with him these are to be used sparingly- not daily and will be used for limited time as we get him adjusted on Buspar - handout and discussion on common side effects of Buspar discussed. Discussed he should not drive while taking valium and he should not take this with flexeril he has at home- verbalizes understanding. - Common side effects - Sleep Hygeine - advised counseling to improve management of stressors - Instructed patient to contact office or [id number] after- hours promptly should condition worsen or any new symptoms appear. - [facility] and after hours crisis line - [employer] phone number or - DIAZEPAM 5 MG TABLET O[employer]webS website checked and validated. All prescriptions have been APPROPRIATELY filled. No suspicious activity was identified.- 08/04/2017 by Sharee Tian APRN.CNP - follow-up in 2-[address] Manzanares or Brice Sloan APRN 2. Depression, unspecified depression type - ICD9: 311, ICD10: F32.9 - continue Zoloft 200 mg daily - plan as above 3. Need for vaccination - ICD9: V05.9, ICD10: Z23 - TDAP VACCINE AGE 7+ IM Sharee Tian APRN.CNP Prescription instructions reviewed with patient as applicable. Patient advised if symptoms do not improve or if symptoms worsen sooner, to contact their primary care physician. Potential red flag symptoms discussed with the patient. Reviewed appropriate action plan to take if red flag symptoms occur. Patient agreeable to treatment plan. Sharee Tian APRN.CNP 08/04/2017 9:32 AM Signed - [facility] and after hours crisis line 10 Anxiety Management Techniques Cluster 1: Distressing Physical Arousal 1. Manage the body ? Avoid alcohol, nicotine, sugar and caffeine ? Exercise ? Rule out thyroid, hormonal changes 2. Breathe: Practice diaphragmatic breathing 10 times a day for one minute 3. Mindful Awareness-changing focus off future catastrophe into the present moment by ? Close eyes and breathe, noticing body, intake of air, heart beats, body sensations ? With eyes closed, shift awareness away from body to everything they feel, smell, hear Cluster 2: Tension, Stress and Dread 4. Don't listen when worry calls your name ? Ignore the voice of worry, say Stop to yourself, or tell yourself it's just my brain firing wrong ? Remember feelings of dread based on physiological arousal lead to worry 5. Knowing, not showing anger ? Ask yourself, IF I were angry, what might I be angry about? Frequently anxiety is a result of suppressed anger 6. Have a little fun ? Find ways to laugh. Rent comedies, play with children, enjoy your pets ? Schedule re-creation time Cluster 3: Mental Anguish of Rumination 7. Turning it OFF ? Writing it down in a wasteful worry journal ? Imagining putting it in a jar and closing the lid 8. Persistent Interruption of rumination ? Persistent thought stopping and thought replacement 9. Worry well, but only once ? Worry through all the issues ? Do anything that must be done at the present time ? Set a time when it'll be necessary to think about the worry again ? Write that time on a calendar ? Whenever the thought pops up again, say Stop! I already worried 10. Learn to plan instead of worry ? Concretely identifying the problem ? Listing the problem-solving options ? Picking one of the options ? Writing out a plan of action Cecilia Dudley LPN 08/04/2017 9:43 AM Signed PT RECEIVED HIS TETANUS VACCINE TODAY TOLERATED WELL. Referring Provider: SELF [[id number]] Allergies As of Date: 08/04/2017 Noted Allergy Reaction CELEXA (CITALOPRAM HYDROBROMIDE) 09/15/2016 1 - Mental Status Change Comments: [place] [facility]acy DOXYCYCLINE 04/12/2005 11 - Vomiting HYDROXYZINE 03/17/2017 14 - Other: See Comments Comments: Migraine ZANTAC (RANITIDINE HCL) 10/10/2016 8 - GI Upset Date Reviewed: 08/04/2017 Reviewed by: [facility] - Fully Assessed Reason for Visit: Anxiety [9] Primary Visit Diagnosis:DUC (generalized anxiety disorder) [F41.1] Other Visit Diagnoses:Depression, unspecified depression type [F32.9] Need for vaccination [Z23] Order(s):TDAP VACCINE AGE 7+ IM [[id number]] Order #: [id number] busPIRone (BUSPAR) 5 mg tabletTake 1 tablet by mouth three times daily.Disp: 90 tabletRfl: 1 diazePAM (VALIUM) 5 mg tabletTake 1 tablet by mouth every 12 hours as needed for Anxiety (use sparingly) for up to 30 days.Disp: 14 tabletRfl: 0 Prescriptions as of 08/04/2017 Sig: CYCLOBENZAPRINE 10 MG TABLET TAKE 1 TABLET BY MOUTH THREE * FLUTICASONE 50 MCG/ACTUATION * Use 2 Sprays in each nostril * SERTRALINE 100 MG TABLET Take 2 tablets by mouth once * PROBIOTIC (B. COAGULANS) ORAL Take by mouth. BUSPIRONE 5 MG TABLET Take 1 tablet by mouth three * DIAZEPAM 5 MG TABLET Take 1 tablet by mouth every * ALBUTEROL SULFATE HFA 90 MCG/* Inhale 2 Puffs as instructed * Problem List As Of Date 08/04/2017 Noted Resolved DYSTHYMIC DISORDER [F34.1] INVALID FOR* TENSION HEADACHE [G44.209] INVALID FOR* Hypoglycemia [E16.2] INVALID FOR* More... Sterilization [Z30.2] INVALID FOR*10/10/2016 Cigarette nicotine dependence with nicotine-ind*INVALID FOR* History of alcohol abuse [Z87.898] Anxiety [F41.9] INVALID FOR* Generalized abdominal pain [R10.84] INVALID FOR*10/10/2016 Altered bowel function [R19.4] INVALID FOR* More... Abdominal cramping, generalized [R10.84] INVALID FOR* More... Acid indigestion [K30] INVALID FOR* More... Generalized abdominal discomfort [R10.84] INVALID FOR* More... Other instructions from your clinician: - [facility] and after hours crisis line 10 Anxiety Management Techniques Cluster 1: Distressing Physical Arousal 1. Manage the body ? Avoid alcohol, nicotine, sugar and caffeine ? Exercise ? Rule out thyroid, hormonal changes 2. Breathe: Practice diaphragmatic breathing 10 times a day for one minute 3. Mindful Awareness-changing focus off future catastrophe into the present moment by ? Close eyes and breathe, noticing body, intake of air, heart beats, body sensations ? With eyes closed, shift awareness away from body to everything they feel, smell, hear Cluster 2: Tension, Stress and Dread 4. Don't listen when worry calls your name ? Ignore the voice of worry, say Stop to yourself, or tell yourself it's just my brain firing wrong ? Remember feelings of dread based on physiological arousal lead to worry 5. Knowing, not showing anger ? Ask yourself, IF I were angry, what might I be angry about? Frequently anxiety is a result of suppressed anger 6. Have a little fun ? Find ways to laugh. Rent comedies, play with children, enjoy your pets ? Schedule re-creation time Cluster 3: Mental Anguish of Rumination 7. Turning it OFF ? Writing it down in a wasteful worry journal ? Imagining putting it in a jar and closing the lid 8. Persistent Interruption of rumination ? Persistent thought stopping and thought replacement 9. Worry well, but only once ? Worry through all the issues ? Do anything that must be done at the present time ? Set a time when it'll be necessary to think about the worry again ? Write that time on a calendar ? Whenever the thought pops up again, say Stop! I already worried 10. Learn to plan instead of worry ? Concretely identifying the problem ? Listing the problem-solving options ? Picking one of the options ? Writing out a plan of action Visit Notes: >> Cecilia Dudley LPN MonAug 04, 2017 9:42 AM Status: Signed PT RECEIVED HIS TETANUS VACCINE TODAY TOLERATED WELL. Prescriptions ordered this encounter Disp Refills Start End BUSPIRONE 5 MG TABLET 90 t* 1 08/04/2017 Route: ORAL Sig: Take 1 tablet by mouth three times daily. DIAZEPAM 5 MG TABLET 14 t* 0 08/04/2017 09/03/2017 Class: Print RX Route: ORAL Sig: Take 1 tablet by mouth every 12 hours as needed for Anxiety (use sparingly) for up to 30 days. LOS history recorded Follow-up and Disposition History Recorded Questionnaire: DUC-7 ANXIETY SCALE Feeling nervous, anxious, or on edge -> 3 Nearly every day Not being able to stop or control worrying -> 3 Nearly every day Worrying too much about different things -> 3 Nearly every day Trouble relaxing -> 3 Nearly every day Being so restless that it's hard to sit still -> 1 Several days Being easily annoyed or irritable -> 2 Over half the days Feeling afraid as if something awful might happen -> 1 Several days DUC-7 Anxiety Score -> 15 If you checked off any problems, how difficult have these problems made it for you to do your work, take care of things at home, or get along with other people? -> Very difficult Questionnaire: PHQ9P Little or no interest or pleasure in doing things -> 0 Not at all Feeling down, depressed, or hopeless -> 1 Several days Trouble falling or staying asleep, or sleeping too much - > 3 Nearly every day Feeling tired or having little energy -> 3 Nearly every day Poor appetite or overeating -> 0 Not at all Feeling bad about yourself- or that you are a failure or having let yourself or your family down -> 1 Several days Trouble concentrating on things, such as reading the newpaper or watching television -> 1 Several days Moving or speaking so slowly that other people could have noticed? Or the opposite- being so fidgety or restless that you have been moving around a lot more than usual -> 1 Several days Thoughts that you would be better off or of hurting yourself in some way -> 0 N- o- t a- t a- ll PHQ9P Score -> 10 If you checked off any problems, how difficult have these problems made it for you to do your work, take care of things at home, or get along with other people? -> Very difficult Encounter Status:Closed by PODLOGSHAREE MARI CNP on 08/04/17 XR CHEST 1 VIEW Observed: 07/12/2017 Status: F Source: [place] [employer] 4:48 PM [facility] REPOSITORY ORIGINAL XR CHEST 1 VIEW PORTABLE AP TIME: 4:44 PM CLINICAL STATEMENT: chest pain. COMPARISON: Chest radiograph 01/10/2017 FINDINGS: The cardiomediastinal contours are normal. There is no consolidation, vascular congestion, pleural effusion, or pneumothorax. No displaced fractures are identified. IMPRESSION: No acute radiographic findings. I have personally reviewed the images of this examination and agree with the resident's findings and interpretation. Interpreted By: Andrey Pettit DO Preliminary Report By: Nubia Phillips MD Electronically Signed By: Andrey Pettit DO Dictated Date: 07/12/2017 4:49:32 PM Prelim Date: 07/12/2017 4:50:12 PM Sign Date: 07/12/2017 5:38:15 PM TROP Collected: 07/12/2017 Status: F Source: [employer] 4:34 PM [facility] REPOSITORY TYPE CODE TESTS RESULT OUT OF REFERENCE UNITS RANGE LAB TROP(LOINC) 0.00-0.30 ng/mL Troponin <0.30 Result Comment: Below measuring range >=0.30 Consistent with cardiac damage, increased clinical risk and possibility of myocardial infarction. Serial measurements, clinical history, appropriate symptoms and/or ECG changes may help assess possibility of NM. *Other non-acute coronary syndrome conditions such as CHF, myocarditis, pulmonary emboli, sepsis and cardiac surgery could result in myocardial damage and increased troponin levels. Performed By: #### TROP, CBC, ADIFF, ANEU, BMP, GFR #### [id number] [place], [place] [address] CBC Collected: 07/12/2017 Status: F Source: [employer] 4:34 PM [facility] REPOSITORY TYPE CODE TESTS RESULT OUT OF REFERENCE UNITS RANGE LAB WBC(LOINC) 4.60-10.80 10 3/mcL WBC 7.50 LAB RBCCT(LOINC 4.04-6.13 10 6/mcL ) RBC 4.73 LAB HGB(LOINC) 14.0-18.0 G/dL Hgb 15.2 LAB HCT(LOINC) 42.0-52.0 % Hct 43.8 LAB MCV(LOINC) 80.0-94.0 fL MCV 92.5 LAB MCH(LOINC) 27.0-31.2 pg High MCH 32.2 LAB MCHC(LOINC) 31.8-35.4 G/dL MCHC 34.8 LAB RDW(LOINC) 11.5-14.5 % RDW 12.8 LAB PLT(LOINC) 130-400 10 3/mcL Platelet 251 LAB MPV(LOINC) 7.4-10.4 fL MPV 8.1 Performed By: #### TROP, CBC, ADIFF, ANEU, BMP, GFR #### [address] [address] .AUTO DIFF Collected: 07/12/2017 Status: F Source: [facility] 4:34 [facility] REPOSITORY TYPE CODE TESTS RESULT OUT OF REFERENCE UNITS RANGE LAB EYAL(LOINC) 37.0-80.0 % Neutrophil % 62.1 LAB LYM(LOINC) 10.0-50.0 % Lymphocyte % 27.1 LAB MON(LOINC) 1.7-13.0 % Monocyte % 9.7 LAB EO(LOINC) 0.0-7.0 % Eosinophil % 0.6 LAB BAS(LOINC) 0.0-2.5 % Basophil % 0.5 LAB ABLYM(LOIN 0.77-3.85 10 3/mcL C) Lymphocyte, 2.00 Absolute LAB JASON(LOINC 0.15-1.00 10 3/mcL ) Monocyte, 0.70 Absolute LAB AEOS(LOINC 0.00-0.40 10 3/mcL ) Eosinophil, 0.00 Absolute LAB ABAS(LOINC 0.00-0.19 10 3/mcL ) Basophil, 0.00 Absolute Performed By: #### TROP, CBC, ADIFF, ANEU, BMP, GFR #### [address] [address] .NEUABS Collected: 07/12/2017 Status: F Source: [facility] 4:34 PM [facility] REPOSITORY TYPE CODE TESTS RESULT OUT OF REFERENCE UNITS RANGE LAB ANEU(LOINC) 2.85-6.16 10 3/mcL Neutrophil, 4.70 Absolute Performed By: #### TROP, CBC, ADIFF, ANEU, BMP, GFR #### [id number] [place], [place] [address] BMP Collected: 07/12/2017 Status: F Source: [facility] 4:34 PM [facility] REPOSITORY TYPE CODE TESTS RESULT OUT OF REFERENCE UNITS RANGE LAB GLU(LOINC) 70-105 mg/dL Glucose Level 95 LAB NA(LOINC) 136-146 mEq/L Sodium Level 138 LAB K(LOINC) 3.5-5.1 mEq/L Low Potassium Level 3.2 LAB CL(LOINC) 98-107 mEq/L Chloride 101 LAB CO2(LOINC) 22-29 mEq/L CO2 27 LAB EBAL(LOINC mEq/L ) Electrolyte Balance 10.0 LAB BUN(LOINC) 7.0-18.0 mg/dL BUN 15.3 LAB CRE(LOINC) 0.6-1.2 mg/dL Creatinine Lvl (s) 1.1 LAB BC(LOINC) 7-27 ratio BUN/Creatinine 14 Ratio LAB CA(LOINC) 8.4-10.2 mg/dL Calcium Lvl 9.5 Performed By: #### TROP, CBC, ADIFF, ANEU, BMP, GFR #### [id number] [place], [place] [address] .GFR Collected: 07/12/2017 Status: F Source: [facility] 4:34 [facility] REPOSITORY TYPE CODE TESTS RESULT OUT OF REFERENCE UNITS RANGE LAB GFRAA(LOINC ml/min/1.73 ) sqm GFR 91 [place] Result Comment: GFR Population mean for , Non- Americans Ages 20-29 = 116 mL/min/1.73 sq.m. Ages 30-39 = 107 mL/min/1.73 sq.m. Ages 40-49 = 99 mL/min/1.73 sq.m. Ages 50-59 = 93 mL/min/1.73 sq.m. Ages 60-69 = 85 mL/min/1.73 sq.m. Ages 70+ = 75 mL/min/1.73 sq.m. Chronic Kidney Disease: Less than 60 mL/min/1.73 square meters End Stage Renal Disease: Less than 15 mL/min/1.73 square meters LAB GFRNO(LOINC) ml/min/1.73sqm GFR Non- >60 Result Comment: GFR Population mean for , Non- Americans Ages 20-29 = 116 mL/min/1.73 sq.m. Ages 30-39 = 107 mL/min/1.73 sq.m. Ages 40-49 = 99 mL/min/1.73 sq.m. Ages 50-59 = 93 mL/min/1.73 sq.m. Ages 60-69 = 85 mL/min/1.73 sq.m. Ages 70+ = 75 mL/min/1.73 sq.m. Chronic Kidney Disease: Less than 60 mL/min/1.73 square meters End Stage Renal Disease: Less than 15 mL/min/1.73 square meters Performed By: #### TROP, CBC, ADIFF, ANEU, BMP, GFR #### [id number] [place], [place] [address] PROGRESS Observed: 05/08/2017 Status: COMPLETED Source: [place] 11:32 AM [facility] RE[facility] O ID: [id number] Author: Freeman Manzanares Service: (none) Author Type: Physician Type: Progress Notes Filed: 05/09/2017 4:13 PM Note Text: Chief Complaint Patient presents with: ED Follow-up: Chest pain/Palpitations HPI Carlos A Conroy is a 41 year old male who presents here today for an ER follow up. Here today with his and 2 children. ER follow up - Ongoing for 2 years with recent episodes flaring in the last couple weeks. Previous 2 visits to [facility] three days apart for chest pain with intermittent episodes, dizziness and lightheadedness. states that there are days that he really doesn't feel good, he is pale in color and is blah and struggling to get through that day. EKG was performed and ER suggested Consult to Cardiology, complete Holter Monitor and diagnosed patient with palpitations. Patient describes his discomfort as something crawling in his chest like a muscle spasm. Also has symptoms of sob, feeling heavy, tired, feeling his heartbeat in his ear and just debilitating at times. Feels that his anxiety is worse on a day where his symptoms are worse and he focuses on it more and thinks about it. Anxiety - Previously was on Lexapro 20 mg once daily, but d/c due to being snappish and irritable and resumed normal medication regimen. noticed a difference while on new medication regimen that he was irritable. Currently taking Zoloft 100 mg 2 tabs po once daily. Uses Ativan 1 mg prn due to it can cause irritability but does help with muscle spasms in chest. Stomach - Has tried multiple medications with most effective being Protonix and a Probiotic. The Zantac, Ranitidine and Nexium he found to be ineffective in stomach cramping or making his symptoms feels better. Still has an appetite and eats normally through out the day. Past medical history, appointments, medications, allergies reviewed. Previous Medical History PAST MEDICAL HISTORY Diagnosis Date - Acid indigestion 10/05/2016 Added automatically from request for surgery [id number] - Anxiety 01/20/2015 - History of alcohol abuse Previous Surgical History PAST SURGICAL HISTORY Procedure Laterality Date - EGD W/O OR W/BRUSH/WASH 01/18/2017 EGD - VASECTOMY 02/23/12 Family History FAMILY HISTORY Problem Relation Age of Onset - Thyroid Mother - Hypertension Mother - ovarian mass [OTHER] Mother benign - Gallstones [OTHER] Mother - None Father - Alcohol/Drug Maternal Grandmother - Cancer Maternal Grandfather unknown - Alcohol/Drug Paternal Grandfather - Stroke Paternal Grandfather - Heart Paternal Grandfather - Cancer Maternal Aunt type unknown - Alcohol/Drug Maternal Aunt - Alcohol/Drug Maternal Aunt - Alcohol/Drug Maternal Aunt - Alcohol/Drug Maternal Uncle - Alcohol/Drug Paternal Aunt - Alcohol/Drug Paternal Aunt - Cerebral Embolism Son Patient Allergies ALLERGIES Allergen Reactions - Celexa [Citalopram * Mental Status Change [place] spacy - Doxycycline Vomiting - Hydroxyzine Other: See Comments Migraine - Zantac [Ranitidine * GI Upset Current Medications Current Outpatient Prescriptions on File Prior to Visit: BACILLUS COAGULANS (PROBIOTIC, B. COAGULANS, ORAL) Take by mouth. albuterol HFA (VENTOLIN HFA) 90 mcg/actuation inhaler Inhale 2 Puffs as instructed every 4 hours as needed for Wheezing/Shortness of Breath. No current facility-administered medications on file prior to visit. Social History Social History Marital status: Spouse name: Years of education: Number of children: 2 Social History Main Topics Smoking status: Former Smoker Packs/day: 0.50 Years: 0.00 Types: Cigarettes Start date: 03/12/2008 Quit date: 10/05/2016 Smokeless status: Current User Types: Snuff Comment: 4-6 cigatettes a day from 2008-09/2016 Alcohol use: No Comment: Stopped drinking ETOH as of 12/2014 Drug use: No Sexual activity: Yes Partners with: Female control/protection: IUD EXAM: BP 90/70 (BP Site: Left Arm, BP Position: Sitting, BP Cuff Size: Regular Adult) Pulse 72 Resp 16 Wt 55.3 kg (122 lb) BMI 18.02 kg/m2 General Appearance: Well appearing, alert, in no acute distress, well-hydrated, well nourished. Lungs: Lungs clear to auscultation. No wheezing, rhonchi, rales. Heart: RRR without murmur, gallop, or rubs. No ectopy. Abdomen: Normal abdominal exam, Abdomen soft, non-tender. Bowel sounds normal. No masses, organomegaly. Musculoskeletal: Chest discomfort, musculoskeletal radiating into axillary. Costochondritis. . Health Maintenance List TETANUS due on 09/13/2014 INFLUENZA(1) due on 10/14/2016 LIPID SCREEN due on 04/02/2018 ONE PNEUMOVAX PRIOR TO AGE 67 Completed Data reviewed ER follow up from [facility] ASSESSMENT/PLAN: 1. Hospital discharge follow-up - ICD9: V67.59, ICD10: Z09 (primary diagnosis) - 1 mo f/u 2. Costochondritis - ICD9: 733.6, ICD10: M94.0 - Start Flexeril 10 mg 1 tab po TID to help with chest symptoms 3. Anxiety - ICD9: 300.00, ICD10: F41.9 - Continue current medication regimen. - Use Ativan prn - SERTRALINE 100 MG TABLET 4. Abdominal cramping, generalized - ICD9: 789.07, ICD10: R10.84 - Continue current medication regimen. 5. Acid indigestion - ICD9: 536.8, ICD10: K30 - Continue current medication regimen. 1 mo f/u for anxiety and muscle spasms Freeman Manzanares MD The documentation for this note was completed by Sheridan Cintron Ma acting as scribe for Freeman Manzanares MD. May 08, 2017 11:32 AM. CHARITYOV Observed: 05/08/2017 Status: COMPLETED Source: [place] 11:20 AM [facility] Office Visit (FAMPWS) CARLOS A CONROY ([id number]) 1975 M Date Time Provider Department 05/08/17 11:20 AM FREEMAN MANZANARES During your visit today, we recorded the following information about you: Pulse Respiration Blood pressure Weight 72/minute 16/minute 90/70 55.3 kg Freeman Manzanares MD 05/09/2017 4:13 PM Signed Chief Complaint Patient presents with: ED Follow-up: Chest pain/Palpitations HPI Carlos A Conroy is a 41 year old male who presents here today for an ER follow up. Here today with his and 2 children. ER follow up - Ongoing for 2 years with recent episodes flaring in the last couple weeks. Previous 2 visits to [facility] three days apart for chest pain with intermittent episodes, dizziness and lightheadedness. states that there are days that he really doesn't feel good, he is pale in color and is ANDquot;blahANDquot; and struggling to get through that day. EKG was performed and ER suggested Consult to Cardiology, complete Holter Monitor and diagnosed patient with palpitations. Patient describes his discomfort as something ANDquot;crawlingANDquot; in his chest like a muscle spasm. Also has symptoms of sob, feeling heavy, tired, feeling his heartbeat in his ear and just debilitating at times. Feels that his anxiety is worse on a day where his symptoms are worse and he focuses on it more and thinks about it. Anxiety - Previously was on Lexapro 20 mg once daily, but d/c due to being snappish and irritable and resumed normal medication regimen. noticed a difference while on new medication regimen that he was irritable. Currently taking Zoloft 100 mg 2 tabs po once daily. Uses Ativan 1 mg prn due to it can cause irritability but does help with muscle spasms in chest. Stomach - Has tried multiple medications with most effective being Protonix and a Probiotic. The Zantac, Ranitidine and Nexium he found to be ineffective in stomach cramping or making his symptoms feels better. Still has an appetite and eats normally through out the day. Past medical history, appointments, medications, allergies reviewed. Previous Medical History PAST MEDICAL HISTORY Diagnosis Date - Acid indigestion 10/05/2016 Added automatically from request for surgery [id number] - Anxiety 01/20/2015 - History of alcohol abuse Previous Surgical History PAST SURGICAL HISTORY Procedure Laterality Date - EGD W/O OR W/BRUSH/WASH 01/18/2017 EGD - VASECTOMY 02/23/12 Family History FAMILY HISTORY Problem Relation Age of Onset - Thyroid Mother - Hypertension Mother - ovarian mass [OTHER] Mother benign - Gallstones [OTHER] Mother - None Father - Alcohol/Drug Maternal Grandmother - Cancer Maternal Grandfather unknown - Alcohol/Drug Paternal Grandfather - Stroke Paternal Grandfather - Heart Paternal Grandfather - Cancer Maternal Aunt type unknown - Alcohol/Drug Maternal Aunt - Alcohol/Drug Maternal Aunt - Alcohol/Drug Maternal Aunt - Alcohol/Drug Maternal Uncle - Alcohol/Drug Paternal Aunt - Alcohol/Drug Paternal Aunt - Cerebral Embolism Son Patient Allergies ALLERGIES Allergen Reactions - Celexa [Citalopram * Mental Status Change [place] spacy - Doxycycline Vomiting - Hydroxyzine Other: See Comments Migraine - Zantac [Ranitidine * GI Upset Current Medications Current Outpatient Prescriptions on File Prior to Visit: BACILLUS COAGULANS (PROBIOTIC, B. COAGULANS, ORAL) Take by mouth. albuterol HFA (VENTOLIN HFA) 90 mcg/actuation inhaler Inhale 2 Puffs as instructed every 4 hours as needed for Wheezing/Shortness of Breath. No current facility-administered medications on file prior to visit. Social History Social History Marital status: Spouse name: Years of education: Number of children: 2 Social History Main Topics Smoking status: Former Smoker Packs/day: 0.50 Years: 0.00 Types: Cigarettes Start date: 03/12/2008 Quit date: 10/05/2016 Smokeless status: Current User Types: Snuff Comment: 4-6 cigatettes a day from 2008-09/2016 Alcohol use: No Comment: Stopped drinking ETOH as of 12/2014 Drug use: No Sexual activity: Yes Partners with: Female control/protection: IUD EXAM: BP 90/70 (BP Site: Left Arm, BP Position: Sitting, BP Cuff Size: Regular Adult) Pulse 72 Resp 16 Wt 55.3 kg (122 lb) BMI 18.02 kg/m2 General Appearance: Well appearing, alert, in no acute distress, well-hydrated, well nourished. Lungs: Lungs clear to auscultation. No wheezing, rhonchi, rales. Heart: RRR without murmur, gallop, or rubs. No ectopy. Abdomen: Normal abdominal exam, Abdomen soft, non-tender. Bowel sounds normal. No masses, organomegaly. Musculoskeletal: Chest discomfort, musculoskeletal radiating into axillary. Costochondritis. . Health Maintenance List TETANUS due on 09/13/2014 INFLUENZA(1) due on 10/14/2016 LIPID SCREEN due on 04/02/2018 ONE PNEUMOVAX PRIOR TO AGE 67 Completed Data reviewed ER follow up from [facility] ASSESSMENT/PLAN: 1. Hospital discharge follow-up - ICD9: V67.59, ICD10: Z09 (primary diagnosis) - 1 mo f/u 2. Costochondritis - ICD9: 733.6, ICD10: M94.0 - Start Flexeril 10 mg 1 tab po TID to help with chest symptoms 3. Anxiety - ICD9: 300.00, ICD10: F41.9 - Continue current medication regimen. - Use Ativan prn - SERTRALINE 100 MG TABLET 4. Abdominal cramping, generalized - ICD9: 789.07, ICD10: R10.84 - Continue current medication regimen. 5. Acid indigestion - ICD9: 536.8, ICD10: K30 - Continue current medication regimen. 1 mo f/u for anxiety and muscle spasms Freeman Manzanares MD The documentation for this note was completed by Sheridan Cintron Ma acting as scribe for Freeman Manzanares MD. May 08, 2017 11:32 AM. Referring Provider: SELF [[id number]] Allergies As of Date: 05/08/2017 Noted Allergy Reaction CELEXA (CITALOPRAM HYDROBROMIDE) 09/15/2016 1 - Mental Status Change Comments: [place] spacy DOXYCYCLINE 04/12/2005 11 - Vomiting HYDROXYZINE 03/17/2017 14 - Other: See Comments Comments: Migraine ZANTAC (RANITIDINE HCL) 10/10/2016 8 - GI Upset Date Reviewed: 05/08/2017 Reviewed by: Sheridan Cintron Ma - Fully Assessed Reason for Visit: ED Follow-up [821] Cmt: Chest pain/Palpitations Primary Visit Diagnosis:Hospital discharge follow-up [Z09] Other Visit Diagnoses:Costochondritis [M94.0] Anxiety [F41.9] Abdominal cramping, generalized [R10.84] Acid indigestion [K30] Order(s):fluticasone (FLONASE) 50 mcg/actuation nasal sprayUse 2 Sprays in each nostril once daily. Rinse mouth after use.Disp: 1 BottleRfl: 11 sertraline (ZOLOFT) 100 mg tabletTake 2 tablets by mouth once daily.Disp: 60 tabletRfl: 5 cyclobenzaprine (FLEXERIL) 10 mg tabletTake 1 tablet by mouth three times daily as needed.Disp: 60 tabletRfl: 2 Prescriptions as of 05/08/2017 Sig: FLUTICASONE 50 MCG/ACTUATION * Use 2 Sprays in each nostril * SERTRALINE 100 MG TABLET Take 2 tablets by mouth once * PROBIOTIC (B. COAGULANS) ORAL Take by mouth. ALBUTEROL SULFATE HFA 90 MCG/* Inhale 2 Puffs as instructed * CYCLOBENZAPRINE 10 MG TABLET Take 1 tablet by mouth three * Medication notes this encounter ALBUTEROL SULFATE HFA 90 MCG/ACTUATION AEROSOL INHALER >> Sheridan Cintron Ma 05/08/2017 11:27 AM >> SHERIDAN CINTRON MA [facility] May 08, 2017 11:27 AM Uses prn Problem List As Of Date 05/08/2017 Noted Resolved DYSTHYMIC DISORDER [F34.1] INVALID FOR* TENSION HEADACHE [G44.209] INVALID FOR* Hypoglycemia [E16.2] INVALID FOR* More... Sterilization [Z30.2] INVALID FOR*10/10/2016 Cigarette nicotine dependence with nicotine-ind*INVALID FOR* History of alcohol abuse [Z87.898] Anxiety [F41.9] INVALID FOR* Generalized abdominal pain [R10.84] INVALID FOR*10/10/2016 Altered bowel function [R19.4] INVALID FOR* More... Abdominal cramping, generalized [R10.84] INVALID FOR* More... Acid indigestion [K30] INVALID FOR* More... Generalized abdominal discomfort [R10.84] INVALID FOR* More... Prescriptions ordered this encounter Disp Refills Start End SERTRALINE 100 MG TABLET 60 t* 5 05/08/2017 05/08/2017 Class: Med Update Route: ORAL Sig: Take 2 tablets by mouth once daily. Cosign accepted by FREEMAN MANZANARES MD[[id number]] on 05/08/2017 1:51 PM FLUTICASONE 50 MCG/ACTUATION NASAL S* 1 Marquise* 11 05/08/2017 Class: Med Update Route: EACH NOSTRIL Sig: Use 2 Sprays in each nostril once daily. Rinse mouth after use. Cosign accepted by FREEMAN MANZANARES MD[[id number]] on 05/08/2017 1:51 PM SERTRALINE 100 MG TABLET 60 t* 5 05/08/2017 Route: ORAL Sig: Take 2 tablets by mouth once daily. CYCLOBENZAPRINE 10 MG TABLET 60 t* 2 05/08/2017 Route: ORAL Sig: Take 1 tablet by mouth three times daily as needed. Medications Discontinued During This Encounter escitalopram oxalate (LEXAPRO) 20 mg* 30 t* 3 03/17/2017 05/08/2017 Route: ORAL Sig: Take 1 tablet by mouth once daily. Disc: Discontinued by Patient Ranitidine HCl 150 mg capsule 60 c* 5 03/03/2017 05/08/2017 Route: ORAL Sig: Take 1 capsule by mouth twice daily. Disc: Course of therapy completed guaiFENesin (MUCINEX) 600 mg 12 hr t* 30 t* 0 12/31/2016 05/08/2017 Route: ORAL Sig: Take 2 tablets by mouth twice daily. Disc: Course of therapy completed sertraline (ZOLOFT) 100 mg tablet 60 t* 5 05/08/2017 05/08/2017 Class: Med Update Route: ORAL Sig: Take 2 tablets by mouth once daily. Disc: Reason for discontinue is not on file. Cosign accepted by FREEMAN MANZANARES MD[[id number]] on 05/08/2017 1:51 PM Disposition: Return in about 4 weeks (around 06/05/2017). Follow-up and Disposition History Recorded Encounter Status:Closed by FREEMAN MANZANARES MD on 05/09/17 TOXICOLOGY SCREEN,UR Collected: 03/17/2017 Status: F Source: [place] 3:15 PM [facility] TYPE CODE TESTS RESULT OUT OF REFERENCE UNITS RANGE LAB UPCP2 Negative Negative Phencyclidin e, Urine Result Comment: Cutoff threshold at 25 ng/mL. Cross reactivity with other substances can occur with immunoassay screening. In house validation testing showed 80% of preliminary positive samples were confirmed by mass spectrometry (high specificity, quantitative) testing. Greater than 99% of negative screen results were confirmed by mass spectrometry (high specificity, quantitative) testing. LAB UBENZ2 Negative Benzodiazepines, Ur Negative Result Comment: Cutoff threshold at 200 ng/mL. Cross reactivity with other substances can occur with immunoassay screening. In house validation testing showed 90% of preliminary positive samples were confirmed by mass spectrometry (high specificity, quantitative) testing. 80% of negative screen results were confirmed by mass spectrometry (high specificity, quantitative) testing. LAB UCOC2 Negative Cocaine, Negative Urine Result Comment: Cutoff threshold at 300 ng/mL. Cross reactivity with other substances can occur with immunoassay screening. In house validation testing showed greater than 99% of preliminary positive samples were confirmed by mass spectrometry (high specificity, quantitative) testing. Greater than 99% of negative screen results were confirmed by mass spectrometry (high specificity, quantitative) testing. LAB UAMPH2 Negative Amphetamines, Abnormal Urine Preliminary Alert positive. Result Comment: Cutoff threshold at 1000 ng/mL. Cross reactivity with other substances can occur with immunoassay screening. In house validation testing showed 70% of preliminary positive samples were confirmed by mass spectrometry (high specificity, quantitative) testing. Greater than 99% of negative screen results were confirmed by mass spectrometry (high specificity, quantitative) testing. LAB UTHC2 Negative Cannabinoids, Urine Negative Result Comment: Cutoff threshold at 50 ng/mL. Cross reactivity with other substances can occur wtih immunoassay screening. In house validation testing showed 80% of preliminary positive samples were confirmed by mass spectrometry (high specificity, quantitative) testing. Greater than 99% of negative screen results were confirmed by mass spectrometry (high specificity, quantitative) testing. LAB UOPI2 Negative Opiates, Negative Urine Result Comment: Cutoff threshold at 300 ng/mL. Cross reactivity with other substances can occur wtih immunoassay screening. In house validation testing showed greater than 99% of preliminary positive samples were confirmed by mass spectrometry (high specificity, quantitative) testing. 90% of negative screen results were confirmed by mass spectrometry (high specificity, quantitative) testing. LAB UBARB2 Negative Barbiturates, Urine Negative Result Comment: Cutoff threshold at 200 ng/mL. Cross reactivity with other substances can occur with immunoassay screening. In house validation testing showed greater than 99% of preliminary positive samples were confirmed by mass spectrometry (high specificity, quantitative) testing. Greater than 99% of negative screen results were confirmed by mass spectrometry (high specificity, quantitative) testing. LAB UETOH <11 mg/dL <11 Ethanol, Urine LAB UOXYC Negative Oxycodone, Negative Urine Result Comment: Cutoff threshold at 100 ng/mL. Cross reactivity with other substances can occur with immunoassay screening. In house validation testing showed greater than 99% of preliminary positive samples were confirmed by mass spectrometry (high specificity, quantitative) testing. Greater than 99% of negative screen results were confirmed by mass spectrometry (high specificity, quantitative) testing. Comment: Immunoassay screen only. Detection of any drug(s) in this urine toxicology panel is presumptive only. Intended use is for evaluation of suspected acute overdose. These tests are for medical purposes onl y and should not be used for compliance monitoring, legal, or forensic use. If clinically indicated, confirmation by high specificity, quantitative methodology may be requested on the same specimen through Client Services ([phone]) if contacted within 48 hours of initial testing. These tests were developed and their performance characteristics determined by [facility]'s [facility] [place] ([facility]). They have not been cleared or a pproved by the FDA. [facility] is regulated under CLIA as qualified to perform high complexity testing. These tests are used for clinical purposes. They should not be regarded as investigational or for research. Performed By: #### UTOX2, UBENZC #### [facility] [address], [place] [address] BENZO CONFIRM, URINE Collected: 03/17/2017 Status: F Source: [place] 3:15 PM [facility] REPOSITORY TYPE CODE TESTS RESULT OUT OF REFERENCE UNITS RANGE LAB UAMCLZ <40 ng/mL <40 7aminoclonaz epam, Ur Result Comment: This sample was processed past the recommended stability for 7Aminoclonazepam, which may result in a false negative result. Interpret result with caution. All other analytes were process ed within the recommended stability. 3-Gowaq-jjygumtlez is the primary metabolite of clonazepam (Klonopin). Presence of 8-Yqcuf-aqsxlixwnk indicates use of clonazepam- containing drugs. LAB UOHTRI <40 ng/mL Alpha hydroxytri, Ur <40 Result Comment: Alpha-hydroxtriazolam is the primary metabolite of triazolam (Halcion). Presence of alpha-hydroxytriazolam indicates use of triazolam-containing drugs. LAB UOXAZP <40 ng/mL Oxazepam, Urine <40 Result Comment: Oxazepam may arise from oxazepam-containing drugs or by metabolism from many benzodiazepines including Medazepam (Nobrium), Clorazepate (Tranxene), Halazepam (Paxipam), Prazepam (Centrax), Chlordiazepoxide (Librium), Pinazepam (Domar), and Diazepam (Valium). LAB UOHALP <60 ng/mL Alpha hydroxyalp, Ur <60 Result Comment: Alpha-hydroxalprazolam is the primary metabolite of alprazolam (Xanax). Presence of alpha-hydroxalprazolam indicates use of alprazolam-containing drugs. LAB ULORZP <40 ng/mL Lorazepam, High Urine 1645 Result Comment: Presence of lorazepam indicates use of lorazepam-containing drugs. LAB UNDIAZ <40 ng/mL Nordiazepam, Urine <40 Result Comment: Nordiazepam may arise from nordiazepam-containing drugs or by metabolism of many benzodiazepines including Medazepam (Nobrium), Clorazepate (Tranxene), Halazepam (Paxipam), Prazepam (Centrax), Chlordiazepoxide (Librium), Pinazepam (Domar), and Diazepam (Valium). Nordiazepam is metabolized to oxazepam. LAB UTEMZ <40 ng/mL Temazepam, Urine <40 Result Comment: Temazepam may arise from temazepam-containing drugs or by metabolism from many benzodiazepines including Medazepam (Nobrium), Clorazepate (Tranxene), Halazepam (Paxipam), Prazepam (Centrax), Chlordiazepoxide (Librium), Pinazepam (Domar), and Diazepam (Valium). Temazepam is metabolized to oxazepam. LAB USVCRE >19 mg/dL Spec >50 Valid Creat, Ur LAB USVPH 4-10 Spec 4-10 Valid pH, Ur LAB USVSPG 1.005-1.020 Spec Breana Sp Grav, Ur 1.005-1.020 LAB USVOXI Negative Spec Negative Valid Oxid, Ur LAB USPQ Specimen Specimen quality results Quality, Ur within acceptable limits. LAB UVNOTE Benzo This Confirm, Note test is for Medical use only. Result Comment: This test was developed and its performance characteristics determined by [facility] [place] ([facility]). It has not been cleared or approved by the FDA. [facility] is regulated under CLIA as qualified to perform high-complexity testing. This test is used for clinical purposes. It should not be regarded as investigational or for research. Performed By: #### UTOX2, UBENZC #### [facility] [address], [place] [address] QUANT PAIN PANEL, Collected: 03/17/2017 Status: F Source: [facility] 3:14 PM [facility] REPOSITORY TYPE CODE TESTS RESULT OUT OF REFERENCE UNITS RANGE LAB UQCANN <16 ng/mL <16 Cannabinoid, Urine Result Comment: Tetrahydrocannabinol carboxylic acid (THCA) is a metabolite of rhhqj-6-hxlyegdbowrjifvjbwvk which is the main active component of marijuana. LAB UQBNZL <24 ng/mL Benzoylecognine, Ur <24 Result Comment: Benzoylecognine is a metabolite of cocaine. LAB UQACMR <5 ng/mL 6-Acetylmorphine, Ur <5 Result Comment: 6-MANAN (6-monoacetylmorphine, also known as 6-acetylmorphine) is a unique metabolite of heroin. Presence of 6-MANAN indicates use of heroin. 6-MANAN is further metabolized to morphine and absence of 6-MANAN does not rule out the use of heroin. LAB UQAMPH <5 ng/mL Amphetamine, Urine <5 LAB UQMAMP <8 ng/mL Methamphetamine, Ur <8 LAB UQBUPR <20 ng/mL Buprenorphine, Ur <20 LAB UQNBUP <20 ng/mL Norbuprenorphine, Ur <20 Result Comment: Norbuprenorphine is the primary active metabolite of buprenorphine. LAB UQMTHD <16 ng/mL Methadone, Urine <16 LAB UQEDDP <6 ng/mL EDDP, Urine <6 Result Comment: EDDP is a metabolite of methadone. LAB UQTRAM <25 ng/mL Tramadol, Urine <25 LAB UQDTRM <20 ng/mL Desmethyltramadol <20 ,Ur Result Comment: Desmethyltramadol is a metabolite of tramadol. LAB UQFNTL <6 ng/mL Fentanyl, Urine <6 LAB UQNFTL <6 ng/mL Norfentanyl, Urine <6 Result Comment: Norfentanyl is a metabolite of fentanyl. LAB UQCODE <11 ng/mL Codeine, Urine <11 LAB UQMORP <10 ng/mL Morphine, Urine <10 Result Comment: Morphine is a metabolite of codeine and heroin. LAB UQDCDN <5 ng/mL Dihydrocodeine, Ur <5 LAB UQHCOD <8 ng/mL Hydrocodone, Urine <8 Result Comment: Hydrocodone is a metabolite of dihydrocodeine. LAB UQOXYC <5 ng/mL Oxycodone, Urine <5 LAB UQHMOR <5 ng/mL Hydromorphone, Ur <5 Result Comment: Hydromorphone is a metabolite of hydrocodone. LAB UQOXYM <5 ng/mL Oxymorphone, Urine <5 Result Comment: Oxymorphone is a metabolite of oxycodone. LAB UQCREA >19 mg/dL Creatinine, >50 Urine LAB UQPH 4-10 pH, Urine 4-10 LAB UQSPGR 1.005-1.020 Specific [place],Ur 1.005-1.020 LAB UQOXID Negative Oxidants, Negative Urine LAB UQSPQ Specimen Specimen Quality quality results within acceptable limits. LAB UQNOTE Note This test is for Medical use only. Result Comment: This test was developed and its performance characteristics determined by [facility]'s [facility] [place] ([facility]). It has not been cleared or approved by the FDA. [facility] is regulated under CLIA as qualified to perform high-complexity testing. This test is used for clinical purposes. It should not be regarded as investigational or for research. Performed By: #### UQNTPP #### [facility] [address] [place], [place] [address] PROGRESS Observed: 03/17/2017 Status: COMPLETED Source: [place] 2:30 PM [facility] RE[facility]ITORY HNO ID: [id number] Author: Brice Squires) CRESENCIO Sloan Service: (none) Author Type: Nurse Practitioner Type: Progress Notes Filed: 03/17/2017 3:02 PM Note Text: Chief Complaint Patient presents with: Refill Request HPI Carlos A Conroy is a 41 year old male who presents here today for Above Complaints. Patient presents to the office for anxiety follow up. Patient is a former patient of Dr. Cook. Last seen in September 2016. Has been receiving Ativan for anxiety symptoms. Generally takes Ativan TWICE DAILY as needed, never takes more than two. He states that most of his anxiety started approximately 2 years ago around the time he quit drinking. Also is taking Zoloft 200 mg daily. States that his anxiety is debilitating. Usually has to take an Ativan at 0900 at work to deal with anxiety. Sleep is not really effected, does not keep him up at night. Has not had a panic attack, but has periods where he will have increased anxiety, having some racing heart rate, difficulty catching his breath. Last Ativan dose was yesterday morning. Has tried some anxiety apps on his phone. Has not been to the counseling. Patient is sober, has quit smoking. DUC-7 score is below: Feeling nervous, anxious, or on edge 3 Nearly every day Not being able to stop or control worrying 3 Nearly every day Worrying too much about different things 3 Nearly every day Trouble relaxing 3 Nearly every day Being so restless that it's hard to sit still 3 Nearly every day Being easily annoyed or irritable 2 Over half the days Feeling afraid as if something awful might happen 1 Several days DUC-7 Anxiety Score 18 If you checked off any problems, how difficult have these problems made it for you to do your work, take care of things at home, or get along with other people? Very difficult Past medical history, appointments, medications, allergies reviewed. Previous Medical History PAST MEDICAL HISTORY Diagnosis Date - Acid indigestion 10/05/2016 Added automatically from request for surgery [id number] - Anxiety 01/20/2015 - History of alcohol abuse Previous Surgical History PAST SURGICAL HISTORY Procedure Laterality Date - EGD W/O OR W/BRUSH/WASH 01/18/2017 EGD - VASECTOMY 02/23/12 Family History FAMILY HISTORY Problem Relation Age of Onset - Thyroid Mother - Hypertension Mother - ovarian mass [OTHER] Mother benign - Gallstones [OTHER] Mother - None Father - Alcohol/Drug Maternal Grandmother - Cancer Maternal Grandfather unknown - Alcohol/Drug Paternal Grandfather - Stroke Paternal Grandfather - Heart Paternal Grandfather - Cancer Maternal Aunt type unknown - Alcohol/Drug Maternal Aunt - Alcohol/Drug Maternal Aunt - Alcohol/Drug Maternal Aunt - Alcohol/Drug Maternal Uncle - Alcohol/Drug Paternal Aunt - Alcohol/Drug Paternal Aunt - Cerebral Embolism Son Patient Allergies ALLERGIES Allergen Reactions - Celexa [Citalopram * Mental Status Change [place] spacy - Doxycycline Vomiting - Hydroxyzine Other: See Comments Migraine - Zantac [Ranitidine * GI Upset Current Medications Current Outpatient Prescriptions on File Prior to Visit: Ranitidine HCl 150 mg capsule Take 1 capsule by mouth twice daily. LORazepam (ATIVAN) 1 mg tablet Take 1 tablet by mouth every 6 hours as needed for up to 90 days. BACILLUS COAGULANS (PROBIOTIC, B. COAGULANS, ORAL) Take by mouth. sertraline (ZOLOFT) 100 mg tablet TAKE 2 TABLETS BY MOUTH EVERY DAY albuterol HFA (VENTOLIN HFA) 90 mcg/actuation inhaler Inhale 2 Puffs as instructed every 4 hours as needed for Wheezing/Shortness of Breath. guaiFENesin (MUCINEX) 600 mg 12 hr tablet Take 2 tablets by mouth twice daily. No current facility-administered medications on file prior to visit. Social History Social History Marital status: Spouse name: Years of education: Number of children: 2 Social History Main Topics Smoking status: Former Smoker Packs/day: 0.50 Years: 0.00 Types: Cigarettes Start date: 03/12/2008 Quit date: 10/05/2016 Smokeless status: Current User Types: Snuff Comment: 4-6 cigatettes a day from 2008-09/2016 Alcohol use: No Comment: Stopped drinking ETOH as of 12/2014 Drug use: No Sexual activity: Yes Partners with: Female control/protection: IUD REVIEW OF SYSTEMS: as above ? Reviewed relevant PMHx, PSHx, Social Hx, current medications and allergies. EXAM: BP 103/63 Pulse 93 Temp 36.6 ?C (97.9 ?F) (Tympanic) Wt 56.7 kg (125 lb) BMI 18.46 kg/m2 Appearance: well dressed well groomed, unkempted, cooperative and pleasant Behavior: good eye contact Speech: normal and fluent and coherent Mood: euthymic and anxious Affect: appropriate Perceptions: none Thought process: perseverative Thought Content: normal Intelligence level: normal Insight: fair Judgment: fair Lungs: Lungs clear to auscultation. No wheezing, rhonchi, rales. Heart: RRR without murmur, gallop, or rubs. No ectopy. Health Maintenance List TETANUS due on 09/13/2014 INFLUENZA(1) due on 10/14/2016 LIPID SCREEN due on 04/02/2018 ONE PNEUMOVAX PRIOR TO AGE 65 Completed Data reviewed Component Latest Ref Rng AND Units 03/08/2016 02/01/2017 WBC 3.70 - 11.00 k/uL 4.62 RBC 4.20 - 6.00 m/uL 4.50 Hemoglobin 13.0 - 17.0 g/dL 14.1 Hematocrit 39.0 - 51.0 % 42.3 MCV 80.0 - 100.0 fL 94.0 MCH 26.0 - 34.0 pG 31.3 MCHC 30.5 - 36.0 g/dL 33.3 RDW-CV 11.5 - 15.0 % 12.8 Platelet Count 150 - 400 k/uL 246 MPV 9.0 - 12.7 fL 11.3 Neut% % 53.0 Abs Neut (ANC) 1.45 - 7.50 k/uL 2.45 Lymph% % 39.2 Abs Lymph 1.00 - 4.00 k/uL 1.81 Concho% % 6.5 Abs Concho 0.00 - 0.86 k/uL 0.30 Eosin% % 0.9 Abs Eosin 0.00 - 0.45 k/uL 0.04 Baso% % 0.4 Abs Baso 0.00 - 0.10 k/uL 0.02 Diff Type Auto Diff Rapid Strep neg - pos neg Quality Check yes/no Yes TSH 0.400 - 5.500 uU/mL 1.320 ASSESSMENT/PLAN: 1. Anxiety - ICD9: 300.00, ICD10: F41.9 (primary diagnosis) - Discussed need to decrease Ativan with increase in lexapro use. - LORAZEPAM 1 MG TABLET TWICE DAILY as needed #60/0 OARRS website checked and validated. All prescriptions have been APPROPRIATELY filled. No suspicious activity was identified.- 03/17/2017 by Brice Sloan CNP - ESCITALOPRAM 20 MG TABLET - CONSULT TO PSYCHOLOGY 2. Encounter for therapeutic drug monitoring - ICD9: V58.83, ICD10: Z51.81 - See above. Last dose of Ativan was yesterday morning. - PAIN PANEL, UR QUANT - TOX SCREEN ROUT UR - BENZO CONFIRM, URINE Follow up in 3 months. Sooner if problems arise. During this patient visit I have spent approximately 25 minutes out of 30 in counseling regarding treatment options, medications and test results and coordinating care. Brice Sloan CNP ALLERGIES ALLERGIES DATE TYPE / CODE NAME / CODE REACTION SEVERITY SOURCE 12/25/2017 Drug doxycycline/N135385 Nausea Unknown [place]athy Allergy/416 748(RXNORM) [facility] 679279([facility] ED [facility]) Repository 12/25/2017 Drug omeprazole/[id number] Upset Stomach Unknown [place] Allergy/416 76(RXNORM) [facility] 078392([facility] ED CT) Repository 10/28/2017 DRUG OMEPRAZOLE GI UPSET [facility] INGREDI/[address] [place] 870931([facility] Repository ED CT) 08/31/2017 DRUG NORTRIPTYLINE UNKNOWN [facility] INGREDI/[address] [place] 089944(SNOM Repository ED CT) 03/17/2017 DRUG HYDROXYZINE OTHER: SEE C [facility] INGREDI/[address] [place] 813388(SNOM Repository ED CT) 10/10/2016 DRUG RANITIDINE HCL GI UPSET [facility] INGREDI/[address] [place] 107857(SNOM Repository ED CT) 09/15/2016 DRUG CITALOPRAM Mental Chg [facility] INGREDI/[address] HYDROBROMIDE [address] [place] 443020(SNOM Repository ED CT) 04/12/2005 DRUG DOXYCYCLINE Vomiting [facility] INGREDI/[address] [place] 435916(SN Repository ED CT) ENCOUNTERS ENCOUNTERS ADMIT/DISCHARGE ACCOUNT NUMBER ADMITTING ENCOUNTER LOCATION SOURCE CLASS 02/22/2018/01/11 [id number] Ambulatory [address] Main [place] Repository 02/14/2018/02/14/19 [id number] Mahnaz BAILON [address] [place] [address] Repository 02/10/2018/02/11/20 [id number] Emergency BBuilding:ER Stacy [address] [place] [address] Repository 01/26/2018/01/27/20 [id number] Emergency [address] ding:ED Repository 01/18/2018 [id number] Ambulatory [facility] ding:LAB Repository 01/16/2018/01/17/20 [id number] Emergency BBuilding:ER Stacy [address] [place] [address] Repository 12/31/2017/01/01/20 [id number] Emergency BBuilding:ER Stacy [address] [place] [address] Repository 12/25/2017/12/26/19 [id number] Emergency [address] ding:ED Repository 12/17/2017/12/18/19 [id number] Emergency BBuilding:ER Stacy [address] [place] [address] Repository 12/13/2017/12/16/19 [id number] Ambulatory [address] Repository 11/15/2017/11/16/19 [id number] Ambulatory [address] Repository 11/14/2017/11/16/19 [id number] Ambulatory [address] Repository 11/08/2017/11/10/19 [id number] Ambulatory [address] Repository 10/28/2017/10/29/19 [id number] Emergency [address] ding:ED Repository 10/27/2017/11/01/19 [id number] Ambulatory [address] Repository 10/24/2017/10/26/19 [id number] Ambulatory [address] Repository 10/18/2017/10/19/19 [id number] Ambulatory [address] Repository 10/18/2017/10/20/19 [id number] Ambulatory [address] Repository 10/16/2017/10/17/19 [id number] Emergency BBuilding:ER Stacy [facility] Repository 10/05/2017/10/07/19 [id number] Ambulatory [address] Repository 09/28/2017/09/30/19 [id number] Ambulatory [address] Repository 09/20/2017/09/21/19 [id number] Ambulatory [address] Repository 09/11/2017/09/13/19 [id number] Ambulatory [address] Repository 09/09/2017/09/12/19 [id number] Ambulatory [address] Repository 09/04/2017/09/05/19 [id number] Emergency BBuilding:ER Stacy 18 [facility] Repository 09/04/2017/09/06/19 [id number] Ambulatory [address] Repository 08/31/2017/09/01/19 [id number] Ambulatory [address] Repository 08/31/2017/09/02/19 [id number] Ambulatory [address] Repository 08/23/2017/08/24/19 [id number] Emergency Cathy [address] ding:ED Repository 08/21/2017/08/22/19 [id number] Emergency BBuilding:ER Stacy [facility] Repository 08/04/2017/08/09/19 [id number] Ambulatory [address] Repository 07/12/2017/07/13/19 [id number] Emergency BBuilding:ER Stacy 18 [facility] Repository 05/08/2017/05/11/19 [id number] Ambulatory [address] Repository 05/05/2017/05/06/19 [id number] Emergency BBuilding:ER Stacy [facility] Repository 05/02/2017/05/03/19 [id number] Emergency BBuilding:ER Stacy 18 [facility] Repository 03/17/2017 [id number] Ambulatory [facility] Repository 03/17/2017/03/17/19 [id number] Ambulatory [address] Repository PAYERS PAYERS ENCOUNTER GUARANTOR PAYER SUBSCRIBER SOURCE 02/14/2018 LOU GONZALEZ: Nino Pomerene CARRDOB: Insurance:GLADYS JARQUIN [id number] [facility] [employer] [address] [place], [place] [address]Ojj: Number: [id number] (HP) Date:Plan Name: 02/10/2018 LOU Jiménez Primary LOU Jiménez [facility] CARRDOB: Insurance:GLADYS JARQUIN CARRDOB: [facility] [id number] Repository [facility], Number: [facility] [address]846Kvs: [id number] [place], [place] Date:2018-02-10 93637Ybl: (330) () [id number] [phone] Name:[facility] BOX ()Tel: (132) [id number] [place] 000-0000 () 65382HI: 01/26/2018 LOU CHOUDHURY Primary LOU [place] [id number] [facility] Insurance:ANTHEMPolicy CARRDOB: [place], [place] Number: [id number] 275[address]Aqb: 330 [id number] Repository [phone] (HP) Date:9243-23-80FL [address] [place] [address] 12778RL: 01/26/2018 Secondary NOT GIVENUNK Cathy Insurance:SELF PAY [facility] Number: Effective Repository Date:2018-01-26 01/18/2018 LOU Jiménez Primary LOU Jiménez Cathy [id number] [address] [facility] Insurance:ANTHEMPolicy CARRDOB: [place], [place] Number: [id number] Hospital 027[address]Sjp: 330 [id number] Repository [phone] (HP) Date:9258-14-03AH [address]HTDDDYW [place] [address]AI: 01/18/2018 Secondary NOT GIVENUNK [place] Insurance:SELF PAY [facility] Number: Effective Repository Date:2018-01-18 01/16/2018 LOU Jiménez Primary LOU Jiménez [facility] CARRDOB: Insurance:ANTHEM BLUE CARRDOB: [facility] [id number] Repository [facility] [place], Number: [address] [facility] [address]Nmr: [id number] [place] Date:2018-01-16Tel: (330) (HP) [id number] [phone] Name:BPO BOX (HP)Tel: (000) [phone], [place] 000-0000 (WP) 74031QI: 12/31/2017 LOU Jiménez Primary LOU [facility] Health CARRDOB: Insurance:ANTHEM BLUE CARRDOB: [facility] [id number] Repository [facility] [place], Number: [address] [facility] [address]Kgz: [id number] [place], [place] Date:2017-12-31 15978Yho: (330) (HP) [id number] [phone] Name:BPO BOX (HP)Tel: (000) [phone], [place] 000-0000 (WP) 74[address]II: 12/25/2017 LOU Jiménez Primary LOU Jiménez Cathy [id number] [facility] Insurance:ANTHEMPolicy CARRDOB: [place] Number: [id number] Hospital [address]Kyr: 330 [id number] Repository [phone] (HP) Date:7418-37-52HT [address]RYWNGLK [place] [address]XI: 12/25/2017 Secondary NOT GIVENUNK [place] Insurance:SELF PAY [facility] Number: Effective Repository Date:2017-12-25 12/17/2017 LOU Jiménez Primary LOU P [facility] CARRDOB: Insurance:ANTHEM BLUE CARRDOB: [facility] W CROSS IN[employer] [id number] Repository [facility], Number: [facility] [address]Nou: [id number] [place], [place] Date:2017-12-17 14967Bcg: (330) (HP) [id number] [phone] Name:BPO BOX (HP)Tel: (000) [phone], [place] 000-0000 (WP) [address]OI: 10/28/2017 LOU Jiménez Primary LOU P Cathy [id number] [facility] Insurance:ANTHEMPolicy CARRDOB: [facility] [place] Number: [id number] Hospital [address]Ngs: (330) [id number] Repository [phone] (HP) Date:1721-57-44WL [address]NVHUJIF, [place] [address]KD: 10/28/2017 Secondary NOT GIVENUNK [place] Insurance:SELF PAY [facility] Number: Effective Repository Date:2017-10-28 10/16/2017 LOU Jiménez Primary LOU [facility] CARRDOB: Insurance:ANTHEM BLUE CARRDOB: [facility] W RELIANCE COMMERCIALPolic [id number] Repository [facility], Number: [facility] [address]Cmc: [id number] [facility] [place] Date:2017-10-16 00789Ors: (330) (HP) [id number] [phone] Name:BPO BOX (HP)Tel: (000) [phone], [place] 000-0000 (WP) 411[address]TK: 09/04/2017 LOU Jiménez Primary LOU P [facility] CARRDOB: Insurance:ANTHEM BLUE CARRDOB: [facility] W RELIANCE COMMERCIALPolic [id number] Repository [facility], Number: [address] [facility] [address]Jyk: [id number] [place] Date:2017-09-04Tel: (330) (HP) [id number] [phone] Name:BPO BOX ()Tel: 000) [id number], [place] 000-0000 (WP) [address]HS: 08/23/2017 LOU Jiménez Primary LOU P Cathy [id number] [facility] Insurance:ANTHEMPolicy CARRDOB: [place] Number: [id number] Hospital [address]Wym: (330) [id number] Repository [phone] () Date:4511-38-29YT [id number] [place] [address] 93[address]KF: 08/23/2017 Secondary NOT GIVENUNK Cathy Insurance:SELF PAY [facility] Number: Effective Repository Date:2017-08-23 08/21/2017 LOU Jiménez Primary LOU [facility] CARRDOB: Insurance:ANTHEM BLUE CARRDOB: [facility] W CROSS COMMERCIALPolicy [id number] Repository [facility] [place], Number: [address] [facility] [address]Zpi: [id number] [place] Date:2017-08-21Tel: (330) () [id number] [phone] Name:BPO BOX ()Tel: (000) [phone], [place] 000-0000 (WP) [address]YG: 07/12/2017 LOU Jiménez Primary LOU [facility] CARRDOB: Insurance:ANTHEM BLUE CARRDOB: [facility] [id number] CROSS COMMERCIALPolicy [id number] Repository [address] Number: [address] [place] [id number] [place], [place] [address]Bpd: (330) Date:2017-07-12 78515Dty: (HP) [id number] Name:BPO BOX (HP)Tel: (000) , 000-0000 (WP) 33[address]XL: 05/05/2017 LOU Jiménez Primary [facility] CARRDOB: Insurance:[facility] BLUE CARRDOB: [facility] [id number] Repository [address] Number: [address] [place], [place] [id number] [place], [place] [address]Gie: (330) Date:2017-05-05Tel: (HP) [id number] Name:BPO BOX (HP) (WP) 937[address]QI: 05/02/2017 LOU Jiménez Primary [facility] CARRDOB: Insurance:[facility] MILKA DE MOSSVILLEDOB: [facility] REL[facility]ANCE [facility] [id number] Repository [address] Number: [address] [place], [place] [id number] [place], [place] [address]Oqj: (330) Date:2017-05-02Tel: (HP) [id number] Name:BPO BOX (HP)Tel: (000) [phone], 000-0000 (WP) 78[address]MH:
== END 2018-01-26 21:19 | disposition home or self-care (01) ==
PROVIDERS: Emergency Provider Emergency Medicine; Family Provider Internal Medicine; PCP Internal Medicine
DX: R07.9 Chest pain, unspecified (principal); K20.9 Esophagitis, unspecified; Z87.891 Personal history of nicotine dependence
CPT/HCPCS: 71045; 80048; 84484; 85025; 86677; 93005; 99285; A4216

== ENCOUNTER → 2018-06-04 16:25 | Outpatient (CLI) | payer BC, SELFPAY ==
--- NOTE | 2018-06-04 16:31 | RAD_ITS ---
STUDY: X-RAY - CERVICAL SPINE REASON FOR EXAM: Male, 42 years old. Neck pain TECHNIQUE: 6 view(s) of the cervical spine were obtained. COMPARISON: None FINDINGS: Normal anterior atlantoaxial articulation. Normal odontoid process. Normal cervical lordosis. Normal vertebral bodies and endplates except for small spur from the anterior inferior corner of C5. Normal disc space heights. Normal visualized intervertebral neuroforamina. The soft tissue structures are unremarkable. RAD/Cerv Spine 4 or 5 Views IMPRESSION: No fractures. No disc disease. A small spur from the anterior inferior corner of C5 Electronically Signed: Donnie Mendoza MD at 4:27 EDT Tel , Service support ,
== END ==
PROVIDERS: Family Provider Internal Medicine; PCP Internal Medicine; Referring Provider Internal Medicine; Visit Provider Internal Medicine
DX: M54.2 Cervicalgia (principal)
CPT/HCPCS: 72050

== ENCOUNTER 2018-06-12 21:05 | Emergency (ER) | payer BC, SELFPAY ==
[2018-06-12 21:05] VITALS: BP 127/79; PULSE 70; RESP 16; TEMP 36.3; O2SAT 100; BMI 19.0
--- NOTE | 2018-06-12 21:44 | CT_ITS ---
HISTORY: Headache. EXAMINATION: CT Head or Brain WO/W Contrast TECHNIQUE: Noncontrast head CT was performed. Routine [place] of Alexandre/brain CT angiogram protocol was performed following IV contrast. 3D reconstructions were reviewed. A radiation dose optimization technique was used for this scan. IV Contrast dosage and agent: 100ML Isovue 370 COMPARISON: None FINDINGS: Noncontrast head CT shows no evidence of hemorrhage, infarct or mass. No hydrocephalus. ICAs: No significant stenosis at the intracranial/visualized segments. ACAs: No significant stenosis at the visualized segments. ACOM is present. MCAs: No significant stenosis at the visualized segments. PCOMs are present. software integration developer: No significant stenosis at the visualized segments. BASILAR ARTERY: No significant stenosis. Incidental fenestration proximally. VERTEBRAL ARTERIES: No significant stenosis at the intradural/visualized segments. No evidence of intracranial aneurysm or vascular malformation. Small polyp partially visible left maxillary sinus. CT/CTA Head W/WO Contrast IMPRESSION: No arterial occlusion, aneurysm or vascular malformation. No acute findings noncontrast head CT. Individualized dose optimization techniques were used for this CT. at 2242 Reported and signed by: William Mckeon MD Electronically Signed: William Mckeon, at 22:41 EDT Tel , Service support ,
[2018-06-12] MEDS: hydrOXYzine PAM 25 MG Capsule PO (21:54)
[2018-06-12] MEDS: DiphenhydrAMINE 50 MG/ML Syringe 25 MG IV (21:56)
[2018-06-12] MEDS: Metoclopramide 10 MG/2 ML Vial 5 MG IV (21:58)
--- NOTE | 2018-06-13 00:24 | ED.DEP ---
ED Disposition - Plan for ED Patient: Instructions: ED Cephalgia Unspecified Referrals: Jenifer Bailon MD [Primary Care Provider] -
[2018-06-13 00:30] VITALS: BP 114/73; PULSE 66; RESP 16
--- NOTE | 2018-06-13 01:05 | ED.DCSUM_ITS ---
- ER Visit Summary Date of Service: 06/12/18 Chief Complaint: Headache History of Present Illness: The patient is a 42 M presenting with headache. Patient states this started 10 days ago. Headache was gradual in onset. He denies any trauma. He denies photosensitivity. Denies fever. He was seen at [facility] ED and treated and released. He followed up with his primary care physician. He was prescribed a migraine medication which he states is not helping. He denies numbness or weakness. Denies other complaints. Physical Examination: Vitals are stable. Patient is afebrile. Alert no acute distress. HEENT exam is unremarkable. Neck is supple. No meningismus Lungs are clear and equal bilaterally. Heart is regular rate and rhythm. Abdomen is soft nontender nondistended. Extremities are unremarkable. Skin is warm and dry. No focal neurologic deficit. Remainder of exam is unremarkable. Emergency Department Course and Treatment: Patient was given Reglan, Benadryl IV. He is requesting medication for anxiety and was given Vistaril. CTA head shows no arterial occlusion, aneurysm or vascular malformation. No acute findings noncontrast head CT. On reevaluation, patient is resting comfortably. He states his headache is much improved. He is advised to follow-up with his primary care physician. Advised return to the ED if worsening complaints. Disposition: Discharge home Impression: Headache This note was generated with e(ye)[employer] dictation software. It may contain incorrect words, spelling, and punctuation that were not noted in review of the chart prior to signing ED Disposition - Plan for ED Patient: Disposition: Home or Assisted Living Instructions: ED Cephalgia Unspecified Referrals: Jenifer Bailon MD [Primary Care Provider] -
== END 2018-06-13 00:31 | disposition home or self-care (01) ==
PROVIDERS: Emergency Provider Emergency Medicine; Family Provider Internal Medicine; PCP Internal Medicine
DX: R51 Headache (principal); K21.9 Gastro-esophageal reflux disease without esophagitis
CPT/HCPCS: 70496; 96361; 96374; 96375; 99284; Q9967; A4216

== ENCOUNTER 2018-06-21 07:30 | Emergency (ER) | payer BC, SELFPAY ==
[2018-06-16 13:12] VITALS: BMI 19.0
[2018-06-21 07:31] VITALS: BP 122/79; PULSE 87; RESP 14; TEMP 36.4; O2SAT 95; BMI 20.2
[2018-06-21] MEDS: Ketorolac 30 MG/ML Syringe IV (07:57)
[2018-06-21] MEDS: DiphenhydrAMINE 50 MG/ML Syringe 25 MG IV (07:57)
[2018-06-21] MEDS: 0.9% Normal Saline 1,000 ML 999 ML IV (07:57)
[2018-06-21] MEDS: proCHLORPERazine 10 MG/2 ML Vial IV (07:58)
--- NOTE | 2018-06-21 08:02 | ED.DCSUM_ITS ---
- ER Visit Summary Date of Service: 06/21/18 Chief Complaint: Headache History of Present Illness: The patient is a 42 M who reports the onset of a migraine this morning. Patient states for the past several months he has had development of migraines. He reports he has a neurology appointment next month. Is been seeing his primary care provider. He was given a prescription for Maxalt this morning he woke up around 0500 hours. He describes the headache as a little in the back but mostly in the front behind the left eye. He notes nausea but no vomiting. Mild light sensitivity. He denies any neurologic deficits. He wonders if he is on too many medications. He currently takes Zoloft Remeron Flexeril and . Patient was seen in the emergency department the end of May and had a negative CTA of the brain. Physical Examination: Afebrile vital signs are stable Gen: Well-nourished well-developed patient sitting in a darkened room. He is able to look out to the hallway which is alert. Head: Normocephalic atraumatic Eyes: Perrl EOMI ENT: TMs clear no rhinorrhea moist mucous membranes Neck: Supple no lymphadenopathy no JVD nontender CVS: Regular rate rhythm no murmurs normal S1-S2 Respiratory: No distress clear to auscultation bilaterally chest nontender Abdomen: Soft nontender nondistended normal bowel sounds no masses Back: Nontender Extremity: Nontender no edema Skin: Normal color no rash Neuro: alert orientated ?3 CN II-XII intact normal strength sensation reflexes Psych: Normal affect normal mood Emergency Department Course and Treatment: Patient received IV fluids, Toradol, Compazine, and Benadryl. He was reassessed. Doing better. Patient be discharged home. Impression: 1. Migraine headache This note was generated with [employer] dictation software. It may contain incorrect words, spelling, and punctuation that were not noted in review of the chart prior to signing ED Disposition - Plan for ED Patient: Disposition: Home or Assisted Living Instructions: ED Headache Migraine Referrals: Jenifer Bailon MD [Primary Care Provider] - As Needed
[2018-06-21 09:35] VITALS: BP 107/74; PULSE 70; RESP 16; O2SAT 97
== END 2018-06-21 09:36 | disposition home or self-care (01) ==
PROVIDERS: Emergency Provider Emergency Medicine; Family Provider Internal Medicine; PCP Internal Medicine
DX: G43.909 Migraine, unspecified, not intractable, without status migrainosus (principal); K21.9 Gastro-esophageal reflux disease without esophagitis
CPT/HCPCS: 96361; 96374; 96375; 99284; J7030; A4216

== ENCOUNTER 2018-08-22 09:21 | Emergency (ER) | payer OTHER, BC, SELFPAY ==
[2018-08-22 09:22] VITALS: BP 112/71; PULSE 98; RESP 18; TEMP 36.6; O2SAT 98; BMI 20.7
--- NOTE | 2018-08-22 09:33 | ED.VIS.GEN ---
History of Present Illness Chief Complaint: Laceration Informant: Patient Onset: Today Context: Sudden Onset Timing: Continuous Quality: Pain Location: Left long finger Current Severity: Mild Maximum Severity: Moderate Worsened by: Use of left hand Relieved by: Rest Associated Symptoms: No associated symptoms Narrative: Patient is a 43-year-old [id number] male who presents with injury to his left long finger. This occurred at work. He was using a saw cutting aluminum. He states the aluminum caught. Tetanus needs updated. He denies paresthesia, anesthesia motor weakness. He has allergy to doxycycline. Prior similar symptoms: No Recent Illness/Hospitalization: No - Past Medical History (1) No significant past medical history Status: Acute Past Medical History - Allergies and Home Meds Allergies/Adverse Reactions: Allergies doxycycline Adverse Reaction (Verified 08/22/18 09:27) Nausea omeprazole [From Prilosec] Adverse Reaction (Verified 08/22/18 09:27) Upset Stomach Primary Care Physician: Jenifer Bailon MD [Primary Care Provider] - Prior records reviewed: No Past Medical History: None Surgical History: no surgical history Lives: Spouse/ Significant Other Smoking Status: Former smoker Drugs: None Review of Systems General: Denies: Chills, Fever, Malaise, Subjective, Sweats Gastrointestinal: Reports: Nausea. Denies: Vomiting Musculoskeletal: Reports: Extremity Pain. Denies: Myalgias, Arthralgias, Neck pain, Back pain, Swelling Skin: Reports: Wounds. Denies: Rash, Abrasions Neurological: Denies: Headache, Weakness, Parasthesia, Numbness, -, - Hematologic: Denies: Easy bruising, Easy bleeding Physical Exam Vital Signs/Narrative: Vital Signs Temp Pulse Resp BP Pulse Ox 08/22/18 09:22 97.9 F 98 18 112/71 98 Inital Vital Signs reviewed: Yes General: Well nourished, Well developed, No Acute Distress Head: Normocephalic, Atraumatic Eyes: Perrl, EOMI, Pale conjunctiva, Scleral icterus ENT: Moist mucous membranes, No rhinorrhea Neck: Supple, Nontender Cardiovascular: Regular rate, Regular rhythm, No murmurs, Normal S1, Normal S2 Respiratory: No distress, CTA bilaterally, Chest nontender Extremities: No edema, - - There is incomplete avulsion of the nail. There is laceration of the distal left long finger. The extensor commonness tendon is intact. The flexor digitorum superficialis and flexor digitorum profundus are intact. Sensation is normal.. Negative for: Nontender Skin: Normal color, No rash, Trauma. Negative for: Cyanosis, Diaphoresis, Jaundice Neurological: Alert, Oriented x3, Cranial nerves II-XII grossly intact, Normal Strength, Normal Sensation Psychological: Normal affect, Normal Mood Diagnostic/Tx/Re-eval Chest X-Ray - ED: Read by ED Physician, - - Review x-ray of the left long finger reveals a comminuted distal phalanx fracture. - Medical Decision Making He was informed that his finger would be anesthetized by block. He was informed the nail would need to be removed and the nailbed would be repaired if needed and his laceration will be repaired. He was told the nailbed was done reinserted and sutured in place. He was informed that an x-ray was obtained to evaluate for fracture. There is a fracture he will require antibiotics if no fracture antibiotics are not indicated. Procedures Procedure(s): Digit was anesthetized by metacarpal nerve block. The nail was removed. The distal portion about was adherent to the nail and required blunt dissection for removal. The wound was irrigated with 2050 cc of normal saline. The skin portion of the laceration was closed using 5-0 Ethilon. A total of 3 simple interrupted sutures were placed. The nailbed has a significant avulsed flap. The nailbed was repaired using 5-0 Vicryl. Simple interrupted sutures were placed. The nail was cleaned. Stitch was placed distal ulnar side of the nail and sutured to the finger. ED Disposition - Plan for ED Patient: Disposition: Home or Assisted Living Diagnosis: Displaced fracture of distal phalanx of left middle finger, initial encounter for open fracture, Nailbed injury Instructions: FRACTURE, Finger (Open) Prescriptions: Cephalexin [Keflex] 500 mg PO 4X/DAY #20 cap Prescription Printed Referrals: Jenifer Bailon MD [Primary Care Provider] - Marivel Nicole DO [STAFF PHYSICIAN] - 2 Days for wound check Additional Instructions: Do not remove dressing for the next 2 days.
[2018-08-22 09:34] VITALS: BP 112/71; PULSE 98; RESP 18; TEMP 36.6; O2SAT 98
[2018-08-22] MEDS: Diphth,Pertuss(Acell),Tet Vac 0.5 ML Vial IM (09:41)
--- NOTE | 2018-08-22 09:48 | NURSING ---
CALLED [facility], SIMÓN
--- NOTE | 2018-08-22 10:05 | RAD_ITS ---
STUDY: X-RAY - LEFT HAND, ATTENTION THIRD FINGER REASON FOR EXAM: Male, 43 years old. Laceration. TECHNIQUE: 3 view(s) of the finger were obtained. COMPARISON: None. FINDINGS: Normal metacarpal head. Normal metacarpophalangeal joint. Normal proximal phalanx. Normal middle phalanx. Comminuted fracture of the tuft of the distal phalanx of the third digit. Normal proximal interphalangeal joint. Normal distal interphalangeal joint. Soft tissue laceration overlying the tuft of the distal findings of the third finger. RAD/Finger(s) Min 2 Views IMPRESSION: Comminuted nondisplaced fracture at the tuft of the distal tendons of the third digit with overlying soft tissue laceration. No radiopaque foreign body is seen. Electronically Signed: Kurtis Samuel, at 10:37 EDT , Service support ,
[2018-08-22] MEDS: Cephalexin 250 MG Capsule 500 MG PO (10:57)
[2018-08-22] MEDS: Ibuprofen 400 MG Tablet 800 MG PO (11:24)
[2018-08-22 11:46] VITALS: RESP 17
[2018-08-22 11:55] VITALS: BP 113/88; PULSE 82; RESP 17
== END 2018-08-22 12:00 | disposition home or self-care (01) ==
PROVIDERS: Emergency Provider Emergency Medicine; Family Provider Internal Medicine; PCP Internal Medicine
DX: S62.653A Nondisplaced fracture of middle phalanx of left middle finger, initial encounter for closed fracture (principal); S61.313A Laceration without foreign body of left middle finger with damage to nail, initial encounter; W31.1XXA Contact with metalworking machines, initial encounter; Y93.9 Activity, unspecified; Y92.89 Other specified places as the place of occurrence of the external cause; Y99.0 Civilian activity done for income or pay; Z88.1 Allergy status to other antibiotic agents; Z87.891 Personal history of nicotine dependence
CPT/HCPCS: 11730; 73140; 90715; 99285

== ENCOUNTER → 2018-09-03 13:13 | Outpatient (CLI) | payer BC, SELFPAY ==
[2018-09-03 13:04] VITALS: BMI 20.7
--- NOTE | 2018-09-03 13:14 | RAD_ITS ---
STUDY: X-RAY - LEFT HAND REASON FOR EXAM: Male, 43 years old. Pain and swelling TECHNIQUE: 3 view(s) of the hand. COMPARISON: None. FINDINGS: Normal radiocarpal articulation. Normal distal radioulnar joint. Normal visualized carpal bones. Normal carpal articulations Normal carpometacarpal articulation of the thumb. Normal second through fifth carpometacarpal joints. Normal metacarpi. Normal metacarpophalangeal joint of the thumb. Normal interphalangeal joint of the thumb. Normal proximal and distal phalanges of the thumb. Normal metacarpophalangeal joints of the second through fifth fingers. Normal proximal and distal interphalangeal joints of the second through fifth fingers. There is an acute minimally displaced fracture in the distal tuft of the distal phalanx of the third digit. The soft tissue structures are unremarkable. RAD/Hand Min 3 Views IMPRESSION: Acute fracture in the distal tuft of the distal phalanx of the third digit Electronically Signed: Carlos Medina MD at 13:49 EDT , Service support ,
== END ==
PROVIDERS: Family Provider Internal Medicine; PCP Internal Medicine; Referring Provider Orthopaedic Surgery; Visit Provider Orthopaedic Surgery
DX: S61.319A Laceration without foreign body of unspecified finger with damage to nail, initial encounter (principal)
CPT/HCPCS: 73130

== ENCOUNTER 2018-10-04 14:30 | Outpatient (RCR) | payer OTHER, BC, SELFPAY ==
[2018-09-03 13:29] VITALS: BMI 20.7
--- NOTE | 2018-09-11 14:32 | HP.OTEVAL ---
Patient's Visit Information LOU RICHARDS is a 43 year old M, referred to Occupational Therapy by Rod Nunez DO, with a diagnosis of L 3rd digits Jorge fracture with partial nail bed injury. Date of Evaluation: 09/11/18 Occupational Therapist: Radha Bunch, OTR/L - Subjective Subjective: Arrived and noted work related injury occurred two weeks ago while going to cut [employer]. 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 Noted achiness and stiffness in finger. Suffered jorge fracture L MF from injury. He is working on light duty at this time. He is no longer as of 09-03-18 is out of splint. He is covering with gauze for work tasks. - ADLs Dressing: Pants, Socks, Shoes Fasteners: Buttons Eating: Use silverware, Cut food Comments: Required as full duty if required to lift 50-100 lbs. - Pain L MF 4 Pain Intensity Range: 0, 6 - Objective Objective/Observation: Wound closed be edema noted at tip of L MF. Increased discoloration due to trauma. No sign of infection with discharge or warmth. Limited ROM and strength of L hand. - ROM Wrist: flexion R 0-84,L 0-73; extentsion R 0-45, L 51 MP: R WFL; 2nd 0-89, 3rd 0-93, 4th 0-90, 5th 0-88 PIP: R WFL; 2nd 0-74, 3rd 3-83, 4th 0-93, 5th 0-97 DIP: R WFL; 2nd 0-36, 3rd -12-0-27, 4th -14-0-34, 5th 0-34 - Strength Windows Security Analyst: R 79, L 32 Lateral Pinch: R 15, L 17 Tripod Pinch: R 14, L 6- neglected use of MF and completed more pincer grasp - Edema DIP: MF R 6.1, L 6.2 cm Other: distal phalanx R 5.6, L 6.4 cm - Sensation Thumb: R 2.83, L 2.83 Index: R 2.83, L 2.83 Middle: R 2.83, L 3.22 Ring: R 2.83, L 2.83 Little: R 2.83, L 2.83 - In-Hand Manipulation Finger to Palm Translation: Normal - Right, Mild - Left Palm to Finger Translation: Normal - Right, Mild - Left Shift: Normal - Right, Normal - Left Rotation: Normal - Right, Normal - Left - Quick DASH-Disab of Arm,Shoulder& Hand Quick DASH Score: 36.3625 - Goals Goal:: Carlos A to increased L business communications instructor strength by 30 lbs to promote increased strength and ROM needed of L ahnd for ADL/IADLS by d/c. Goal:: Carlos A to increase ROM of L hand and L MF DIP to that similar of R MF and hand to promote increased ROM and decreased stiffness for ADL/IADLS 4/5 trials 80% of the time by d/c. Goal:: Carlos A to have no more than 1/10 pain in L MF with repeitive work-related tasks to promote increased Jesse nd ability to return to full duty work 4/5 trials 80% of the time by d/c. Goal:: Carlos A to exhibit reduced edema of L MF with edema management techniques 4/5 trials 80% of the time to promote increased ROM and decreased stiffness and discomofrt / 5 trials 80% of the time by d/c. Goal:: Carlos A to return to normal full use of L hand and MF 4/5 trials 80% o the time with no compensations by d/c. Goal:: Carlos A to be (I) to complete daily HEP to promote Jesse nd strength of L hand to return to all ADL/IADls at PLOF 4/5 trials 80% of the time by d/c. - Rehabilitation General Assessment: Modesto Strauss arrived for OT evaluation on this date of 09/11/18. He is s/p jorge fracture of L MF due to work-related injury. Carlos A has decreased strength and ROM of L hand and MF for functional tasks. Nail bed is intact but healing and increased edema at distal phalanx noted post trauma. Carlos A would benefit from skilled OT to promote increased function of L hand for ADL/IAdls including returning to full duty work. Rehabilitation Potential: Good - Anticipated Interventions Anticipated Interventions: A/AAROM/PROM, Strengthening, Edema Control, Scar Care, Desensitization, Sensory Retraining, Wound Care, Modalities, Orthoses, Joint Protection/Energy Conservation, Ergonomic Education, Dynamic Sitting Balance, Fine Motor Coord/Parker, ADL Training, Caregiver Training, Home Program - Visit Plan Frequency: 2-3x /Week Duration: 4 Weeks General Plan: Carlos A to complete skilled OT services to promote ROM, strength, edema management, static progressive splinting for increased progression of fx use of L hand, desensitization, wound care and healing, and general ability to return to PLOF with L hand and MF for ADl/IAdls. TEXT: Thank you for the opportunity to evaluate your patient. For Medicare and Medicare HMO plans, please review the plan of care and approve it. It will need to be FAXED BACK to us at [phone] for Medicare purposes. Please let me know if there are questions or concerns regarding this plan of care. Physician Signature: Date:
--- NOTE | 2018-10-11 14:27 | HP.OTDCSUM ---
HP - OT D/C Summary It has been my pleasure to treat LOU RICHARDS under orders from Rod Nunez DO, for the diagnosis of L 3rd digits Jorge fracture with partial nail bed injury for a total of 5 visit(s). Please see the following information for a summary of their discharge status. 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 Goal:: Carlos A to increase ROM of L hand and L MF DIP to that similar of R MF and hand to promote increased ROM and decreased stiffness for ADL/IADLS 4/5 trials 80% of the time by d/c. Goal:: Carlos A to have no more than 1/10 pain in L MF with repeitive work-related tasks to promote increased Jesse nd ability to return to full duty work 4/5 trials 80% of the time by d/c. Goal:: Carlos A to exhibit reduced edema of L MF with edema management techniques 4/5 trials 80% of the time to promote increased ROM and decreased stiffness and discomofrt / 5 trials 80% of the time by d/c. Goal:: Carlos A to return to normal full use of L hand and MF 4/5 trials 80% o the time with no compensations by d/c. Goal:: Carlos A to be (I) to complete daily HEP to promote Jesse nd strength of L hand to return to all ADL/IADls at PLOF 4/5 trials 80% of the time by d/c. - Plan Plan: Lou will be d/c'd at this time. He did not attend his last two appointments and C9 expires on 10/11/18. Last property management coordinator measurements were taken 10/04/18 as shown above. He was doing well and worked through injury as often would go back to work post OT appointments. Therpaist unable to get further measurements as did not attend last session. He was doing well and is to call with questions/concerns if needed. - D/C Information If there are questions or concerns regarding this patient's occupational therapy, please fell free to call me at [phone]. Thank you for the referral of this patient. Sincerely, Radha Bunch, OTR/L
== END 2018-10-04 19:00 | disposition home or self-care (01) ==
LOC: OT 14:30
PROVIDERS: Family Provider Internal Medicine; PCP Internal Medicine; Referring Provider Orthopaedic Surgery; Visit Provider Orthopaedic Surgery
DX: S62.639D Displaced fracture of distal phalanx of unspecified finger, subsequent encounter for fracture with routine healing (principal)
CPT/HCPCS: 97140; 97166; 97530; 97760

== ENCOUNTER 2018-11-26 15:40 | Emergency (ER) | payer BC, SELFPAY ==
[2018-09-24 10:34] VITALS: BMI 20.7
[2018-11-26 15:41] VITALS: BP 122/75; PULSE 96; RESP 18; TEMP 36.8; O2SAT 97; BMI 20.7
[2018-11-26 15:55] VITALS: BP 112/75; PULSE 96; RESP 12; O2SAT 100
--- NOTE | 2018-11-26 16:02 | RAD_ITS ---
STUDY: X-RAY CHEST REASON FOR EXAM: Male, 43 years old. Chest pain. TECHNIQUE: Single frontal view of the chest. COMPARISON: January 26, 2018 FINDINGS: The lungs are clear and expanded. There is no demonstrated pleural abnormality. Normal size heart. Normal mediastinum and stu. Normal visualized pulmonary arteries. Normal visualized aortic arch and descending thoracic aorta. Normal visualized thoracic spine. Normal visualized ribs, clavicles, and shoulders. There is no demonstrated abnormality of the visualized soft tissue structures of the upper abdomen. RAD/Chest 1 View (Portable) IMPRESSION: No acute cardiopulmonary process. Electronically Signed: Yadira Hope MD at 16:35 EDT Tel , Service support ,
--- NOTE | 2018-11-26 16:03 | EKG12_ITS ---
Test Reason : CP Blood Pressure : / mmHG Vent. Rate : 082 BPM Atrial Rate : 082 BPM P-R Int : 144 ms QRS Dur : 086 ms QT Int : 362 ms P-R-T Axes : 049 -43 057 degrees QTc Int : 422 ms Normal sinus rhythm Left axis deviation Low voltage QRS (limb leads) Abnormal ECG Confirmed by ZHANNA RICHARD, KEI ([id number]), video effects editor SUSAN MARTIN ([id number]) on 11/28/2018 8:51:54 AM Referred By: AYANA Confirmed By:KEI CHAO MD
--- NOTE | 2018-11-26 16:04 | ED.VISSUMM ---
- ER Visit Summary Date of Service: 11/26/18 Chief Complaint: Chest pain History of Present Illness: The patient is a 43 M who presents with chest pain that is been intermittent for the past 2 days. Patient states that last 10 seconds. Patient describes as a pressure. Patient states it is worse with exertion. Patient states nothing improves it. Patient admits to some nausea and shortness of breath with it. Patient also admits to some lightheadedness and dizziness with it. Patient also admits to some intermittent palpitations where he feels his heart skip a beat every so often. Patient denies any cardiac or PE risk factors. Physical Examination: Vital signs are stable. Patient is afebrile. Patient is in no acute distress. Oral mucosa is pink and moist. Neck is supple. Trachea is midline. There is no JVD noted. Heart was regular rate and rhythm. Lungs are clear and equal bilaterally. Abdomen is soft and nontender. Cranial nerves II through XII are intact. There are no focal motor or sensory deficits noted. Test Results: EKG showed sinus rhythm with a rate of 82. There are no acute ST or T wave changes noted. CBC, basic metabolic profile, and troponin were obtained and were essentially within normal limits. Portable chest x-ray was obtained. There is no acute cardiopulmonary process. Emergency Department Course and Treatment: Patient was given aspirin here. Patient was resting comfortably on reevaluation. Patient was instructed to follow-up with his primary care physician in 5 to 7 days. Patient has a HEART score of 2. Patient was advised that this is low risk for acute cardiac event. Patient understood and was agreeable with the plan. All questions were answered. Disposition: Discharge home Impression: Chest pain of uncertain etiology This note was generated with [employer] dictation software. It may contain incorrect words, spelling, and punctuation that were not noted in review of the chart prior to signing ED Disposition - Plan for ED Patient: Disposition: Home or Assisted Living Diagnosis: Chest pain of uncertain etiology Instructions: CHEST PAIN, Uncertain Cause Referrals: Jenifer Bailon MD [Primary Care Provider] - 5-7 Days
[2018-11-26 16:25] LABS: Absolute Lymphocyte Count 1.17 X10^3/uL (0.83-4.51); Absolute Neutrophil Count 5.4 X10^3/uL (2.0-7.7); Basophil# 0.03 X10^3/uL; Basophil% 0.4 % (0-1); Hematocrit 41.6 % (40-54); Hemoglobin 14.3 g/dL (13.0-16.5); Lymphocyte # 1.17 X10^3/ul (4.0); Lymphocyte % 16.5 % (19-41); Mean Corp Hgb Conc 34.4 g/dL (32-36); Mean Corpuscular Hgb 32.8 pg (27.0-32.0); Mean Corpuscular Volume 95.4 fL (80-94); Mean Platelet Vol. 10.3 fl (6.2-12.0); Monocyte# 0.45 X10^3/uL; Monocyte% 6.4 % (0-10); NRBC Flagged by Analyzer 0 % (0-5); Neutrophil % 76.4 % (47-70); Platelet Count 278 K/mm3 (150-450); RBC Distribution Width CV 12.1 % (11.6-14.6); RBC Distribution Width SD 41.8 fl (35.1-43.9); Red Blood Count 4.36 M/mm3 (4.6-6.2); White Blood Count 7.1 K/mm3 (4.4-11.0)
[2018-11-26 16:33] LABS: Anion Gap 5 (5-15); BUN 14 mg/dL (7-18); BUN/Creat Ratio 15.5 RATIO (10-20); Calcium,Total 8.8 mg/dL (8.5-10.1); Chloride 106 mmol/L (98-107); EST Glomerular Filtration Rate 99 mL/min (>60); Est Glom Filt Rate - Afr Amer 119 mL/min (>60); Estimated Creatinine Clearance 97.02 ml/min; Glucose 94 mg/dL (74-106); Potassium 3.7 mmol/L (3.5-5.1); Sodium Level 139 mmol/L (136-145)
[2018-11-26] MEDS: Aspirin 81 MG TAB.CHEW 324 MG PO (16:51)
[2018-11-26 17:53] VITALS: BP 112/82; PULSE 79; RESP 16; O2SAT 100
== END 2018-11-26 17:55 | disposition home or self-care (01) ==
PROVIDERS: Emergency Provider Emergency Medicine; Family Provider Internal Medicine; PCP Internal Medicine
DX: R07.89 Other chest pain (principal); R11.0 Nausea; R06.00 Dyspnea, unspecified; R42 Dizziness and giddiness; R00.2 Palpitations; M54.9 Dorsalgia, unspecified; R51 Headache; R20.2 Paresthesia of skin; K21.9 Gastro-esophageal reflux disease without esophagitis; F32.9 Major depressive disorder, single episode, unspecified; Z79.899 Other long term (current) drug therapy; F17.220 Nicotine dependence, chewing tobacco, uncomplicated
CPT/HCPCS: 71045; 80048; 84484; 85025; 93005; 99285; A4216

== ENCOUNTER 2018-12-12 16:20 | Emergency (ER) | payer BC, SELFPAY ==
[2018-12-12 16:25] VITALS: BP 135/86; PULSE 82; RESP 16; TEMP 36.4; O2SAT 100; BMI 19.9
--- NOTE | 2018-12-12 16:28 | EKG12_ITS ---
Test Reason : CP Blood Pressure : / mmHG Vent. Rate : 082 BPM Atrial Rate : 082 BPM P-R Int : 136 ms QRS Dur : 094 ms QT Int : 384 ms P-R-T Axes : 052 000 065 degrees QTc Int : 448 ms Normal sinus rhythm Indeterminate axis Borderline ECG Confirmed by DELIA RICHARD, CHERY ([id number]), material expeditor LEXI GARRIDO ([id number]) on 12/17/2018 8:33:02 AM Referred By: JEWEL
--- NOTE | 2018-12-12 16:35 | RAD_ITS ---
STUDY: X-RAY CHEST REASON FOR EXAM: Male, 43 years old. Chest pain. TECHNIQUE: 2 views COMPARISON: Prior chest radiograph of November 26, 2018, January 26, 2018 and January 11, 2016 FINDINGS: The lungs are clear and expanded. There is no demonstrated pleural abnormality. Normal size heart. Normal mediastinum and stu. Normal visualized pulmonary arteries. Normal visualized aortic arch and descending thoracic aorta. Normal visualized thoracic spine. Normal visualized ribs, clavicles, and shoulders. There is no demonstrated abnormality of the visualized soft tissue structures of the upper abdomen. RAD/Chest PA and Lateral IMPRESSION: No acute cardiopulmonary findings or changes. Negative for new consolidation, focal atelectasis, pleural effusion or cardiomegaly. Electronically Signed: Liberty Stubbs MD at 16:57 EDT , Service support ,
[2018-12-12 16:43] LABS: Absolute Lymphocyte Count 1.69 X10^3/uL (0.83-4.51); Basophil# 0.04 X10^3/uL; Basophil% 0.8 % (0-1); Eosinophil# 0.02 X10^3/uL; Eosinophils% 0.4 % (0-5); Hematocrit 40.9 % (40-54); Lymphocyte # 1.69 X10^3/ul (4.0); Lymphocyte % 32.3 % (19-41); Mean Corp Hgb Conc 34.2 g/dL (32-36); Mean Corpuscular Hgb 32.3 pg (27.0-32.0); Mean Corpuscular Volume 94.5 fL (80-94); Mean Platelet Vol. 10.2 fl (6.2-12.0); Monocyte# 0.48 X10^3/uL; Monocyte% 9.2 % (0-10); NRBC Flagged by Analyzer 0 % (0-5); Neutrophil # 2.99 X10^3/uL (2.7-7.7); Neutrophil % 57.1 % (47-70); Platelet Count 226 K/mm3 (150-450); RBC Distribution Width CV 11.9 % (11.6-14.6); RBC Distribution Width SD 41.2 fl (35.1-43.9); Red Blood Count 4.33 M/mm3 (4.6-6.2); White Blood Count 5.2 K/mm3 (4.4-11.0)
[2018-12-12 17:10] LABS: Anion Gap 9 (5-15); BUN 14 mg/dL (7-18); BUN/Creat Ratio 15.9 RATIO (10-20); Calcium,Total 8.9 mg/dL (8.5-10.1); Chloride 106 mmol/L (98-107); Creatinine, Serum 0.88 mg/dL (0.70-1.30); EST Glomerular Filtration Rate 101 mL/min (>60); Est Glom Filt Rate - Afr Amer 122 mL/min (>60); Estimated Creatinine Clearance 95.68 ml/min; Glucose 92 mg/dL (74-106); Potassium 3.3 mmol/L (3.5-5.1); Sodium Level 141 mmol/L (136-145)
[2018-12-12] MEDS: Aspirin 81 MG TAB.CHEW 324 MG PO (18:09)
--- NOTE | 2018-12-12 18:15 | ED.DCSUM_ITS ---
- ER Visit Summary Date of Service: 12/12/18 Chief Complaint: Chest pain History of Present Illness: The patient is a 43 M with chest pain that started just prior to arrival. The patient was driving his car. Pain was over his right parasternal area. No radiation. Pain is currently 3 out of 10. [facility] [place]. He does not have any exertional component. No history of coronary disease. He had a stress test at an outside hospital within the past year which he says was fine. No history of PE. No history of aortic disease. No fevers or respiratory symptoms. No GI symptoms except for nausea. Physical Examination: Afebrile and vital signs unremarkable. Alert and oriented. No acute distress. Heart regular rate and rhythm. Lungs clear. Abdomen soft and nontender. Skin unremarkable. Calves soft and supple. Pulses strong and equal. Test Results: EKG showed sinus rhythm at a rate of 82. No sign of acute ischemia or infarction pattern. CBC normal. Metabolic panel normal except for potassium 3.3. Troponin normal. Chest x-ray showed no acute process. Emergency Department Course and Treatment: Patient had an EKG and was placed on a monitor. No further change in his symptoms or pain. His potassium was replaced. His work-up was unremarkable. His doctor has attributed his symptoms to anxiety. Patient has never seen a curator of manuscripts. He did have a stress test earlier this year. He has not had any other cardiac evaluation. He is PERC negative. Nothing to suggest aortic disease. Nothing to suggest infectious process. No traumas. Patient declined delta troponin. He would like to follow-up as an outpatient. He will follow-up with his PCP, his counselor, and we will refer him to cardiology. Dr. Box is on-call. He should return right away for new or worsening issues. Treatment Plan: As above Disposition: Discharge Impression: 1. Atypical chest pain This note was generated with [employer] dictation software. It may contain incorrect words, spelling, and punctuation that were not noted in review of the chart prior to signing ED Disposition - Plan for ED Patient: Referrals: Jenifer Bailon MD [Primary Care Provider] -
--- NOTE | 2018-12-12 18:19 | ED.DEP ---
ED Disposition - Plan for ED Patient: Instructions: CHEST PAIN, Uncertain Cause (Child) Referrals: Jenifer Bailon MD [Primary Care Provider] - Sameer Box MD [STAFF PHYSICIAN] -
== END 2018-12-12 18:34 | disposition home or self-care (01) ==
LOC: ED 18:27
PROVIDERS: Emergency Provider Emergency Medicine; Family Provider Internal Medicine; PCP Internal Medicine
DX: R07.89 Other chest pain (principal); R11.0 Nausea; Z72.0 Tobacco use
CPT/HCPCS: 71046; 80048; 84484; 85025; 93005; 99285; A4216

== ENCOUNTER 2018-12-22 13:38 | Emergency (ER) | payer BC, SELFPAY ==
[2018-12-22 13:40] VITALS: BP 124/88; PULSE 89; RESP 24; TEMP 36.3; O2SAT 100; BMI 19.0
--- NOTE | 2018-12-22 13:47 | EKG12_ITS ---
Test Reason : CP Blood Pressure : / mmHG Vent. Rate : 080 BPM Atrial Rate : 080 BPM P-R Int : 140 ms QRS Dur : 088 ms QT Int : 384 ms P-R-T Axes : 066 152 065 degrees QTc Int : 442 ms Normal sinus rhythm Right axis deviation Abnormal ECG Confirmed by MARIELOS RICHARD, DANIELE ([id number]), editor book LEXI GARRIDO ([id number]) on 12/25/2018 1:53:58 PM Referred By: ROSSI Confirmed By:DANIELE ARCEO MD
--- NOTE | 2018-12-22 13:52 | RAD_ITS ---
STUDY: X-RAY CHEST REASON FOR EXAM: Male, 43 years old. Chest pain started during the middle the night TECHNIQUE: AP COMPARISON: 12/12/2018 FINDINGS: EKG leads project over the chest. The lungs are clear and expanded. There is no demonstrated pleural abnormality. Normal size heart. Normal mediastinum and stu. Normal visualized pulmonary arteries. Normal visualized aortic arch and descending thoracic aorta. Normal visualized thoracic spine. Normal visualized ribs, clavicles, and shoulders. There is no demonstrated abnormality of the visualized soft tissue structures of the upper abdomen. RAD/Chest 1 View (Portable) IMPRESSION: Stable, nonacute portable x-ray examination of the chest. Electronically Signed: Anil Bone MD ([place]) at 14:28 EST , Service support ,
[2018-12-22] MEDS: Aspirin 81 MG TAB.CHEW 324 MG PO (13:56)
[2018-12-22 13:57] LABS: Absolute Lymphocyte Count 1.47 X10^3/uL (0.83-4.51); Absolute Neutrophil Count 2.5 X10^3/uL (2.0-7.7); Basophil# 0.03 X10^3/uL; Basophil% 0.7 % (0-1); Eosinophil# 0.04 X10^3/uL; Eosinophils% 0.9 % (0-5); Hematocrit 41.7 % (40-54); Hemoglobin 14.5 g/dL (13.0-16.5); Lymphocyte # 1.47 X10^3/ul (4.0); Lymphocyte % 33.3 % (19-41); Mean Corp Hgb Conc 34.8 g/dL (32-36); Mean Corpuscular Hgb 32.4 pg (27.0-32.0); Mean Corpuscular Volume 93.3 fL (80-94); Monocyte# 0.38 X10^3/uL; Monocyte% 8.6 % (0-10); NRBC Flagged by Analyzer 0 % (0-5); Neutrophil # 2.49 X10^3/uL (2.7-7.7); Neutrophil % 56.3 % (47-70); Platelet Count 252 K/mm3 (150-450); RBC Distribution Width SD 40.9 fl (35.1-43.9); Red Blood Count 4.47 M/mm3 (4.6-6.2); White Blood Count 4.4 K/mm3 (4.4-11.0)
[2018-12-22 14:15] LABS: Anion Gap 6 (5-15); BUN 11 mg/dL (7-18); BUN/Creat Ratio 11.3 RATIO (10-20); Calcium,Total 8.9 mg/dL (8.5-10.1); Chloride 104 mmol/L (98-107); Creatinine, Serum 0.98 mg/dL (0.70-1.30); EST Glomerular Filtration Rate 90 mL/min (>60); Est Glom Filt Rate - Afr Amer 109 mL/min (>60); Estimated Creatinine Clearance 81.94 ml/min; Glucose 132 mg/dL (74-106); Potassium 3.3 mmol/L (3.5-5.1); Sodium Level 140 mmol/L (136-145)
--- NOTE | 2018-12-22 14:36 | ED.DCSUM_ITS ---
- ER Visit Summary Date of Service: 12/22/18 Chief Complaint: Chest pain History of Present Illness: The patient is a 43 M who presents with chest pain. It started last night is been constant. It sharp and stabbing in the middle of the left part of his chest. Nothing makes it better or worse. He has ass ociated shortness of breath. It radiates down his left arm. He has had chest pain in the past with no diagnosis after work-up. He recently started Effexor and is wondering if that is causing his symptoms. He has no cardiac or PE risk factors. Physical Examination: Vital signs reviewed. HEENT exam unremarkable. Heart is regular rate and rhythm without murmurs. Lungs are clear to auscultation. Abdomen is soft and nontender. Extremities reveal no edema. Peripheral pulses are equal. Skin exam normal. Neurologic exam normal. Test Results: Chest x-ray per my interpretation reveals no acute findings. EKG is sinus rhythm with a rate of [address] changes. Laboratory studies unremarkable except for potassium of 3.3. Emergency Department Course and Treatment: The patient was medicated with aspirin. The patient has a low risk DAVION score. I do not feel this is cardiac. He will continue all of his medications including NSAIDs and will follow up with his PCP. Treatment Plan: [] Disposition: Discharge Impression: Chest pain This note was generated with [employer] dictation software. It may contain incorrect words, spelling, and punctuation that were not noted in review of the chart prior to signing ED Disposition - Plan for ED Patient: Referrals: Jenifer Bailon MD [Primary Care Provider] -
--- NOTE | 2018-12-22 14:37 | ED.DEP ---
ED Disposition - Plan for ED Patient: Disposition: Home or Assisted Living Instructions: CHEST PAIN, Uncertain Cause Referrals: Jenifer Bailon MD [Primary Care Provider] -
[2018-12-22 14:44] VITALS: BP 115/87; PULSE 79; RESP 17; O2SAT 99
== END 2018-12-22 14:44 | disposition home or self-care (01) ==
PROVIDERS: Emergency Provider Emergency Medicine; Family Provider Internal Medicine; PCP Internal Medicine
DX: R07.9 Chest pain, unspecified (principal); R06.02 Shortness of breath
CPT/HCPCS: 71045; 80048; 84484; 85025; 93005; 99285

== ENCOUNTER 2018-12-25 22:33 | Emergency (ER) | payer BC, SELFPAY ==
[2018-12-25 22:33] VITALS: BP 127/66; PULSE 75; RESP 14; TEMP 36.4; O2SAT 98; BMI 19.4
--- NOTE | 2018-12-25 22:42 | ED.DCSUM_ITS ---
History of Present Illness Chief Complaint: Chest Pain Informant: Patient Onset: Today - 1829 Context: Sudden Onset Timing: Continuous Quality: Dyspnea and pain Location: Anterior chest Current Severity: - - Chest pain is resolved dyspnea still present Maximum Severity: Moderate Worsened by: Possible anxiety Relieved by: Nothing Associated Symptoms: No other symptoms Narrative: Patient is a 43-year-old male who presents with chest pain they localized on the left side with dyspnea that started at 1830. This occurred while at rest. He had this in the past has been told his anxiety. He denies rhinorrhea, congestion or postnasal drainage. No sore throat. He has a slight cough for the past couple days. There is no pleuritic chest pain. He is presently pain- free. Denies leg pain, swelling discoloration. He has no history of PE or DVT. He denies fever or chills. He denies earache, decreased hearing or drainage from his ears. He denies neck pain or neck stiffness. He denies back pain. Prior similar symptoms: Yes - Anxiety Recent Illness/Hospitalization: No - Past Medical History (1) No significant past medical history Status: Acute Past Medical History - Allergies and Home Meds Allergies/Adverse Reactions: Allergies doxycycline Adverse Reaction (Verified 12/22/18 13:39) Nausea omeprazole [From Prilosec] Adverse Reaction (Verified 12/22/18 13:39) Upset Stomach venlafaxine [From Effexor] Adverse Reaction (Verified 12/25/18 22:35) Chest tightness Primary Care Physician: Jenifer Bailon MD [Primary Care Provider] - Prior records reviewed: Yes Surgical History: no surgical history Lives: Alone Smoking Status: Former smoker Alcohol: None Drugs: None Review of Systems General: Denies: Chills, Fever, Sweats ENT: Denies: Bilateral ear pain, Rhinorrhea, Sore throat Cardiovascular: Reports: Chest pain. Denies: Palpitations, Heart racing Respiratory: Reports: Dyspnea, Cough. Denies: Sputum, Dyspnea on exertion, Orthopnea, Paroxysmal nocturnal dyspnea Gastrointestinal: Denies: Abdominal pain, Nausea, Vomiting, Diarrhea, Melena, Hematochezia Musculoskeletal: Denies: Myalgias, Arthralgias, Neck pain, Back pain, Swelling, Extremity Pain, -, - Skin: Denies: Rash, Wounds Neurological: Denies: Headache, Weakness, Parasthesia, Numbness, -, - Psych: Reports: Anxiety Hematologic: Denies: Easy bruising, Easy bleeding Physical Exam Vital Signs/Narrative: Vital Signs Temp Pulse Resp BP Pulse Ox 12/25/18 22:33 97.6 F L 75 14 127/66 H 98 Inital Vital Signs reviewed: Yes General: Well nourished, Well developed, No Acute Distress Head: Normocephalic, Atraumatic Eyes: Perrl, EOMI. Negative for: Pale conjunctiva, Scleral icterus ENT: Moist mucous membranes, No rhinorrhea, TM's clear Neck: Supple, Nontender, No lymphadenopathy, No JVD Cardiovascular: Regular rate, Regular rhythm, No murmurs, Normal S1, Normal S2 Respiratory: No distress, CTA bilaterally, Chest nontender Abdomen: Soft, Nontender, Nondistended, Normal bowel sounds Extremities: Nontender, No edema, - - There is no asymmetry, swelling, discoloration, leg vein distention, palpable cords or tenderness along the distribution of the deep venous system. Skin: Normal color, No rash Neurological: Alert, Oriented x3, Cranial nerves II-XII grossly intact, Normal S trength, Normal Sensation Psychological: Normal affect Diagnostic/Tx/Re-eval - Rhythm Strip Rhythm Strip: Sinus Rhythm Rate: 74 Ectopy: None - EKG Initial EKG Interpretation: Sinus Rhythm - Sinus rhythm rate of 71. AK interval 138 ms. QS duration 90 ms. QT duration 386 ms. [place] is normal. The EKG is normal. - Medical Decision Making Patient is PERC negative. Patient's vital signs are unremarkable. Will obtain EKG. If EKG is negative patient be discharged to home with diagnosis of anxiety reaction. ED Disposition - Plan for ED Patient: Disposition: Home or Assisted Living Diagnosis: Anxiety reaction, Chest pain Instructions: Your Body's Response to Anxiety Referrals: Jenifer Bailon MD [Primary Care Provider] - As Needed
[2018-12-25 22:49] VITALS: BP 112/82; PULSE 77; RESP 13; O2SAT 97
--- NOTE | 2018-12-25 23:00 | EKG12_ITS ---
Test Reason : CP Blood Pressure : / mmHG Vent. Rate : 071 BPM Atrial Rate : 071 BPM P-R Int : 138 ms QRS Dur : 090 ms QT Int : 386 ms P-R-T Axes : 064 040 065 degrees QTc Int : 419 ms Normal sinus rhythm Normal ECG Confirmed by CONSUELO KAUR ([id number]), news video editor TIGIST KABA ([id number]) on 12/28/2018 11:14:16 AM Referred By: CIARA Confirmed By:CONSUELO KAUR
[2018-12-25 23:03] VITALS: BP 110/81; PULSE 81; RESP 16; O2SAT 99
== END 2018-12-25 23:05 | disposition home or self-care (01) ==
LOC: ED 22:55
PROVIDERS: Emergency Provider Emergency Medicine; Family Provider Internal Medicine; PCP Internal Medicine
DX: F41.9 Anxiety disorder, unspecified (principal); R07.9 Chest pain, unspecified; Z87.891 Personal history of nicotine dependence; Z88.1 Allergy status to other antibiotic agents; R05 Cough
CPT/HCPCS: 93005; 99282

== ENCOUNTER 2018-12-28 12:03 | Emergency (ER) | payer BC, SELFPAY ==
[2018-12-28 12:04] VITALS: BP 113/71; PULSE 93; RESP 16; TEMP 36.5; O2SAT 99; BMI 19.4
--- NOTE | 2018-12-28 12:25 | EKG12_ITS ---
Test Reason : SOB Blood Pressure : / mmHG Vent. Rate : 073 BPM Atrial Rate : 073 BPM P-R Int : 138 ms QRS Dur : 090 ms QT Int : 386 ms P-R-T Axes : 060 075 060 degrees QTc Int : 425 ms Normal sinus rhythm Normal ECG Confirmed by MARIELOS RICHARD, DANIELE ([id number]), field map editor SUSAN MARTIN ([id number]) on 01/01/2019 11:10:28 AM Referred By: KELSEY Confirmed By:DANIELE ARCEO MD
--- NOTE | 2018-12-28 12:28 | RAD_ITS ---
STUDY: X-RAY CHEST REASON FOR EXAM: Male, 43 years old. Intermittent dizziness and shortness of breath. TECHNIQUE: Single AP portable view of the chest. COMPARISON: Comparison is made with prior study dated December 22, 2018. FINDINGS: EKG electrodes are seen. Hyperinflation. The lungs are clear. There is no demonstrated pleural abnormality. Normal size heart. Normal mediastinum and stu. Normal visualized pulmonary arteries. Normal visualized aortic arch and descending thoracic aorta. Mild dextroscoliosis. Normal visualized ribs, clavicles, and shoulders. There is no demonstrated abnormality of the visualized soft tissue structures of the upper abdomen. RAD/Chest 1 View (Portable) IMPRESSION: No acute abnormality is seen. Electronically Signed: Kurtis Samuel, at 12:57 EST , Service support ,
[2018-12-28 12:48] LABS: Absolute Lymphocyte Count 0.98 X10^3/uL (0.83-4.51); Absolute Neutrophil Count 3.3 X10^3/uL (2.0-7.7); Basophil# 0.02 X10^3/uL; Basophil% 0.4 % (0-1); Eosinophil# 0.01 X10^3/uL; Eosinophils% 0.2 % (0-5); Hematocrit 41.4 % (40-54); Hemoglobin 14.2 g/dL (13.0-16.5); Lymphocyte # 0.98 X10^3/ul (4.0); Lymphocyte % 21.3 % (19-41); Mean Corp Hgb Conc 34.3 g/dL (32-36); Mean Corpuscular Hgb 32.7 pg (27.0-32.0); Mean Corpuscular Volume 95.4 fL (80-94); Mean Platelet Vol. 9.7 fl (6.2-12.0); Monocyte# 0.28 X10^3/uL; Monocyte% 6.1 % (0-10); NRBC Flagged by Analyzer 0 % (0-5); Neutrophil % 71.8 % (47-70); Platelet Count 247 K/mm3 (150-450); RBC Distribution Width CV 12.1 % (11.6-14.6); RBC Distribution Width SD 42.2 fl (35.1-43.9); Red Blood Count 4.34 M/mm3 (4.6-6.2); White Blood Count 4.6 K/mm3 (4.4-11.0)
[2018-12-28] MEDS: 0.9% Normal Saline 1,000 ML 150 ML IV (12:52)
[2018-12-28] MEDS: LORazepam 2 MG/ML Syringe 1 MG IV (12:53)
[2018-12-28 12:54] VITALS: BP 103/72; PULSE 90; RESP 16; O2SAT 96
[2018-12-28 13:04] LABS: Anion Gap 5 (5-15); BUN 11 mg/dL (7-18); BUN/Creat Ratio 11.9 RATIO (10-20); Calcium,Total 8.8 mg/dL (8.5-10.1); Chloride 107 mmol/L (98-107); Creatinine, Serum 0.92 mg/dL (0.70-1.30); D-Dimer Quantitative (DVT/PE) 0.33 FEU/ug/m (0.27-0.49); EST Glomerular Filtration Rate 96 mL/min (>60); Est Glom Filt Rate - Afr Amer 116 mL/min (>60); Estimated Creatinine Clearance 89.23 ml/min; Glucose 92 mg/dL (74-106); Potassium 3.7 mmol/L (3.5-5.1); Sodium Level 141 mmol/L (136-145)
--- NOTE | 2018-12-28 13:48 | ED.VISSUMM ---
- ER Visit Summary Date of Service: 12/28/18 Chief Complaint: [Shortness of breath] History of Present Illness: The patient is a 43 M [presents to the emergency department with complaint of shortness of breath that started around 6 AM. Patient states that he has had symptoms like this multiple times in the past these been told that it was anxiety possibly. Patient denies any fever or cough. Patient denies recent travel or surgery. Patient does feel somewhat anxious. Patient is scheduled to see a psychologist on January 18. He is currently not being medicated for anxiety. He denies feeling suicidal or homicidal. Has history of rheumatoid arthritis.] Physical Examination: [HEENT-PERRLA, EOMI. Cranial nerves II through XII grossly intact. TMs clear. Mucous membranes moist. No adenopathy. Cardiovascular-regular rate and rhythm without murmur or ectopy Lungs-clear to auscultation, chest wall stable without crepitus or subcu emphysema Abdomen-normoactive bowel sounds, soft, nontender, no rebound or rigidity, no peritoneal signs. Extremities-intact ?4, normal range of motion, normal pulses, atraumatic] Test Results: [EKG obtained arrival shows sinus rhythm with a ventricular rate of 73 bpm with no acute ST segment changes. CBC with differential shows a white count 4.6, hemoglobin 14, hematocrit 41, platelets 247. Chemistries unremarkable. Troponin less than 0.15. D-dimer was 0.33. X-ray showed nothing acute.] Emergency Department Course and Treatment: [Patient given Ativan 1 mg IV and did have good symptom relief.] Treatment Plan: Patient advised to follow-up with his primary care physician and follow-up with psychiatry. Patient will be given a prescription for as needed Ativan. [] Disposition: [Discharged home in stable condition.] Impression: [Anxiety reaction] This note was generated with [employer] dictation software. It may contain incorrect words, spelling, and punctuation that were not noted in review of the chart prior to signing ED Disposition - Plan for ED Patient: Referrals: Jenifer Bailon MD [Primary Care Provider] -
--- NOTE | 2018-12-28 13:50 | ED.DEP ---
ED Disposition - Plan for ED Patient: Instructions: Panic Attack Prescriptions: Lorazepam [Ativan] 1 mg PO TID PRN #10 tab PRN Reason: Anxiety Prescription Printed Referrals: Jenifer Bailon MD [Primary Care Provider] - 3-5 Days
[2018-12-28 14:20] VITALS: BP 104/73; PULSE 69; RESP 16; O2SAT 98
== END 2018-12-28 14:28 | disposition home or self-care (01) ==
LOC: ED 12:52
PROVIDERS: Emergency Provider Emergency Medicine; Family Provider Internal Medicine; PCP Internal Medicine
DX: F41.1 Generalized anxiety disorder (principal); M06.9 Rheumatoid arthritis, unspecified
CPT/HCPCS: 71045; 80048; 84484; 85025; 85379; 93005; 96361; 96374; 99284; J7030; A4216

== ENCOUNTER 2018-12-31 05:51 | Emergency (ER) | payer BC, SELFPAY ==
[2018-12-31 05:52] VITALS: BP 118/82; PULSE 81; RESP 15; TEMP 36.6; O2SAT 987; BMI 19.5
--- NOTE | 2018-12-31 06:02 | ED.VIS.GEN ---
History of Present Illness Chief Complaint: Chest Pain Informant: Patient Narrative: Stated he woke up with recurrent chest discomfort. He got worried and came in. He has had 5 visits in the emergency department in the last month for similar symptoms with negative work-ups including lab work EKGs and chest x-rays. His family doctor just started him on antidepressant for anxiety. He stated this is an ongoing issue for him. He woke up this morning and felt like he needed to come in to get evaluated. He is never had a heart attack. Currently he is resting comfortably without any major symptoms Past Medical History - Allergies and Home Meds Allergies/Adverse Reactions: Allergies doxycycline Adverse Reaction (Verified 12/31/18 05:52) Nausea omeprazole [From Prilosec] Adverse Reaction (Verified 12/31/18 05:52) Upset Stomach venlafaxine [From Effexor] Adverse Reaction (Verified 12/31/18 05:52) Chest tightness Primary Care Physician: Jenifer Bailon MD [Primary Care Provider] - Prior records reviewed: Yes Past Medical History: - - Anxiety Surgical History: no surgical history Lives: With Family Smoking Status: Never smoker Alcohol: None Drugs: None Review of Systems General: Denies: Chills, Fever, Sweats Eyes: Denies: Visual changes - bilaterally, Diplopia ENT: Denies: Rhinorrhea, Sore throat Cardiovascular: Reports: Chest pain. Denies: Palpitations Respiratory: Denies: Dyspnea, Cough, Dyspnea on exertion Gastrointestinal: Denies: Abdominal pain, Nausea, Vomiting, Diarrhea, Melena, Hematochezia Genitourinary: Denies: Dysuria, Hematuria, Frequency Musculoskeletal: Denies: Back pain, Extremity Pain Skin: Denies: Rash, Wounds Neurological: Denies: Headache, Weakness, Numbness Physical Exam Vital Signs/Narrative: Vital Signs Temp Pulse Resp BP Pulse Ox 12/31/18 05:52 97.8 F 81 15 118/82 H 987 General: Well nourished, Well developed, No Acute Distress Head: Normocephalic, Atraumatic Eyes: Perrl, EOMI ENT: Moist mucous membranes, No rhinorrhea Neck: Supple, Nontender Cardiovascular: Regular rate, Regular rhythm, No murmurs Respiratory: No distress, CTA bilaterally, Chest nontender Abdomen: Soft, Nontender, Nondistended, Normal bowel sounds Back: Nontender, Normal Inspection Extremities: Nontender, No edema Skin: Normal color, No rash Neurological: Alert, Oriented x3, Cranial nerves II-XII grossly intact, Normal Strength, Normal Sensation Psychological: Normal affect, Normal Mood Diagnostic/Tx/Re-eval - Medical Decision Making EKG obtained shows normal sinus rhythm at a rate of 77 without acute ischemia or arrhythmia. Patient is resting comfortably. He is not having vertigo. I do not feel he needs a repeat work-up. He has had multiple negative work-ups. I feel this is anxiety related. Given a dose of Benadryl and will be discharged ED Disposition - Plan for ED Patient: Disposition: Home or Assisted Living Diagnosis: Anxiety Instructions: Anxiety Reaction Referrals: Jenifer Bailon MD [Primary Care Provider] -
[2018-12-31 06:14] VITALS: BP 113/90; PULSE 85; RESP 16; O2SAT 96
[2018-12-31] MEDS: DiphenhydrAMINE 25 MG Capsule PO (06:17)
== END 2018-12-31 06:20 | disposition home or self-care (01) ==
LOC: ED 06:09
PROVIDERS: Emergency Provider Emergency Medicine; Family Provider Internal Medicine; PCP Internal Medicine
DX: F41.9 Anxiety disorder, unspecified (principal); Z88.1 Allergy status to other antibiotic agents
CPT/HCPCS: 93005; 99284

== ENCOUNTER 2019-01-08 07:25 | Emergency (ER) | payer BC, SELFPAY ==
[2019-01-01 15:23] VITALS: BMI 18.4
[2019-01-08 07:26] VITALS: BP 130/86; PULSE 85; RESP 14; TEMP 36.6; O2SAT 96; BMI 18.4
--- NOTE | 2019-01-08 07:31 | EKG12_ITS ---
Test Reason : CP Blood Pressure : / mmHG Vent. Rate : 083 BPM Atrial Rate : 083 BPM P-R Int : 120 ms QRS Dur : 096 ms QT Int : 390 ms P-R-T Axes : 051 122 066 degrees QTc Int : 458 ms Normal sinus rhythm Right axis deviation Abnormal ECG Confirmed by CONSUELO KAUR ([id number]), tape editor SUSAN MARTIN ([id number]) on 01/11/2019 11:29:16 AM Referred By: FREDERICK Confirmed By:CONSUELO KAUR
--- NOTE | 2019-01-08 07:31 | RAD_ITS ---
STUDY: X-RAY CHEST REASON FOR EXAM: Male, 43 years old. TECHNIQUE: 1 view COMPARISON: December 28, 2018 FINDINGS: The lungs are clear and expanded. There is no demonstrated pleural abnormality. Normal size heart. Normal mediastinum and stu. Normal visualized pulmonary arteries. Normal visualized aortic arch and descending thoracic aorta. Normal visualized thoracic spine. Normal visualized ribs, clavicles, and shoulders. There is no demonstrated abnormality of the visualized soft tissue structures of the upper abdomen. RAD/Chest 1 View (Portable) IMPRESSION: Normal x-ray examination of the chest unchanged since December 28, 2018. Electronically Signed: Jeff Hernandez, at 7:52 EST Tel , Service support ,
--- NOTE | 2019-01-08 07:33 | ED.DCSUM_ITS ---
History of Present Illness Chief Complaint: Chest Pain Informant: Patient Onset: Yesterday Current Severity: Mild Maximum Severity: Mild Narrative: Patient presents with lower chest pain that started yesterday and its been on and off however it was present when he went to bed last night and present this morning when he woke up and came to the emergency department. He has had this same pain in the past multiple times however today he has pain that radiates into the neck. It is sharp and stabbing and aching. He has no pleuritic component. He has no back pain or tearing sensation he has no cough or congestion he has no fever or chills. He has no lower extremity edema, or calf pain he has no DVT or PE risk factors. This pain is not exertional, it could come at any time sometimes lasts an hour sometimes a few minutes. No recent trauma. Past Medical History - Allergies and Home Meds Allergies/Adverse Reactions: Allergies propranolol Adverse Reaction (Intermediate, Verified 01/08/19 07:32) Nausea doxycycline Adverse Reaction (Verified 01/08/19 07:32) Nausea metoprolol Adverse Reaction (Verified 01/08/19 07:35) Nausea omeprazole [From Prilosec] Adverse Reaction (Verified 01/08/19 07:32) Upset Stomach venlafaxine [From Effexor] Adverse Reaction (Verified 01/08/19 07:32) Chest tightness Primary Care Physician: Jenifer Bailon MD [Primary Care Provider] - Past Medical History: - - Rheumatoid arthritis Surgical History: no surgical history Smoking Status: Former smoker Review of Systems General: Denies: Fever Eyes: Denies: Visual changes - bilaterally ENT: Denies: Sore throat Cardiovascular: Reports: Chest pain Respiratory: Denies: Dyspnea, Cough Gastrointestinal: Denies: Abdominal pain, Nausea Genitourinary: Denies: Dysuria Musculoskeletal: Denies: Neck pain, Back pain Skin: Denies: Rash Neurological: Denies: Headache, Weakness Endocrine: Denies: Polyuria Allergy: Denies: Swelling of the mouth Physical Exam Vital Signs/Narrative: Vital Signs Temp Pulse Resp BP Pulse Ox 01/08/19 07:26 97.8 F 85 14 130/86 H 96 Inital Vital Signs reviewed: Yes General: Well nourished, Well developed Head: Normocephalic Eyes: Negative for: Pale conjunctiva ENT: Moist mucous membranes Neck: Supple Cardiovascular: Regular rate, Regular rhythm, No murmurs Respiratory: No distress, CTA bilaterally Abdomen: Soft, Nontender Back: Nontender, Normal Inspection. Negative for: CVA tenderness Extremities: Nontender Skin: Normal color Neurological: Alert, Oriented x3, Normal Strength, Normal Sensation Psychological: Normal affect Diagnostic/Tx/Re-eval - Rhythm Strip Rhythm Strip: Sinus Rhythm Rate: 83 Ectopy: None - EKG Initial EKG Interpretation: Sinus Rhythm, - - Normal sinus rhythm. Normal MO normal QTC intervals. No ischemic changes. Interpreted by emergency doctor - Medical Decision Making Patient has a normal work-up. He is PERC negative. He has no risk factors for PE. I have low suspicion. His heart score is a 2 based on being moderately suspicious and having one risk factor may be to since his dad did have a heart attack and he used to smoke but does not currently smoke and has not smoked in over 3 months. Regardless, according to the ACC /AHA guidelines he is safe for discharge with prompt follow-up he understands this. If his symptoms change or worsen he needs to re turn. He has a echocardiogram scheduled, he has seen Dr. Box. He has had this multiple times for the past few months. Discharge stable condition ED Disposition - Plan for ED Patient: Disposition: Home or Assisted Living Diagnosis: Chest pain Instructions: CHEST PAIN, NonCardiac Referrals: Jenifer Bailon MD [Primary Care Provider] - 1 Week Sameer Box MD [STAFF PHYSICIAN] - As Needed
[2019-01-08] MEDS: Ketorolac 15 MG/ML Vial IV (07:39)
[2019-01-08] MEDS: Mag Hydrox/Al Hydrox/Simeth 30 ML UDC PO (07:40)
[2019-01-08] MEDS: Aspirin 81 MG TAB.CHEW 324 MG PO (07:40)
[2019-01-08 07:41] LABS: Absolute Lymphocyte Count 1.33 X10^3/uL (0.83-4.51); Absolute Neutrophil Count 2.5 X10^3/uL (2.0-7.7); Basophil# 0.02 X10^3/uL; Basophil% 0.5 % (0-1); Eosinophil# 0.04 X10^3/uL; Eosinophils% 0.9 % (0-5); Hematocrit 41.8 % (40-54); Hemoglobin 14.7 g/dL (13.0-16.5); Lymphocyte # 1.33 X10^3/ul (4.0); Lymphocyte % 30.5 % (19-41); Mean Corp Hgb Conc 35.2 g/dL (32-36); Mean Corpuscular Hgb 32.8 pg (27.0-32.0); Mean Corpuscular Volume 93.3 fL (80-94); Mean Platelet Vol. 10.2 fl (6.2-12.0); Monocyte# 0.42 X10^3/uL; Monocyte% 9.6 % (0-10); NRBC Flagged by Analyzer 0 % (0-5); Neutrophil # 2.54 X10^3/uL (2.7-7.7); Neutrophil % 58.3 % (47-70); Platelet Count 229 K/mm3 (150-450); RBC Distribution Width CV 11.7 % (11.6-14.6); RBC Distribution Width SD 39.7 fl (35.1-43.9); Red Blood Count 4.48 M/mm3 (4.6-6.2); White Blood Count 4.4 K/mm3 (4.4-11.0)
[2019-01-08 07:56] LABS: Anion Gap 7 (5-15); BUN 12 mg/dL (7-18); Calcium,Total 8.9 mg/dL (8.5-10.1); Chloride 109 mmol/L (98-107); EST Glomerular Filtration Rate 87 mL/min (>60); Est Glom Filt Rate - Afr Amer 106 mL/min (>60); Glucose 88 mg/dL (74-106); Potassium 3.8 mmol/L (3.5-5.1); Sodium Level 143 mmol/L (136-145)
[2019-01-08 08:49] VITALS: BP 115/78; PULSE 89; RESP 18; O2SAT 99
== END 2019-01-08 08:50 | disposition home or self-care (01) ==
PROVIDERS: Emergency Provider Emergency Medicine; Family Provider Internal Medicine; PCP Internal Medicine
DX: R07.9 Chest pain, unspecified (principal); M06.9 Rheumatoid arthritis, unspecified; Z87.891 Personal history of nicotine dependence; Z88.1 Allergy status to other antibiotic agents
CPT/HCPCS: 71045; 80048; 84484; 85025; 93005; 99285; A4216

== ENCOUNTER → 2019-01-17 13:38 | Outpatient (CLI) | payer BC, SELFPAY ==
[2019-01-01 15:23] VITALS: BMI 18.4
[2019-01-08 07:26] VITALS: BMI 18.4
--- NOTE | 2019-01-17 13:40 | ECHOD_ITS ---
Reason For Study: CHEST PAIN Procedure This was a 2D Doppler, Color Flow transthoracic echocardiogram. The study was technically difficult. Exam performed in department. Left Ventricle Normal size and thickness. The estimated ejection fraction is 55 %. Normal diastology for age. No regional wall motion abnormalities noted. Right Ventricle Normal size and thickness. Normal systolic function. Atria Normal left atrium. Normal right atrium. Normal atrial septum. Mitral Valve The mitral valve is structurally normal. No prolapse or stenosis seen. Tricuspid Valve Normal tricuspid valve. Trivial tricuspid valve insufficiency. Right ventricular systolic pressure estimated to be 18 mmHg. Aortic Valve Normal aortic valve. Trisinus/trileaflet aortic valve. Pulmonic Valve Normal pulmonic valve. Trivial pulmonic valve insufficiency. Great Vessels Normal aortic root. Normal arch. Normal inferior vena cava. Inferior vena cava collapse with sniff. Pericardium/Pleural No pericardial effusion. MMode/2D Measurements & Calculations LVIDd: 4.7 cm IVSd: 0.61 cm Ao root diam: 2.8 cm LVIDs: 3.2 cm LVPWd: 0.62 cm RVDd: 3.3 cm FS: 32.0 % LAV(MOD-sp4): 27.6 ml LA A4 area: 11.7 cm2 LA dimension(2D): 2.8 cm RA A4 area: 9.5 cm2 Time Measurements MV dec time: 0.25 sec Doppler Measurements & Calculations MV E max josé: 60.2 cm/sec Lat Peak E' José: 13.6 cm/sec Med Peak E' José: 11.2 cm/sec MV A max josé: 48.6 cm/sec E/E' lat: 4.4 E/E' med: 5.4 MV E/A: 1.2 Ao V2 max: 113.9 cm/sec LV V1 max: 107.2 cm/sec PA V2 max: 90.3 cm/sec Ao max P.2 mmHg LV V1 max P.6 mmHg PI end-d josé: 85.9 cm/sec TR max josé: 177.0 cm/sec TR max P.5 mmHg Interpretation Summary The estimated ejection fraction is 55 %. Normal diastology for age. Trivial tricuspid valve insufficiency. Right ventricular systolic pressure estimated to be 18 mmHg. There is no comparison study available. Ordering Physician: Sameer Box Referring Physician: MONIQUE CAVANAUGH Performed By: Sherry Malik RDCS, RVT
== END ==
PROVIDERS: Family Provider Internal Medicine; PCP Internal Medicine; Referring Provider Internal Medicine Cardiovascular Disease; Visit Provider Internal Medicine Cardiovascular Disease
DX: R07.9 Chest pain, unspecified (principal)
CPT/HCPCS: 93306

== ENCOUNTER → 2019-01-23 12:23 | Outpatient (CLI) | payer BC, SELFPAY ==
[2019-01-01 15:23] VITALS: BMI 18.4
[2019-01-08 07:26] VITALS: BMI 18.4
--- NOTE | 2019-01-23 12:24 | STEWCON_ITS ---
Reason For Study: Chest Pain Stress Results Protocol: Yoni Protocol WITH DEFINITY Maximum Predicted HR: 179 bpm Target HR: 152 bpm % Maximum Predicted HR: 96 % DurationHeart Rate Stage (mm:ss) (bpm) BP Comment Baseline 72 106/60No Chest Pain; 2 ML Diluted Definity Given Yoni Protocol Stage I 3:00 106 120/60No Chest Pain Yoni Protocol Stage II 3:00 130 126/58No Chest Pain Yoni Protocol Stage III 3:00 150 146/50No Chest Pain; Mild Dyspnea Yoni Protocol Stage IV 3:00 171 158/54No Chest Pain; Mild Dyspnea Recovery 92 102/58No Chest Pain Stress Duration: 12:00 mm:ss Maximum Stress HR: 171 bpm METS: 1 Baseline Echocardiogram Findings The estimated ejection fraction is 65 %. Stress Echo Wall motion Data Resting WM Intermediate WM Stress WM Resting Wall Motion Wall Motion Stress No regional wall motion No regional wall motion abnormalities noted. abnormalities noted. EKG Data The baseline ECG displays normal sinus rhythm. The patient exercised according to the regular Yoni protocol for a total duration of 12:00. The maximum heart rate attained was 173 beats per minute. This was 96% of maximum predicted heart rate. The patient exercised into stage 5 of the Yoni protocol. During stress, there were no ST or T wave changes noted to suggest ischemia. No clinical angina was noted. Interpretation Summary The estimated ejection fraction is 65 %. Normal, adequate, treadmill echocardiogram. Negative for ischemia by EKG and echocardiographic criteria. No anginal symptoms noted. Rare PVCs noted. Appropriate blood pressure response to exercise. Average exercise capacity for age. Test terminated due to the attainment target heart rate. Final LVEF is 75%. Decreased sensitivity due to poor echo windows requiring Definity agent. Patient tolerated the procedure well. No complications. The study was technically difficult. Contrast injection was performed. Ordering Physician: Sameer Box Referring Physician: Jenifer Bailon Performed By: Saima Munoz, TAQUERIA, RVT
== END ==
PROVIDERS: Family Provider Internal Medicine; PCP Internal Medicine; Referring Provider Internal Medicine Cardiovascular Disease; Visit Provider Internal Medicine Cardiovascular Disease
DX: R07.9 Chest pain, unspecified (principal)
CPT/HCPCS: 93017; 93350; Q9957; A4216; C8928

== ENCOUNTER 2019-02-26 19:51 | Emergency (ER) | payer BC, SELFPAY ==
[2019-02-26 19:53] VITALS: BP 105/72; PULSE 96; RESP 16; TEMP 36.8; O2SAT 96; BMI 18.6
--- NOTE | 2019-02-26 20:23 | ED.DCSUM_ITS ---
- ER Visit Summary Date of Service: 02/26/19 Chief Complaint: Abdominal pain History of Present Illness: The patient is a 43 M presenting with abdominal pain. Patient states this started 4 to 6 weeks ago. He has had daily pain for the past 4 to 6 weeks. He has nausea with no vomiting. Denies diarrhea or constipation. Denies blood in stool. Denies fever. Denies urinary complaints. He states he has lost 13 pounds in the last 1 month. He states his doctor retired and he has been unable to get a new primary care physician. He has a family history of gastric cancer. He is a previous smoker. Physical Examination: Vitals are stable. Patient is afebrile. Alert no acute distress. HEENT exam is unremarkable. Neck is supple. Lungs are clear and equal bilaterally. Heart is regular rate and rhythm. Abdomen is soft nontender nondistended. No guarding or rebound Extremities are unremarkable. Skin is warm and dry. No focal neurologic deficit. Remainder of exam is unremarkable. Emergency Department Course and Treatment: Patient was given IV fluids, Zofran. CBC, chemistries unremarkable. Liver lipase are normal. CT abdomen pelvis shows mild small bowel ileus. No bowel obstruction. On reevaluation, patient is resting comfortably. He declined nausea medication for home. He will follow-up with Dr. Manzanares instrument and control technician for no doctor. Advised return to the ED for worsening complaints. Disposition: Discharge home Impression: Abdominal pain This note was generated with [employer] dictation software. It may contain incorrect words, spelling, and punctuation that were not noted in review of the chart prior to signing ED Disposition - Plan for ED Patient: Instructions: ABDOMINAL PAIN, Unkown Cause, (Male) Referrals: Torres Manzanares MD [STAFF PHYSICIAN] -
--- NOTE | 2019-02-26 20:23 | CT_ITS ---
STUDY: CT ABDOMEN AND PELVIS WITH CONTRAST REASON FOR EXAM: Male, 43 years old. ABD PAIN, WEIGHT LOSS of 13lb in 3 weeks. Prior hernia repair RADIATION DOSAGE (If Supplied By Facility): CTDIvol = ( 7.70 ) mGy, DLP = ( 262.25 ) mGycm TECHNIQUE: Transaxial images were obtained from the dome of the diaphragm to the symphysis pubis without oral contrast. Oral and amp; IV Gastrografin and amp; 100mL Isovue-300 was administered. Sagittal and coronal images were reconstructed. Individualized dose optimization techniques were used for this CT. COMPARISON: None. FINDINGS: The visualized lung bases are unremarkable. The visualized portions of the heart are within normal limits. Normal liver. Normal gallbladder and extrahepatic biliary system. Normal spleen. Normal pancreas. Normal bilateral adrenal glands. 3 cm nonobstructive stone in the right kidney. Normal left kidney. Normal visualized stomach. Mild ileus of the small intestine. Normal colon. The appendix is not visualized. Normal abdominal aorta. Normal inferior vena cava. Normal retroperitoneum. Moderately distended urinary bladder. Normal abdominal wall. Normal osseous structures. CT/Abdomen/Pelvis WITH Contrast IMPRESSION: Mild small bowel ileus. No bowel obstruction. Nonobstructive right renal stone. Moderately distended urinary bladder. Electronically Signed: Jaylon Pisano DO at 22:31 EST Tel [phone], Service support ,
[2019-02-26] MEDS: 0.9% Normal Saline 1,000 ML 1000 ML IV (20:35)
[2019-02-26 20:41] LABS: Absolute Lymphocyte Count 1.42 X10^3/uL (0.83-4.51); Absolute Neutrophil Count 5.1 X10^3/uL (2.0-7.7); Basophil# 0.04 X10^3/uL; Basophil% 0.6 % (0-1); Eosinophil# 0.04 X10^3/uL; Eosinophils% 0.6 % (0-5); Hematocrit 37.1 % (40-54); Hemoglobin 12.5 g/dL (13.0-16.5); Lymphocyte # 1.42 X10^3/ul (4.0); Lymphocyte % 19.6 % (19-41); Mean Corp Hgb Conc 33.7 g/dL (32-36); Mean Corpuscular Hgb 32.2 pg (27.0-32.0); Mean Corpuscular Volume 95.6 fL (80-94); Mean Platelet Vol. 9.5 fl (6.2-12.0); Monocyte# 0.59 X10^3/uL; Monocyte% 8.1 % (0-10); NRBC Flagged by Analyzer 0 % (0-5); Neutrophil # 5.14 X10^3/uL (2.7-7.7); Neutrophil % 70.8 % (47-70); Platelet Count 342 K/mm3 (150-450); RBC Distribution Width SD 41.5 fl (35.1-43.9); Red Blood Count 3.88 M/mm3 (4.6-6.2); White Blood Count 7.3 K/mm3 (4.4-11.0)
[2019-02-26 21:07] LABS: ALB/GLOB Ratio 1.1 RATIO (0.9-2.4); AST(SGOT) 16 U/L (15-37); Alanine Aminotransfer ALT/SGPT 22 U/L (16-61); Albumin, Serum 3.4 g/dL (3.2-5.0); Alkaline Phosphatase 46 U/L (45-117); Anion Gap 4 (5-15); BUN 14 mg/dL (7-18); BUN/Creat Ratio 13.5 RATIO (10-20); Calcium,Total 8.6 mg/dL (8.5-10.1); Chloride 108 mmol/L (98-107); Creatinine, Serum 1.04 mg/dL (0.70-1.30); EST Glomerular Filtration Rate 83 mL/min (>60); Est Glom Filt Rate - Afr Amer 101 mL/min (>60); Estimated Creatinine Clearance 75.56 ml/min; Glucose 102 mg/dL (74-106); Lipase 104 U/L (73-393); Potassium 3.8 mmol/L (3.5-5.1); Protein, Total 6.4 g/dL (6.4-8.2); Sodium Level 141 mmol/L (136-145)
[2019-02-26 22:36] VITALS: BP 112/73; PULSE 82; RESP 16; O2SAT 98
--- NOTE | 2019-02-26 22:56 | ED.DEP ---
ED Disposition - Plan for ED Patient: Instructions: ABDOMINAL PAIN, Unkown Cause, (Male) Referrals: Torres Manzanares MD [STAFF PHYSICIAN] -
[2019-02-26 23:10] VITALS: BP 112/73; PULSE 82; RESP 16; O2SAT 98
== END 2019-02-26 23:12 | disposition home or self-care (01) ==
LOC: ED 20:32
PROVIDERS: Emergency Provider Emergency Medicine
DX: R10.9 Unspecified abdominal pain (principal); K56.7 Ileus, unspecified; Z87.891 Personal history of nicotine dependence; Z80.0 Family history of malignant neoplasm of digestive organs
CPT/HCPCS: 74177; 80053; 83690; 85025; 96361; 96374; 99283; J7030; Q9967; A4216; J2405

== ENCOUNTER 2019-03-23 01:50 | Emergency (ER) | payer BC, SELFPAY ==
[2019-03-13 16:26] VITALS: BMI 18.6
[2019-03-23 01:51] VITALS: BP 124/74; PULSE 77; RESP 15; TEMP 36.5; O2SAT 99; BMI 19.2
--- NOTE | 2019-03-23 02:25 | ED.DCSUM_ITS ---
- ER Visit Summary Date of Service: 03/23/19 Chief Complaint: Anxiety History of Present Illness: The patient is a 43 M with anxiety symptoms of the past week. He has a history of this. Nothing seemed to bring it on or make it worse. Nothing seems to make it better. He is currently not on any medications for this. He was on Zoloft in the past, but it did not help. He has an appointment with his psychiatrist next month. He is not suicidal or homicidal. He describes his symptoms as his heart racing and restlessness. No other issues. Physical Examination: Afebrile and vital signs unremarkable. Head and neck atraumatic. Cranial nerves grossly intact. HEENT exam normal inspection. Heart regular rate and rhythm. Lungs clear. Abdomen soft. Skin normal. Extremities atraumatic. Test Results: None indicated Emergency Department Course and Treatment: Patient presents with anxiety symptoms. Nothing to suggest cardiac, respiratory, vascular, or other organic pathology. He is not suicidal or homicidal. He does not need inpatient care. He is appropriate for acute treatment with Ativan. Will prescribe Vistaril as needed for symptoms at home. He should call his mental health professional for follow-up. Return right away for new or worsening issues or any suicidal thoughts. Treatment Plan: As above Disposition: Discharge Impression: Anxiety This note was generated with [employer] dictation software. It may contain incorrect words, spelling, and punctuation that were not noted in review of the chart prior to signing ED Disposition - Plan for ED Patient: Referrals: Care Physician,No Primary [Primary Care Provider] -
--- NOTE | 2019-03-23 02:27 | ED.DEP ---
ED Disposition - Plan for ED Patient: Instructions: Anxiety Reaction Prescriptions: hydrOXYzine pamoate capsule [Vistaril pamoate capsule] 25 mg PO TID PRN PRN #10 cap PRN Reason: Anxiety Prescription Printed Additional Instructions: Follow up with your mental health professional as discussed
[2019-03-23] MEDS: LORazepam 1 MG Tablet PO (02:31)
[2019-03-23 02:33] VITALS: BP 102/65; PULSE 80; RESP 18; O2SAT 98
== END 2019-03-23 02:34 | disposition home or self-care (01) ==
LOC: ED 02:18
PROVIDERS: Emergency Provider Emergency Medicine
DX: F41.9 Anxiety disorder, unspecified (principal)
CPT/HCPCS: 99283

== ENCOUNTER 2019-03-27 22:53 | Emergency (ER) | payer BC, SELFPAY ==
[2019-03-27 22:53] VITALS: BP 118/78; PULSE 88; RESP 16; TEMP 36.8; O2SAT 100; BMI 19.4
--- NOTE | 2019-03-27 23:11 | EKG12_ITS ---
Test Reason : ABDOMINAL PAIN Blood Pressure : / mmHG Vent. Rate : 071 BPM Atrial Rate : 071 BPM P-R Int : 140 ms QRS Dur : 102 ms QT Int : 388 ms P-R-T Axes : 059 090 064 degrees QTc Int : 421 ms Normal sinus rhythm Possible Left atrial enlargement Rightward axis Incomplete right bundle branch block Borderline ECG Confirmed by DELIA RICHARD, CHERY ([id number]), editor house organ TIGIST KABA ([id number]) on 03/29/2019 8:03:41 AM Referred By: CELY Confirmed By:MAGDIEL LIN MD
--- NOTE | 2019-03-27 23:12 | ED.DCSUM_ITS ---
History of Present Illness Chief Complaint: Abd Pain Informant: Patient Narrative: Presents with abdominal pain. He stated he has some periumbilical burning for the last 10 days. Current severity is mild. He was recently seen last month with lab work and a CAT scan. CAT scan showed a very mild ileus pattern which did not fit his symptoms. He was discharged to follow-up with his family doctor. He has seen GI in the past and had upper endoscopy by Dr. Healy only 3 years ago. His lab work showed nothing acute at that time. Patient stated that he also has some occasional non-positional lightheadedness that lasts for a few moments at a time and goes away. He denies any headaches. He denies any vertigo symptoms. He has had a negative cardiac work-up in the past for chest pain that ended up being anxiety. He had a stress echocardiogram at that time. Denies any chronic cardiac conditions. No new medications. His main concern is the lightheadedness. He does not feel like he is going to pass out. - Past Medical History (1) Chest pain Status: Acute (2) URI, acute Status: Acute (3) Generalized anxiety disorder with panic attacks Status: Chronic (4) Rheumatoid arthritis Status: Chronic Past Medical History - Allergies and Home Meds Allergies/Adverse Reactions: Allergies propranolol Adverse Reaction (Intermediate, Verified 03/23/19 01:56) Nausea doxycycline Adverse Reaction (Verified 03/23/19 01:56) Nausea metoprolol Adverse Reaction (Verified 03/23/19 01:56) Nausea omeprazole [From Prilosec] Adverse Reaction (Verified 03/23/19 01:56) Upset Stomach venlafaxine [From Effexor] Adverse Reaction (Verified 03/23/19 01:56) Chest tightness Primary Care Physician: Care Physician,No Primary [Primary Care Provider] - Prior records reviewed: Yes Past Medical History: - - See problem list Surgical History: no surgical history Lives: With Family Smoking Status: Never smoker Alcohol: None Drugs: None Review of Systems General: Denies: Chills, Fever, Sweats Eyes: Denies: Visual changes - bilaterally, Diplopia ENT: Denies: Rhinorrhea, Sore throat Cardiovascular: Denies: Chest pain, Palpitations Respiratory: Denies: Dyspnea, Cough, Dyspnea on exertion Gastrointestinal: Reports: Abdominal pain. Denies: Nausea, Vomiting, Diarrhea, Melena, Hematochezia Genitourinary: Denies: Dysuria, Hematuria, Frequency Musculoskeletal: Denies: Back pain, Extremity Pain Skin: Denies: Rash, Wounds Neurological: Denies: Headache, Weakness, Numbness Physical Exam Vital Signs/Narrative: Vital Signs Temp Pulse Resp BP Pulse Ox 03/27/19 22:53 98.2 F 88 16 118/78 100 General: Well nourished, Well developed, No Acute Distress Head: Normocephalic, Atraumatic Eyes: Perrl, EOMI ENT: Moist mucous membranes, No rhinorrhea Neck: Supple, Nontender Cardiovascular: Regular rate, Regular rhythm, No murmurs Respiratory: No distress, CTA bilaterally, Chest nontender Abdomen: Soft, Nontender, Nondistended, Normal bowel sounds Back: Nontender, Normal Inspection Extremities: Nontender, No edema Skin: Normal color, No rash Neurological: Alert, Oriented x3, Cranial nerves II-XII grossly intact, Normal Strength, Normal Sensation Psychological: Normal affect, Normal Mood Diagnostic/Tx/Re-eval Laboratory Results 03/27/19 03/27/19 23:26 23:26 WBC 5.2 RBC 3.93 L Hgb 12.6 L Hct 37.8 L MCV 96.2 H MCH 32.1 H MCHC 33.3 RDW Std Deviation 44.5 H RDW Coeff of Laura 12.5 Plt Count 198 MPV 10.3 Immature Gran % (Auto) 0.200 Neut % (Auto) 63.7 Lymph % (Auto) 24.2 [place] % (Auto) 10.3 H Eos % (Auto) 0.8 Baso % (Auto) 0.8 Absolute Neuts (auto) 3.3 Absolute Lymphs (auto) 1.25 Nucleated RBC % 0 Sodium 141 Potassium 3.6 Chloride 108 H Carbon Dioxide 28.0 Anion Gap 5 BUN 12 Creatinine 0.87 Estim Creat Clear Calc 94.35 Est GFR (MDRD) Af Amer 124 Est GFR (MDRD) Non-Af 103 BUN/Creatinine Ratio 13.8 Glucose 93 Calcium 8.5 Total Bilirubin 0.30 Direct Bilirubin 0.12 AST 14 L ALT 18 Alkaline Phosphatase 47 Troponin I < 0.015 Total Protein 6.3 L Albumin 3.7 Globulin 2.6 Lipase 93 - Medical Decision Making Resting comfortably. EKG lab work obtained. EKG shows normal sinus rhythm at 71. Right axis deviation noted. Positive artifact in V1. No ischemic findings. Lab work shows nothing acute except for very mild anemia unchanged from prior. CBC otherwise unremarkable. Metabolic panel liver function test lipase and troponin negative. Orthostatics negative. At this time I feel the patient can follow-up as an outpatient. His abdominal discomfort does not appear emergent to me. I do not feel he needs a repeat CT of his head. His intermittent lightheadedness could be vasovagal or orthostatic. I feel he can follow-up as an outpatient ED Disposition - Plan for ED Patient: Disposition: Home or Assisted Living Diagnosis: Abdominal pain, Lightheadedness Instructions: Possible Causes of Dizziness or Fainting, ABDOMINAL PAIN, Unkown Cause, (Male) Referrals: Martin Castillo DO [NON CLINICAL AFFILIATE] -
[2019-03-27 23:33] LABS: Absolute Lymphocyte Count 1.25 X10^3/uL (0.83-4.51); Absolute Neutrophil Count 3.3 X10^3/uL (2.0-7.7); Basophil# 0.04 X10^3/uL; Basophil% 0.8 % (0-1); Eosinophil# 0.04 X10^3/uL; Eosinophils% 0.8 % (0-5); Hematocrit 37.8 % (40-54); Hemoglobin 12.6 g/dL (13.0-16.5); Lymphocyte # 1.25 X10^3/ul (4.0); Lymphocyte % 24.2 % (19-41); Mean Corp Hgb Conc 33.3 g/dL (32-36); Mean Corpuscular Hgb 32.1 pg (27.0-32.0); Mean Corpuscular Volume 96.2 fL (80-94); Mean Platelet Vol. 10.3 fl (6.2-12.0); Monocyte# 0.53 X10^3/uL; Monocyte% 10.3 % (0-10); NRBC Flagged by Analyzer 0 % (0-5); Neutrophil # 3.29 X10^3/uL (2.7-7.7); Neutrophil % 63.7 % (47-70); Platelet Count 198 K/mm3 (150-450); RBC Distribution Width CV 12.5 % (11.6-14.6); RBC Distribution Width SD 44.5 fl (35.1-43.9); Red Blood Count 3.93 M/mm3 (4.6-6.2); White Blood Count 5.2 K/mm3 (4.4-11.0)
[2019-03-27 23:35] VITALS: BP 108/68; BP 109/81; BP 114/80; PULSE 74; PULSE 77; PULSE 83
[2019-03-27 23:56] LABS: AST(SGOT) 14 U/L (15-37); Alanine Aminotransfer ALT/SGPT 18 U/L (16-61); Albumin, Serum 3.7 g/dL (3.2-5.0); Alkaline Phosphatase 47 U/L (45-117); Anion Gap 5 (5-15); BUN 12 mg/dL (7-18); BUN/Creat Ratio 13.8 RATIO (10-20); Bilirubin, Direct 0.12 mg/dL (0.00-0.30); Calcium,Total 8.5 mg/dL (8.5-10.1); Chloride 108 mmol/L (98-107); Creatinine, Serum 0.87 mg/dL (0.70-1.30); EST Glomerular Filtration Rate 103 mL/min (>60); Est Glom Filt Rate - Afr Amer 124 mL/min (>60); Estimated Creatinine Clearance 94.35 ml/min; Globulin 2.6 g/dL (2.2-4.2); Glucose 93 mg/dL (74-106); Lipase 93 U/L (73-393); Potassium 3.6 mmol/L (3.5-5.1); Protein, Total 6.3 g/dL (6.4-8.2); Sodium Level 141 mmol/L (136-145)
[2019-03-28 00:13] VITALS: RESP 15
== END 2019-03-28 00:13 | disposition home or self-care (01) ==
PROVIDERS: Emergency Provider Emergency Medicine
DX: R10.9 Unspecified abdominal pain (principal); R42 Dizziness and giddiness; M06.9 Rheumatoid arthritis, unspecified; F41.0 Panic disorder [episodic paroxysmal anxiety]; Z88.1 Allergy status to other antibiotic agents
CPT/HCPCS: 36415; 80048; 80076; 83690; 84484; 85025; 93005; 99283

== ENCOUNTER 2019-04-05 14:12 | Emergency (ER) | payer BC, SELFPAY ==
[2019-04-05 14:14] VITALS: BP 120/82; PULSE 84; RESP 16; TEMP 36.4; O2SAT 100; BMI 19.2
--- NOTE | 2019-04-05 14:24 | EKG12_ITS ---
Test Reason : CP Blood Pressure : / mmHG Vent. Rate : 081 BPM Atrial Rate : 081 BPM P-R Int : 136 ms QRS Dur : 086 ms QT Int : 372 ms P-R-T Axes : 072 071 070 degrees QTc Int : 432 ms Normal sinus rhythm Normal ECG Confirmed by DELIA RICHARD, CHERY ([id number]), multimedia editor LEXI GARRIDO ([id number]) on 04/08/2019 2:06:45 PM Referred By: LIVIA Confirmed By:MAGDIEL LIN MD
--- NOTE | 2019-04-05 14:24 | RAD_ITS ---
STUDY: X-RAY CHEST REASON FOR EXAM: Male, 43 years old. Chest pain. TECHNIQUE: Single AP portable view of the chest. COMPARISON: Comparison is made with prior study January 08, 2019. FINDINGS: EKG electrodes are seen. The lungs are clear and expanded. There is no demonstrated pleural abnormality. Normal size heart. Normal mediastinum and stu. Normal visualized pulmonary arteries. Normal visualized aortic arch and descending thoracic aorta. Normal visualized thoracic spine. Normal visualized ribs, clavicles, and shoulders. There is no demonstrated abnormality of the visualized soft tissue structures of the upper abdomen. RAD/Chest 1 View (Portable) IMPRESSION: Normal x-ray examination of the chest. Electronically Signed: Kurtis Samuel, at 15:00 EST , Service support ,
[2019-04-05 14:40] LABS: Absolute Lymphocyte Count 1.32 X10^3/uL (0.83-4.51); Absolute Neutrophil Count 2.1 X10^3/uL (2.0-7.7); Basophil# 0.03 X10^3/uL; Basophil% 0.8 % (0-1); Eosinophil# 0.05 X10^3/uL; Eosinophils% 1.3 % (0-5); Hematocrit 39.3 % (40-54); Hemoglobin 13.3 g/dL (13.0-16.5); Lymphocyte # 1.32 X10^3/ul (4.0); Lymphocyte % 33.2 % (19-41); Mean Corp Hgb Conc 33.8 g/dL (32-36); Mean Corpuscular Hgb 32.5 pg (27.0-32.0); Mean Corpuscular Volume 96.1 fL (80-94); Mean Platelet Vol. 10.1 fl (6.2-12.0); Monocyte% 12.6 % (0-10); NRBC Flagged by Analyzer 0 % (0-5); Neutrophil # 2.07 X10^3/uL (2.7-7.7); Neutrophil % 51.8 % (47-70); Platelet Count 234 K/mm3 (150-450); RBC Distribution Width CV 12.1 % (11.6-14.6); RBC Distribution Width SD 42.5 fl (35.1-43.9); Red Blood Count 4.09 M/mm3 (4.6-6.2)
[2019-04-05 14:43] VITALS: O2SAT 100
[2019-04-05 14:57] LABS: Anion Gap 3 (5-15); BUN 12 mg/dL (7-18); BUN/Creat Ratio 9.8 RATIO (10-20); Calcium,Total 8.9 mg/dL (8.5-10.1); Chloride 108 mmol/L (98-107); Creatinine, Serum 1.22 mg/dL (0.70-1.30); EST Glomerular Filtration Rate 69 mL/min (>60); Est Glom Filt Rate - Afr Amer 84 mL/min (>60); Estimated Creatinine Clearance 66.46 ml/min; Glucose 83 mg/dL (74-106); Potassium 4.2 mmol/L (3.5-5.1); Sodium Level 143 mmol/L (136-145)
--- NOTE | 2019-04-05 15:23 | ED.VISSUMM ---
- ER Visit Summary Date of Service: 04/05/19 Chief Complaint: Intermittent chest pain for 5 years History of Present Illness: The patient is a 43 M past medical history of rheumatoid arthritis, reflux, fibromyalgia, anxiety and migraine headaches. He states for 5 years had intermittent chest pain. Sharp stabbing on the left. Is not associated with exertion. He is never had a DVT or PE. He denies any leg pain or swelling. He denies any hemoptysis. Is not pleuritic. Currently is pain-free symptom-free. He has seen a cardiothoracic anesthesia technician for this states he had a negative stress test within the last 4 to 6 months and was told is not his heart. They think it may be anxiety related and he scheduled to follow-up with a psychologist in about 2 weeks. Physical Examination: Middle-aged male no acute distress vital signs are stable afebrile. Pulse ox 9% on room air no signs hypoxia. H EENT exam normal. Neck nontender. Lungs clear to auscultation bilaterally. Heart regular rhythm no murmur. Abdomen soft nontender nondistended normal bowel sounds no peritoneal signs. Chest wall nontender. Extremities moves all 4. Equal symmetrical radial pulses. Calves nontender without edema or cords. Neurologically is awake and alert with no focal motor deficits. Test Results: CBC normal white count of 4. Hemoglobin 13. Chemistries normal normal creatinine and gap. Troponin normal. EKG normal sinus rhythm rate 81 with no acute signs of [place] or ischemia. Chest x-ray portable 1 view read both myself and radiologist shows normal cardiac silhouette mediastinum. Normal lung prado. No acute abnormality. Emergency Department Course and Treatment: On exam the patient is symptom-free. His exam is completely normal. His labs and x-ray and EKG are normal. He will be discharged home Treatment Plan: Ativan 1 mg as needed #10 no refill. Follow-up with his psychologist. Disposition: Discharge Impression: Acute atypical chest pain Acute anxiety This note was generated with [employer] dictation software. It may contain incorrect words, spelling, and punctuation that were not noted in review of the chart prior to signing ED Disposition - Plan for ED Patient: Referrals: JEANCARLOS SINGH [Primary Care Provider] -
--- NOTE | 2019-04-05 15:25 | ED.DEP ---
ED Disposition - Plan for ED Patient: Disposition: Home or Assisted Living Instructions: CHEST PAIN, Uncertain Cause, Anxiety Reaction Prescriptions: Lorazepam [Ativan] 1 mg PO DAILY PRN PRN #10 tab PRN Reason: Anxiety Prescription Printed Referrals: JEANCARLOS SINGH [Primary Care Provider] - Additional Instructions: Follow-up with your doctor and psychologist. Ativan as needed for anxiety. Do not drive while using Ativan or drink alcohol.
[2019-04-05 15:28] VITALS: BP 115/85; PULSE 73; RESP 16; O2SAT 100
--- NOTE | 2019-04-05 15:28 | ED.RN ---
IV DC'ED, CATHETER INTACT, SMALL GAUZE DRESSING PLACED. DISCHARGE INSTRUCTIONS GIVEN TO AND REVIEWED WITH PATIENT, PATIENT DENIES QUESTIONS OR CONCERNS AND VOICES UNDERSTANDING OF DISCHARGE INSTRUCTIONS. PT AMBULATES OUT OF ROOM WITHOUT DIFFICULTY.
== END 2019-04-05 15:29 | disposition home or self-care (01) ==
PROVIDERS: Emergency Provider Emergency Medicine
DX: R07.89 Other chest pain (principal); F41.9 Anxiety disorder, unspecified; K21.9 Gastro-esophageal reflux disease without esophagitis; M06.9 Rheumatoid arthritis, unspecified; M79.7 Fibromyalgia
CPT/HCPCS: 71045; 80048; 84484; 85025; 93005; 99284; A4216

== ENCOUNTER → 2019-04-18 08:37 | Outpatient (CLI) | payer BC, SELFPAY ==
[2019-03-27 22:53] VITALS: BMI 19.4
[2019-04-12 16:35] VITALS: BMI 19.2
[2019-04-18 08:50] LABS: Absolute Lymphocyte Count 1.23 X10^3/uL (0.83-4.51); Absolute Neutrophil Count 1.3 X10^3/uL (2.0-7.7); Basophil# 0.03 X10^3/uL; Eosinophil# 0.08 X10^3/uL; Eosinophils% 2.6 % (0-5); Hematocrit 41.9 % (40-54); Lymphocyte # 1.23 X10^3/ul (4.0); Lymphocyte % 40.7 % (19-41); Mean Corp Hgb Conc 33.4 g/dL (32-36); Mean Corpuscular Volume 95.7 fL (80-94); Mean Platelet Vol. 9.8 fl (6.2-12.0); Monocyte# 0.35 X10^3/uL; Monocyte% 11.6 % (0-10); NRBC Flagged by Analyzer 0 % (0-5); Neutrophil # 1.32 X10^3/uL (2.7-7.7); Neutrophil % 43.8 % (47-70); Platelet Count 253 K/mm3 (150-450); RBC Distribution Width CV 11.8 % (11.6-14.6); RBC Distribution Width SD 41.3 fl (35.1-43.9); Red Blood Count 4.38 M/mm3 (4.6-6.2)
[2019-04-18 09:02] LABS: Anion Gap 2 (5-15); BUN 12 mg/dL (7-18); BUN/Creat Ratio 12.8 RATIO (10-20); Chloride 107 mmol/L (98-107); Creatinine, Serum 0.94 mg/dL (0.70-1.30); EST Glomerular Filtration Rate 94 mL/min (>60); Est Glom Filt Rate - Afr Amer 114 mL/min (>60); Glucose 89 mg/dL (74-106); Sodium Level 143 mmol/L (136-145)
--- NOTE | 2019-04-18 17:42 | TILTTABLE_ITS ---
- Staff Staff: Shayla Wren, - - Deepika Mathew - Summary Pre Test Resting HR: 68 - Alert and oriented: Warm and dry Pre Test Resting BP: 102/60 - Alert and oriented: Warm and dry Minimum Test HR: 81 - Alert and oriented: Warm and dry Maximum Test HR: 100 - Alert and oriented: Warm and dry Minimum Test BP: 102/66 - Alert and oriented: Warm and dry Maximum Test BP: 116/74 - Alert and oriented: Warm and dry Reason for Test Termination: Reached Maximum Test Time Physician Tilt Table Report - Patient's Physicians Primary Care Physician: JEANCARLOS SINGH Flat Ironer: Александр Landry Indications/Diagnosis: Dizziness/lightheadedness Procedure Comments: The patient was brought to the tilt table laboratory laid supine on the tilt table. The patient was alert and oriented and warm and dry. The baseline heart rate was 68 bpm with a baseline blood pressure 102/60 mmHg. The cardiac rhythm was sinus rhythm. The patient was placed in the 70 degree upright tilt table position for 30 minutes. The patient remained alert and oriented and warm and dry. The minimal heart rate was 81 bpm with a minimal blood pressure 102/66 mmHg. The maximal heart rate was 100 bpm with a concluding maximal blood pressure of 116/74 mmHg. The cardiac rhythm remained sinus rhythm with no reported cardiac dysrhythmias. The patient did not lose consciousness. The patient complained of a variety of symptoms including shortness of breath, dizziness, lightheadedness, and hands and feet feeling cool. The patient was returned to the supine position. The patient remained alert and oriented and warm and dry. The concluding heart rate was 86 bpm with a concluding blood pressure 120/51 mmHg. The cardiac rhythm remained sinus rhythm. The patient had no ongoing symptoms. The patient was subsequently released from the tilt table laboratory. Summary: 70 degree upright tilt table study with symptoms of dizziness/lightheadedness without obvious significant hemodynamic changes in heart rate or blood pressure and without obvious changes in cardiac rhythm and considered negative for producible syncope. This note was generated using a voice recognition system and there may be incorrect words, spelling or punctuation that were not noted when reviewing the office note prior to saving.
[2019-04-18 17:48] VITALS: BP 102/60; BP 102/66; BP 116/74
== END ==
DX: R42 Dizziness and giddiness (principal)
CPT/HCPCS: 36415; 80048; 85025; 93225; 93226; 93660; J7040; A4216

== ENCOUNTER → 2020-07-14 18:08 | Outpatient (CLI) | payer BC, SELFPAY ==
[2020-07-14 16:55] VITALS: BMI 19.2
== END ==
PROVIDERS: Visit Provider Physician Assistant Surgical
DX: N39.0 Urinary tract infection, site not specified (principal)
CPT/HCPCS: 87086

== ENCOUNTER 2020-08-20 12:55 | Emergency (ER) | payer BC, SELFPAY ==
[2020-07-14 16:55] VITALS: BMI 19.2
[2020-08-20 12:56] VITALS: BP 158/78; PULSE 80; RESP 16; TEMP 36.3; O2SAT 100; BMI 19.1
--- NOTE | 2020-08-20 13:10 | EKG12_ITS ---
Test Reason : CP Blood Pressure : / mmHG Vent. Rate : 078 BPM Atrial Rate : 078 BPM P-R Int : 138 ms QRS Dur : 094 ms QT Int : 394 ms P-R-T Axes : 051 088 054 degrees QTc Int : 449 ms Normal sinus rhythm Indeterminate axis Borderline ECG Confirmed by MARIELOS RICHARD, DANIELE ([id number]), purchasing expeditor LEXI GARRIDO ([id number]) on 08/24/2020 1:02:54 PM Referred By: SALIMA/JOSE ANGEL Confirmed By:DANIELE ARCEO MD
--- NOTE | 2020-08-20 13:31 | ED.VIS.CHEST ---
HPI History of Present Illness Chief Complaint: Chest Pain Narrative Narrative: 42-year-old male presenting with left back pain, right jaw pain, retrosternal burning. This started to occur when he was eating steak with peppers. He does have a history of GERD. He denies any cardiac history. He also states that it does feel like when he has an anxiety attack as well. He has no history of DVT/PE and has no risk factor. [facility] Medical History Anxiety Anxiety Chest pain Depression Difficulty balancing Fatigue Generalized anxiety disorder with panic attacks GERD (gastroesophageal reflux disease) Knee pain neck and back pain JOSE (obstructive sleep apnea) Rheumatoid arthritis Rheumatoid arthritis Severe headache Shortness of breath Home Medications sertraline 100 mg tablet 150 mg PO DAILY tab 01/01/19 [History Last Taken Unknown] hydroxyzine pamoate 25 mg PO TID PRN PRN #10 cap 03/23/19 [Rx Last Taken Unknown] pantoprazole 40 mg PO DAILY 04/05/19 [History Last Taken Unknown] divalproex [Depakote] 250 mg PO BID 08/20/20 [History Last Taken Unknown] Allergy/AdvReac Type Severity Reaction Status Date / Time propranolol AdvReac Intermediate Nausea Verified 08/20/20 13:08 doxycycline AdvReac Nausea Verified 08/20/20 13:08 metoprolol AdvReac Nausea Verified 08/20/20 13:08 omeprazole [From Prilosec] AdvReac Upset Verified 08/20/20 13:08 Stomach venlafaxine [From Effexor] AdvReac Chest Verified 08/20/20 13:08 tightness Family History Mother Hypertension Surgical History H/O hernia repair Social History Smoking Status: Former smoker Smokeless tobacco user: chewing tobacco alcohol intake: never ROS ROS ED Constitutional Constitutional ED: Denies chills, fever(s), subjective or sweats Eyes Eyes: Reports none; Denies blurry vision or change in vision Cardiovascular Cardiovascular: Reports chest pain; Denies palpitations or racing heartbeat Respiratory/Chest Respiratory/Chest: Denies cough, dyspnea or sputum Gastrointestinal Gastrointestinal: Denies abdominal pain, nausea or vomiting Genitourinary Genitourinary ED: Denies dysuria or hematuria Musculoskeletal Musculoskeletal: Denies arthralgias or myalgias Integumentary Denies abscess or rash Neurologic Neurologic: Denies headache(s) or weakness Psychiatric Psychiatric: Reports anxiety; Denies depression EXAM Physical Exam Const Vital Signs: 08/20/20 12:56 08/20/20 13:35 Temperature 97.4 F L Temperature Source Temporal Pulse Rate 80 Respiratory Rate 16 Blood Pressure 158/78 H Blood Pressure Mean 104 Pulse Ox 100 Oxygen Delivery Method Room Air Nasal Cannula Oxygen Flow Rate (L/min) 2 Positive well nourished General Appearance ED: NAD HEENT Reports moist mucous membranes normocephalic and atraumatic Eyes PERRL and EOMs intact bilaterally Resp normal respiratory effort Effort and Inspection: respiratory distress Cardio regular rate and regular rhythm Extremity normal to inspection General Extremety ED: Negative for edema or tenderness General Extremity: Negative for edema Neuro oriented x3 Sensorium / Orientation: awake and alert Psych mental status grossly normal Skin no rashes or lesions noted and no wounds Heart Score History: Slightly/Non-Suspicious ECG: Normal Age: </= 45 years Risk Factors: No Risk Factors Troponin: </= Normal Limit Score: 0 MDM MDM MDM Narrative Medical decision making narrative: Patient presenting with chest pain which she describes as mostly posterior left ribs. Patient states he has pain in the right jaw at the same time. This is resolved. He also states that he had some retrosternal burning. He does not describe any chest pressure or sharpness. Patient's vital signs are stable and he is afebrile. He is PERC negative. EKG is sinus rhythm at 78 bpm without signs of ischemic change or dysrhythmia as interpreted by myself. Chest x-ray shows no acute cardiopulmonary process as interpreted by myself and the radiologist does agree. Patient's blood work is normal. Troponin negative less than 3. This effectively rules him out for ACS. Patient again is PERC negative. Patient's Depakote level was low and he was informed of this. Patient will be discharged home in stable condition. Impression: 1. Chest pain Lab Data Attestation: I reviewed the patient's lab results. Labs: Laboratory Results - last 24 hr 08/20/20 08/20/20 08/20/20 13:32 13:32 14:00 WBC 3.8 L RBC 4.21 L Hgb 13.0 Hct 39.1 L MCV 92.9 MCH 30.9 MCHC 33.2 RDW Std Deviation 40.1 RDW Coeff of Laura 11.9 Plt Count 192 MPV 10.7 Immature Gran % (Auto) 0.300 Neut % (Auto) 53.8 Lymph % (Auto) 31.6 [place] % (Auto) 12.7 H Eos % (Auto) 1.1 Baso % (Auto) 0.5 Absolute Neuts (auto) 2.0 Absolute Lymphs (auto) 1.19 Nucleated RBC % 0 Sodium 140 Potassium 3.7 Chloride 106 Carbon Dioxide 32.0 Anion Gap 2 L BUN 14 Creatinine 0.89 Estim Creat Clear Calc 89.01 Est GFR (MDRD) Af Amer 120 Est GFR (MDRD) Non-Af 99 BUN/Creatinine Ratio 15.7 Glucose 106 Calcium 8.3 L Troponin I High Sens < 3.0 L Valproic Acid 11 L Radiography Diagnostic Testing: Radiology Impression Chest X-Ray 08/20/20 13:40 IMPRESSION: Normal x-ray examination of the chest. Electronically Signed: Kurtis Samuel MD at 13:54 EDT , Service support , Discharge Plan Triage Chief Complaint: Chest Pain ED Provider: Estiven Banerjee Dx/Rx/DC Orders Instructions: ED Chest Pain, Noncardiac Prescriptions: No Action sertraline 100 mg tablet 150 mg PO DAILY RF: 0 hydroxyzine pamoate 25 MG capsule 25 mg PO TID PRN PRN (Reason: Anxiety) Qty: 10 RF: 0 pantoprazole 40 MG tablet 40 mg PO DAILY RF: 0 divalproex [Depakote] 250 mg Tablet,Delayed Release (Dr/Ec) 250 mg PO BID RF: 0 Primary Care Provider: JEANCARLOS SINGH Referrals: JEANCARLOS SINGH [Primary Care Provider] - Disposition Disposition: Home, Self Care
--- NOTE | 2020-08-20 13:40 | RAD_ITS ---
STUDY: X-RAY CHEST REASON FOR EXAM: Male, 45 years old. Chest pain TECHNIQUE: Single AP portable view of the chest. COMPARISON: Comparison is made with prior examination dated 04/05/2019. FINDINGS: EKG electrodes are seen. Hyperinflation. The lungs are clear. There is no demonstrated pleural abnormality. Normal size heart. Normal mediastinum and stu. Normal visualized pulmonary arteries. Normal visualized aortic arch and descending thoracic aorta. Normal visualized thoracic spine. Normal visualized ribs, clavicles, and shoulders. There is no demonstrated abnormality of the visualized soft tissue structures of the upper abdomen. RAD/Chest 1 View (Portable) IMPRESSION: Normal x-ray examination of the chest. Electronically Signed: Kurtis Samuel MD at 13:54 EDT , Service support ,
[2020-08-20 13:46] LABS: Absolute Lymphocyte Count 1.19 X10^3/uL (0.83-4.51); Basophil# 0.02 X10^3/uL; Basophil% 0.5 % (0-1); Eosinophil# 0.04 X10^3/uL; Eosinophils% 1.1 % (0-5); Hematocrit 39.1 % (40-54); Lymphocyte # 1.19 X10^3/ul (0.83-4.51); Lymphocyte % 31.6 % (19-41); Mean Corp Hgb Conc 33.2 g/dL (32-36); Mean Corpuscular Hgb 30.9 pg (27.0-32.0); Mean Corpuscular Volume 92.9 fL (80-94); Mean Platelet Vol. 10.7 fl (6.2-12.0); Monocyte# 0.48 X10^3/uL; Monocyte% 12.7 % (0-10); NRBC Flagged by Analyzer 0 % (0-5); Neutrophil # 2.03 X10^3/uL (2.7-7.7); Neutrophil % 53.8 % (47-70); Platelet Count 192 K/mm3 (150-450); RBC Distribution Width CV 11.9 % (11.6-14.6); RBC Distribution Width SD 40.1 fl (35.1-43.9); Red Blood Count 4.21 M/mm3 (4.6-6.2); White Blood Count 3.8 K/mm3 (4.4-11.0)
[2020-08-20 13:57] LABS: Anion Gap 2 (5-15); BUN 14 mg/dL (7-18); BUN/Creat Ratio 15.7 RATIO (10-20); Calcium,Total 8.3 mg/dL (8.5-10.1); Chloride 106 mmol/L (98-107); Creatinine, Serum 0.89 mg/dL (0.70-1.30); EST Glomerular Filtration Rate 99 mL/min (>60); Est Glom Filt Rate - Afr Amer 120 mL/min (>60); Estimated Creatinine Clearance 89.01 ml/min; Glucose 106 mg/dL (74-106); Potassium 3.7 mmol/L (3.5-5.1); Sodium Level 140 mmol/L (136-145); Troponin-I HS < 3.0 pg/mL (3.0-78.5)
[2020-08-20 14:32] LABS: Valproic Acid (Depakene) Level 11 ug/mL (50-100)
== END 2020-08-20 14:47 | disposition home or self-care (01) ==
PROVIDERS: Emergency Provider Student in an Organized Health Care Education/Training Program
DX: R07.9 Chest pain, unspecified (principal); K21.9 Gastro-esophageal reflux disease without esophagitis; M54.9 Dorsalgia, unspecified; R68.84 Jaw pain; Z87.891 Personal history of nicotine dependence; Z79.899 Other long term (current) drug therapy
CPT/HCPCS: 71045; 80048; 80164; 84484; 85025; 93005; 99283; A4216

== ENCOUNTER → 2020-11-02 10:55 | Outpatient (CLI) | payer BC, SELFPAY ==
[2020-11-02 12:09] LABS: Absolute Lymphocyte Count 1.24 X10^3/uL (0.83-4.51); Absolute Neutrophil Count 1.9 X10^3/uL (2.0-7.7); Basophil# 0.02 X10^3/uL; Basophil% 0.6 % (0-1); Eosinophil# 0.06 X10^3/uL; Eosinophils% 1.7 % (0-5); Hematocrit 41.2 % (40-54); Hemoglobin 13.8 g/dL (13.0-16.5); Lymphocyte # 1.24 X10^3/ul (0.83-4.51); Lymphocyte % 34.4 % (19-41); Mean Corp Hgb Conc 33.5 g/dL (32-36); Mean Corpuscular Hgb 32.1 pg (27.0-32.0); Mean Corpuscular Volume 95.8 fL (80-94); Mean Platelet Vol. 10.9 fl (6.2-12.0); Monocyte# 0.38 X10^3/uL; Monocyte% 10.6 % (0-10); NRBC Flagged by Analyzer 0 % (0-5); Neutrophil # 1.89 X10^3/uL (2.7-7.7); Neutrophil % 52.4 % (47-70); Platelet Count 226 K/mm3 (150-450); RBC Distribution Width CV 12.4 % (11.6-14.6); RBC Distribution Width SD 43.8 fl (35.1-43.9); White Blood Count 3.6 K/mm3 (4.4-11.0)
[2020-11-02 12:33] LABS: ALB/GLOB Ratio 1.3 RATIO (0.9-2.4); AST(SGOT) 16 U/L (15-37); Alanine Aminotransfer ALT/SGPT 19 U/L (16-61); Albumin, Serum 3.7 g/dL (3.2-5.0); Alkaline Phosphatase 37 U/L (45-117); Anion Gap 6 (5-15); BUN 20 mg/dL (7-18); BUN/Creat Ratio 18.3 RATIO (10-20); Calcium,Total 8.9 mg/dL (8.5-10.1); Chloride 104 mmol/L (98-107); Creatinine, Serum 1.09 mg/dL (0.70-1.30); EST Glomerular Filtration Rate 78 mL/min (>60); Est Glom Filt Rate - Afr Amer 95 mL/min (>60); Globulin 2.9 g/dL (2.2-4.2); Glucose 82 mg/dL (74-106); Potassium 4.4 mmol/L (3.5-5.1); Protein, Total 6.6 g/dL (6.4-8.2); Sodium Level 140 mmol/L (136-145)
== END ==
DX: G43.711 Chronic migraine without aura, intractable, with status migrainosus (principal)
CPT/HCPCS: 36415; 80053; 85025

== ENCOUNTER 2021-01-21 16:30 | Outpatient (RCR) | payer BC, SELFPAY ==
--- NOTE | 2020-12-31 15:29 | HP.PTEVAL_ITS ---
Patient's Visit Information LOU RICHARDS is a 45 year old M referred to Physical Therapy by taylor sal with a diagnosis of CERVICALGIA. Date of Evaluation: 12/31/20 Physical Therapist: Nathaniel Bailey, PT, Cert MDT, OCS - Visit Plan Frequency: 2x /Week Duration: 4 Weeks Plan: PT INTERVETIONS NAKITA EX'S ,CERVICAL /POSTURAL EX'S,AND US/ICTX ,POSTURE TRAINING - Subjective This 45 y/o male presents to physical therapy with neck pain . Patient has had cervical pain ~ 4 months just insidious onset no mechanism injury. Seen recommended PT. Patient has h/o migraines many years with prescribed by Neurologist. Pain located right > left side cervical . Aggravating factors sleeping, lifting at work, sitting extended and sleeping. Patient does have occasional paresthesia right arm/hand. Alleviating factors none. Denies dizziness/tinnitus. Patient has seen chiropractor. Patient has had CTSCAN should some DDD. Patient pain affects QOL and function and job demands. SOCIAL: single. VOCATION: [employer] - Pain Bilateral Neck Pain Intensity (Out of 10): 5 Pain Intensity Range: 10 Comment: > right side - Objective POSTURE: mild forward head. PALAPTION: tender UT/levator. NEURO: occasional paresthesia right arm. PALAPTION: unremarkable. CERVICAL ROM: flexion min loss pain, lateral flexion WFL ,rotation mod loss, extension mod loss , pain right retraction min loss. MMT: grossly 4/5. 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 - Special Tests C/S Radiculapathy - Left Upper limb tension test: Negative C/S Radiculapathy - Right Upper limb tension test: Negative C/S Radiculapathy - Left Spurlings: Positive C/S Radiculapathy - Right Spurlings: Positive C/S Radiculapathy - Left Cervical distraction: Negative C/S Radiculapathy - Right Cervical distraction: Negative C/S Radiculapathy - Left Relief test: Negative Sharp Dhaval: Negative Vertebral Artery Test: Negative Alar Ligament Test: Negative Cervical Sitting: Protrusion - Mechanical Response: No effect Cervical Sitting: Protrusion - Symptoms During Testing: No effect Cervical Sitting: Protrusion - Symptoms After Testing: No effect Cervical Sitting: Retraction - Mechanical Response: No effect Cervical Sitting: Retraction - Symptoms During Testing: Decreases Cervical Sitting: Retraction - Symptoms After Testing: No better Cervical Sitting: Retraction-Extension - Mechanical Response: No effect Cerv Sitting: Retraction-Extension - Symptoms During Testing: Increases Cerv Sitting: Retraction-Extension - Symptoms After Testing: No better Cervical Sitting: Sidebend Right - Mechanical Response: No effect Cervical Sitting: Sidebend Right - Symptoms During Testing: No effect Cervical Sitting: Sidebend Right - Symptoms After Testing: No effect Cervical Sitting: Sidebend Left - Mechanical Response: No effect Cervical Sitting: Sidebend Left - Symptoms During Testing: No effect Cervical Sitting: Sidebend Left - Symptoms After Testing: No effect Cervical Sitting: Rotation Right - Mechanical Response: No effect Cervical Sitting: Rotation Right - Symptoms During Testing: Increases Cervical Sitting: Rotation Right - Symptoms After Testing: No worse Cervical Sitting: Rotation Left - Mechanical Response: No effect Cervical Sitting: Rotation Left - Symptoms During Testing: No effect Cervical Sitting: Rotation Left - Symptoms After Testing: No effect Cervical Sitting: Flexion - Mechanical Response: No effect Cervical Sitting: Flexion - Symptoms During Testing: No effect Cervical Sitting: Flexion - Symptoms After Testing: No effect - Balance/Special Test Scores Oswestry Neck Score: 27 - Goals Goal 1:: I with HEP FOR CERVICAL SPINE Goal Time Frame: 4-6 Weeks Goal 2:: Patient to improve posture for ADL'S Goal Time Frame: 4-6 Weeks Goal 3:: Patient to demonstrate 50% improvement with decrease cervical pain to improve function. Goal Time Frame: 4-6 Weeks Goal 4:: Patient to improve cervical ROM for function of recovery. Goal Time Frame: 4-6 Weeks Goal 5:: Patient to improve neck owestry score by 5 points to improve QOL and function Goal Time Frame: 4-6 Weeks - Rehabilitation Potential Physical Therapy Diagnosis: This patient has possible derangement vs lateral stenosis with pain right scapula and arm with decrease ROM ,pain with position and motion testing thus benefit from skilled PT Rehabilitation Potential: Good - Anticipated Interventions Patient/Client Instruction: Educate patient on: Condition, Plan of Care For the Purpose of:: To decrease pain, To increase ROM, To improve muscle performance and motor function, To improve ability to perform ADL's, To increase tolerance to activity/condition/position, To improve ability of physical actions for home/community/work/leisure, To improve health of tissue, To decrease soft tissue restriction, To increase flexibility/ROM Therapeutic Exercise to Include: Strength training, Postural training, Flexibilty training, Active ROM, Nakita Exercises For the Purpose of:: To decrease pain, To increase ROM, To improve muscle per formance and motor function, To improve ability to perform ADL's, To increase tolerance to activity/condition/position, To improve ability of physical actions for home/community/work/leisure, To improve health of tissue, To decrease soft tissue restriction, To increase flexibility/ROM, To reduce risk of recurrence, To prevent re-injury TENS: Yes IF ES: Yes Cryotherapy (ice pack, ice massage): Yes Thermo therapy (hot pack): Yes Ultrasound (thermal/non thermal): Yes For the Purpose of:: To decrease pain, To increase ROM, To improve nutrient delivery to tissue, To increase oxygenation perfusion, To improve health of tissue, To decrease soft tissue restriction Thank you for the opportunity to evaluate your patient. For Medicare and Medicare HMO plans, please review the plan of care and approve it. It will need to be FAXED BACK to us at [phone] for Medicare purposes. For Medicare only, by signing this I certify the plan of care. Please let me know if there are questions or concerns regarding this plan of care. Physician Signature: Date:
--- NOTE | 2020-12-31 17:18 | HP.PTEVAL ---
Patient's Visit Information LOU RICHARDS is a 45 year old M referred to Physical Therapy by taylor sal with a diagnosis of CERVICALGIA. Date of Evaluation: 12/31/20 Physical Therapist: Nathaniel Bailey, PT, Cert MDT, OCS - Visit Plan Frequency: 3x /Week Duration: 4 Weeks Plan: PT INTERVETIONS NAKITA EX'S ,CERVICAL /POSTURAL EX'S,AND US/ICTX ,POSTURE TRAINING - Subjective This 45 y/o male presents to physical therapy with neck pain . Patient has had cervical pain ~ 4 months just insidious onset no mechanism injury. Seen recommended PT. Patient has h/o migraines many years with prescribed by Neurologist. Pain located right > left side cervical . Aggravating factors sleeping, lifting at work, sitting extended and sleeping. Patient does have occasional paresthesia right arm/hand. Alleviating factors none. Denies dizziness/tinnitus. Patient has seen chiropractor. Patient has had CTSCAN should some DDD. Patient pain affects QOL and function and job demands. SOCIAL: single. VOCATION: [employer] - Pain Bilateral Neck Pain Intensity (Out of 10): 5 Pain Intensity Range: 10 Comment: > right side - Objective POSTURE: mild forward head. PALAPTION: tender UT/levator. NEURO: occasional paresthesia right arm. PALAPTION: unremarkable. CERVICAL ROM: flexion min loss pain, lateral flexion WFL ,rotation mod loss, extension mod loss , pain right retraction min loss. MMT: grossly 4/5. 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 - Special Tests C/S Radiculapathy - Left Upper limb tension test: Negative C/S Radiculapathy - Right Upper limb tension test: Negative C/S Radiculapathy - Left Spurlings: Positive C/S Radiculapathy - Right Spurlings: Positive C/S Radiculapathy - Left Cervical distraction: Negative C/S Radiculapathy - Right Cervical distraction: Negative C/S Radiculapathy - Left Relief test: Negative Sharp Dhaval: Negative Vertebral Artery Test: Negative Alar Ligament Test: Negative Cervical Sitting: Protrusion - Mechanical Response: No effect Cervical Sitting: Protrusion - Symptoms During Testing: No effect Cervical Sitting: Protrusion - Symptoms After Testing: No effect Cervical Sitting: Retraction - Mechanical Response: No effect Cervical Sitting: Retraction - Symptoms During Testing: Decreases Cervical Sitting: Retraction - Symptoms After Testing: No better Cervical Sitting: Retraction-Extension - Mechanical Response: No effect Cerv Sitting: Retraction-Extension - Symptoms During Testing: Increases Cerv Sitting: Retraction-Extension - Symptoms After Testing: No better Cervical Sitting: Sidebend Right - Mechanical Response: No effect Cervical Sitting: Sidebend Right - Symptoms During Testing: No effect Cervical Sitting: Sidebend Right - Symptoms After Testing: No effect Cervical Sitting: Sidebend Left - Mechanical Response: No effect Cervical Sitting: Sidebend Left - Symptoms During Testing: No effect Cervical Sitting: Sidebend Left - Symptoms After Testing: No effect Cervical Sitting: Rotation Right - Mechanical Response: No effect Cervical Sitting: Rotation Right - Symptoms During Testing: Increases Cervical Sitting: Rotation Right - Symptoms After Testing: No worse Cervical Sitting: Rotation Left - Mechanical Response: No effect Cervical Sitting: Rotation Left - Symptoms During Testing: No effect Cervical Sitting: Rotation Left - Symptoms After Testing: No effect Cervical Sitting: Flexion - Mechanical Response: No effect Cervical Sitting: Flexion - Symptoms During Testing: No effect Cervical Sitting: Flexion - Symptoms After Testing: No effect - Balance/Special Test Scores Oswestry Neck Score: 27 - Goals Goal 1:: I with HEP FOR CERVICAL SPINE Goal Time Frame: 4-6 Weeks Goal 2:: Patient to improve posture for ADL'S Goal Time Frame: 4-6 Weeks Goal 3:: Patient to demonstrate 50% improvement with decrease cervical pain to improve function. Goal Time Frame: 4-6 Weeks Goal 4:: Patient to improve cervical ROM for function of recovery. Goal Time Frame: 4-6 Weeks Goal 5:: Patient to improve neck owestry score by 5 points to improve QOL and function Goal Time Frame: 4-6 Weeks - Rehabilitation Potential Physical Therapy Diagnosis: This patient has possible derangement vs lateral stenosis with pain right scapula and arm with decrease ROM ,pain with position and motion testing thus benefit from skilled PT Rehabilitation Potential: Good - Anticipated Interventions Patient/Client Instruction: Educate patient on: Condition, Plan of Care For the Purpose of:: To decrease pain, To increase ROM, To improve muscle performance and motor function, To improve ability to perform ADL's, To increase tolerance to activity/condition/position, To improve ability of physical actions for home/community/work/leisure, To improve health of tissue, To decrease soft tissue restriction, To increase flexibility/ROM Therapeutic Exercise to Include: Strength training, Postural training, Flexibilty training, Active ROM, Nakita Exercises For the Purpose of:: To decrease pain, To increase ROM, To improve muscle performance and motor function, To improve ability to perform ADL's, To increase tolerance to activity/condition/position, To improve ability of physical actions for home/community/work/leisure, To improve health of tissue, To decrease soft tissue restriction, To increase flexibility/ROM, To reduce risk of recurrence, To prevent re-injury TENS: Yes IF ES: Yes Cryotherapy (ice pack, ice massage): Yes Thermo therapy (hot pack): Yes Ultrasound (thermal/non thermal): Yes For the Purpose of:: To decrease pain, To increase ROM, To improve nutrient delivery to tissue, To increase oxygenation perfusion, To improve health of tissue, To decrease soft tissue restriction Thank you for the opportunity to evaluate your patient. For Medicare and Medicare HMO plans, please review the plan of care and approve it. It will need to be FAXED BACK to us at [phone] for Medicare purposes. For Medicare only, by signing this I certify the plan of care. Please let me know if there are questions or concerns regarding this plan of care. Physician Signature: Date:
--- NOTE | 2021-03-02 12:55 | HP.PT.NRP ---
LOU RICHARDS was seen in my office for initial evaluation on 12/31/20. The following Plan of Care was established for this patient: Initial Frequency: 3x /Week Initial Duration: 4 Weeks Patient/Client Instruction: Educate patient on: Condition, Plan of Care For the Purpose of:: To decrease pain, To increase ROM, To improve muscle performance and motor function, To improve ability to perform ADL's, To increase tolerance to activity/condition/position, To improve ability of physical actions for home/community/work/leisure, To improve health of tissue, To decrease soft tissue restriction, To increase flexibility/ROM Therapeutic Exercise to Include: Strength training, Postural training, Flexibilty training, Active ROM, Julienne Exercises For the Purpose of:: To decrease pain, To increase ROM, To improve muscle performance and motor function, To improve ability to perform ADL's, To increase tolerance to activity/condition/position, To improve ability of physical actions for home/community/work/leisure, To improve health of tissue, To decrease soft tissue restriction, To increase flexibility/ROM, To reduce risk of recurrence, To prevent re-injury TENS: Yes IF ES: Yes Cryotherapy (ice pack, ice massage): Yes Thermo therapy (hot pack): Yes Ultrasound (thermal/non thermal): Yes For the Purpose of:: To decrease pain, To increase ROM, To improve nutrient delivery to tissue, To increase oxygenation perfusion, To improve health of tissue, To decrease soft tissue restriction This patient was last seen in our office . Pertinent comments regarding their Physical therapy will appear below: Patient was seen for PT for cervical pain focusing on postural ex's ,ICTX ,US doing better thus is d/c At this point I will be discontinuing this patient from physical therapy. I would be happy to see this patient again in the future if found appropriate by the physician. Thank you! Nathaniel Bailey, PT, Cert MDT, OCS Balance/Gait/Functional tests - Balance/Special Test Scores Oswestry Neck Score: 3
== END 2021-01-21 19:00 | disposition home or self-care (01) ==
LOC: PT 16:30
PROVIDERS: Visit Provider Physician Assistant
DX: M54.2 Cervicalgia (principal)
CPT/HCPCS: 97012; 97035; 97162

== ENCOUNTER 2021-05-26 13:30 | Outpatient (RCR) | payer BC, SELFPAY ==
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
--- NOTE | 2021-05-26 13:52 | HP.PTDCSUM ---
It has been my pleasure to treat LOU RICHARDS referred by Dr. Janie Valentin MD, with the diagnosis of NECK PAIN for a total of 7 visit(s). Discharge Date: Please see the following information for a summary of their discharge status. Subjective: PATIENT REPORTS THERAPY HAS HELPED A LITTLE BIT BUT HE IS STILL HAVING ALL THE SAME SX'S. JUST GOT OFF WORK BEFORE PT TODAY. NECK Pain Intensity (Out of 10): 3 L SHLD Pain Intensity (Out of 10): 2 R SHLD Pain Intensity (Out of 10): 0 HEADACHE Pain Intensity (Out of 10): 2 UPPER BACK Pain Intensity (Out of 10): 4 LOW BACK Pain Intensity (Out of 10): 2 % Improvement: 30 Objective/Function: PATIENT WAS SEEN TODAY FOR RE-ASSESSMENT OF PROGRESS TOWARD THE SET PT GOALS AND THE NEED FOR FURTHER PHYSICAL THERAPY VS READINESS FOR DISCHARGE. INSTRUCTED IN AND ADDED BTB LAE'S TO HEP. PATIENT HAS MADE MINIMAL PROGRESS TOWARD ALL SET PT GOALS AND IS APPROPRIATE FOR PHYSICIAN RE-ASSESSMENT AT THIS TIME. HE IS INDEP WITH A HEP AND DEMO'S INCREASED CERVICAL ROM TODAY COMPARED TO INITIAL EVAL. PATIENT IS AGREEABLE TO PHYSICIAN RE-CHECK. UPON EXAM TODAY: Cervical Mvmt Loss: Flex: NIL. Pro: NIL. Ext: MOD +. Ret: MOD +. RSB: MIN +. LSB: MIN +. R Rot: MIN +. L Rot: NIL +. (+ = PAIN WITH TESTING) Goal 1:: DECREASE C/O NECK AND JESICA UE SX'S. Goal Progress: Progressing Goal 2:: IMPROVE PERSONAL CARE, LIFTING, READING, SLEEP, WORK, DRIVING AND RECREATIONAL FUNCTION Goal Progress: Progressing Goal 3:: INSTRUCT IN PROPHYLAXIS Goal Progress: Progressing Plan: D/C. PHYSICIAN RE-ASSESSMENT RECOMMENDED AND PATIENT AGREEABLE. If there are questions or concerns regarding this patient's physical therapy, please feel free to call me at [phone]. Thank you for the referral of this patient. Sincerely, Shannon Meehan, PT, Cert MDT Balance/Gait/Functional tests - Balance/Special Test Scores Oswestry Neck Score: 20
== END 2021-05-26 14:26 | disposition home or self-care (01) ==
LOC: PT 13:30
PROVIDERS: PCP Student in an Organized Health Care Education/Training Program; Referring Provider Student in an Organized Health Care Education/Training Program; Visit Provider Student in an Organized Health Care Education/Training Program
DX: M54.2 Cervicalgia (principal); Z72.0 Tobacco use
CPT/HCPCS: 97035; 97110; 97112; 97162; 97164; 97530

== ENCOUNTER 2022-01-18 11:29 | Emergency (ER) | payer BC, MEDICAID, SELFPAY ==
[2022-01-18 11:30] VITALS: BP 118/75; PULSE 77; RESP 16; TEMP 35.9; O2SAT 100; BMI 18.8
--- NOTE | 2022-01-18 12:30 | EKG12_ITS ---
Test Reason : DIZZY Blood Pressure : / mmHG Vent. Rate : 068 BPM Atrial Rate : 068 BPM P-R Int : 138 ms QRS Dur : 094 ms QT Int : 396 ms P-R-T Axes : 050 019 070 degrees QTc Int : 421 ms Normal sinus rhythm Normal ECG Confirmed by ZHANNA RICHARD, KEI ([id number]), video effects editor LEXI GARRIDO ([id number]) on 01/20/2022 9:35:17 AM Referred By: Confirmed By:KEI CHAO MD
--- NOTE | 2022-01-18 12:30 | CT_ITS ---
STUDY: CT BRAIN WITHOUT CONTRAST REASON FOR EXAM: Male, 46 years old. Headache x2 weeks, dizziness RADIATION DOSAGE (If Supplied By Facility): CTDIvol = ( 47.06 ) mGy, DLP = ( 925.62 ) mGycm TECHNIQUE: Transaxial CT imaging of the brain was performed without administration of intravenous contrast material. Individualized dose optimization techniques were used for this CT. COMPARISON: Comparison is made with prior study dated 06/12/2018. FINDINGS: Normal soft tissue structures. Normal calvarium. Normal size ventricles and extra-axial spaces for the patient''s age. Normal white matter tracts of the cerebral hemispheres. Normal basal ganglia and thalami. Normal brainstem. Normal cerebellum. There is no intracranial hemorrhage. There are no findings of an acute ischemic infarction. Normal visualized paranasal sinuses. CT/Brain/Head without Contrast IMPRESSION: Normal unenhanced CT scan of the brain. Electronically Signed: Kurtis Samuel MD at 13:23 EST ,
--- NOTE | 2022-01-18 12:36 | EDS_ITS ---
HPI <MARIN Chandler - Last Filed: 01/18/22 18:49> History of Present Illness Chief Complaint: Dizziness Narrative Narrative: Patient presents today with feelings of being off balance and a headache that he has had since the day before . He states the headache is frontal and feels like a constant pressure. He did have a URI around 1 week ago and states he still has some residual nasal congestion. However, he states that these symptoms began before the URI. Patient does have a history of migraines but feels that this headache is different than his usual headaches. Patient has not noticed anything that makes the head pain better or worse. Patient denies fever, weakness, chest pain, visual changes, abdominal pain, nausea, and vomiting. PFS <MARIN Chandler - Last Filed: 01/18/22 18:49> [facility] Medical History Anxiety Anxiety Chest pain Depression Difficulty balancing Fatigue Generalized anxiety disorder with panic attacks GERD (gastroesophageal reflux disease) Knee pain neck and back pain JOSE (obstructive sleep apnea) Rheumatoid arthritis Rheumatoid arthritis Severe headache Shortness of breath Home Medications sertraline 100 mg tablet 150 mg PO DAILY 01/01/19 [History Last Taken Unknown] hydroxyzine pamoate 25 mg capsule 25 mg PO TID PRN PRN Anxiety #10 caps 03/23/19 [Rx Last Taken Unknown] pantoprazole 40 mg tablet,delayed release 40 mg PO DAILY 04/05/19 [History Last Taken Unknown] divalproex 250 mg tablet,delayed release (Depakote) 250 mg PO BID 08/20/20 [History Last Taken Unknown] clotrimazole 1 % topical cream 1 applic topical BID 2 weeks #15 grams 12/10/20 [Rx Last Taken Unknown] fluticasone propionate 50 mcg/actuation nasal spray,suspension (24 Hour Allergy Relief) 2 spray intranasal DAILY #16 grams 01/18/22 [Rx Last Taken Unknown] phenylephrine HCl 10 mg tablet 10 mg PO Q6H 7 days #28 tabs 01/18/22 [Rx Last Taken Unknown] Allergy/AdvReac Type Severity Reaction Status Date / Time propranolol AdvReac Intermediate Nausea Verified 01/18/22 11:30 doxycycline AdvReac Nausea Verified 01/18/22 11:30 metoprolol AdvReac Nausea Verified 01/18/22 11:30 omeprazole [From Prilosec] AdvReac Upset Verified 01/18/22 11:30 Stomach venlafaxine [From Effexor] AdvReac Chest Verified 01/18/22 11:30 tightness Family History Mother Hypertension Surgical History H/O hernia repair Social History Smoking Status: Former smoker Smokeless tobacco user: chewing tobacco alcohol intake: never ROS <MARIN Chandler - Last Filed: 01/18/22 18:49> ROS ED Constitutional Constitutional ED: Denies chills, fever(s) or sweats Eyes Eyes: Denies blurry vision, change in vision or diplopia ENT ENT ED: Reports nasal congestion; Denies rhinorrhea or sore throat Cardiovascular Cardiovascular: Denies chest pain, palpitations or racing heartbeat Respiratory/Chest Respiratory/Chest: Denies cough, dyspnea, shortness of breath at rest or shortness of breath with exertion Gastrointestinal Gastrointestinal: Denies abdominal pain, diarrhea, nausea or vomiting Genitourinary Genitourinary ED: Denies dysuria, hematuria or urinary frequency Musculoskeletal Musculoskeletal: Denies back pain, myalgias or neck pain Integumentary Denies abscess, Abrasions or rash Neurologic Neurologic: Reports headache(s); Denies paresthesias or weakness Psychiatric Psychiatric: Reports anxiety; Denies depression EXAM <MARIN Chandler - Last Filed: 01/18/22 18:49> Physical Exam Const Vital Signs: 01/18/22 11:30 01/18/22 11:47 01/18/22 13:34 Temperature 96.6 F L Temperature Source Temporal Pulse Rate 77 64 Pulse Rate [Lying] Pulse Rate [Sitting (for 1 minute prior to obtaining)] Pulse Rate [Standing (for 1 minute prior to obtaining)] Respiratory Rate 16 16 Respiratory Effort Normal Non-Labored Blood Pressure 118/75 117/69 Blood Pressure [Lying] Blood Pressure [Standing (for 1 minute prior to obtaining)] Blood Pressure Mean 89 85 Blood Pressure Mean [Lying] Blood Pressure Mean [Standing (for 1 minute prior to obtaining)] Pulse Ox 100 100 Oxygen Delivery Method Room Air Room Air 01/18/22 13:40 Temperature Temperature Source Pulse Rate Pulse Rate [Lying] 61 Pulse Rate [Sitting (for 1 minute prior to obtaining)] 68 Pulse Rate [Standing (for 1 minute prior to obtaining)] 70 Respiratory Rate Respiratory Effort Blood Pressure Blood Pressure [Lying] 114/69 Blood Pressure [Standing (for 1 minute prior to obtaining)] 115/83 H Blood Pressure Mean Blood Pressure Mean [Lying] 84 Blood Pressure Mean [Standing (for 1 minute prior to obtaining)] 93 Pulse Ox Oxygen Delivery Method No orthostatic hypotension. Positive well nourished and well developed General Appearance ED: well developed and NAD HEENT Reports TM's clear and moist mucous membranes Negative for trauma or tenderness Tympanic Membrane ED: Yes TM's clear Eyes PERRL and EOMs intact bilaterally Neck no lymphadenopathy and supple Chest Wall inspection of chest normal Resp normal respiratory effort and clear to auscultation bilaterally Cardio regular rate, regular rhythm and no murmurs GI non-tender, non-distended and no masses Palpation: soft Back/Spine Cervical Spine: Negative for cervical spine tenderness Thoracic Spine / Upper Back: Negative for thoracic spinal tenderness Lumbar Spine / Lower Back: Negative for lumbar spinal tenderness Extremity normal to inspection General Extremety ED: Negative for edema or tenderness General Extremity: Negative for edema Neuro oriented x3, CN's II-XII intact bilaterally and no sensory deficits noted Sensorium / Orientation: alert Motor Exam: strength 5/5 throughout Psych mental status grossly normal Skin no rashes or lesions noted, no wounds and skin turgor normal General Skin Exam: elasticity normal <Dr. Freida Rueda, DO - Last Filed: 01/18/22 23:56> Physical Exam Const Vital Signs: 01/18/22 11:30 01/18/22 11:47 01/18/22 13:34 Temperature 96.6 F L Temperature Source Temporal Pulse Rate 77 64 Pulse Rate [Lying] Pulse Rate [Sitting (for 1 minute prior to obtaining)] Pulse Rate [Standing (for 1 minute prior to obtaining)] Respiratory Rate 16 16 Respiratory Effort Normal Non-Labored Blood Pressure 118/75 117/69 Blood Pressure [Lying] Blood Pressure [Standing (for 1 minute prior to obtaining)] Blood Pressure Mean 89 85 Blood Pressure Mean [Lying] Blood Pressure Mean [Standing (for 1 minute prior to obtaining)] Pulse Ox 100 100 Oxygen Delivery Method Room Air Room Air 01/18/22 13:40 Temperature Temperature Source Pulse Rate Pulse Rate [Lying] 61 Pulse Rate [Sitting (for 1 minute prior to obtaining)] 68 Pulse Rate [Standing (for 1 minute prior to obtaining)] 70 Respiratory Rate Respiratory Effort Blood Pressure Blood Pressure [Lying] 114/69 Blood Pressure [Standing (for 1 minute prior to obtaining)] 115/83 H Blood Pressure Mean Blood Pressure Mean [Lying] 84 Blood Pressure Mean [Standing (for 1 minute prior to obtaining)] 93 Pulse Ox Oxygen Delivery Method [facility] <MARIN Chandler - Last Filed: 01/18/22 18:49> [facility] Narrative Medical decision making narrative: Patient has been given IV fluids and Tylenol for his head pain. CT of the head was obtained and shows some left maxillary sinus opacification but is otherwise normal. Orthostatics are normal. EKG was normal sinus rhythm. Patient's vital signs are within normal limits and have remained stable. Upon reexamination patient states he still has some frontal head pain and admits that he has had a lot of nasal congestion over the past few weeks. He has not had any fevers. His symptoms are consistent with sinusitis which can also cause disequilibrium. He has been given a prescription for Flonase and a decongestant. He has been given return instructions. Patient is comfortable with plan and I am comfortable with patient discharging home. Lab Data Attestation: I reviewed the patient's lab results. Lab results narrative: WBC 3.4, glucose 146, calcium 8.4. Labs: Laboratory Results - last 24 hr 01/18/22 01/18/22 11:45 11:45 WBC 3.4 L RBC 4.73 Hgb 14.8 Hct 43.9 MCV 92.8 MCH 31.3 MCHC 33.7 RDW Std Deviation 41.4 RDW Coeff of Laura 12.0 Plt Count 197 MPV 10.7 Immature Gran % (Auto) 0.000 Neut % (Auto) 55.7 Lymph % (Auto) 35.2 Ellis % (Auto) 7.6 Eos % (Auto) 0.9 Baso % (Auto) 0.6 Absolute Neuts (auto) 1.9 L Absolute Lymphs (auto) 1.20 Nucleated RBC % 0 Sodium 139 Potassium 3.8 Chloride 106 Carbon Dioxide 27.0 Anion Gap 6 BUN 16 Creatinine 0.91 Estim Creat Clear Calc 84.80 Est GFR (MDRD) Af Amer 117 Est GFR (MDRD) Non-Af 96 BUN/Creatinine Ratio 17.6 Glucose 146 H Calcium 8.4 L Radiography Diagnostic Testing: Clinical Impression(s) from Imaging Studies Brain CT 01/18/22 12:30 IMPRESSION: Normal unenhanced CT scan of the brain. Electronically Signed: Kurtis Samuel MD at 13:23 EST , This has also been reviewed by attending ED physician who visualized left maxillary sinus opacification consistent with sinusitis. EKG Initial EKG: Attestation: I personally reviewed and interpreted this EKG as follows: Interpretation: Sinus Rhythm Comments: 68 bpm. Normal sinus rhythm, no ST elevation, no signs of cardiac ischemia. This has also been reviewed by attending ED physician. <Dr. Freida Rudea, DO - Last Filed: 01/18/22 23:56> [facility] Lab Data Labs: Laboratory Results - last 24 hr 01/18/22 01/18/22 11:45 11:45 WBC 3.4 L RBC 4.73 Hgb 14.8 Hct 43.9 MCV 92.8 MCH 31.3 MCHC 33.7 RDW Std Deviation 41.4 RDW Coeff of [place]ua 12.0 Plt Count 197 MPV 10.7 Immature Gran % (Auto) 0.000 Neut % (Auto) 55.7 Lymph % (Auto) 35.2 Ellis % (Auto) 7.6 Eos % (Auto) 0.9 Baso % (Auto) 0.6 Absolute Neuts (auto) 1.9 L Absolute Lymphs (auto) 1.20 Nucleated RBC % 0 Sodium 139 Potassium 3.8 Chloride 106 Carbon Dioxide 27.0 Anion Gap 6 BUN 16 Creatinine 0.91 Estim Creat Clear Calc 84.80 Est GFR (MDRD) Af Amer 117 Est GFR (MDRD) Non-Af 96 BUN/Creatinine Ratio 17.6 Glucose 146 H Calcium 8.4 L Radiography Diagnostic Testing: Clinical Impression(s) from Imaging Studies Brain CT 01/18/22 12:30 IMPRESSION: Normal unenhanced CT scan of the brain. Electronically Signed: Kurtis Samuel MD at 13:23 EST , Treatment and Re-Evaluation Narrative: I have personally performed a face to face assessment of the patient and have reviewed the BRUCE Note. I performed a substantive portion of the visit including all aspects of the following. My murillo findings include: History is patient is a 46-year-old male presenting with headache and dizziness. Patient has a normal neurologic exam. He has a hard time describing the dizziness but sounds slightly more vertiginous than lightheadedness. Patient had recent URI symptoms and sinus pressure. A CT of the brain obtained which does not show any acute intracranial process. On my review patient does have partial opacification of the left maxillary sinus. I suspect this is contributing to his sinus headache and possible eustachian tube dysfunction. Exam otherwise unremarkable. Patient is discharged home with decongestion and Flonase. He admits that he has been on Flonase in the past was not currently on any. I do not think he has a central vertigo or any other central process. No signs of meningitis. No overlying erythema or significant tenderness of the sinuses/fever and I do not think antibiotics are indicated at this time. Patient discharged home with instructions follow-up with primary care doctor. Discharge Plan Triage Chief Complaint: Dizziness ED Midlevel Provider: Jackie Vaughan ED Provider: Freida Rueda Dx/Rx/DC Orders Clinical Impression: Sinusitis, acute, Disequilibrium, Sinus headache Instructions: ED Sinusitis (No Antibiotics) Prescriptions: New fluticasone propionate [24 Hour Allergy Relief] 50 mcg/actuation spray,suspension 2 spray intranasal DAILY Qty: 16 0RF Rx Instructions: administer into each nostril phenylephrine HCl 10 mg tablet 10 mg PO Q6H 7 Days Qty: 28 0RF No Action clotrimazole 1 % cream 1 applic topical BID 14 Days Qty: 15 1RF Rx Instructions: apply to all affected areas twice daily for 2 weeks. sertraline 100 mg tablet 150 mg PO DAILY hydroxyzine pamoate 25 MG capsule 25 mg PO TID PRN PRN (Reason: Anxiety) Qty: 10 0RF pantoprazole 40 MG tablet 40 mg PO DAILY divalproex [Depakote] 250 mg Tablet,Delayed Release (Dr/Ec) 250 mg PO BID Primary Care Provider: Janie Valentin Referrals: Janie Valentin MD [Primary Care Provider] - 1 Week if not improving Activity Restrictions/Additional Instructions: Stay well-hydrated and take the decongestant and Flonase as directed. Please follow-up with PCP in 1 week if not improving. Disposition Disposition: Home, Self Care Discharge Date/Time: 01/18/22 15:01
[2022-01-18 12:41] LABS: Absolute Neutrophil Count 1.9 X10^3/uL (2.0-7.7); Basophil# 0.02 X10^3/uL; Basophil% 0.6 % (0-1); Eosinophil# 0.03 X10^3/uL; Eosinophils% 0.9 % (0-5); Hematocrit 43.9 % (40-54); Hemoglobin 14.8 g/dL (13.0-16.5); Lymphocyte % 35.2 % (19-41); Mean Corp Hgb Conc 33.7 g/dL (32-36); Mean Corpuscular Hgb 31.3 pg (27.0-32.0); Mean Corpuscular Volume 92.8 fL (80-94); Mean Platelet Vol. 10.7 fl (6.2-12.0); Monocyte# 0.26 X10^3/uL; Monocyte% 7.6 % (0-10); NRBC Flagged by Analyzer 0 % (0-5); Neutrophil % 55.7 % (47-70); Platelet Count 197 K/mm3 (150-450); RBC Distribution Width SD 41.4 fl (35.1-43.9); Red Blood Count 4.73 M/mm3 (4.6-6.2); White Blood Count 3.4 K/mm3 (4.4-11.0)
[2022-01-18] MEDS: Acetaminophen 325 MG Tablet 650 MG PO (12:48)
[2022-01-18] MEDS: 0.9% Normal Saline 1,000 ML 999 ML IV (12:49)
[2022-01-18 12:51] LABS: Anion Gap 6 (5-15); BUN 16 mg/dL (7-18); BUN/Creat Ratio 17.6 RATIO (10-20); Calcium,Total 8.4 mg/dL (8.5-10.1); Chloride 106 mmol/L (98-107); Creatinine, Serum 0.91 mg/dL (0.70-1.30); EST Glomerular Filtration Rate 96 mL/min (>60); Est Glom Filt Rate - Afr Amer 117 mL/min (>60); Glucose 146 mg/dL (74-106); Potassium 3.8 mmol/L (3.5-5.1); Sodium Level 139 mmol/L (136-145)
[2022-01-18 13:34] VITALS: BP 117/69; PULSE 64; RESP 16; O2SAT 100
[2022-01-18 13:40] VITALS: BP 114/69; BP 115/83; PULSE 61; PULSE 68; PULSE 70
== END 2022-01-18 15:01 | disposition home or self-care (01) ==
PROVIDERS: Physician Assistant; Emergency Provider Emergency Medicine; PCP Student in an Organized Health Care Education/Training Program; Visit Provider Emergency Medicine
DX: J01.90 Acute sinusitis, unspecified (principal); R42 Dizziness and giddiness; R51.9 Headache, unspecified; F41.9 Anxiety disorder, unspecified; Z87.891 Personal history of nicotine dependence
CPT/HCPCS: 70450; 80048; 85025; 93005; 96360; 99284; J7030; A4216

== ENCOUNTER 2022-03-27 19:48 | Emergency (ER) | payer BC, MEDICAID, SELFPAY ==
[2022-03-27 19:48] VITALS: BP 126/71; PULSE 74; RESP 16; TEMP 35.8; O2SAT 99; BMI 19.2
[2022-03-27] MEDS: Meclizine HCl 25 MG Tablet PO (20:19)
[2022-03-27] MEDS: proMETHazine 25 MG Tablet PO (20:19)
--- NOTE | 2022-03-27 20:22 | EX.ED.VIS.HA ---
HPI History of Present Illness Chief Complaint: Headache Narrative Narrative: 46-year-old male presenting with dizziness. He describes this as vertiginous. He states the room is spinning. This started a few hours ago. He has a mild headache. Patient states he took Tylenol for this. Patient has not taken ibuprofen. He states that his primary care physician told him not to take this because he has GERD. Patient denies fever, chills, neck pain or stiffness. Patient has history of vertigo. Patient does not recall when he was given last time he had vertigo. [facility] Medical History Anxiety Anxiety Chest pain Depression Difficulty balancing Fatigue Generalized anxiety disorder with panic attacks GERD (gastroesophageal reflux disease) Knee pain neck and back pain JOSE (obstructive sleep apnea) Rheumatoid arthritis Rheumatoid arthritis Severe headache Shortness of breath Home Medications sertraline 100 mg tablet 150 mg PO DAILY 01/01/19 [History Last Taken Unknown] hydroxyzine pamoate 25 mg capsule 25 mg PO TID PRN PRN Anxiety #10 caps 03/23/19 [Rx Last Taken Unknown] pantoprazole 40 mg tablet,delayed release 40 mg PO DAILY 04/05/19 [History Last Taken Unknown] divalproex 250 mg tablet,delayed release (Depakote) 250 mg PO BID 08/20/20 [History Last Taken Unknown] clotrimazole 1 % topical cream 1 applic topical BID 2 weeks #15 grams 12/10/20 [Rx Last Taken Unknown] fluticasone propionate 50 mcg/actuation nasal spray,suspension (24 Hour Allergy Relief) 2 spray intranasal DAILY #16 grams 01/18/22 [Rx Last Taken Unknown] phenylephrine HCl 10 mg tablet 10 mg PO Q6H 7 days #28 tabs 01/18/22 [Rx Last Taken Unknown] Allergy/AdvReac Type Severity Reaction Status Date / Time propranolol AdvReac Intermediate Nausea Verified 01/18/22 11:30 doxycycline AdvReac Nausea Verified 01/18/22 11:30 gabapentin AdvReac Chest Verified 03/27/22 19:50 tightness metoprolol AdvReac Nausea Verified 01/18/22 11:30 omeprazole [From Prilosec] AdvReac Upset Verified 01/18/22 11:30 Stomach venlafaxine [From Effexor] AdvReac Chest Verified 01/18/22 11:30 tightness Family History Mother Hypertension Surgical History H/O hernia repair Social History Smoking Status: Former smoker Smokeless tobacco user: chewing tobacco alcohol intake: never ROS ROS ED Constitutional Constitutional ED: Denies chills, fever(s) or sweats Eyes Eyes: Denies blurry vision or change in vision ENT ENT ED: Denies ear pain or sore throat Cardiovascular Cardiovascular: Denies chest pain, palpitations or racing heartbeat Respiratory/Chest Respiratory/Chest: Denies cough, dyspnea or sputum Gastrointestinal Gastrointestinal: Denies abdominal pain, constipation, diarrhea, nausea or vomiting Genitourinary Genitourinary ED: Denies dysuria, hematuria or urinary frequency Musculoskeletal Musculoskeletal: Denies arthralgias, myalgias or neck pain Integumentary Denies abscess, Abrasions or rash Neurologic Neurologic: Reports headache(s) and other Details: Dizziness ; Denies paresthesias or weakness Psychiatric Psychiatric: Denies anxiety, depression, suicidal ideation or suicidal thoughts Endocrine Endocrinology: Denies polydipsia or polyuria EXAM Physical Exam Const Vital Signs: 03/27/22 19:48 03/27/22 21:13 Temperature 96.4 F L Temperature Source Temporal Pulse Rate 74 70 Respiratory Rate 16 15 Blood Pressure 126/71 H 111/76 Blood Pressure Mean 89 87 Pulse Ox 99 96 Oxygen Delivery Method Room Air Room Air General Appearance ED: Negative for pallor HEENT Reports normocephalic, head/scalp atraumatic and moist mucous membranes HEENT Narrative: [place]-Hallpike positive. Eyes PERRL and EOMs intact bilaterally Neck no lymphadenopathy and supple Chest Wall inspection of chest normal and palpation of chest normal Resp normal respiratory effort and clear to auscultation bilaterally Auscultation: Negative for rales, rhonchi or wheezes Cardio regular rate and regular rhythm GI normal to inspection, nondistended, normoactive bowel sounds and non-distended Auscultation: normoactive bowel sounds Palpation: soft Narrative: Deferred Extremity normal to inspection General Extremety ED: Yes edema and tenderness General Extremity: edema Neuro oriented x3 and CN's II-XII intact bilaterally Sensorium / Orientation: alert Motor Exam: strength 5/5 throughout Psych mental status grossly normal Attitude: No agitated Skin no rashes or lesions noted and no wounds General Skin Exam: Negative for jaundice or pallor MDM MDM MDM Narrative Medical decision making narrative: Patient with vertiginous dizziness. Positive [place]-Hallpike on exam. Patient with history of vertigo. Patient given meclizine and Phenergan. Will reevaluate. I do not believe needs blood work or imaging. Patient reevaluated. Patient feels significantly better now. He will be discharged home with meclizine. Follow-up with ENT.. Turn as needed. Impression: 1. Benign positional Discharge Plan Triage Chief Complaint: Headache Other Complaint: Dizziness ED Provider: Estiven Banerjee Dx/Rx/DC Orders Instructions: ED BPV Vertigo Prescriptions: No Action clotrimazole 1 % cream 1 applic topical BID 14 Days Qty: 15 1RF Rx Instructions: apply to all affected areas twice daily for 2 weeks. sertraline 100 mg tablet 150 mg PO DAILY hydroxyzine pamoate 25 MG capsule 25 mg PO TID PRN PRN (Reason: Anxiety) Qty: 10 0RF pantoprazole 40 MG tablet 40 mg PO DAILY divalproex [Depakote] 250 mg Tablet,Delayed Release (Dr/Ec) 250 mg PO BID fluticasone propionate [24 Hour Allergy Relief] 50 mcg/actuation spray,suspension 2 spray intranasal DAILY Qty: 16 0RF Rx Instructions: administer into each nostril phenylephrine HCl 10 mg tablet 10 mg PO Q6H 7 Days Qty: 28 0RF Primary Care Provider: Janie Valentin Referrals: Janie Valentin MD [Primary Care Provider] - Disposition Disposition: Home, Self Care
[2022-03-27 21:13] VITALS: BP 111/76; PULSE 70; RESP 15; O2SAT 96
[2022-03-27 22:15] VITALS: BP 110/76; PULSE 79; RESP 18; O2SAT 96
== END 2022-03-27 22:15 | disposition home or self-care (01) ==
PROVIDERS: Emergency Provider Student in an Organized Health Care Education/Training Program; PCP Student in an Organized Health Care Education/Training Program; Visit Provider Student in an Organized Health Care Education/Training Program
DX: R42 Dizziness and giddiness (principal); Z87.891 Personal history of nicotine dependence; R51.9 Headache, unspecified; K21.9 Gastro-esophageal reflux disease without esophagitis; G47.33 Obstructive sleep apnea (adult) (pediatric); F32.A Depression, unspecified; F41.9 Anxiety disorder, unspecified
CPT/HCPCS: 99283; A4216

== ENCOUNTER → 2022-05-20 | Outpatient (CLI) | payer MEDICAID, SELFPAY ==
--- NOTE | 2022-05-20 07:53 | NM_ITS ---
CLINICAL: 46-year-old male with history of epigastric pain. RADIONUCLIDE HEPATOBILIARY SCINTIGRAPHY COMPARISON: None available FINDINGS: Following the intravenous administration of 5.2 mCi of 99m Tc Mebrofenin, hepatobiliary images reveal: 1. Relatively prompt and homogeneous radiopharmaceutical concentration is noted by a normal sized liver. No parenchymal defects are identified. 2. Gallbladder activity is identified at approximately 26 minutes post radiopharmaceutical administration. 3. Small intestinal tract is observed at 11 minutes following tracer injection. 4. Washout of the radiopharmaceutical by the hepatic parenchyma appears qualitatively normal. 5. There is scintigraphic evidence of pre-CCK duodenal gastric reflux. Cholecystokinin (0.02 ug/kg) was administered intravenously over a 30-minute period. The post CCK gallbladder ejection fraction calculated at 20 minutes following Cholecystokinin administration was noted to be 22.0 % (normal greater than 35%). There is scintigraphic evidence of continued post CCK duodenal gastric reflux. VA/Hepatobilliary Imaging IMPRESSION: 1. ABNORMAL 99m Tc Mebrofenin hepatobiliary imaging examination with Cholecystokinin. A. A gallbladder ejection fraction calculated to be less than 35% following the administration of Cholecystokinin is consistent with the presence of functional hepatobiliary disease (gallbladder and/or sphincter of Oddi dyskinesia) and/or organic hepatobiliary disease (chronic acalculous cholecystitis and/or cystic duct syndrome) in patients with intermediate to high pretest likelihoods of hepatobiliary illness. (Kathy Keller et al, Journal of Nuclear Medicine 32:1695, 1990). B. There is scintigraphic evidence of pre-post CCK duodenal-gastric reflux as defined above. (Kanchan et al, Nucl Med Gabriela Rika Press pg. 35, 1980). Electronically Signed: Roni Infante, at 8:33 EDT ,
== END | disposition home or self-care (01) ==
PROVIDERS: PCP Nurse Practitioner Family; Visit Provider Nurse Practitioner Family
DX: R10.13 Epigastric pain (principal); K22.70 Barrett's esophagus without dysplasia; R10.11 Right upper quadrant pain; K21.9 Gastro-esophageal reflux disease without esophagitis
CPT/HCPCS: 78226; A9537; J2805

== ENCOUNTER → 2023-09-18 | Outpatient (CLI) | payer MEDICAID, SELFPAY ==
--- NOTE | 2023-09-18 08:48 | NEURO ---
NCS and/or EMG Patient Report Ordering Doctor: Attila Sanz DATE OF SERVICE: 09/18/23 Clinical Summary: 48 year old male patient with symptoms of numbness/tingling in the fingers of both hands and both elbows. A bilateral upper extremity EMG/NCS was performed. Nerve Conduction Studies Summary: The right ulnar-D5 SNAP distal latency was mildly prolonged. The right ulnar-ADM CMAP distal latency was prolonged. There was right ulnar motor conduction velocity slowing across the elbow greater than 10 m/s. Otherwise, nerve conduction studies in the bilateral upper extremities were within normal ranges. Needle Examination Summary: Needle examination of select muscles of the bilateral upper extremities was normal. Impression: There is electrodiagnostic evidence of the following - 1) Right ulnar mononeuropathy at the elbow, with demyelinating features There is no electrodiagnostic evidence of a left ulnar mononeuropathy. There is no electrodiagnostic evidence of a right/left cervical radiculopathy. Multi Select Codes Neurology Neurology Interp Codes: 77059-10 Musc test done w/n test comp (interp) (2) and 98512-36 Nrv cndj test 13/> studies (interp)
== END | disposition home or self-care (01) ==
LOC: PSN 06:54
PROVIDERS: PCP Nurse Practitioner Family; Referring Provider Orthopaedic Surgery Orthopaedic Surgery of the Spine; Visit Provider Orthopaedic Surgery Orthopaedic Surgery of the Spine
DX: G56.03 Carpal tunnel syndrome, bilateral upper limbs (principal); G56.23 Lesion of ulnar nerve, bilateral upper limbs
CPT/HCPCS: 95886; 95913

== ENCOUNTER → 2023-09-29 | Outpatient (CLI) | payer MEDICAID, SELFPAY ==
--- NOTE | 2023-09-29 10:20 | MRI_ITS ---
EXAM: MR CERVICAL SPINE WITHOUT INTRAVENOUS CONTRAST CLINICAL INDICATION: neck pain TECHNIQUE: Multiplanar and multisequence MR images of the cervical spine without intravenous contrast were performed. COMPARISON: No relevant prior studies available. FINDINGS: VERTEBRAE: Alignment of the cervical vertebral bodies is normal. Normal vertebral body height. No bone marrow edema. Normal craniocervical junction and cervicothoracic junction. No spondylolisthesis. There is preservation of the normal cervical lordosis. SPINAL CORD: Unremarkable in signal and morphology. SOFT TISSUES: Normal. No prevertebral soft tissue swelling. LYMPH NODES: Normal. There is no cervical adenopathy. DISCS/SPINAL CANAL/NEURAL FORAMINA: C2-C3: Normal. Normal disc height and morphology. Normal spinal canal. Normal neuroforamina. C3-C4: Left posterior lateral disc osteophyte complex causes mild impression on the thecal sac and mild narrowing of the left neural foramen. No spinal stenosis. Normal left neural foramen. C4-C5: Normal. Normal disc height and morphology. Normal spinal canal. Normal neuroforamina. C5-C6: Mild disc space narrowing. No disc protrusion. Right-sided uncinate joint hypertrophy results in narrowing of the adjacent neural foramen. Normal spinal canal and right neural foramen. C6-C7: Mild disc space narrowing. Right posterior lateral disc protrusion results in narrowing of the right neural foramen. Intact spinal canal and left neural foramen. C7-T1: Normal. Normal disc height and morphology. Normal spinal canal. Normal neuroforamina. MRI/Spine Cervical (Routine) IMPRESSION: Mild multilevel disc degeneration without spinal stenosis. Neural foraminal narrowing as described. Electronically Signed: Yung Garcia MD at 16:05 EDT ,
== END | disposition home or self-care (01) ==
LOC: MRI 10:17
PROVIDERS: PCP Nurse Practitioner Family; Referring Provider Orthopaedic Surgery Orthopaedic Surgery of the Spine; Visit Provider Orthopaedic Surgery Orthopaedic Surgery of the Spine
DX: M54.12 Radiculopathy, cervical region (principal)
CPT/HCPCS: 72141

== ENCOUNTER 2024-01-03 10:32 | Day surgery (SDC) | payer MEDICAID, SELFPAY ==
[2024-01-03] VITALS (7 sets, daily range): BP systolic 93–117; BP diastolic 65–85; PULSE 70–78; RESP 16; TEMP 36.4–37.1; O2SAT 95–99; BMI 18.5
--- NOTE | 2024-01-03 11:49 | PCM.PRE.AN2 ---
ASA Classification* ASA Classification ASA Classification: 2 Assessment & Plan Anesthesia* Anesthesia Assessment Anesthesia Assessment: Discussed sedation and/or anesthesia options, risks, benefits, and alternatives with patient/parents/legal guardian/POA. Questions invited. The patient/parents/legal guardian/POA seems to understand and agrees to proceed with anesthesia plan. Reviewed the physical assessment, medical history, allergy history and patient home medications list prior to surgery/procedure/anesthetic and documented any changes. Performed airway and anesthesia risk assessments. Anesthesia Type Anesthesia Type: MAC (GA bkup) Anesthesia Focused Assessment* Airway Assessment Mouth opens: >3 cm Mallampati Score: II Focused Labs Anesthesia Preop lab: CBC WBC 3.4 K/mm3 (4.4-11.0) L 01/18/22 11:45 RBC 4.73 M/mm3 (4.6-6.2) 01/18/22 11:45 Hgb 14.8 g/dL (13.0-16.5) 01/18/22 11:45 Hct 43.9 % (40-54) 01/18/22 11:45 Plt Count 197 K/mm3 (150-450) 01/18/22 11:45 CHEMISTRY Potassium 3.8 mmol/L (3.5-5.1) 01/18/22 11:45 Sodium 139 mmol/L (136-145) 01/18/22 11:45 BUN 16 mg/dL (7-18) 01/18/22 11:45 Creatinine 0.91 mg/dL (0.70-1.30) 01/18/22 11:45 Glucose 146 mg/dL (74-106) H 01/18/22 11:45 TSH 2.16 uIU/mL (0.358-3.74) 01/18/18 06:58 COAG Pre-Assessment Diagnosis/Proposed Procedure Planned Operative Procedure(s): (R) Right ulnar nerve release and Transpostition Anesthesia History Anesthesia History - telesales representative: Anesthesia History - telesales representative Hx Hospitalization No 12/08/23 14:49 Any Problems With Anesthesia No 12/08/23 14:49 Cholinesterase deficiency No 12/08/23 14:49 You/Your Family Experience No 12/08/23 14:49 fever (hyperthermia) with Relationship Recent Exposure to Contagious Disease Does patient have nerve No 12/08/23 14:49 stimulator Patient instructed to have device shut off --Does patient have Pacemaker or ICD? When Was Last Pacemaker Check QUESTION #4 FULL TEXT: You/Your Family Experience fever (hyperthermia) with Anesthesia Last Oral Intake Last Oral intake: Last Oral Intake NPO since Meds taken in AM with sips of water? Meds patient instructed to take am of surgery PONV PONV - telesales representative: PONV - telesales representative Female No 12/08/23 14:49 HX of Motion Sickness No 12/08/23 14:49 HX of N/V After Surgery No 12/08/23 14:49 Non-Smoker Yes 12/08/23 14:49 Duration of Surgery greater No 12/08/23 14:49 than 60 minutes Number of Risk Factors 1 12/08/23 14:49 PONV Score Low Risk 12/08/23 14:49 Height & Weight Height & Weight: Anesthesia: Height & Weight Height 5 ft 9 in 08/25/23 09:22 Respiratory Assessment Respiratory Assessment - telesales representative: Respiratory Tract Infection Hx - telesales representative Hx Respiratory Tract Infection No 12/08/23 14:49 STOP Sleep Apnea STOP Sleep Apnea - telesales representative: STOP Sleep Apnea - telesales representative Hx Hypertension No 12/08/23 14:49 Hx Sleep Apnea No 12/08/23 14:49 CPAP BIPAP Do you snore loudly (louder No 12/08/23 14:49 than talking or can be heard Do you often feel tired/ No 12/08/23 14:49 fatigued/ sleepy during daytime? Has anyone observed you stop No 12/08/23 14:49 breathing during sleep? STOP Results Negative 12/08/23 14:49 QUESTION #5 FULL TEXT : Do you snore loudly (louder than talking or can be heard through closed doors)? Tobacco Use History Tobacco Use History - telesales representative: Tobacco Use History - telesales representative Tobacco Use Smoking Status Former smoker 12/08/23 14:49 Hx Tobacco Use No 12/08/23 14:49 Years Smoking Packs Smoked per Day Smoking Cessation Date was Yes - quit smoking within 15 12/08/23 14:49 within the last 15 years years Hx Smoking Cessation Date 08/21/11 12/08/23 14:49 Hx Smoking Cessation Counseling Hematologic Medial History Hematologic Hx - telesales representative: Hematologic Medical Hx - senior account clerk Hx of Blood Transfusion No 12/08/23 14:49 Hx of Transfusion in last 3 No 12/08/23 14:49 Months Date of Last Transfusion (if within last 3 months) Ever experience any problems No 12/08/23 14:49 with transfusion(s)? Specify any problems Hx of Preganancy in last 3 N/A 12/08/23 14:49 Months Nurse Filling Out Transfusion NBUCHER 12/08/23 14:49 & Questions: Date: 12/08/23 12/08/23 14:49 Time: 14:50 12/08/23 14:49 Patient unable to answer at this time (ie. confused, unrespo /Reproduction History /Reproductive History - telesales representative: /Reproductive Hx- telesales representative Hx Now Gestational Age (in weeks): EDC: Hx Hx Para Hx Section SAB Active Medications Active Medications: Current Medications Generic Name Dose Route Start Last Admin Trade Name Freq PRN Reason Stop Dose Admin Cefazolin Sodium 2 gm/ N/A 20 mls @ 400 mls/hr 01/03/24 13:15 IV 01/03/24 13:17 PREOP ONE [facility] Medical History Wears glasses Anxiety Marijuana use History of steroid therapy Arthritis Migraine headache Former smoker History of echocardiogram History of stress test RUQ abdominal pain Barretts esophagus Epigastric pain JOSE (obstructive sleep apnea) Generalized anxiety disorder with panic attacks GERD (gastroesophageal reflux disease) Depression Chest pain Anxiety neck and back pain Difficulty balancing Knee pain Severe headache Fatigue Shortness of breath Home Medications ?Medication ?Instructions ?Recorded ?Last Taken ?Type pantoprazole 40 mg tablet,delayed 40 mg PO DAILY 04/05/19 Unknown History release fluticasone propionate 50 2 spray intranasal DAILY #16 grams 01/18/22 Unknown Rx mcg/actuation nasal spray,suspension (24 Hour Allergy Relief) famotidine 40 mg tablet 40 mg PO DAILY PRN GERD 05/25/22 Unknown History sertraline 100 mg tablet 200 mg PO DAILY 08/25/23 Unknown History baclofen 10 mg tablet 10 mg PO DAILY PRN muscle spasm 10/06/23 Unknown History clotrimazole 1 % topical cream 1 applic topical BID PRN pain 12/08/23 Unknown History prednisone 20 mg tablet 20 mg PO BID PRN inflammation 12/08/23 Unknown History Allergy/AdvReac Type Severity Reaction Status Date / Time ketorolac (From Toradol) Allergy Abd Verified 12/08/23 14:45 cramps/diarrhea hydrocodone (From Vicodin) AdvReac Intermediate Other Verified 12/08/23 14:45 propranolol AdvReac Intermediate Nausea Verified 12/08/23 14:45 doxycycline AdvReac Nausea Verified 12/08/23 14:45 gabapentin AdvReac Chest Verified 12/08/23 14:45 tightness metoprolol AdvReac Nausea Verified 12/08/23 14:45 omeprazole (From Prilosec) AdvReac Upset Verified 12/08/23 14:45 Stomach venlafaxine (From Effexor) AdvReac Chest Verified 12/08/23 14:45 tightness Family History Mother Hypertension Cancer Father Myocardial infarction Surgical History History of esophagogastroduodenoscopy (EGD) History of colonoscopy History of cholecystectomy H/O vasectomy H/O hernia repair Social History Smoking Status: Former smoker Smokeless tobacco user: chewing tobacco alcohol intake: never Review of Systems (Anesthesia) ROS Narrative System reviewed and no additional complaints, except as documented.
--- NOTE | 2024-01-03 12:23 | HP.PCM_ITS ---
History and Physical MR#: [id number] Acct: [id number] Name: LOU RICHARDS Rep #: [id number] : 1975 Provider: Dr. Attila Sanz MD Age/Sex: 48/M Location: [facility] [place].[facility] Status: Signed Intake Vital Signs 08/24/2408:22 Height 5 ft 9 in Intake Visit Reasons: BILATERAL HANDS Chief Complaint: bilateral hand pain and weakness Accompanied by: Self Is patient in pain?: Yes Pain scale (1-10): 6 Allergies ketorolac (From Toradol) Allergy (Verified 11/16/23 08:06) Abd cramps/diarrheapropranolol Adverse Reaction (Intermediate, Verified 11/16/23 08:06) Nauseadoxycycline Adverse Reaction (Verified 11/16/23 08:06) Nauseagabapentin Adverse Reaction (Verified 11/16/23 08:06) Chest tightnessmetoprolol Adverse Reaction (Verified 11/16/23 08:06) Nauseaomeprazole (From Prilosec) Adverse Reaction (Verified 11/16/23 08:06) Upset Stomachvenlafaxine (From Effexor) Adverse Reaction (Verified 11/16/23 08:06) Chest tightness Medications ?Medication ?Instructions ?Recorded ?Confirmed ?Type hydroxyzine pamoate 25 mg capsule 25 mg PO TID PRN PRN Anxiety #10 03/23/19 11/16/23 Rx caps pantoprazole 40 mg tablet,delayed 40 mg PO DAILY 04/05/19 11/16/23 History release clotrimazole 1 % topical cream 1 applic topical BID 2 weeks #15 12/10/20 11/16/23 Rx grams fluticasone propionate 50 2 spray intranasal DAILY #16 grams 01/18/22 11/16/23 Rx mcg/actuation nasal spray,suspension (24 Hour Allergy Relief) famotidine 40 mg tablet 40 mg PO DAILY 05/25/22 11/16/23 History lorazepam 1 mg tablet 1 mg PO TID PRN 05/25/22 11/16/23 History sertraline 100 mg tablet 200 mg PO DAILY 08/25/23 11/16/23 History baclofen 10 mg tablet 10 mg PO DAILY PRN 10/06/23 11/16/23 History metoprolol succinate 25 mg 25 mg PO QDAY 10/06/23 11/16/23 History tablet,extended release 24 hr PFSH Medical History RUQ abdominal pain Barretts esophagus Epigastric pain JOSE (obstructive sleep apnea) Generalized anxiety disorder with panic attacks GERD (gastroesophageal reflux disease) Depression Chest pain Anxiety neck and back pain Difficulty balancing Knee pain Severe headache Fatigue Shortness of breath Surgical History H/O vasectomy H/O hernia repair Family History Mother Hypertension CancerFather Myocardial infarction Social History Smoking Status: Former smoker Smokeless tobacco user: chewing tobacco alcohol intake: never HPI BILATERAL HANDS Details: This documentation accurately reflects the service provided and the decisions made by me, Dr. Attila Sanz MD 11/16/23 0712. Part of today?s visit was documented by Brenda LYNCH, acting as scribe. LOU RICHARDS is a 48 year old M here today for bilateral hand pain and weakness. He is wanting to discuss cubital tunnel release anf thinks he would want to do the right side first. He states that he has tried positioning and bracing for the cubital tunnel syndrome but had hardly any relief with it. He rates his pain today a 6/10. He has numbness and tingling in both hands. Says that the numbness starts by his elbow and then goes into his ring and little finger. Says that he has had dexterity issues with this numbness. Received neck epidural injections by pain management with some relief. Continues to have difficulty with weakness and numbness mostly in the ulnar aspect of the right hand, but also has it on the left. Ortho Exam General General: Yes no acute distress Neurologic: Yes alert and Yes oriented x3 Spine SPINE TESTING CERVICAL THORACIC LUMBAR Musculoskeletal Strength 0=absent - 5=normal Details: Neurologic motion of upper extremity shows 5 x 5 power normal shows normal sensations in all dermatomes. Examination of both hands shows negative carpal tunnel compression test, negative Tinel's sign, negative Phalen test. Tinel sign is positive at the elbow for the ulnar nerve on the left. Right arm ulnar nerve subluxation. Wasting seen in bilateral thenar eminences, worse on left and also left dorsal first interosseous muscle space. 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 Clinically he seems to have bilateral thenar wasting suggestive of carpal tunnel syndrome, left worse than right dorsal interosseous wasting'suggestive of ulnar symptoms, and predominant right ulnar numbness suggestive of right cubital tunnel syndrome. He also has right ulnar nerve instability and full flexion of elbow. Patient continues to have numbness and tingling in the bilateral hands and wishes to discuss his surgical options today. He has exhausted nonsurgical treatments with elbow extension bracing, PT, pain management. At this point, he wishes to proceed with surgery. Discussed cubital tunnel release with transposition of nerve on the right side. All risk benefits and alternatives were discussed in detail. Possibility for need of carpal tunnel release and left-sided cubital tunnel release in the future was discussed. Our office will call to schedule the surgery which would be right ulnar nerve release with anterior transposition. He will follow up with his PCP for clearance and we will see him back for a preop appointment once his surgery is scheduled. Patient is in agreement.
[2024-01-03] MEDS: Cefazolin 2 GM in Syringe IV (12:40)
[2024-01-03] MEDS: Lidocaine 1% (30 ml sdv) 30 ML Vial (13:41)
[2024-01-03] MEDS: Ropivacaine 0.5% 30 ML Vial (13:41)
--- NOTE | 2024-01-03 13:50 | PCM.POST.ANE ---
Anesthesia: Postop Eval I Current Vital Signs Temperature: 97.6 F Pulse Rate: 70 Blood Pressure: 93/65 Respiratory Rate: 16 Pulse Ox: 96 Oxygen Delivery Method: Room Air Assessment Airway patent: Yes Spontaneous unlabored respirations: Yes Mental status: Awake and Calm nausea: No Vomiting: No Anesthesia Complication: No Fluid Hydration Crystalloid volume administer (ml): 10 Total IV fluid infused: 10 Progress Note Anesthesia document: Postop Eval 1 completed: Yes
--- NOTE | 2024-01-03 14:03 | PCM.OPRPT ---
Operative Report (Standard) Operative Information Surgery/Procedure Performed: Right cubital tunnel release, ulnar nerve anterior transposition Surgeon: Attila Sanz Date of Procedure: 01/03/24 Procedure Start Time: 12:52 Procedure Stop Time: 13:43 Pre-Operative Diagnosis: Right cubital tunnel syndrome, snapping ulnar nerve syndrome Post-Operative Diagnosis: Same Select all DRAINS/GRAFTS/IMPLANTS that apply: None Type of Anesthesia: Local MAC Estimated Blood Loss: 5 cc Specimen collected: No Description of surgery: ATTENDING SURGEON: Attila Sanz MD MERCHANDISING COORDINATOR: none PREOPERATIVE DIAGNOSIS: Right cubital tunnel syndrome, snapping ulnar nerve syndrome. POSTOPERATIVE DIAGNOSIS: Same PROCEDURE PERFORMED: Right open cubital tunnel release, anterior transposition of ulnar nerve. CPT 91063 INDICATIONS FOR THE PROCEDURE: The patient is a 48-year-old gentleman, who presents with numbness in ulnar fingers and difficulty with dexterity, clinically showing evidence of snapping ulnar nerve and and EMG, consistent with cubital tunnel syndrome. All conservative management and failed. After a discussion of the risks and benefits of the procedure, consent was signed for the procedure. DETAILS OF PROCEDURE: Patient was met in the preoperative holding area and the correct side was marked as the operative extremity. The patient was brought back to the operative suite and a hand table was placed. A timeout was performed which correctly identified the procedure to be performed, the operative site as well as the team members. Next, general anesthesia was induced. tourniquet was applied in the right upper arm. Patient was prepped and draped in usual sterile fashion. Incision was taken in a longitudinal fashion going through the midpoint between the medial epicondyle of the humerus and olecranon process going proximally and distally in a curved fashion. Sharp dissection was performed with scissors and presumed branches of the antecubital nerves were preserved. The left ulnar nerve was identified just proximal to the cubital tunnel. Brie scissors were carefully used to open the fascial covering over the ulnar nerve and this release was carried down proximally along the medial intermuscular septum up to 3 inches above the elbow. Next the cubital tunnel retinaculum was released. Distally Chong ligament was released and the nerve was freed from any tight spaces about 2 inches distal to the elbow. Finger was then passed along the ulnar nerve proximally and distally to make sure there is no tight bands beyond the incision proximally and distally. Once adequate decompression of the ulnar nerve was performed, the elbow was flexed and extended. Ulnar nerve showed significant snapping with full flexion at the medial epicondyle. The nerve was carefully mobilized completely from the cubital tunnel and transposed anterior to the medial epicondyle. A pocket was created and the deep fascia covering the pronator flexor muscle mass. Subcutaneous fascia was loosely closed over this pocket. The elbow was again ranged to full flexion extension to make sure that the ulnar nerve glide without any kinks or adhesions or acute angles through this new soft tissue tunnel. Adequate irrigation was performed. Tourniquet was released. Hemostasis was achieved. Closure was done in layers with 3-0 Vicryl for subcutaneous tissue and 4-0 Monocryl for the skin. Steri-Strips were applied. Gauze and Kerlix dressing and Jadiel bandage was applied. Next, the patient was transported to the PACU in stable condition. I was present for the entire case. ESTIMATED BLOOD LOSS: Minimal. COMPLICATIONS: None. DISPOSITION: The patient will be discharged home when pain is controlled from PACU. Follow up in 2 weeks. Avoid elbow flexion. Light weightbearing restrictions. Construction Producer Damaris Wells PA-C. My physician medical billing assistant was a vital part of this case. They were important in appropriate retraction during the case, and protection of soft tissues during the procedure. Their intimate knowledge of the case and my steps aided in safe and expedient completion of the procedure as well as appropriate position of the patient during the surgery. They were also vital in assisting with closure under my direct supervision. Surgical Findings: See operative note Ore Smelter supervisor component assembler: Yes Self Sealing Fuel Tank Builder: Damaris Wells Tasks completed by foundation assistant: Closing and Retracting Complications Complications: No Procedures Musculoskeletal [id number]: Other Procedure See Report
--- NOTE | 2024-01-03 16:10 | POSTOPAN2_ITS ---
Anesthesia Postop Eval I Sum Postop Eval Completion status Anesthesia document: Postop Eval 1 completed: Yes Anesthesia Postop Eval I Summary Anesthesia Postop Eval I Summary: Anesthesia Postop Eval I: Assessment Summary Airway patent Yes 01/03/24 13:51 [email or web address] [email or web address] Spontaneous unlabored Yes 01/03/24 13:51 RELIEF [email or web address] respirations Mental status Awake,Calm 01/03/24 13:51 [email or web address] [email or web address] nausea No 01/03/24 13:51 RELIEF [email or web address] Vomiting No 01/03/24 13:51 RELIEF MASTER.[email or web address] Anesthesia Postop Eval I: Fluid Summary Crystalloid volume administer 10 01/03/24 13:51 RELIEF [email or web address] (ml) Colloids volume administered ( ml) Blood Product volume administered (ml) Total IV fluid infused 10 01/03/24 13:51 RELIEF MASTER.[email or web address] Anesthesia Postop Eval I: Summary Notes Anesthesia Complication No 01/03/24 13:51 RELIEF MASTER.CONRAD Anesthesia Complication Comment: Post-operative progress note Anesthesia: Postop Eval II Evaluation Mental status: Awake and Calm Pain Level: 1 nausea: No Vomiting: No Complications Anesthesia Complication: No
--- NOTE | 2024-01-03 16:10 | PCM.POSTANE2 ---
Anesthesia Postop Eval I Sum Postop Eval Completion status Anesthesia document: Postop Eval 1 completed: Yes Anesthesia Postop Eval I Summary Anesthesia Postop Eval I Summary: Anesthesia Postop Eval I: Assessment Summary Airway patent Yes 01/03/24 13:51 CONCERT [email or web address] Spontaneous unlabored Yes 01/03/24 13:51 CONCERT [email or web address] respirations Mental status Awake,Calm 01/03/24 13:51 CONCERT [email or web address] nausea No 01/03/24 13:51 CONCERT [email or web address] Vomiting No 01/03/24 13:51 CONCERT MANAGER.[email or web address] Anesthesia Postop Eval I: Fluid Summary Crystalloid volume administer 10 01/03/24 13:51 CONCERT [email or web address] (ml) Colloids volume administered ( ml) Blood Product volume administered (ml) Total IV fluid infused 10 01/03/24 13:51 CONCERT MANAGER.[email or web address] Anesthesia Postop Eval I: Summary Notes Anesthesia Complication No 01/03/24 13:51 CONCERT MANAGER.CONRAD Anesthesia Complication Comment: Post-operative progress note Anesthesia: Postop Eval II Evaluation Mental status: Awake and Calm Pain Level: 1 nausea: No Vomiting: No Complications Anesthesia Complication: No
== END 2024-01-03 15:15 | disposition home or self-care (01) ==
LOC: SDC 10:33 → AC 10:35
PROVIDERS: PCP Nurse Practitioner Family; Referring Provider Orthopaedic Surgery Orthopaedic Surgery of the Spine; Visit Provider Orthopaedic Surgery Orthopaedic Surgery of the Spine
PROC: (CPT 64721; principal; 2024-01-03 13:00)
DX: G56.23 Lesion of ulnar nerve, bilateral upper limbs (principal); M06.9 Rheumatoid arthritis, unspecified; G56.03 Carpal tunnel syndrome, bilateral upper limbs; Z87.891 Personal history of nicotine dependence; R29.898 Other symptoms and signs involving the musculoskeletal system; F41.0 Panic disorder [episodic paroxysmal anxiety]; Z87.19 Personal history of other diseases of the digestive system; Z90.49 Acquired absence of other specified parts of digestive tract; F12.90 Cannabis use, unspecified, uncomplicated
CPT/HCPCS: 64718; 01710; A4216; J2405

== ENCOUNTER → 2024-04-03 | Outpatient (CLI) | payer MEDICAID, SELFPAY ==
--- NOTE | 2024-04-03 10:15 | RAD_ITS ---
PROCEDURE: LUMBAR SPINE 2 OR 3 VIEWS REASON FOR EXAM: Spondylosis. TECHNIQUE: 2 view(s) of the lumbar spine COMPARISON: None. FINDINGS: Normal lumbar vertebral heights. No evidence of fracture. Disc space heights are preserved. Normal alignment. No spondylolisthesis. RAD/Lumbar Spine 2 or 3 Views IMPRESSION: NEGATIVE LUMBAR SPINE. Reading Location: [facility]
== END | disposition home or self-care (01) ==
LOC: RAD 10:06
PROVIDERS: PCP Nurse Practitioner Family; Referring Provider Anesthesiology; Visit Provider Anesthesiology
DX: M47.816 Spondylosis without myelopathy or radiculopathy, lumbar region (principal)
CPT/HCPCS: 72100

== ENCOUNTER → 2024-05-20 | Outpatient (CLI) | payer MEDICAID, SELFPAY ==
--- NOTE | 2024-05-20 12:00 | MRI_ITS ---
EXAM: Noncontrast MRI of the lumbar spine. CLINICAL HISTORY: Lumbar spondylosis. Chronic low back pain for several years. No specific injury or prior lumbar spine surgery COMPARISON: Lumbar spine radiographs 04/03/2024. No prior lumbar spine MRI. TECHNIQUE: Multi planar, multisequence MRI images of the lumbar spine were obtained without IV contrast. FINDINGS: The study assumes a presence of 5 lumbar type, [id number] vertebral bodies. The lumbar vertebral bodies are normal in height, alignment, and marrow signal. No acute fracture, focal subluxation, or abnormal marrow replacement process. The conus terminates at T12-L1. The included lower spinal cord and lower thoracic intervertebral disc spaces are unremarkable. The included retroperitoneal and paraspinal soft tissues show no specific abnormality. Included portions of the sacrum and SI joints are unremarkable. L1-2: No focal disc herniation, significant central spinal canal, or neural foraminal narrowing. Minimal degenerative facet changes. L2-3: No focal disc herniation, significant central spinal canal, or neural foraminal narrowing. Mild degenerative facet changes. L3-4: Minimal disc bulge flattens the ventral thecal sac, without focal disc herniation or significant central spinal canal narrowing. Mild bilateral neural foraminal narrowing and mild degenerative facet changes. L4-5: Mild disc bulge slightly indents the ventral thecal sac, without focal disc herniation or significant central spinal canal narrowing. [id number] bilateral neural foraminal narrowing and mild degenerative facet changes. L5-S1: No focal disc herniation, significant central spinal canal, or neural foraminal narrowing. Mild degenerative facet changes. MRI/Spine Lumbar (Routine) IMPRESSION: No acute bony abnormality of the lumbar spine. No abnormal marrow replacement process. Mild disc bulges in the lumbar spine without large focal disc herniation or sig nificant central spinal canal narrowing. Diffuse degenerative facet changes. [id number] bilateral neural foramina l narrowing at the L5-S1 level. Reading Location: [facility]
== END | disposition home or self-care (01) ==
PROVIDERS: PCP Nurse Practitioner Family; Referring Provider Anesthesiology; Visit Provider Anesthesiology
DX: M47.816 Spondylosis without myelopathy or radiculopathy, lumbar region (principal)
CPT/HCPCS: 72148

== ENCOUNTER 2024-06-14 15:15 | Outpatient (RCR) | payer MEDICAID, SELFPAY | END 2024-06-14 15:15 | disposition home or self-care (01) | LOC: OT 15:15 | PROVIDERS: PCP Nurse Practitioner Family; Referring Provider Student in an Organized Health Care Education/Training Program; Visit Provider Student in an Organized Health Care Education/Training Program | DX: Z98.890 Other specified postprocedural states (principal) ==